=== PATIENT | male | born 1950 | race American Indian/Alaskan Native ===

== ENCOUNTER 2022-06-18 15:52 | Inpatient (IN) | payer MEDICARE, OTHER ==
[2022-06-18] MEDS ORDERED: SODIUM CHLORIDE 0.9% 1000 ML 1,000 ML IV ONE ×2 (16:59→22:35)
--- NOTE | 2022-06-18 17:07 | Emergency Department Report ---
ED Altered Mental Status HPI - General Chief Complaint: Altered Mental Status Stated Complaint: CONFUSION PUI?: No Time Seen by Provider: 06/18/22 16:55 Source: EMS Mode of arrival: Stretcher Limitations: Altered Mental Status - History of Present Illness Initial Comments: Patient is a 71-year-old male that presents emergency room via EMS for altered mental status and confusion. Patient is currently at [facility] for alcohol abuse and alcohol detox. Patient has been there for 5 days. Per EMS and the staff member this with the patient, the patient has been confused the entire time. However the patient is now not eating or drinking. Patient has not had alcohol for 5 days. Patient has had Ativan as needed while in the facility. Patient is also having scrotal swelling. Patient is nonverbal at this time. Patient has been nonverbal the entire time he has been at [facility]. Patient presents from [facility] and presents with a chart. Chart reviewed. Med list reviewed. Patient is currently taking Benadryl, Ativan, Cogentin.. Patient has a history of depression, dementia, alcohol abuse, hallucinations MD Complaint: altered mental status, confusion -: Gradual Severity: severe Consistency of Symptoms: constant Context: alcohol abuse - Related Data Allergies Allergy/AdvReac Type Severity Reaction Status Date / Time No Known Allergies Allergy Unverified 06/18/22 16:46 ED Review of Systems ROS: Stated complaint: CONFUSION Other details as noted in HPI Comment: Unobtainable due to pts medical conditions ED Past Medical Hx - Past Medical History Previous Medical History?: Yes Hx Psychiatric Treatment: Yes Hx Dementia: Yes - Surgical History Past Surgical History?: No - Family History Family history: no significant - Social History Smoking Status: Unknown if ever smoked Substance Use Type: Alcohol ED Physical Exam - General Limitations: Altered Mental Status, Physical Limitation General appearance: alert, in no apparent distress - Head Head exam: Present: atraumatic, normocephalic - Eye Eye exam: Present: normal appearance, PERRL Pupils: Present: normal accommodation - ENT ENT exam: Present: mucous membranes dry - Neck Neck exam: Present: normal inspection - Respiratory Respiratory exam: Present: normal lung sounds bilaterally. Absent: respiratory distress, wheezes, rales, rhonchi, stridor, chest wall tenderness, accessory muscle use, decreased breath sounds - Cardiovascular Cardiovascular Exam: Present: regular rate, normal rhythm. Absent: systolic murmur, diastolic murmur, rubs, gallop - GI/Abdominal GI/Abdominal exam: Present: soft, normal bowel sounds. Absent: distended, tenderness, guarding - Rectal Rectal exam: Present: deferred - exam: Present: circumcision, other (Scrotum is nontender.). Absent: testicular tenderness, urethral discharge, scrotal swelling External exam: Present: erythema, swelling, other (Patient is in an adult briefs that is completely saturated with urine and moist. Patient has generalized irritation to the scrotum and the penis consistent with a fungal infection.) - Extremities Exam Extremities exam: Present: normal inspection - Back Exam Back exam: Present: normal inspection - Neurological Exam Neurological exam: Present: alert, oriented X3 - Psychiatric Psychiatric exam: Present: normal affect, normal mood - Skin Skin exam: Present: warm, dry, intact, normal color. Absent: rash - Assessment Assessment Interval: Baseline - Level of Consciousness 1a. Level of Consciousness: arousable/minor stimuli - LOC Questions 1b. LOC Questions: answers no questions correctly - LOC Command 1c. LOC Commands: performs 1 task correctly - Best Gaze 2. Best Gaze: normal - Visual 3. Visual: no visual loss - Facial Palsy 4. Facial Palsy: normal symmetrical movement - Motor Arm 5a. Motor Arm Left: no drift 5b. Motor Arm Right: no drift - Motor Leg 6a. Motor Leg Left: no drift 6b. Motor Leg Right: no drift - Limb Ataxia 7. Limb Ataxia: absent - Sensory 8. Sensory: normal - Best Language 9. Best Language: mute/global aphasia - Dysarthria 10. Dysarthria: mild/moderate dysarthria - Extinction and Inattention 11. Extinction/Inattention: no abnormality - Scoring Total Score: 8 Stroke Severity: Moderate Stroke ED Course Vital Signs 06/18/22 06/18/22 06/18/22 15:53 16:55 18:53 Temperature 98.0 F 98.2 F Pulse Rate 91 H 88 88 Respiratory 16 18 14 Rate Blood Pressure 158/84 Blood Pressure 138/82 158/84 [Left] O2 Sat by Pulse 98 97 98 Oximetry - Reevaluation(s) Reevaluation #1: Patient is having increased restlessness. Patient will be given 10 mg of Geodon. 06/18/22 20:39 Reevaluation #2: Patient admitted to the hospital service. 06/18/22 22:45 - Consultations Consultation #1: Hospitalist consulted for admission. Hospitalist to admit patient. 06/18/22 22:39 - Lab Data Result diagrams: 06/18/22 17:20 06/18/22 17:20 Lab Results 06/18/22 06/18/22 06/18/22 Range/Units 17:20 17:20 17:20 WBC 5.6 (4.5-11.0) K/mm3 RBC 4.31 (3.65-5.03) M/mm3 Hgb 14.2 (11.8-15.2) gm/dl Hct 41.8 (35.5-45.6) % MCV 97 H (84-94) fl MCH 33 H (28-32) pg MCHC 34 (32-34) % RDW 12.9 L (13.2-15.2) % Plt Count 198 (140-440) K/mm3 Add Manual Diff Complete Total Counted 100 Seg Neutrophils % Par[employer] Sweater Operator Seg Neuts % (Manual) 44.0 (40.0-70.0) % Band Neutrophils % 0 % Lymphocytes % (Manual) 43.0 H (13.4-35.0) % Reactive Lymphs % (Man) 0 % Monocytes % (Manual) 9.0 H (0.0-7.3) % Eosinophils % (Manual) 3.0 (0.0-4.3) % Basophils % (Manual) 1.0 (0.0-1.8) % Metamyelocytes % 0 % Myelocytes % 0 % Promyelocytes % 0 % Blast Cells % 0 % Nucleated RBC % Not Reportable Seg Neutrophils # Man 2.5 (1.8-7.7) K/mm3 Band Neutrophils # 0.0 K/mm3 Lymphocytes # (Manual) 2.4 (1.2-5.4) K/mm3 Abs React Lymphs (Man) 0.0 K/mm3 Monocytes # (Manual) 0.5 (0.0-0.8) K/mm3 Eosinophils # (Manual) 0.2 (0.0-0.4) K/mm3 Basophils # (Manual) 0.1 (0.0-0.1) K/mm3 Metamyelocytes # 0.0 K/mm3 Myelocytes # 0.0 K/mm3 Promyelocytes # 0.0 K/mm3 Blast Cells # 0.0 K/mm3 WBC Morphology Not Reportable Hypersegmented Neuts Not Reportable Hyposegmented Neuts Not Reportable Hypogranular Neuts Not Reportable Smudge Cells Not Reportable Toxic Granulation Not Reportable Toxic Vacuolation Not Reportable Dohle Bodies Not Reportable Pelger-Huet Anomaly Not Reportable Radha Rods Not Reportable Platelet Estimate Consistent w auto Clumped Platelets Not Reportable Plt Clumps, EDTA Not Reportable Large Platelets Not Reportable Giant Platelets Not Reportable Platelet Satelliting Not Reportable Plt Morphology Comment Not Reportable RBC Morphology Not Reportable Dimorphic RBCs Not Reportable Polychromasia Not Reportable Hypochromasia Not Reportable Poikilocytosis Not Reportable Anisocytosis Not Reportable Microcytosis Not Reportable Macrocytosis Not Reportable Spherocytes Not Reportable Pappenheimer Bodies Not Reportable Sickle Cells Not Reportable Target Cells Not Reportable Tear Drop Cells Not Reportable Ovalocytes Not Reportable Helmet Cells Not Reportable [place]faro-Sunflower Bodies Not Reportable [place] Rings Not Reportable Cheryle Cells Not Reportable Bite Cells Not Reportable Crenated Cell Not Reportable Elliptocytes Not Reportable Acanthocytes (Spur) Not Reportable Rouleaux Not Reportable Hemoglobin C Crystals Not Reportable Schistocytes Not Reportable Malaria parasites Not Reportable Roland Bodies Not Reportable Hem Pathologist Commnt No Sodium 143 (137-145) mmol/L Potassium 4.1 (3.6-5.0) mmol/L Chloride 107.1 H (98-107) mmol/L Carbon Dioxide 21 L (22-30) mmol/L Anion Gap 19 mmol/L BUN 30 H (9-20) mg/dL Creatinine 1.0 (0.8-1.3) mg/dL Estimated GFR > 60 ml/min BUN/Creatinine Ratio 30 % Glucose 100 (75-100) mg/dL Lactic Acid 0.80 (0.7-2.0) mmol/L Calcium 9.0 (8.4-10.2) mg/dL Total Bilirubin 0.40 (0.1-1.2) mg/dL AST 32 (5-40) units/L ALT 23 (7-56) units/L Alkaline Phosphatase 77 (35-129) units/L Ammonia (25-60) umol/L Total Creatine Kinase 383 H (55-170) units/L Troponin T < 0.010 (0.00-0.029) ng/mL Total Protein 7.2 (6.3-8.2) g/dL Albumin 4.4 (3.9-5) g/dL Albumin/Globulin Ratio 1.6 % Plasma/Serum Alcohol (0-0.07) % 06/18/22 06/18/22 Range/Units 17:20 17:20 WBC (4.5-11.0) K/mm3 RBC (3.65-5.03) M/mm3 Hgb (11.8-15.2) gm/dl Hct (35.5-45.6) % MCV (84-94) fl MCH (28-32) pg MCHC (32-34) % RDW (13.2-15.2) % Plt Count (140-440) K/mm3 Add Manual Diff Total Counted Seg Neutrophils % Seg Neuts % (Manual) (40.0-70.0) % Band Neutrophils % % Lymphocytes % (Manual) (13.4-35.0) % Reactive Lymphs % (Man) % Monocytes % (Manual) (0.0-7.3) % Eosinophils % (Manual) (0.0-4.3) % Basophils % (Manual) (0.0-1.8) % Metamyelocytes % % Myelocytes % % Promyelocytes % % Blast Cells % % Nucleated RBC % Seg Neutrophils # Man (1.8-7.7) K/mm3 Band Neutrophils # K/mm3 Lymphocytes # (Manual) (1.2-5.4) K/mm3 Abs React Lymphs (Man) K/mm3 Monocytes # (Manual) (0.0-0.8) K/mm3 Eosinophils # (Manual) (0.0-0.4) K/mm3 Basophils # (Manual) (0.0-0.1) K/mm3 Metamyelocytes # K/mm3 Myelocytes # K/mm3 Promyelocytes # K/mm3 Blast Cells # K/mm3 WBC Morphology Hypersegmented Neuts Hyposegmented Neuts Hypogranular Neuts Smudge Cells Toxic Granulation Toxic Vacuolation Dohle Bodies Pelger-Huet Anomaly Radha Rods Platelet Estimate Clumped Platelets Plt Clumps, EDTA Large Platelets Giant Platelets Platelet Satelliting Plt Morphology Comment RBC Morphology Dimorphic RBCs Polychromasia Hypochromasia Poikilocytosis Anisocytosis Microcytosis Macrocytosis Spherocytes Pappenheimer Bodies Sickle Cells Target Cells Tear Drop Cells Ovalocytes Helmet Cells Alfaro-Sunflower Bodies [place] Rings [place] Cells Bite Cells Crenated Cell Elliptocytes Acanthocytes (Spur) Rouleaux Hemoglobin C Crystals Schistocytes Malaria parasites Roland Bodies Hem Pathologist Commnt Sodium (137-145) mmol/L Potassium (3.6-5.0) mmol/L Chloride (98-107) mmol/L Carbon Dioxide (22-30) mmol/L Anion Gap mmol/L BUN (9-20) mg/dL Creatinine (0.8-1.3) mg/dL Estimated GFR ml/min BUN/Creatinine Ratio % Glucose (75-100) mg/dL Lactic Acid (0.7-2.0) mmol/L Calcium (8.4-10.2) mg/dL Total Bilirubin (0.1-1.2) mg/dL AST (5-40) units/L ALT (7-56) units/L Alkaline Phosphatase (35-129) units/L Ammonia 10.0 L (25-60) umol/L Total Creatine Kinase (55-170) units/L Troponin T (0.00-0.029) ng/mL Total Protein (6.3-8.2) g/dL Albumin (3.9-5) g/dL Albumin/Globulin Ratio % Plasma/Serum Alcohol < 0.01 (0-0.07) % - Radiology Data Radiology results: report reviewed, image reviewed CT head/brain wo con INDICATION / CLINICAL INFORMATION: 71 years Male; Altered Mental Status. TECHNIQUE: Routine CT head without contrast. All CT scans at this location are performed using CT dose reduction for ALARA by means of automated exposure control. COMPARISON: None. FINDINGS: BRAIN / INTRACRANIAL CONTENTS: No acute hemorrhage, mass effect, midline shift, hydrocephalus, or acute, large territorial infarct. Cnoh-qe-kvvjpphw, diffuse cerebral and cerebellar atrophy. Moderate to marked degree of hippocampal atrophy suggested bilaterally. There are tsyp-gw-ukyfhilo areas of decreased attenuation in the white matter of the cerebral hemispheres. These are nonspecific findings and may be related to microangiopathy (hypertension, diabetes, atherosclerosis), given the patient's age. It might be difficult to evaluate for small areas of ischemia without diffusion imaging by MRI. Pontine disease noted. CRANIOCERVICAL JUNCTION: No significant abnormality. ORBITS: No significant abnormality of visualized orbits. SINUSES / MASTOIDS: Moderate mucosal thickening in the ethmoids, as well as the sphenoid sinuses. ADDITIONAL FINDINGS: Poor dentition noted. Atherosclerotic disease is seen in the anterior circulation. IMPRESSION: 1. No focal mass, hemorrhage, hydrocephalus, or acute, large territorial infarct. CHEST 1 VIEW INDICATION: Altered Mental Status. COMPARISON: None FINDINGS: SUPPORT DEVICES: None. HEART: Within normal limits. LUNGS/PLEURA: COPD changes in the lungs with no consolidation or effusion. ADDITIONAL FINDINGS: None. IMPRESSION: 1. No acute findings. - Medical Decision Making Patient is a 71-year-old male that presents emergency room from a local alcohol detox facility for altered mental status, confusion, not eating or drinking for 5 days, and scrotal irritation and swelling. Patient was in the local detox facility for 5 days. Patient stopped drinking just prior to going to the facility. Patient scrotal swelling is due to a fungal infection. Patient can be treated as an outpatient for this. Patient had labs done which were essentially unremarkable except for dehydration. Patient has CT scan of the head which was negative for acute findings. Patient had a chest x-ray which was negative for acute findings. Patient clarifies consistent with alcohol w ithdrawal with delirium, altered mental status, encephalopathy, dehydration. Patient admitted to the hospital service for further evaluation treatment. Critical care time documented due to the multiple reassessments, prolonged time at the bedside, interpretation of diagnostics and labs. - Differential Diagnosis Altered mental status, encephalopathy, UTI, alcohol withdrawal Critical Care Time: Yes Critical care time in (mins) excluding proc time.: 35 Critical care attestation.: If time is entered above; I have spent that time in minutes in the direct care of this critically ill patient, excluding procedure time. Critical Care Time: 35 minutes ED Disposition Clinical Impression: Encephalopathy acute, Dehydration, Agitation, Delirium, Tinea cruris Altered mental status Qualifiers: Altered mental status type: unspecified Qualified Code(s): R41.82 - Altered mental status, unspecified Alcohol withdrawal Qualifiers: Complication of substance-induced condition: with delirium Qualified Code(s): F10.931 - Alcohol use, unspecified with withdrawal delirium Disposition: 09 ADMITTED INPATIENT Is pt being admited?: No Does the pt Need Aspirin: No Condition: Critical Time of Disposition: 22:39
--- NOTE | 2022-06-18 17:29 | XRay Report ---
CHEST 1 VIEW INDICATION: Altered Mental Status. COMPARISON: None FINDINGS: SUPPORT DEVICES: None. HEART: Within normal limits. LUNGS/PLEURA: COPD changes in the lungs with no consolidation or effusion. ADDITIONAL FINDINGS: None. IMPRESSION: 1. No acute findings. Signer Name: Raleigh Frye MD Signed: 06/18/2022 5:24 PM Workstation Name: [id number]
[2022-06-18 17:51] LABS: Hematocrit 41.8 % (35.5-45.6); Hemoglobin 14.2 gm/dl (11.8-15.2); Mean Corpuscular HGB Conc 34 % (32-34); Mean Corpuscular Volume 97 fl (84-94); Platelet Count 198 K/mm3 (140-440); Red Blood Count 4.31 M/mm3 (3.65-5.03); Red Cell Distribution Width 12.9 % (13.2-15.2)
[2022-06-18] MEDS ORDERED: LORazepam 2 MG/ML VIAL IV PRN ×3 (18:01)
[2022-06-18 18:09] LABS: Alanine Aminotransferase 23 units/L (7-56); Albumin 4.4 g/dL (3.9-5); BUN/Creatinine Ratio 30; Blood Urea Nitrogen 30 mg/dL (9-20); Hemolysis Index 26
--- NOTE | 2022-06-18 18:15 | Cat Scan Report ---
CT head/brain wo con INDICATION / CLINICAL INFORMATION: 71 years Male; Altered Mental Status. TECHNIQUE: Routine CT head without contrast. All CT scans at this location are performed using CT dos e reduction for ALARA by means of automated exposure control. COMPARISON: None. FINDINGS: BRAIN / INTRACRANIAL CONTENTS: No acute hemorrhage, mass effect, midline shift, hydrocephalus, or acu te, large territorial infarct. Leed-uz-tloestkj, diffuse cerebral and cerebellar atrophy. Moderate to marked degree of hippocampal a trophy suggested bilaterally. There are yjjj-zq-ibjldwui areas of decreased attenuation in the white matter of the cerebral hemisph eres. These are nonspecific findings and may be related to microangiopathy (hypertension, diabetes, a therosclerosis), given the patient's age. It might be difficult to evaluate for small areas of ischem ia without diffusion imaging by MRI. Pontine disease noted. CRANIOCERVICAL JUNCTION: No significant abnormality. ORBITS: No significant abnormality of visualized orbits. SINUSES / MASTOIDS: Moderate mucosal thickening in the ethmoids, as well as the sphenoid sinuses. ADDITIONAL FINDINGS: Poor dentition noted. Atherosclerotic disease is seen in the anterior circulation. IMPRESSION: 1. No focal mass, hemorrhage, hydrocephalus, or acute, large territorial infarct. Signer Name: Jorge Alberto Santoyo MD, III Signed: 06/18/2022 6:11 PM Workstation Name: [id number]
[2022-06-18] MEDS ORDERED: ZIPRASIDONE MESYLATE 20 MG VIAL IM ONE (20:58)
[2022-06-18] MEDS ORDERED: WATER FOR INJ Sterile (PF) 10 ML ONE (21:07)
[2022-06-18 21:23] LABS: Total Cells Counted 100
[2022-06-18 21:24] LABS: Platelet Estimate Consistent w Auto
[2022-06-18 22:08] LABS: Bilirubin,Urine Negative (Negative); Blood,Urine Negative (Negative); Color,Urine Colorless (Yellow); Urobilinogen,Urine 0.2 mg/dL (<2.0)
[2022-06-18 22:09] LABS: Mucus,Urine FEW /HPF; RBC,Urine < 1.0 /HPF (0.0-6.0)
[2022-06-18] MEDS ORDERED: MAGNESIUM HYDROXIDE (MOM) ORAL LIQD UDC PO PRN (23:08)
[2022-06-18] MEDS ORDERED: ONDANSETRON 4 MG/2 ML INJ IV PRN (23:08)
--- NOTE | 2022-06-18 23:23 | History and Physical Report ---
History of Present Illness Date of examination: 06/18/22 Date of admission: 06/18/2022 Chief complaint: Altered mental status History of present illness: 71-year-old male resident of the mental health facility presents to the emergency room via EMS today for evaluation of changes in mental status and confusion. Patient currently a resident of [facility] rehab facility for alcohol abuse and alcohol detoxification. He has been a resident for about 5 days and he has been found to be quite confused. There has been no fever or chills, no chest pain or shortness of breath. Patient has been having poor oral intake. Most of the history was obtained from the ER staff as patient is nonverbal. Work-up in the emergency room today, significant findings were that of elevated BUN of 30. Chest x-ray and CT scan of the head were unremarkable. Past History Past Medical History: other (Mental illness, dementia) Past Surgical History: No surgical history Social history: alcohol abuse Medications and Allergies Allergies Allergy/AdvReac Type Severity Reaction Status Date / Time No Known Allergies Allergy Unverified 06/18/22 16:46 Active Meds: Active Medications Acetaminophen (Acetaminophen 325 Mg Tab) 650 mg PO Q4H PRN PRN Reason: Pain MILD(1-3)/Fever >100.5/MCGEE Heparin Sodium (Porcine) (Heparin 5,000 Unit/1 Ml Vial) 5,000 unit SUB-Q Q8HR DAVID Sodium Chloride (Nacl 0.9% 1000 Ml) 1,000 mls @ 999 mls/hr IV BOLUS ONE Stop: 06/18/22 23:35 Sodium Chloride (Nacl 0.9% 1000 Ml) 1,000 mls @ 125 mls/hr IV DIRECT DAVID Lorazepam (Lorazepam 2 Mg/Ml Vial) 4 mg IV Q15MIN PRN PRN Reason: CIWA-Ar >25 Lorazepam (Lorazepam 2 Mg/Ml Vial) 2 mg IV Q1HR PRN PRN Reason: CIWA-Ar 8-15 Last Admin: 06/18/22 19:05 Dose: 2 mg Lorazepam (Lorazepam 2 Mg/Ml Vial) 4 mg IV Q1HR PRN PRN Reason: CIWA-Ar 16-25 Magnesium Hydroxide (Magnesium Hydroxide (Mom) Oral Liqd Udc) 30 ml PO Q4H PRN PRN Reason: Constipation Morphine Sulfate (Morphine 2 Mg/1 Ml Inj) 2 mg IV Q4H PRN PRN Reason: Pain, Moderate (4-6) Morphine Sulfate (Morphine 4 Mg/1 Ml Inj) 4 mg IV Q4H PRN PRN Reason: Pain , Severe (7-10) Ondansetron HCl (Ondansetron 4 Mg/2 Ml Inj) 4 mg IV Q8H PRN PRN Reason: Nausea And Vomiting Sodium Chloride (Sodium Chloride 0.9% 10 Ml Flush Syringe) 10 ml IV BID DAVID Sodium Chloride (Sodium Chloride 0.9% 10 Ml Flush Syringe) 10 ml IV PRN PRN PRN Reason: LINE FLUSH Review of Systems ROS unobtainable: due to mental status Exam - Constitutional Vitals: Temp Pulse Resp BP Pulse Ox 98.2 F 88 14 158/84 98 06/18/22 16:55 06/18/22 18:53 06/18/22 18:53 06/18/22 18:53 06/18/22 18:53 General appearance: Present: no acute distress, well-nourished, disheveled - EENT Eyes: Present: PERRL, EOM intact. Absent: scleral icterus ENT: hearing intact, clear oral mucosa, dentition normal - Neck Neck: Present: supple, normal ROM - Respiratory Respiratory: bilateral: CTA - Cardiovascular Rhythm: regular Heart Sounds: Present: S1 & S2. Absent: gallop, systolic murmur, diastolic murmur, rub, click - Extremities Extremities: no ischemia, pulses intact, pulses symmetrical, No edema, normal temperature, normal color, Full ROM Peripheral Pulses: within normal limits - Abdominal General gastrointestinal: Present: soft, non-tender, non-distended, normal bowel sounds. Absent: mass - Integumentary Integumentary: Present: warm, decreased turgor. Absent: rash - Musculoskeletal Musculoskeletal: strength equal bilaterally - Psychiatric Psychiatric: cooperative - Neurologic Neurologic: CNII-XII intact, no focal deficits, moves all extremities HEART Score - HEART Score Troponin: Troponin T < 0.010 ng/mL (0.00-0.029) 06/18/22 17:20 Results - Labs CBC & Chem 7: 06/18/22 17:20 06/18/22 17:20 Labs: Abnormal lab results 06/18/22 06/18/22 06/18/22 Range/Units 17:20 17:20 17:20 MCV 97 H (84-94) fl MCH 33 H (28-32) pg RDW 12.9 L (13.2-15.2) % Lymphocytes % (Manual) 43.0 H (13.4-35.0) % Monocytes % (Manual) 9.0 H (0.0-7.3) % Chloride 107.1 H (98-107) mmol/L Carbon Dioxide 21 L (22-30) mmol/L BUN 30 H (9-20) mg/dL Ammonia 10.0 L (25-60) umol/L Total Creatine Kinase 383 H (55-170) units/L Assessment and Plan Assessment: 1. Altered mental status 2. Dehydration 3. Alcohol withdrawal 4. History of dementia. Plan: 1. Patient admitted and placed on IV fluid. 2. Will place on CIWA protocol 3. We will resume routine home medications and monitor of mental status. 4. We will also place on multivitamins. DVT prophylaxis. Subcutaneous heparin CODE STATUS: Full code
[2022-06-19] MEDS ORDERED: THIAMINE 100 MG, FOLIC ACID 1 MG, MULTIPLE VITAMIN INJ, ADULT 10 ML in SODIUM CHLORIDE ... IV ONE (02:43)
[2022-06-19] MEDS: HEPARIN 5,000 UNIT/1 ML VIAL SUB-Q SCH ×3 (05:26→21:00)
[2022-06-19 06:44] LABS: BUN/Creatinine Ratio 25; Blood Urea Nitrogen 20 mg/dL (9-20); Calcium 8.5 mg/dL (8.4-10.2); Hemolysis Index 52
--- NOTE | 2022-06-19 10:39 | Progress Note ---
Assessment and Plan Assessment and plan: #Acute metabolic encephalopathy -Etiology unknown -CT head negative for acute findings, UA negative, UDS ordered -TSH, B12, folate ordered -Psych/mental health eval ordered -will continue to monitor #Volume depletion -Continue IVFs #Alcohol withdrawal #Alcohol dependence -Patient presented from alcohol rehabilitation; per chart review last drink 5 days prior -continue CIWA protocol -Patient unable to provide further information #Discharge planning -Patient to return to rehabilitation center versus home once mental status improves History Interval history: No acute events overnight. Patient alert to person. He has no recollection of the events and is unable to recall where he is, the year and president. He reports pain in his right leg, but does not follow commands fully. Hospitalist Physical - Physical exam Narrative exam: GENERAL: Well-developed well-nourished. In no acute distress. HEENT: Normocephalic. Atraumatic. NECK: Supple. CHEST/LUNGS: CTAB on room air HEART/CARDIOVASCULAR: RRR. No murmur, rubs or gallops appreciated. ABDOMEN: +BS. NT/ND. SKIN: No rashes noted. NEURO: No focal motor deficit. Does not follow commands fully. MUSCULOSKELETAL: No joint effusion EXTREMITIES: No cyanosis, clubbing or edema. PSYCH: Alert to person, not place/time/situation - Constitutional Vitals: Temp Pulse Resp BP Pulse Ox 97.8 F 74 18 127/74 99 06/19/22 07:32 06/19/22 07:32 06/19/22 07:32 06/19/22 07:32 06/19/22 07:32 General appearance: Present: no acute distress, well-nourished, disheveled HEART Score - HEART Score Troponin: Troponin T < 0.010 ng/mL (0.00-0.029) 06/18/22 17:20 Results - Labs CBC & Chem 7: 06/18/22 17:20 06/19/22 05:35 Labs: Laboratory Last Values WBC 5.6 K/mm3 (4.5-11.0) 06/18/22 17:20 RBC 4.31 M/mm3 (3.65-5.03) 06/18/22 17:20 Hgb 14.2 gm/dl (11.8-15.2) 06/18/22 17:20 Hct 41.8 % (35.5-45.6) 06/18/22 17:20 MCV 97 fl (84-94) H 06/18/22 17:20 MCH 33 pg (28-32) H 06/18/22 17:20 MCHC 34 % (32-34) 06/18/22 17:20 RDW 12.9 % (13.2-15.2) L 06/18/22 17:20 Plt Count 198 K/mm3 (140-440) 06/18/22 17:20 Add Manual Diff Complete 06/18/22 17:20 Total Counted 100 06/18/22 17:20 Seg Neutrophils % Color Corrector 06/18/22 17:20 Seg Neuts % (Manual) 44.0 % (40.0-70.0) 06/18/22 17:20 Band Neutrophils % 0 % 06/18/22 17:20 Lymphocytes % (Manual) 43.0 % (13.4-35.0) H 06/18/22 17:20 Reactive Lymphs % (Man) 0 % 06/18/22 17:20 Monocytes % (Manual) 9.0 % (0.0-7.3) H 06/18/22 17:20 Eosinophils % (Manual) 3.0 % (0.0-4.3) 06/18/22 17:20 Basophils % (Manual) 1.0 % (0.0-1.8) 06/18/22 17:20 Metamyelocytes % 0 % 06/18/22 17:20 Myelocytes % 0 % 06/18/22 17:20 Promyelocytes % 0 % 06/18/22 17:20 Blast Cells % 0 % 06/18/22 17:20 Nucleated RBC % Not Reportable 06/18/22 17:20 Seg Neutrophils # Man 2.5 K/mm3 (1.8-7.7) 06/18/22 17:20 Band Neutrophils # 0.0 K/mm3 06/18/22 17:20 Lymphocytes # (Manual) 2.4 K/mm3 (1.2-5.4) 06/18/22 17:20 Abs React Lymphs (Man) 0.0 K/mm3 06/18/22 17:20 Monocytes # (Manual) 0.5 K/mm3 (0.0-0.8) 06/18/22 17:20 Eosinophils # (Manual) 0.2 K/mm3 (0.0-0.4) 06/18/22 17:20 Basophils # (Manual) 0.1 K/mm3 (0.0-0.1) 06/18/22 17:20 Metamyelocytes # 0.0 K/mm3 06/18/22 17:20 Myelocytes # 0.0 K/mm3 06/18/22 17:20 Promyelocytes # 0.0 K/mm3 06/18/22 17:20 Blast Cells # 0.0 K/mm3 06/18/22 17:20 WBC Morphology Not Reportable 06/18/22 17:20 Hypersegmented Neuts Not Reportable 06/18/22 17:20 Hyposegmented Neuts Not Reportable 06/18/22 17:20 Hypogranular Neuts Not Reportable 06/18/22 17:20 Smudge Cells Not Reportable 06/18/22 17:20 Toxic Granulation Not Reportable 06/18/22 17:20 Toxic Vacuolation Not Reportable 06/18/22 17:20 Dohle Bodies Not Reportable 06/18/22 17:20 Pelger-Huet Anomaly Not Reportable 06/18/22 17:20 Radha Rods Not Reportable 06/18/22 17:20 Platelet Estimate Consistent w auto 06/18/22 17:20 Clumped Platelets Not Reportable 06/18/22 17:20 Plt Clumps, EDTA Not Reportable 06/18/22 17:20 Large Platelets Not Reportable 06/18/22 17:20 Giant Platelets Not Reportable 06/18/22 17:20 Platelet Satelliting Not Reportable 06/18/22 17:20 Plt Morphology Comment Not Reportable 06/18/22 17:20 RBC Morphology Not Reportable 06/18/22 17:20 Dimorphic RBCs Not Reportable 06/18/22 17:20 Polychromasia Not Reportable 06/18/22 17:20 Hypochromasia Not Reportable 06/18/22 17:20 Poikilocytosis Not Reportable 06/18/22 17:20 Anisocytosis Not Reportable 06/18/22 17:20 Microcytosis Not Reportable 06/18/22 17:20 Macrocytosis Not Reportable 06/18/22 17:20 Spherocytes Not Reportable 06/18/22 17:20 Pappenheimer Bodies Not Reportable 06/18/22 17:20 Sickle Cells Not Reportable 06/18/22 17:20 Target Cells Not Reportable 06/18/22 17:20 Tear Drop Cells Not Reportable 06/18/22 17:20 Ovalocytes Not Reportable 06/18/22 17:20 Helmet Cells Not Reportable 06/18/22 17:20 Alfaro-[place]arn[place] Bodies Not Reportable 06/18/22 17:20 [place] Rings Not Reportable 06/18/22 17:20 [place] Cells Not Reportable 06/18/22 17:20 Bite Cells Not Reportable 06/18/22 17:20 Crenated Cell Not Reportable 06/18/22 17:20 Elliptocytes Not Reportable 06/18/22 17:20 Acanthocytes (Spur) Not Reportable 06/18/22 17:20 Rouleaux Not Reportable 06/18/22 17:20 Hemoglobin C Crystals Not Reportable 06/18/22 17:20 Schistocytes Not Reportable 06/18/22 17:20 Malaria parasites Not Reportable 06/18/22 17:20 Roland Bodies Not Reportable 06/18/22 17:20 Hem Pathologist Commnt No 06/18/22 17:20 Sodium 141 mmol/L (137-145) 06/19/22 05:35 Potassium 3.8 mmol/L (3.6-5.0) 06/19/22 05:35 Chloride 108.9 mmol/L (98-107) H 06/19/22 05:35 Carbon Dioxide 20 mmol/L (22-30) L 06/19/22 05:35 Anion Gap 16 mmol/L 06/19/22 05:35 BUN 20 mg/dL (9-20) 06/19/22 05:35 Creatinine 0.8 mg/dL (0.8-1.3) 06/19/22 05:35 Estimated GFR > 60 ml/min 06/19/22 05:35 BUN/Creatinine Ratio 25 % 06/19/22 05:35 Glucose 87 mg/dL (75-100) 06/19/22 05:35 Lactic Acid 0.80 mmol/L (0.7-2.0) 06/18/22 17:20 Calcium 8.5 mg/dL (8.4-10.2) 06/19/22 05:35 Total Bilirubin 0.40 mg/dL (0.1-1.2) 06/18/22 17:20 AST 32 units/L (5-40) 06/18/22 17:20 ALT 23 units/L (7-56) 06/18/22 17:20 Alkaline Phosphatase 77 units/L (35-129) 06/18/22 17:20 Ammonia 10.0 umol/L (25-60) L 06/18/22 17:20 Total Creatine Kinase 383 units/L (55-170) H 06/18/22 17:20 Troponin T < 0.010 ng/mL (0.00-0.029) 06/18/22 17:20 Total Protein 7.2 g/dL (6.3-8.2) 06/18/22 17:20 Albumin 4.4 g/dL (3.9-5) 06/18/22 17:20 Albumin/Globulin Ratio 1.6 % 06/18/22 17:20 Urine Color Colorless (Yellow) 06/18/22 Unknown Urine Turbidity Clear (Clear) 06/18/22 Unknown Urine pH 5.0 (5.0-7.0) 06/18/22 Unknown Ur Specific [place] 1.015 (1.003-1.030) 06/18/22 Unknown Urine Protein 30 mg/dl mg/dL (Negative) 06/18/22 Unknown Urine Glucose (UA) Negative mg/dL (Negative) 06/18/22 Unknown Urine Ketones 25 mg/dL (Negative) 06/18/22 Unknown Urine Blood Negative (Negative) 06/18/22 Unknown Urine Nitrite Negative (Negative) 06/18/22 Unknown Urine Bilirubin Negative (Negative) 06/18/22 Unknown Urine Urobilinogen 0.2 mg/dL (<2.0) 06/18/22 Unknown Ur Leukocyte Esterase Negative (Negative) 06/18/22 Unknown Urine WBC (Auto) 1.0 /HPF (0.0-6.0) 06/18/22 Unknown Urine RBC (Auto) < 1.0 /HPF (0.0-6.0) 06/18/22 Unknown Urine Mucus Few /HPF 06/18/22 Unknown Plasma/Serum Alcohol < 0.01 % (0-0.07) 06/18/22 17:20 Quezada/IV: Voiding Method Urinal Active Medications - Current Medications Current Medications: Generic Name Dose Route Start Last Admin Trade Name Freq PRN Reason Stop Dose Admin Acetaminophen 650 mg 06/18/22 23:08 Acetaminophen 325 Mg Tab PO Q4H PRN Pain MILD(1-3)/Fever >100.5/MCGEE Heparin Sodium (Porcine) 5,000 unit 06/19/22 06:00 06/19/22 05:26 Heparin 5,000 Unit/1 Ml Vial SUB-Q 5,000 unit Q8HR DAVID Administration Sodium Chloride 1,000 mls @ 125 mls/hr 06/18/22 23:15 Nacl 0.9% 1000 Ml IV DIRECT DAVID Lorazepam 4 mg 06/18/22 18:01 Lorazepam 2 Mg/Ml Vial IV Q15MIN PRN CIWA-Ar >25 Lorazepam 2 mg 06/18/22 18:01 06/18/22 19:05 Lorazepam 2 Mg/Ml Vial IV 2 mg Q1HR PRN Administration CIWA-Ar 8-15 Lorazepam 4 mg 06/18/22 18:01 Lorazepam 2 Mg/Ml Vial IV Q1HR PRN CIWA-Ar 16-25 Magnesium Hydroxide 30 ml 06/18/22 23:08 Magnesium Hydroxide (Mom) Oral Liqd Udc PO Q4H PRN Constipation Morphine Sulfate 2 mg 06/18/22 23:08 Morphine 2 Mg/1 Ml Inj IV Q4H PRN Pain, Moderate (4-6) Morphine Sulfate 4 mg 06/18/22 23:08 Morphine 4 Mg/1 Ml Inj IV Q4H PRN Pain , Severe (7-10) Ondansetron HCl 4 mg 06/18/22 23:08 Ondansetron 4 Mg/2 Ml Inj IV Q8H PRN Nausea And Vomiting Sodium Chloride 10 ml 06/19/22 10:00 06/19/22 09:29 Sodium Chloride 0.9% 10 Ml Flush Syringe IV Not Given BID DAVID Sodium Chloride 10 ml 06/18/22 23:08 Sodium Chloride 0.9% 10 Ml Flush Syringe IV PRN PRN LINE FLUSH
[2022-06-19] MEDS: SODIUM CHLORIDE 0.9% 1000 ML 1,000 ML IV SCH ×2 (10:57→20:55)
[2022-06-19] MEDS ORDERED: FOLIC ACID 1 MG in SODIUM CHLORIDE 0.9% 50 ML IV SCH (11:00)
[2022-06-19] MEDS ORDERED: LORazepam 2 MG TAB PO PRN (11:11)
[2022-06-19] MEDS: LORazepam 2 MG TAB PO PRN (11:56)
[2022-06-19] MEDS: chlordiazePOXIDE 25 MG CAP PO SCH ×2 (16:58→20:56)
[2022-06-19 18:41] LABS: Amphetamine Screen,Urine Negative; Benzodiazepines Screen,Urine Negative; Cannabinoid Screen,Urine Negative; Cocaine Screen,Urine Negative; Methadone Screen,Urine Negative; Opiate Screen,Urine Negative
[2022-06-20] MEDS: HEPARIN 5,000 UNIT/1 ML VIAL SUB-Q SCH ×3 (05:42→21:46)
[2022-06-20 06:45] LABS: BUN/Creatinine Ratio 13; Blood Urea Nitrogen 12 mg/dL (9-20); Calcium 8.2 mg/dL (8.4-10.2); Hemolysis Index 8
--- NOTE | 2022-06-20 08:34 | Progress Note ---
Assessment and Plan Assessment and plan: #Acute metabolic encephalopathy -Etiology unknown -CT head negative for acute findings, UA negative, UDS ordered -TSH, B12, folate WNL -Psych/mental health eval ordered -will continue to monitor #Volume depletion-resolved -patient tolerating PO, will stop IVFs #Alcohol withdrawal #Alcohol dependence -Patient presented from alcohol rehabilitation; per chart review last drink 5 days prior to admission -continue CIWA protocol -librium taper #Discharge planning -Patient discharged from [facility] and was initially transferred from a hospital in [facility] -Currently unable to locate family for safe disposition, patient continues to be confused History Interval history: No acute events overnight. Patient alert to person. He is unable to provide details about his current residence and where he can find. He has no complaints at this time. Hospitalist Physical - Physical exam Narrative exam: GENERAL: Well-developed well-nourished. In no acute distress. HEENT: Normocephalic. Atraumatic. NECK: Supple. CHEST/LUNGS: CTAB on room air HEART/CARDIOVASCULAR: RRR. No murmur, rubs or gallops appreciated. ABDOMEN: +BS. NT/ND. SKIN: No rashes noted. NEURO: No focal motor deficit. Does not follow commands fully. MUSCULOSKELETAL: No joint effusion EXTREMITIES: No cyanosis, clubbing or edema. PSYCH: Alert to person, not place/time/situation - Constitutional Vitals: Temp Pulse Resp BP Pulse Ox 97.7 F 66 18 107/69 97 06/20/22 07:54 06/20/22 07:54 06/20/22 07:54 06/20/22 07:54 06/20/22 07:54 General appearance: Present: no acute distress, well-nourished, disheveled HEART Score - HEART Score Troponin: Troponin T < 0.010 ng/mL (0.00-0.029) 06/18/22 17:20 Results - Labs CBC & Chem 7: 06/18/22 17:20 06/20/22 04:25 Labs: Laboratory Last Values WBC 5.6 K/mm3 (4.5-11.0) 06/18/22 17:20 RBC 4.31 M/mm3 (3.65-5.03) 06/18/22 17:20 Hgb 14.2 gm/dl (11.8-15.2) 06/18/22 17:20 Hct 41.8 % (35.5-45.6) 06/18/22 17:20 MCV 97 fl (84-94) H 06/18/22 17:20 MCH 33 pg (28-32) H 06/18/22 17:20 MCHC 34 % (32-34) 06/18/22 17:20 RDW 12.9 % (13.2-15.2) L 06/18/22 17:20 Plt Count 198 K/mm3 (140-440) 06/18/22 17:20 Add Manual Diff Complete 06/18/22 17:20 Total Counted 100 06/18/22 17:20 Seg Neutrophils % Glass Curvature Gauger 06/18/22 17:20 Seg Neuts % (Manual) 44.0 % (40.0-70.0) 06/18/22 17:20 Band Neutrophils % 0 % 06/18/22 17:20 Lymphocytes % (Manual) 43.0 % (13.4-35.0) H 06/18/22 17:20 Reactive Lymphs % (Man) 0 % 06/18/22 17:20 Monocytes % (Manual) 9.0 % (0.0-7.3) H 06/18/22 17:20 Eosinophils % (Manual) 3.0 % (0.0-4.3) 06/18/22 17:20 Basophils % (Manual) 1.0 % (0.0-1.8) 06/18/22 17:20 Metamyelocytes % 0 % 06/18/22 17:20 Myelocytes % 0 % 06/18/22 17:20 Promyelocytes % 0 % 06/18/22 17:20 Blast Cells % 0 % 06/18/22 17:20 Nucleated RBC % Not Reportable 06/18/22 17:20 Seg Neutrophils # Man 2.5 K/mm3 (1.8-7.7) 06/18/22 17:20 Band Neutrophils # 0.0 K/mm3 06/18/22 17:20 Lymphocytes # (Manual) 2.4 K/mm3 (1.2-5.4) 06/18/22 17:20 Abs React Lymphs (Man) 0.0 K/mm3 06/18/22 17:20 Monocytes # (Manual) 0.5 K/mm3 (0.0-0.8) 06/18/22 17:20 Eosinophils # (Manual) 0.2 K/mm3 (0.0-0.4) 06/18/22 17:20 Basophils # (Manual) 0.1 K/mm3 (0.0-0.1) 06/18/22 17:20 Metamyelocytes # 0.0 K/mm3 06/18/22 17:20 Myelocytes # 0.0 K/mm3 06/18/22 17:20 Promyelocytes # 0.0 K/mm3 06/18/22 17:20 Blast Cells # 0.0 K/mm3 06/18/22 17:20 WBC Morphology Not Reportable 06/18/22 17:20 Hypersegmented Neuts Not Reportable 06/18/22 17:20 Hyposegmented Neuts Not Reportable 06/18/22 17:20 Hypogranular Neuts Not Reportable 06/18/22 17:20 Smudge Cells Not Reportable 06/18/22 17:20 Toxic Granulation Not Reportable 06/18/22 17:20 Toxic Vacuolation Not Reportable 06/18/22 17:20 Dohle Bodies Not Reportable 06/18/22 17:20 Pelger-Huet Anomaly Not Reportable 06/18/22 17:20 Radha Rods Not Reportable 06/18/22 17:20 Platelet Estimate Consistent w auto 06/18/22 17:20 Clumped Platelets Not Reportable 06/18/22 17:20 Plt Clumps, EDTA Not Reportable 06/18/22 17:20 Large Platelets Not Reportable 06/18/22 17:20 Giant Platelets Not Reportable 06/18/22 17:20 Platelet Satelliting Not Reportable 06/18/22 17:20 Plt Morphology Comment Not Reportable 06/18/22 17:20 RBC Morphology Not Reportable 06/18/22 17:20 Dimorphic RBCs Not Reportable 06/18/22 17:20 Polychromasia Not Reportable 06/18/22 17:20 Hypochromasia Not Reportable 06/18/22 17:20 Poikilocytosis Not Reportable 06/18/22 17:20 Anisocytosis Not Reportable 06/18/22 17:20 Microcytosis Not Reportable 06/18/22 17:20 Macrocytosis Not Reportable 06/18/22 17:20 Spherocytes Not Reportable 06/18/22 17:20 Pappenheimer Bodies Not Reportable 06/18/22 17:20 Sickle Cells Not Reportable 06/18/22 17:20 Target Cells Not Reportable 06/18/22 17:20 Tear Drop Cells Not Reportable 06/18/22 17:20 Ovalocytes Not Reportable 06/18/22 17:20 Helmet Cells Not Reportable 06/18/22 17:20 Alfaro-[place] Bodies Not Reportable 06/18/22 17:20 [place] Rings Not Reportable 06/18/22 17:20 [place] Cells Not Reportable 06/18/22 17:20 Bite Cells Not Reportable 06/18/22 17:20 Crenated Cell Not Reportable 06/18/22 17:20 Elliptocytes Not Reportable 06/18/22 17:20 Acanthocytes (Spur) Not Reportable 06/18/22 17:20 Rouleaux Not Reportable 06/18/22 17:20 Hemoglobin C Crystals Not Reportable 06/18/22 17:20 Schistocytes Not Reportable 06/18/22 17:20 Malaria parasites Not Reportable 06/18/22 17:20 Roland Bodies Not Reportable 06/18/22 17:20 Hem Pathologist Commnt No 06/18/22 17:20 Sodium 139 mmol/L (137-145) 06/20/22 04:25 Potassium 3.6 mmol/L (3.6-5.0) 06/20/22 04:25 Chloride 106.3 mmol/L (98-107) 06/20/22 04:25 Carbon Dioxide 22 mmol/L (22-30) 06/20/22 04:25 Anion Gap 14 mmol/L 06/20/22 04:25 BUN 12 mg/dL (9-20) 06/20/22 04:25 Creatinine 0.9 mg/dL (0.8-1.3) 06/20/22 04:25 Estimated GFR > 60 ml/min 06/20/22 04:25 BUN/Creatinine Ratio 13 % 06/20/22 04:25 Glucose 81 mg/dL (75-100) 06/20/22 04:25 Lactic Acid 0.80 mmol/L (0.7-2.0) 06/18/22 17:20 Calcium 8.2 mg/dL (8.4-10.2) L 06/20/22 04:25 Total Bilirubin 0.40 mg/dL (0.1-1.2) 06/18/22 17:20 AST 32 units/L (5-40) 06/18/22 17:20 ALT 23 units/L (7-56) 06/18/22 17:20 Alkaline Phosphatase 77 units/L (35-129) 06/18/22 17:20 Ammonia 10.0 umol/L (25-60) L 06/18/22 17:20 Total Creatine Kinase 383 units/L (55-170) H 06/18/22 17:20 Troponin T < 0.010 ng/mL (0.00-0.029) 06/18/22 17:20 Total Protein 7.2 g/dL (6.3-8.2) 06/18/22 17:20 Albumin 4.4 g/dL (3.9-5) 06/18/22 17:20 Albumin/Globulin Ratio 1.6 % 06/18/22 17:20 Vitamin B12 2000 pg/mL (211-911) H 06/19/22 20:22 Folate 20.00 ng/mL (7.3-26.0) 06/19/22 20:22 TSH 1.320 mlU/mL (0.270-4.200) 06/19/22 20:22 Urine Color Colorless (Yellow) 06/18/22 Unknown Urine Turbidity Clear (Clear) 06/18/22 Unknown Urine pH 5.0 (5.0-7.0) 06/18/22 Unknown Ur Specific [place] 1.015 (1.003-1.030) 06/18/22 Unknown Urine Protein 30 mg/dl mg/dL (Negative) 06/18/22 Unknown Urine Glucose (UA) Negative mg/dL (Negative) 06/18/22 Unknown Urine Ketones 25 mg/dL (Negative) 06/18/22 Unknown Urine Blood Negative (Negative) 06/18/22 Unknown Urine Nitrite Negative (Negative) 06/18/22 Unknown Urine Bilirubin Negative (Negative) 06/18/22 Unknown Urine Urobilinogen 0.2 mg/dL (<2.0) 06/18/22 Unknown Ur Leukocyte Esterase Negative (Negative) 06/18/22 Unknown Urine WBC (Auto) 1.0 /HPF (0.0-6.0) 06/18/22 Unknown Urine RBC (Auto) < 1.0 /HPF (0.0-6.0) 06/18/22 Unknown Urine Mucus Few /HPF 06/18/22 Unknown Urine Opiates Screen Negative 06/19/22 10:49 Urine Methadone Screen Negative 06/19/22 10:49 Ur Barbiturates Screen Negative 06/19/22 10:49 Ur Phencyclidine Scrn Negative 06/19/22 10:49 Ur Amphetamines Screen Negative 06/19/22 10:49 U Benzodiazepines Scrn Negative 06/19/22 10:49 Urine Cocaine Screen Negative 06/19/22 10:49 U Marijuana (THC) Screen Negative 06/19/22 10:49 Drugs of Abuse Note Disclamer 06/19/22 10:49 Plasma/Serum Alcohol < 0.01 % (0-0.07) 06/18/22 17:20 Quezada/IV: Voiding Method Condom Catheter Active Medications - Current Medications Current Medications: Generic Name Dose Route Start Last Admin Trade Name Freq PRN Reason Stop Dose Admin Acetaminophen 650 mg 06/18/22 23:08 Acetaminophen 325 Mg Tab PO Q4H PRN Pain MILD(1-3)/Fever >100.5/MCGEE Chlordiazepoxide HCl 25 mg 06/20/22 10:00 Chlordiazepoxide 25 Mg Cap PO BID DAVID Heparin Sodium (Porcine) 5,000 unit 06/19/22 06:00 06/20/22 05:42 Heparin 5,000 Unit/1 Ml Vial SUB-Q 5,000 unit Q8HR DAVID Administration Sodium Chloride 1,000 mls @ 125 mls/hr 06/18/22 23:15 06/19/22 20:55 Nacl 0.9% 1000 Ml IV 125 mls/hr DIRECT DAVID Administration Thiamine HCl 100 mg/ Sodium 51 mls @ 100 mls/hr 06/20/22 10:00 Chloride IV QDAY DAVID Folic Acid 1 mg/ Sodium 50.2 mls @ 200.8 mls/hr 06/20/22 10:00 Chloride IV QDAY DAVID Lorazepam 2 mg 06/19/22 11:11 06/19/22 11:56 Lorazepam 2 Mg Tab PO 2 mg Q1H PRN Administration CIOR-Ar 8-15 Lorazepam 4 mg 06/19/22 11:11 Lorazepam 2 Mg Tab PO Q1H PRN CIWA-Ar 16-25 Magnesium Hydroxide 30 ml 06/18/22 23:08 Magnesium Hydroxide (Mom) Oral Liqd Udc PO Q4H PRN Constipation Morphine Sulfate 2 mg 06/18/22 23:08 Morphine 2 Mg/1 Ml Inj IV Q4H PRN Pain, Moderate (4-6) Morphine Sulfate 4 mg 06/18/22 23:08 Morphine 4 Mg/1 Ml Inj IV Q4H PRN Pain , Severe (7-10) Ondansetron HCl 4 mg 06/18/22 23:08 Ondansetron 4 Mg/2 Ml Inj IV Q8H PRN Nausea And Vomiting Sodium Chloride 10 ml 06/19/22 10:00 06/19/22 21:00 Sodium Chloride 0.9% 10 Ml Flush Syringe IV 10 ml BID DAVID Administration Sodium Chloride 10 ml 06/18/22 23:08 Sodium Chloride 0.9% 10 Ml Flush Syringe IV PRN PRN LINE FLUSH
[2022-06-20] MEDS: FOLIC ACID 1 MG in SODIUM CHLORIDE 0.9% 50 ML IV SCH (09:23)
[2022-06-20] MEDS: chlordiazePOXIDE 25 MG CAP PO SCH ×2 (09:23→21:46)
[2022-06-20] MEDS: THIAMINE 100 MG in SODIUM CHLORIDE 0.9% 50 ML IV SCH (09:23)
--- NOTE | 2022-06-20 11:21 | Consultation ---
History of Present Illness - Reason for Consult Consult date: 06/20/22 Reason for consult: AMS - Chief Complaint Chief complaint: Altered mental status - History of Present Psychiatric Illness HPI: 71-year-old male resident of the [facility] facility presents to the emergency room via EMS today for evaluation of changes in mental status and confusion. Patient currently a resident of alcohol rehab facility for alcohol abuse and alcohol detoxification. He has been a resident for about 5 days and he has been found to be quite confused. There has been no fever or chills, no chest pain or shortness of breath. Patient has been having poor oral intake. Most of the history was obtained from the ER staff as patient is nonverbal. The patient is a 71 year old male with history of alcohol use disorder who was consulted for altered mental status. The patient was seen today. He is in bilateral soft wrist restraints. The patient is confused, verbal but unable to engage in assessment at this time. PAST PSYCHIATRIC HISTORY: PAST MEDICAL HISTORY: None reported Family Psychiatric History: unknown SOCIAL HISTORY REVIEW OF SYSTEMS MENTAL STATUS Assessment Delirium Treatment Plan I agree with the current treatment plan. continue CIWA protocol Continue home meds Medical: Per primary SItter: Defer to primary Deposition: Do not recommend acute psychiatric inpatient. Will follow for medication management. Thanks Case staffed with Dr. Alvarado Medications and Allergies Medications and Allergies Allergies Allergy/AdvReac Type Severity Reaction Status Date / Time No Known Allergies Allergy Unverified 06/18/22 16:46 Active Meds: Active Medications Acetaminophen (Acetaminophen 325 Mg Tab) 650 mg PO Q4H PRN PRN Reason: Pain MILD(1-3)/Fever >100.5/MCGEE Chlordiazepoxide HCl (Chlordiazepoxide 25 Mg Cap) 25 mg PO BID [facility] Last Admin: 06/20/22 09:23 Dose: 25 mg Heparin Sodium (Porcine) (Heparin 5,000 Unit/1 Ml Vial) 5,000 unit SUB-Q Q8HR DAVID Last Admin: 06/20/22 05:42 Dose: 5,000 unit Thiamine HCl 100 mg/ Sodium (Chloride) 51 mls @ 100 mls/hr IV QDAY DAVID Last Admin: 06/20/22 09:23 Dose: 100 mls/hr Folic Acid 1 mg/ Sodium (Chloride) 50.2 mls @ 200.8 mls/hr IV QDAY [facility] Last Admin: 06/20/22 09:23 Dose: 200.8 mls/hr Lorazepam (Lorazepam 2 Mg Tab) 2 mg PO Q1H PRN PRN Reason: CIWA-Ar 8-15 Last Admin: 06/19/22 11:56 Dose: 2 mg Lorazepam (Lorazepam 2 Mg Tab) 4 mg PO Q1H PRN PRN Reason: CIWA-Ar 16-25 Magnesium Hydroxide (Magnesium Hydroxide (Mom) Oral Liqd Udc) 30 ml PO Q4H PRN PRN Reason: Constipation Morphine Sulfate (Morphine 2 Mg/1 Ml Inj) 2 mg IV Q4H PRN PRN Reason: Pain, Moderate (4-6) Morphine Sulfate (Morphine 4 Mg/1 Ml Inj) 4 mg IV Q4H PRN PRN Reason: Pain , Severe (7-10) Ondansetron HCl (Ondansetron 4 Mg/2 Ml Inj) 4 mg IV Q8H PRN PRN Reason: Nausea And Vomiting Sodium Chloride (Sodium Chloride 0.9% 10 Ml Flush Syringe) 10 ml IV BID DAVID Last Admin: 06/20/22 09:23 Dose: 10 ml Sodium Chloride (Sodium Chloride 0.9% 10 Ml Flush Syringe) 10 ml IV PRN PRN PRN Reason: LINE FLUSH Mental Status Exam - Vital signs Last Vital Signs Temp 97.7 F 06/20/22 07:54 Pulse 66 06/20/22 07:54 Resp 18 06/20/22 07:54 BP 107/69 06/20/22 07:54 Pulse Ox 97 06/20/22 07:54 Results Result Diagrams: 06/18/22 17:20 06/20/22 04:25 Abnormal lab results 06/19/22 06/20/22 Range/Units 20:22 04:25 Calcium 8.2 L (8.4-10.2) mg/dL Vitamin B12 2000 H (211-911) pg/mL All other labs normal.
[2022-06-20] MEDS: LORazepam 2 MG TAB PO PRN (16:59)
[2022-06-21] MEDS: HEPARIN 5,000 UNIT/1 ML VIAL SUB-Q SCH ×3 (05:51→21:57)
--- NOTE | 2022-06-21 10:12 | Electrocardiograph Report ---
[facility] Test Date: 2022-06-19 Test Time: 01:22:52 Pat Name: YESSI MARIN Department: Room: A456 1 Gender: M Technical Staff Engineer: DUANE : 1950 Requested By: OLIVIA CORBETT III Order Number: [id number] Reading MD: Toshia Gaston Measurements Intervals [place] Rate: 87 P: 62 CO: 160 QRS: 74 QRSD: 94 T: 58 QT: 389 QTc: 468 Interpretive Statements Sinus rhythm Consider old anteroseptal infarct No previous ECG available for comparison Electronically Signed On 06-21-2022 10:11:56 EDT by Toshia Gaston
[2022-06-21] MEDS: FOLIC ACID 1 MG in SODIUM CHLORIDE 0.9% 50 ML IV SCH (11:06)
[2022-06-21] MEDS: THIAMINE 100 MG in SODIUM CHLORIDE 0.9% 50 ML IV SCH (11:06)
[2022-06-21] MEDS: ACETAMINOPHEN 325 MG TAB PO PRN (11:07)
[2022-06-21] MEDS: chlordiazePOXIDE 25 MG CAP PO SCH ×2 (11:08→21:57)
--- NOTE | 2022-06-21 12:59 | Progress Note ---
Assessment and Plan Assessment and plan: #Acute metabolic encephalopathy-improving -Etiology unknown, likely secondary to chronic alcohol abuse -CT head negative for acute findings, UA negative, UDS ordered -TSH, B12, folate WNL -Psych/mental health eval ordered -will continue to monitor #Alcohol withdrawal-resolved #Alcohol dependence -Patient presented from alcohol rehabilitation; per chart review last drink 5 days prior to admission -will discontinue CIWA protocol, patient out of window for alcohol withdrawal -librium taper #Volume depletion-resolved #Discharge planning -Patient discharged from [facility] and was initially transferred from a hospital in [facility] -Currently unable to locate family for safe disposition, patient continues to be confused History Interval history: No acute events overnight. Patient used to be confused and unable to provide any information as far as where he lives. He has no complaints at this time. Hospitalist Physical - Physical exam Narrative exam: GENERAL: Well-developed well-nourished. In no acute distress. HEENT: Normocephalic. Atraumatic. NECK: Supple. CHEST/LUNGS: CTAB on room air HEART/CARDIOVASCULAR: RRR. No murmur, rubs or gallops appreciated. ABDOMEN: +BS. NT/ND. SKIN: No rashes noted. NEURO: No focal motor deficit. Does not follow commands fully. MUSCULOSKELETAL: No joint effusion EXTREMITIES: No cyanosis, clubbing or edema. PSYCH: Alert to person, not place/time/situation - Constitutional Vitals: Temp Pulse Resp BP Pulse Ox 97.1 F L 73 17 144/86 100 06/21/22 11:14 06/21/22 11:14 06/21/22 11:14 06/21/22 11:14 06/21/22 11:14 General appearance: Present: no acute distress, well-nourished, disheveled HEART Score - HEART Score Troponin: Troponin T < 0.010 ng/mL (0.00-0.029) 06/18/22 17:20 Results - Labs CBC & Chem 7: 06/18/22 17:20 06/20/22 04:25 Labs: Laboratory Last Values WBC 5.6 K/mm3 (4.5-11.0) 06/18/22 17:20 RBC 4.31 M/mm3 (3.65-5.03) 06/18/22 17:20 Hgb 14.2 gm/dl (11.8-15.2) 06/18/22 17:20 Hct 41.8 % (35.5-45.6) 06/18/22 17:20 MCV 97 fl (84-94) H 06/18/22 17:20 MCH 33 pg (28-32) H 06/18/22 17:20 MCHC 34 % (32-34) 06/18/22 17:20 RDW 12.9 % (13.2-15.2) L 06/18/22 17:20 Plt Count 198 K/mm3 (140-440) 06/18/22 17:20 Add Manual Diff Complete 06/18/22 17:20 Total Counted 100 06/18/22 17:20 Seg Neutrophils % Prison Officer 06/18/22 17:20 Seg Neuts % (Manual) 44.0 % (40.0-70.0) 06/18/22 17:20 Band Neutrophils % 0 % 06/18/22 17:20 Lymphocytes % (Manual) 43.0 % (13.4-35.0) H 06/18/22 17:20 Reactive Lymphs % (Man) 0 % 06/18/22 17:20 Monocytes % (Manual) 9.0 % (0.0-7.3) H 06/18/22 17:20 Eosinophils % (Manual) 3.0 % (0.0-4.3) 06/18/22 17:20 Basophils % (Manual) 1.0 % (0.0-1.8) 06/18/22 17:20 Metamyelocytes % 0 % 06/18/22 17:20 Myelocytes % 0 % 06/18/22 17:20 Promyelocytes % 0 % 06/18/22 17:20 Blast Cells % 0 % 06/18/22 17:20 Nucleated RBC % Not Reportable 06/18/22 17:20 Seg Neutrophils # Man 2.5 K/mm3 (1.8-7.7) 06/18/22 17:20 Band Neutrophils # 0.0 K/mm3 06/18/22 17:20 Lymphocytes # (Manual) 2.4 K/mm3 (1.2-5.4) 06/18/22 17:20 Abs React Lymphs (Man) 0.0 K/mm3 06/18/22 17:20 Monocytes # (Manual) 0.5 K/mm3 (0.0-0.8) 06/18/22 17:20 Eosinophils # (Manual) 0.2 K/mm3 (0.0-0.4) 06/18/22 17:20 Basophils # (Manual) 0.1 K/mm3 (0.0-0.1) 06/18/22 17:20 Metamyelocytes # 0.0 K/mm3 06/18/22 17:20 Myelocytes # 0.0 K/mm3 06/18/22 17:20 Promyelocytes # 0.0 K/mm3 06/18/22 17:20 Blast Cells # 0.0 K/mm3 06/18/22 17:20 WBC Morphology Not Reportable 06/18/22 17:20 Hypersegmented Neuts Not Reportable 06/18/22 17:20 Hyposegmented Neuts Not Reportable 06/18/22 17:20 Hypogranular Neuts Not Reportable 06/18/22 17:20 Smudge Cells Not Reportable 06/18/22 17:20 Toxic Granulation Not Reportable 06/18/22 17:20 Toxic Vacuolation Not Reportable 06/18/22 17:20 Dohle Bodies Not Reportable 06/18/22 17:20 Pelger-Huet Anomaly Not Reportable 06/18/22 17:20 Radha Rods Not Reportable 06/18/22 17:20 Platelet Estimate Consistent w auto 06/18/22 17:20 Clumped Platelets Not Reportable 06/18/22 17:20 Plt Clumps, EDTA Not Reportable 06/18/22 17:20 Large Platelets Not Reportable 06/18/22 17:20 Giant Platelets Not Reportable 06/18/22 17:20 Platelet Satelliting Not Reportable 06/18/22 17:20 Plt Morphology Comment Not Reportable 06/18/22 17:20 RBC Morphology Not Reportable 06/18/22 17:20 Dimorphic RBCs Not Reportable 06/18/22 17:20 Polychromasia Not Reportable 06/18/22 17:20 Hypochromasia Not Reportable 06/18/22 17:20 Poikilocytosis Not Reportable 06/18/22 17:20 Anisocytosis Not Reportable 06/18/22 17:20 Microcytosis Not Reportable 06/18/22 17:20 Macrocytosis Not Reportable 06/18/22 17:20 Spherocytes Not Reportable 06/18/22 17:20 Pappenheimer Bodies Not Reportable 06/18/22 17:20 Sickle Cells Not Reportable 06/18/22 17:20 Target Cells Not Reportable 06/18/22 17:20 Tear Drop Cells Not Reportable 06/18/22 17:20 Ovalocytes Not Reportable 06/18/22 17:20 Helmet Cells Not Reportable 06/18/22 17:20 [place] Bodies Not Reportable 06/18/22 17:20 [place] Rings Not Reportable 06/18/22 17:20 [place] Cells Not Reportable 06/18/22 17:20 Bite Cells Not Reportable 06/18/22 17:20 Crenated Cell Not Reportable 06/18/22 17:20 Elliptocytes Not Reportable 06/18/22 17:20 Acanthocytes (Spur) Not Reportable 06/18/22 17:20 Rouleaux Not Reportable 06/18/22 17:20 Hemoglobin C Crystals Not Reportable 06/18/22 17:20 Schistocytes Not Reportable 06/18/22 17:20 Malaria parasites Not Reportable 06/18/22 17:20 Roland Bodies Not Reportable 06/18/22 17:20 Hem Pathologist Commnt No 06/18/22 17:20 Sodium 139 mmol/L (137-145) 06/20/22 04:25 Potassium 3.6 mmol/L (3.6-5.0) 06/20/22 04:25 Chloride 106.3 mmol/L (98-107) 06/20/22 04:25 Carbon Dioxide 22 mmol/L (22-30) 06/20/22 04:25 Anion Gap 14 mmol/L 06/20/22 04:25 BUN 12 mg/dL (9-20) 06/20/22 04:25 Creatinine 0.9 mg/dL (0.8-1.3) 06/20/22 04:25 Estimated GFR > 60 ml/min 06/20/22 04:25 BUN/Creatinine Ratio 13 % 06/20/22 04:25 Glucose 81 mg/dL (75-100) 06/20/22 04:25 Lactic Acid 0.80 mmol/L (0.7-2.0) 06/18/22 17:20 Calcium 8.2 mg/dL (8.4-10.2) L 06/20/22 04:25 Total Bilirubin 0.40 mg/dL (0.1-1.2) 06/18/22 17:20 AST 32 units/L (5-40) 06/18/22 17:20 ALT 23 units/L (7-56) 06/18/22 17:20 Alkaline Phosphatase 77 units/L (35-129) 06/18/22 17:20 Ammonia 10.0 umol/L (25-60) L 06/18/22 17:20 Total Creatine Kinase 383 units/L (55-170) H 06/18/22 17:20 Troponin T < 0.010 ng/mL (0.00-0.029) 06/18/22 17:20 Total Protein 7.2 g/dL (6.3-8.2) 06/18/22 17:20 Albumin 4.4 g/dL (3.9-5) 06/18/22 17:20 Albumin/Globulin Ratio 1.6 % 06/18/22 17:20 Vitamin B12 2000 pg/mL (211-911) H 06/19/22 20:22 Folate 20.00 ng/mL (7.3-26.0) 06/19/22 20:22 TSH 1.320 mlU/mL (0.270-4.200) 06/19/22 20:22 Urine Color Colorless (Yellow) 06/18/22 Unknown Urine Turbidity Clear (Clear) 06/18/22 Unknown Urine pH 5.0 (5.0-7.0) 06/18/22 Unknown Ur Specific [place] 1.015 (1.003-1.030) 06/18/22 Unknown Urine Protein 30 mg/dl mg/dL (Negative) 06/18/22 Unknown Urine Glucose (UA) Negative mg/dL (Negative) 06/18/22 Unknown Urine Ketones 25 mg/dL (Negative) 06/18/22 Unknown Urine Blood Negative (Negative) 06/18/22 Unknown Urine Nitrite Negative (Negative) 06/18/22 Unknown Urine Bilirubin Negative (Negative) 06/18/22 Unknown Urine Urobilinogen 0.2 mg/dL (<2.0) 06/18/22 Unknown Ur Leukocyte Esterase Negative (Negative) 06/18/22 Unknown Urine WBC (Auto) 1.0 /HPF (0.0-6.0) 06/18/22 Unknown Urine RBC (Auto) < 1.0 /HPF (0.0-6.0) 06/18/22 Unknown Urine Mucus Few /HPF 06/18/22 Unknown Urine Opiates Screen Negative 06/19/22 10:49 Urine Methadone Screen Negative 06/19/22 10:49 Ur Barbiturates Screen Negative 06/19/22 10:49 Ur Phencyclidine Scrn Negative 06/19/22 10:49 Ur Amphetamines Screen Negative 06/19/22 10:49 U Benzodiazepines Scrn Negative 06/19/22 10:49 Urine Cocaine Screen Negative 06/19/22 10:49 U Marijuana (THC) Screen Negative 06/19/22 10:49 Drugs of Abuse Note Disclamer 06/19/22 10:49 Plasma/Serum Alcohol < 0.01 % (0-0.07) 06/18/22 17:20 Quezada/IV: Voiding Method Condom Catheter Active Medications - Current Medications Current Medications: Generic Name Dose Route Start Last Admin Trade Name Freq PRN Reason Stop Dose Admin Acetaminophen 650 mg 06/18/22 23:08 06/21/22 11:07 Acetaminophen 325 Mg Tab PO 650 mg Q4H PRN Administration Pain MILD(1-3)/Fever >100.5/MCGEE Chlordiazepoxide HCl 25 mg 06/20/22 10:00 06/21/22 11:08 Chlordiazepoxide 25 Mg Cap PO 25 mg BID DAVID Administration Heparin Sodium (Porcine) 5,000 unit 06/19/22 06:00 06/21/22 05:51 Heparin 5,000 Unit/1 Ml Vial SUB-Q 5,000 unit Q8HR DAVID Administration Thiamine HCl 100 mg/ Sodium 51 mls @ 100 mls/hr 06/20/22 10:00 06/21/22 11:06 Chloride IV 100 mls/hr QDAY DAVID Administration Folic Acid 1 mg/ Sodium 50.2 mls @ 200.8 mls/hr 06/20/22 10:00 06/21/22 11:06 Chloride IV 200.8 mls/hr QDAY DAVID Administration Lorazepam 2 mg 06/19/22 11:11 06/20/22 16:59 Lorazepam 2 Mg Tab PO 2 mg Q1H PRN Administration CIWA-Ar 8-15 Lorazepam 4 mg 06/19/22 11:11 Lorazepam 2 Mg Tab PO Q1H PRN CIWA-Ar 16-25 Magnesium Hydroxide 30 ml 06/18/22 23:08 Magnesium Hydroxide (Mom) Oral Liqd Udc PO Q4H PRN Constipation Morphine Sulfate 2 mg 06/18/22 23:08 Morphine 2 Mg/1 Ml Inj IV Q4H PRN Pain, Moderate (4-6) Morphine Sulfate 4 mg 06/18/22 23:08 Morphine 4 Mg/1 Ml Inj IV Q4H PRN Pain , Severe (7-10) Olanzapine 5 mg 06/20/22 12:30 06/21/22 11:07 Olanzapine 5 Mg Tab PO 5 mg DAILY DAVID Administration Ondansetron HCl 4 mg 06/18/22 23:08 Ondansetron 4 Mg/2 Ml Inj IV Q8H PRN Nausea And Vomiting Sodium Chloride 10 ml 06/19/22 10:00 06/21/22 11:06 Sodium Chloride 0.9% 10 Ml Flush Syringe IV 10 ml BID DAVID Administration Sodium Chloride 10 ml 06/18/22 23:08 Sodium Chloride 0.9% 10 Ml Flush Syringe IV PRN PRN LINE FLUSH
[2022-06-21] MEDS ORDERED: SODIUM CHLORIDE 0.9% 1000 ML 1,000 ML IV SCH (14:30)
--- NOTE | 2022-06-21 14:51 | Progress Note ---
Subjective - Reason for Consult Consult date: 06/21/22 Reason for consult: mental health evaluation - Chief Complaint Chief complaint: The patient was seen today. He is in bilateral soft wrist constraints; patient is resting quietly and easily aroused.He continues to be confused,unable to engage. REVIEW OF SYSTEMS MENTAL STATUS Assessment Delirium Treatment Plan I agree with the current treatment plan. continue CIWA protocol Continue home meds Medical: Per primary SItter: Defer to primary Deposition: Do not recommend acute psychiatric inpatient. Will follow for medication management. Thanks Case staffed with Dr. Alvarado Mental Status Exam - Vital signs Last Vital Signs Temp 97.1 F L 06/21/22 11:14 Pulse 73 06/21/22 11:14 Resp 17 06/21/22 11:14 BP 144/86 06/21/22 11:14 Pulse Ox 100 06/21/22 11:14
[2022-06-22] MEDS: HEPARIN 5,000 UNIT/1 ML VIAL SUB-Q SCH ×3 (05:42→22:29)
[2022-06-22] MEDS: chlordiazePOXIDE 25 MG CAP PO SCH ×2 (09:11→22:29)
[2022-06-22] MEDS ORDERED: LACTATED RINGERS 1,000 ML IV ONE (10:00)
--- NOTE | 2022-06-22 10:52 | Progress Note ---
Assessment and Plan Assessment and plan: #Acute metabolic encephalopathy-improving -Etiology unknown, likely secondary to chronic alcohol abuse -CT head negative for acute findings, UA negative, UDS unremarkable -TSH, B12, folate WNL -Psych/mental health eval consulted; appreciate recs -will continue to monitor #Alcohol withdrawal-resolved #Tachycardia #Alcohol dependence -Patient presented from alcohol rehabilitation; per chart review last drink 5 days prior to admission -will discontinue CIWA protocol, patient out of window for alcohol withdrawal -Continue librium taper. Ordering lactated ringer bolus to assist with tachycardia. Consider initiation of beta-asael if tachycardia continues. #Volume depletion-resolved #Advanced care planning -Disease education conducted, care plan discussed, diagnoses discussed, prognosis discussed, and patient acknowledges understanding with care plan -Time: +30 min #Discharge planning -Patient discharged from [facility] and was initially transferred from a hospital in [facility] -Currently unable to locate family for safe disposition, patient continues to be confused Disposition Plan: Continue medical management Total Time Spent with Patient (Minutes): 45 minutes History Interval history: No acute events overnight. Hospitalist Physical - Constitutional Vitals: Temp Pulse Resp BP Pulse Ox 98.7 F 107 H 22 143/78 99 06/22/22 07:50 06/22/22 07:51 06/22/22 07:50 06/22/22 07:50 06/22/22 03:48 General appearance: Present: no acute distress, well-nourished, disheveled - EENT Eyes: Present: PERRL, EOM intact ENT: hearing intact, poor dentition, edentulous - Neck Neck: Present: supple, normal ROM - Respiratory Respiratory effort: normal HEART Score - HEART Score Troponin: Troponin T < 0.010 ng/mL (0.00-0.029) 06/18/22 17:20 Results - Labs CBC & Chem 7: 06/18/22 17:20 06/20/22 04:25 Labs: Laboratory Last Values WBC 5.6 K/mm3 (4.5-11.0) 06/18/22 17:20 RBC 4.31 M/mm3 (3.65-5.03) 06/18/22 17:20 Hgb 14.2 gm/dl (11.8-15.2) 06/18/22 17:20 Hct 41.8 % (35.5-45.6) 06/18/22 17:20 MCV 97 fl (84-94) H 06/18/22 17:20 MCH 33 pg (28-32) H 06/18/22 17:20 MCHC 34 % (32-34) 06/18/22 17:20 RDW 12.9 % (13.2-15.2) L 06/18/22 17:20 Plt Count 198 K/mm3 (140-440) 06/18/22 17:20 Add Manual Diff Complete 06/18/22 17:20 Total Counted 100 06/18/22 17:20 Seg Neutrophils % Lighter 06/18/22 17:20 Seg Neuts % (Manual) 44.0 % (40.0-70.0) 06/18/22 17:20 Band Neutrophils % 0 % 06/18/22 17:20 Lymphocytes % (Manual) 43.0 % (13.4-35.0) H 06/18/22 17:20 Reactive Lymphs % (Man) 0 % 06/18/22 17:20 Monocytes % (Manual) 9.0 % (0.0-7.3) H 06/18/22 17:20 Eosinophils % (Manual) 3.0 % (0.0-4.3) 06/18/22 17:20 Basophils % (Manual) 1.0 % (0.0-1.8) 06/18/22 17:20 Metamyelocytes % 0 % 06/18/22 17:20 Myelocytes % 0 % 06/18/22 17:20 Promyelocytes % 0 % 06/18/22 17:20 Blast Cells % 0 % 06/18/22 17:20 Nucleated RBC % Not Reportable 06/18/22 17:20 Seg Neutrophils # Man 2.5 K/mm3 (1.8-7.7) 06/18/22 17:20 Band Neutrophils # 0.0 K/mm3 06/18/22 17:20 Lymphocytes # (Manual) 2.4 K/mm3 (1.2-5.4) 06/18/22 17:20 Abs React Lymphs (Man) 0.0 K/mm3 06/18/22 17:20 Monocytes # (Manual) 0.5 K/mm3 (0.0-0.8) 06/18/22 17:20 Eosinophils # (Manual) 0.2 K/mm3 (0.0-0.4) 06/18/22 17:20 Basophils # (Manual) 0.1 K/mm3 (0.0-0.1) 06/18/22 17:20 Metamyelocytes # 0.0 K/mm3 06/18/22 17:20 Myelocytes # 0.0 K/mm3 06/18/22 17:20 Promyelocytes # 0.0 K/mm3 06/18/22 17:20 Blast Cells # 0.0 K/mm3 06/18/22 17:20 WBC Morphology Not Reportable 06/18/22 17:20 Hypersegmented Neuts Not Reportable 06/18/22 17:20 Hyposegmented Neuts Not Reportable 06/18/22 17:20 Hypogranular Neuts Not Reportable 06/18/22 17:20 Smudge Cells Not Reportable 06/18/22 17:20 Toxic Granulation Not Reportable 06/18/22 17:20 Toxic Vacuolation Not Reportable 06/18/22 17:20 Dohle Bodies Not Reportable 06/18/22 17:20 Pelger-Huet Anomaly Not Reportable 06/18/22 17:20 Radha Rods Not Reportable 06/18/22 17:20 Platelet Estimate Consistent w auto 06/18/22 17:20 Clumped Platelets Not Reportable 06/18/22 17:20 Plt Clumps, EDTA Not Reportable 06/18/22 17:20 Large Platelets Not Reportable 06/18/22 17:20 Giant Platelets Not Reportable 06/18/22 17:20 Platelet Satelliting Not Reportable 06/18/22 17:20 Plt Morphology Comment Not Reportable 06/18/22 17:20 RBC Morphology Not Reportable 06/18/22 17:20 Dimorphic RBCs Not Reportable 06/18/22 17:20 Polychromasia Not Reportable 06/18/22 17:20 Hypochromasia Not Reportable 06/18/22 17:20 Poikilocytosis Not Reportable 06/18/22 17:20 Anisocytosis Not Reportable 06/18/22 17:20 Microcytosis Not Reportable 06/18/22 17:20 Macrocytosis Not Reportable 06/18/22 17:20 Spherocytes Not Reportable 06/18/22 17:20 Pappenheimer Bodies Not Reportable 06/18/22 17:20 Sickle Cells Not Reportable 06/18/22 17:20 Target Cells Not Reportable 06/18/22 17:20 Tear Drop Cells Not Reportable 06/18/22 17:20 Ovalocytes Not Reportable 06/18/22 17:20 Helmet Cells Not Reportable 06/18/22 17:20 [place]far[place] Bodies Not Reportable 06/18/22 17:20 [place] Rings Not Reportable 06/18/22 17:20 [place] Cells Not Reportable 06/18/22 17:20 Bite Cells Not Reportable 06/18/22 17:20 Crenated Cell Not Reportable 06/18/22 17:20 Elliptocytes Not Reportable 06/18/22 17:20 Acanthocytes (Spur) Not Reportable 06/18/22 17:20 Rouleaux Not Reportable 06/18/22 17:20 Hemoglobin C Crystals Not Reportable 06/18/22 17:20 Schistocytes Not Reportable 06/18/22 17:20 Malaria parasites Not Reportable 06/18/22 17:20 Roland Bodies Not Reportable 06/18/22 17:20 Hem Pathologist Commnt No 06/18/22 17:20 Sodium 139 mmol/L (137-145) 06/20/22 04:25 Potassium 3.6 mmol/L (3.6-5.0) 06/20/22 04:25 Chloride 106.3 mmol/L (98-107) 06/20/22 04:25 Carbon Dioxide 22 mmol/L (22-30) 06/20/22 04:25 Anion Gap 14 mmol/L 06/20/22 04:25 BUN 12 mg/dL (9-20) 06/20/22 04:25 Creatinine 0.9 mg/dL (0.8-1.3) 06/20/22 04:25 Estimated GFR > 60 ml/min 06/20/22 04:25 BUN/Creatinine Ratio 13 % 06/20/22 04:25 Glucose 81 mg/dL (75-100) 06/20/22 04:25 POC Glucose 81 mg/dL (70-105) 06/21/22 16:12 Lactic Acid 0.80 mmol/L (0.7-2.0) 06/18/22 17:20 Calcium 8.2 mg/dL (8.4-10.2) L 06/20/22 04:25 Total Bilirubin 0.40 mg/dL (0.1-1.2) 06/18/22 17:20 AST 32 units/L (5-40) 06/18/22 17:20 ALT 23 units/L (7-56) 06/18/22 17:20 Alkaline Phosphatase 77 units/L (35-129) 06/18/22 17:20 Ammonia 10.0 umol/L (25-60) L 06/18/22 17:20 Total Creatine Kinase 383 units/L (55-170) H 06/18/22 17:20 Troponin T < 0.010 ng/mL (0.00-0.029) 06/18/22 17:20 Total Protein 7.2 g/dL (6.3-8.2) 06/18/22 17:20 Albumin 4.4 g/dL (3.9-5) 06/18/22 17:20 Albumin/Globulin Ratio 1.6 % 06/18/22 17:20 Vitamin B12 2000 pg/mL (211-911) H 06/19/22 20:22 Folate 20.00 ng/mL (7.3-26.0) 06/19/22 20:22 TSH 1.320 mlU/mL (0.270-4.200) 06/19/22 20:22 Urine Color Colorless (Yellow) 06/18/22 Unknown Urine Turbidity Clear (Clear) 06/18/22 Unknown Urine pH 5.0 (5.0-7.0) 06/18/22 Unknown Ur Specific [place] 1.015 (1.003-1.030) 06/18/22 Unknown Urine Protein 30 mg/dl mg/dL (Negative) 06/18/22 Unknown Urine Glucose (UA) Negative mg/dL (Negative) 06/18/22 Unknown Urine Ketones 25 mg/dL (Negative) 06/18/22 Unknown Urine Blood Negative (Negative) 06/18/22 Unknown Urine Nitrite Negative (Negative) 06/18/22 Unknown Urine Bilirubin Negative (Negative) 06/18/22 Unknown Urine Urobilinogen 0.2 mg/dL (<2.0) 06/18/22 Unknown Ur Leukocyte Esterase Negative (Negative) 06/18/22 Unknown Urine WBC (Auto) 1.0 /HPF (0.0-6.0) 06/18/22 Unknown Urine RBC (Auto) < 1.0 /HPF (0.0-6.0) 06/18/22 Unknown Urine Mucus Few /HPF 06/18/22 Unknown Nasal Screen MRSA (PCR) Negative (Negative) 06/21/22 08:50 Urine Opiates Screen Negative 06/19/22 10:49 Urine Methadone Screen Negative 06/19/22 10:49 Ur Barbiturates Screen Negative 06/19/22 10:49 Ur Phencyclidine Scrn Negative 06/19/22 10:49 Ur Amphetamines Screen Negative 06/19/22 10:49 U Benzodiazepines Scrn Negative 06/19/22 10:49 Urine Cocaine Screen Negative 06/19/22 10:49 U Marijuana (THC) Screen Negative 06/19/22 10:49 Drugs of Abuse Note Disclamer 06/19/22 10:49 Plasma/Serum Alcohol < 0.01 % (0-0.07) 06/18/22 17:20 Quezada/IV: Voiding Method Condom Catheter Active Medications - Current Medications Current Medications: Generic Name Dose Route Start Last Admin Trade Name Freq PRN Reason Stop Dose Admin Acetaminophen 650 mg 06/18/22 23:08 06/21/22 11:07 Acetaminophen 325 Mg Tab PO 650 mg Q4H PRN Administration Pain MILD(1-3)/Fever >100.5/MCGEE Chlordiazepoxide HCl 25 mg 06/20/22 10:00 06/22/22 09:11 Chlordiazepoxide 25 Mg Cap PO 25 mg BID DAVID Administration Heparin Sodium (Porcine) 5,000 unit 06/19/22 06:00 06/22/22 05:42 Heparin 5,000 Unit/1 Ml Vial SUB-Q 5,000 unit Q8HR DAVID Administration Lactated Ringer's 1,000 mls @ 500 mls/hr 06/22/22 10:00 Lactated Ringers IV 06/22/22 11:59 BOLUS ONE Magnesium Hydroxide 30 ml 06/18/22 23:08 Magnesium Hydroxide (Mom) Oral Liqd Udc PO Q4H PRN Constipation Morphine Sulfate 2 mg 06/18/22 23:08 Morphine 2 Mg/1 Ml Inj IV Q4H PRN Pain, Moderate (4-6) Morphine Sulfate 4 mg 06/18/22 23:08 Morphine 4 Mg/1 Ml Inj IV Q4H PRN Pain , Severe (7-10) Olanzapine 5 mg 06/20/22 12:30 06/22/22 09:11 Olanzapine 5 Mg Tab PO 5 mg DAILY DAVID Administration Ondansetron HCl 4 mg 06/18/22 23:08 Ondansetron 4 Mg/2 Ml Inj IV Q8H PRN Nausea And Vomiting Sodium Chloride 10 ml 06/19/22 10:00 06/22/22 09:11 Sodium Chloride 0.9% 10 Ml Flush Syringe IV 10 ml BID DAVID Administration Sodium Chloride 10 ml 06/18/22 23:08 Sodium Chloride 0.9% 10 Ml Flush Syringe IV PRN PRN LINE FLUSH
[2022-06-22] MEDS: DEXTROSE 5% IN WATER 1,000 ML IV SCH (18:19)
[2022-06-23] MEDS: DEXTROSE 5% IN WATER 1,000 ML IV SCH ×2 (06:47→17:12)
[2022-06-23] MEDS: HEPARIN 5,000 UNIT/1 ML VIAL SUB-Q SCH ×3 (06:47→21:43)
[2022-06-23] MEDS: chlordiazePOXIDE 25 MG CAP PO SCH ×2 (10:00→21:44)
--- NOTE | 2022-06-23 12:41 | Progress Note ---
Assessment and Plan Assessment and plan: #Acute metabolic encephalopathy-improving Refractory despite patient being out of the window for alcohol withdrawal symptoms. Repeating CMP, CBC, and ammonia level. Original CT head noncontrast unremarkable for acute findings. Low clinical suspicion for acute ischemic CVA given patient does not have any focal deficits. Unremarkable urinalysis and UDS. -TSH, B12, folate WNL. -Psych/mental health eval consulted; appreciate recs. Decreasing Zyprexa from 5 mg to 2.5 mg daily. -will continue to monitor #Alcohol withdrawal-resolved #Tachycardia #Alcohol dependence -Patient presented from alcohol rehabilitation; per chart review last drink 5 days prior to admission -Discontinued CIWA protocol, patient out of window for alcohol withdrawal. -Continue librium taper. Ordering lactated ringer bolus to assist with tachycardia. Ordering EKG to assess tachycardia. If sinus tachycardia, beta- blockade can be initiated. #Volume depletion-resolved #Advanced care planning -Disease education conducted, care plan discussed, diagnoses discussed, prognosis discussed, and patient acknowledges understanding with care plan -Time: +30 min #Discharge planning -Patient discharged [facility] and was initially transferred from a hospital in [facility] -Currently unable to locate family for safe disposition, patient continues to be confused Disposition Plan: Continue medical management Total Time Spent with Patient (Minutes): 45 minutes History Interval history: No acute events overnight. Hospitalist Physical - Constitutional Vitals: Temp Pulse Resp BP Pulse Ox 98.4 F 85 18 117/75 100 06/23/22 11:27 06/23/22 11:27 06/23/22 11:27 06/23/22 11:27 06/23/22 11:27 General appearance: Present: no acute distress, cachectic, disheveled - EENT Eyes: Present: PERRL, EOM intact ENT: hearing intact, clear oral mucosa, dentition normal - Neck Neck: Present: supple, normal ROM - Respiratory Respiratory effort: normal Respiratory: bilateral: CTA - Cardiovascular Heart rate: 108 Rhythm: regular Heart Sounds: Present: S1 & S2 - Extremities Extremities: no ischemia, pulses intact, pulses symmetrical, No edema, normal temperature, normal color Peripheral Pulses: within normal limits - Abdominal General gastrointestinal: soft, non-tender, non-distended, normal bowel sounds - Integumentary Integumentary: Present: clear, warm, erythema (Erythema of bilateral feet consi stent with phonic venous changes with subsequent skin changes) - Psychiatric Psychiatric: other (Lethargic and hard to arouse) - Neurologic Neurologic: moves all extremities - Allied Health Allied health notes reviewed: nursing HEART Score - HEART Score Troponin: Troponin T < 0.010 ng/mL (0.00-0.029) 06/18/22 17:20 Results - Labs CBC & Chem 7: 06/18/22 17:20 06/20/22 04:25 Labs: Laboratory Last Values WBC 5.6 K/mm3 (4.5-11.0) 06/18/22 17:20 RBC 4.31 M/mm3 (3.65-5.03) 06/18/22 17:20 Hgb 14.2 gm/dl (11.8-15.2) 06/18/22 17:20 Hct 41.8 % (35.5-45.6) 06/18/22 17:20 MCV 97 fl (84-94) H 06/18/22 17:20 MCH 33 pg (28-32) H 06/18/22 17:20 MCHC 34 % (32-34) 06/18/22 17:20 RDW 12.9 % (13.2-15.2) L 06/18/22 17:20 Plt Count 198 K/mm3 (140-440) 06/18/22 17:20 Add Manual Diff Complete 06/18/22 17:20 Total Counted 100 06/18/22 17:20 Seg Neutrophils % [employer] Administrator 06/18/22 17:20 Seg Neuts % (Manual) 44.0 % (40.0-70.0) 06/18/22 17:20 Band Neutrophils % 0 % 06/18/22 17:20 Lymphocytes % (Manual) 43.0 % (13.4-35.0) H 06/18/22 17:20 Reactive Lymphs % (Man) 0 % 06/18/22 17:20 Monocytes % (Manual) 9.0 % (0.0-7.3) H 06/18/22 17:20 Eosinophils % (Manual) 3.0 % (0.0-4.3) 06/18/22 17:20 Basophils % (Manual) 1.0 % (0.0-1.8) 06/18/22 17:20 Metamyelocytes % 0 % 06/18/22 17:20 Myelocytes % 0 % 06/18/22 17:20 Promyelocytes % 0 % 06/18/22 17:20 Blast Cells % 0 % 06/18/22 17:20 Nucleated RBC % Not Reportable 06/18/22 17:20 Seg Neutrophils # Man 2.5 K/mm3 (1.8-7.7) 06/18/22 17:20 Band Neutrophils # 0.0 K/mm3 06/18/22 17:20 Lymphocytes # (Manual) 2.4 K/mm3 (1.2-5.4) 06/18/22 17:20 Abs React Lymphs (Man) 0.0 K/mm3 06/18/22 17:20 Monocytes # (Manual) 0.5 K/mm3 (0.0-0.8) 06/18/22 17:20 Eosinophils # (Manual) 0.2 K/mm3 (0.0-0.4) 06/18/22 17:20 Basophils # (Manual) 0.1 K/mm3 (0.0-0.1) 06/18/22 17:20 Metamyelocytes # 0.0 K/mm3 06/18/22 17:20 Myelocytes # 0.0 K/mm3 06/18/22 17:20 Promyelocytes # 0.0 K/mm3 06/18/22 17:20 Blast Cells # 0.0 K/mm3 06/18/22 17:20 WBC Morphology Not Reportable 06/18/22 17:20 Hypersegmented Neuts Not Reportable 06/18/22 17:20 Hyposegmented Neuts Not Reportable 06/18/22 17:20 Hypogranular Neuts Not Reportable 06/18/22 17:20 Smudge Cells Not Reportable 06/18/22 17:20 Toxic Granulation Not Reportable 06/18/22 17:20 Toxic Vacuolation Not Reportable 06/18/22 17:20 Dohle Bodies Not Reportable 06/18/22 17:20 Pelger-Huet Anomaly Not Reportable 06/18/22 17:20 Radha Rods Not Reportable 06/18/22 17:20 Platelet Estimate Consistent w auto 06/18/22 17:20 Clumped Platelets Not Reportable 06/18/22 17:20 Plt Clumps, EDTA Not Reportable 06/18/22 17:20 Large Platelets Not Reportable 06/18/22 17:20 Giant Platelets Not Reportable 06/18/22 17:20 Platelet Satelliting Not Reportable 06/18/22 17:20 Plt Morphology Comment Not Reportable 06/18/22 17:20 RBC Morphology Not Reportable 06/18/22 17:20 Dimorphic RBCs Not Reportable 06/18/22 17:20 Polychromasia Not Reportable 06/18/22 17:20 Hypochromasia Not Reportable 06/18/22 17:20 Poikilocytosis Not Reportable 06/18/22 17:20 Anisocytosis Not Reportable 06/18/22 17:20 Microcytosis Not Reportable 06/18/22 17:20 Macrocytosis Not Reportable 06/18/22 17:20 Spherocytes Not Reportable 06/18/22 17:20 Pappenheimer Bodies Not Reportable 06/18/22 17:20 Sickle Cells Not Reportable 06/18/22 17:20 Target Cells Not Reportable 06/18/22 17:20 Tear Drop Cells Not Reportable 06/18/22 17:20 Ovalocytes Not Reportable 06/18/22 17:20 Helmet Cells Not Reportable 06/18/22 17:20 [place] Bodies Not Reportable 06/18/22 17:20 [place] Rings Not Reportable 06/18/22 17:20 [place] Cells Not Reportable 06/18/22 17:20 Bite Cells Not Reportable 06/18/22 17:20 Crenated Cell Not Reportable 06/18/22 17:20 Elliptocytes Not Reportable 06/18/22 17:20 Acanthocytes (Spur) Not Reportable 06/18/22 17:20 Rouleaux Not Reportable 06/18/22 17:20 Hemoglobin C Crystals Not Reportable 06/18/22 17:20 Schistocytes Not Reportable 06/18/22 17:20 Malaria parasites Not Reportable 06/18/22 17:20 Roland Bodies Not Reportable 06/18/22 17:20 Hem Pathologist Commnt No 06/18/22 17:20 Sodium 139 mmol/L (137-145) 06/20/22 04:25 Potassium 3.6 mmol/L (3.6-5.0) 06/20/22 04:25 Chloride 106.3 mmol/L (98-107) 06/20/22 04:25 Carbon Dioxide 22 mmol/L (22-30) 06/20/22 04:25 Anion Gap 14 mmol/L 06/20/22 04:25 BUN 12 mg/dL (9-20) 06/20/22 04:25 Creatinine 0.9 mg/dL (0.8-1.3) 06/20/22 04:25 Estimated GFR > 60 ml/min 06/20/22 04:25 BUN/Creatinine Ratio 13 % 06/20/22 04:25 Glucose 81 mg/dL (75-100) 06/20/22 04:25 POC Glucose 86 mg/dL (70-105) 06/22/22 16:19 Lactic Acid 0.80 mmol/L (0.7-2.0) 06/18/22 17:20 Calcium 8.2 mg/dL (8.4-10.2) L 06/20/22 04:25 Total Bilirubin 0.40 mg/dL (0.1-1.2) 06/18/22 17:20 AST 32 units/L (5-40) 06/18/22 17:20 ALT 23 units/L (7-56) 06/18/22 17:20 Alkaline Phosphatase 77 units/L (35-129) 06/18/22 17:20 Ammonia 10.0 umol/L (25-60) L 06/18/22 17:20 Total Creatine Kinase 383 units/L (55-170) H 06/18/22 17:20 Troponin T < 0.010 ng/mL (0.00-0.029) 06/18/22 17:20 Total Protein 7.2 g/dL (6.3-8.2) 06/18/22 17:20 Albumin 4.4 g/dL (3.9-5) 06/18/22 17:20 Albumin/Globulin Ratio 1.6 % 06/18/22 17:20 Vitamin B12 2000 pg/mL (211-911) H 06/19/22 20:22 Folate 20.00 ng/mL (7.3-26.0) 06/19/22 20:22 TSH 1.320 mlU/mL (0.270-4.200) 06/19/22 20:22 Urine Color Colorless (Yellow) 06/18/22 Unknown Urine Turbidity Clear (Clear) 06/18/22 Unknown Urine pH 5.0 (5.0-7.0) 06/18/22 Unknown Ur Specific [place] 1.015 (1.003-1.030) 06/18/22 Unknown Urine Protein 30 mg/dl mg/dL (Negative) 06/18/22 Unknown Urine Glucose (UA) Negative mg/dL (Negative) 06/18/22 Unknown Urine Ketones 25 mg/dL (Negative) 06/18/22 Unknown Urine Blood Negative (Negative) 06/18/22 Unknown Urine Nitrite Negative (Negative) 06/18/22 Unknown Urine Bilirubin Negative (Negative) 06/18/22 Unknown Urine Urobilinogen 0.2 mg/dL (<2.0) 06/18/22 Unknown Ur Leukocyte Esterase Negative (Negative) 06/18/22 Unknown Urine WBC (Auto) 1.0 /HPF (0.0-6.0) 06/18/22 Unknown Urine RBC (Auto) < 1.0 /HPF (0.0-6.0) 06/18/22 Unknown Urine Mucus Few /HPF 06/18/22 Unknown Nasal Screen MRSA (PCR) Negative (Negative) 06/21/22 08:50 Urine Opiates Screen Negative 06/19/22 10:49 Urine Methadone Screen Negative 06/19/22 10:49 Ur Barbiturates Screen Negative 06/19/22 10:49 Ur Phencyclidine Scrn Negative 06/19/22 10:49 Ur Amphetamines Screen Negative 06/19/22 10:49 U Benzodiazepines Scrn Negative 06/19/22 10:49 Urine Cocaine Screen Negative 06/19/22 10:49 U Marijuana (THC) Screen Negative 06/19/22 10:49 Drugs of Abuse Note Disclamer 06/19/22 10:49 Plasma/Serum Alcohol < 0.01 % (0-0.07) 06/18/22 17:20 Quezada/IV: Voiding Method Condom Catheter Active Medications - Current Medications Current Medications: Generic Name Dose Route Start Last Admin Trade Name Freq PRN Reason Stop Dose Admin Acetaminophen 650 mg 06/18/22 23:08 06/21/22 11:07 Acetaminophen 325 Mg Tab PO 650 mg Q4H PRN Administration Pain MILD(1-3)/Fever >100.5/MCGEE Chlordiazepoxide HCl 25 mg 06/20/22 10:00 06/23/22 10:00 Chlordiazepoxide 25 Mg Cap PO Not Given BID DAVID Heparin Sodium (Porcine) 5,000 unit 06/19/22 06:00 06/23/22 06:47 Heparin 5,000 Unit/1 Ml Vial SUB-Q 5,000 unit Q8HR DAVID Administration Dextrose 1,000 mls @ 75 mls/hr 06/22/22 18:00 06/23/22 06:47 D5w IV 75 mls/hr DIRECT DAVID Administration Magnesium Hydroxide 30 ml 06/18/22 23:08 Magnesium Hydroxide (Mom) Oral Liqd Udc PO Q4H PRN Constipation Morphine Sulfate 2 mg 06/18/22 23:08 Morphine 2 Mg/1 Ml Inj IV Q4H PRN Pain, Moderate (4-6) Morphine Sulfate 4 mg 06/18/22 23:08 Morphine 4 Mg/1 Ml Inj IV Q4H PRN Pain , Severe (7-10) Olanzapine 2.5 mg 06/24/22 10:00 Olanzapine 2.5 Mg Tab PO QDAY DAVID Ondansetron HCl 4 mg 06/18/22 23:08 Ondansetron 4 Mg/2 Ml Inj IV Q8H PRN Nausea And Vomiting Sodium Chloride 10 ml 06/19/22 10:00 06/23/22 09:21 Sodium Chloride 0.9% 10 Ml Flush Syringe IV 10 ml BID DAVID Administration Sodium Chloride 10 ml 06/18/22 23:08 Sodium Chloride 0.9% 10 Ml Flush Syringe IV PRN PRN LINE FLUSH
[2022-06-23 13:43] LABS: Alanine Aminotransferase 21 units/L (7-56); Albumin 3.6 g/dL (3.9-5); Blood Urea Nitrogen 6 mg/dL (9-20); Calcium 8.8 mg/dL (8.4-10.2); Hemolysis Index 2
[2022-06-23 14:24] LABS: BUN/Creatinine Ratio 9
--- NOTE | 2022-06-23 14:41 | Progress Note ---
Subjective - Reason for Consult Consult date: 06/23/22 Reason for consult: mental health evaluation - Chief Complaint Chief complaint: The patient was seen today. patient is resting quietly and easily aroused. He continues to be confused. REVIEW OF SYSTEMS MENTAL STATUS Assessment Delirium Treatment Plan I agree with the current treatment plan. continue CIWA protocol Continue home meds Medical: Per primary SItter: Defer to primary Deposition: Do not recommend acute psychiatric inpatient. Will follow for medication management. Thanks Case staffed with Dr. Alvarado Mental Status Exam - Vital signs Last Vital Signs Temp 98.4 F 06/23/22 11:27 Pulse 85 06/23/22 11:27 Resp 18 06/23/22 11:27 BP 117/75 06/23/22 11:27 Pulse Ox 100 06/23/22 11:27
[2022-06-23] MEDS: METOPROLOL TARTRATE 25 MG TAB PO SCH ×2 (15:42→21:44)
[2022-06-23 16:16] LABS: Hematocrit 44.2 % (35.5-45.6); Hemoglobin 15.4 gm/dl (11.8-15.2); Mean Corpuscular HGB Conc 35 % (32-34); Mean Corpuscular Volume 95 fl (84-94); Red Blood Count 4.64 M/mm3 (3.65-5.03); Red Cell Distribution Width 12.9 % (13.2-15.2)
[2022-06-23 16:17] LABS: Platelet Count 312 K/mm3 (140-440)
[2022-06-23] MEDS: POTASSIUM CHLORIDE 10 MEQ 10 MEQ/100 ML BAG IV SCH ×2 (21:42→22:57)
[2022-06-24] MEDS: POTASSIUM CHLORIDE 10 MEQ 10 MEQ/100 ML BAG IV SCH ×2 (00:20→01:24)
[2022-06-24] MEDS: HEPARIN 5,000 UNIT/1 ML VIAL SUB-Q SCH ×3 (05:35→21:32)
[2022-06-24] MEDS: chlordiazePOXIDE 25 MG CAP PO SCH ×2 (12:10→21:32)
[2022-06-24] MEDS: METOPROLOL TARTRATE 25 MG TAB PO SCH ×2 (12:11→21:33)
--- NOTE | 2022-06-24 12:32 | Progress Note ---
Assessment and Plan Assessment and plan: #Acute metabolic encephalopathy-improving Refractory despite patient being out of the window for alcohol withdrawal symptoms. Repeating CMP, CBC, and ammonia level. Original CT head noncontrast unremarkable for acute findings. Low clinical suspicion for acute ischemic CVA given patient does not have any focal deficits. Unremarkable urinalysis and UDS. -TSH, B12, folate WNL. -Psych/mental health eval consulted; appreciate recs. Continue Zyprexa 2.5 mg daily. -Neurology consulted; pending recs. -will continue to monitor #Alcohol withdrawal-resolved #Tachycardia #Alcohol dependence -Patient presented from alcohol rehabilitation; per chart review last drink 5 days prior to admission -Discontinued CIWA protocol, patient out of window for alcohol withdrawal. -Discontinue librium taper. If sinus tachycardia, beta-blockade can be initiated. #Volume depletion-resolved #Advanced care planning -Disease education conducted, care plan discussed, diagnoses discussed, prognosis discussed, and patient acknowledges understanding with care plan -Time: +30 min #Discharge planning -Patient discharged from [facility] and was initially transferred from a hospital in [facility] -Currently unable to locate family for safe disposition, patient continues to be confused Disposition Plan: Continue medical management Total Time Spent with Patient (Minutes): 45 minutes History Interval history: No acute events overnight. Hospitalist Physical - Constitutional Vitals: Temp Pulse Resp BP Pulse Ox 97.3 F L 64 18 109/54 94 06/24/22 07:20 06/24/22 12:01 06/24/22 12:01 06/24/22 12:01 06/24/22 12:01 General appearance: Present: no acute distress, cachectic, disheveled - EENT Eyes: Present: PERRL, EOM intact ENT: hearing intact, clear oral mucosa, dentition normal - Neck Neck: Present: supple, normal ROM - Respiratory Respiratory effort: normal Respiratory: bilateral: CTA - Cardiovascular Rhythm: regular Heart Sounds: Present: S1 & S2 - Extremities Extremities: no ischemia, pulses intact, pulses symmetrical, No edema, normal temperature, normal color Peripheral Pulses: within normal limits - Abdominal General gastrointestinal: soft, non-tender, non-distended, normal bowel sounds - Integumentary Integumentary: Present: clear, warm, dry - Neurologic Neurologic: other (drowsy and confused) - Allied Health Allied health notes reviewed: nursing HEART Score - HEART Score Troponin: Troponin T < 0.010 ng/mL (0.00-0.029) 06/18/22 17:20 Results - Labs CBC & Chem 7: 06/23/22 13:00 06/23/22 13:00 Labs: Laboratory Last Values WBC 8.6 K/mm3 (4.5-11.0) 06/23/22 13:00 RBC 4.64 M/mm3 (3.65-5.03) 06/23/22 13:00 Hgb 15.4 gm/dl (11.8-15.2) H 06/23/22 13:00 Hct 44.2 % (35.5-45.6) 06/23/22 13:00 MCV 95 fl (84-94) H 06/23/22 13:00 MCH 33 pg (28-32) H 06/23/22 13:00 MCHC 35 % (32-34) H 06/23/22 13:00 RDW 12.9 % (13.2-15.2) L 06/23/22 13:00 Plt Count 312 K/mm3 (140-440) 06/23/22 13:00 Add Manual Diff Complete 06/18/22 17:20 Total Counted 100 06/18/22 17:20 Seg Neutrophils % Director Supply Chain 06/18/22 17:20 Seg Neuts % (Manual) 44.0 % (40.0-70.0) 06/18/22 17:20 Band Neutrophils % 0 % 06/18/22 17:20 Lymphocytes % (Manual) 43.0 % (13.4-35.0) H 06/18/22 17:20 Reactive Lymphs % (Man) 0 % 06/18/22 17:20 Monocytes % (Manual) 9.0 % (0.0-7.3) H 06/18/22 17:20 Eosinophils % (Manual) 3.0 % (0.0-4.3) 06/18/22 17:20 Basophils % (Manual) 1.0 % (0.0-1.8) 06/18/22 17:20 Metamyelocytes % 0 % 06/18/22 17:20 Myelocytes % 0 % 06/18/22 17:20 Promyelocytes % 0 % 06/18/22 17:20 Blast Cells % 0 % 06/18/22 17:20 Nucleated RBC % Not Reportable 06/18/22 17:20 Seg Neutrophils # Man 2.5 K/mm3 (1.8-7.7) 06/18/22 17:20 Band Neutrophils # 0.0 K/mm3 06/18/22 17:20 Lymphocytes # (Manual) 2.4 K/mm3 (1.2-5.4) 06/18/22 17:20 Abs React Lymphs (Man) 0.0 K/mm3 06/18/22 17:20 Monocytes # (Manual) 0.5 K/mm3 (0.0-0.8) 06/18/22 17:20 Eosinophils # (Manual) 0.2 K/mm3 (0.0-0.4) 06/18/22 17:20 Basophils # (Manual) 0.1 K/mm3 (0.0-0.1) 06/18/22 17:20 Metamyelocytes # 0.0 K/mm3 06/18/22 17:20 Myelocytes # 0.0 K/mm3 06/18/22 17:20 Promyelocytes # 0.0 K/mm3 06/18/22 17:20 Blast Cells # 0.0 K/mm3 06/18/22 17:20 WBC Morphology Not Reportable 06/18/22 17:20 Hypersegmented Neuts Not Reportable 06/18/22 17:20 Hyposegmented Neuts Not Reportable 06/18/22 17:20 Hypogranular Neuts Not Reportable 06/18/22 17:20 Smudge Cells Not Reportable 06/18/22 17:20 Toxic Granulation Not Reportable 06/18/22 17:20 Toxic Vacuolation Not Reportable 06/18/22 17:20 Dohle Bodies Not Reportable 06/18/22 17:20 Pelger-Huet Anomaly Not Reportable 06/18/22 17:20 Radha Rods Not Reportable 06/18/22 17:20 Platelet Estimate Consistent w auto 06/18/22 17:20 Clumped Platelets Not Reportable 06/18/22 17:20 Plt Clumps, EDTA Not Reportable 06/18/22 17:20 Large Platelets Not Reportable 06/18/22 17:20 Giant Platelets Not Reportable 06/18/22 17:20 Platelet Satelliting Not Reportable 06/18/22 17:20 Plt Morphology Comment Not Reportable 06/18/22 17:20 RBC Morphology Not Reportable 06/18/22 17:20 Dimorphic RBCs Not Reportable 06/18/22 17:20 Polychromasia Not Reportable 06/18/22 17:20 Hypochromasia Not Reportable 06/18/22 17:20 Poikilocytosis Not Reportable 06/18/22 17:20 Anisocytosis Not Reportable 06/18/22 17:20 Microcytosis Not Reportable 06/18/22 17:20 Macrocytosis Not Reportable 06/18/22 17:20 Spherocytes Not Reportable 06/18/22 17:20 Pappenheimer Bodies Not Reportable 06/18/22 17:20 Sickle Cells Not Reportable 06/18/22 17:20 Target Cells Not Reportable 06/18/22 17:20 Tear Drop Cells Not Reportable 06/18/22 17:20 Ovalocytes Not Reportable 06/18/22 17:20 Helmet Cells Not Reportable 06/18/22 17:20 [place] Bodies Not Reportable 06/18/22 17:20 [place] Rings Not Reportable 06/18/22 17:20 [place] Cells Not Reportable 06/18/22 17:20 Bite Cells Not Reportable 06/18/22 17:20 Crenated Cell Not Reportable 06/18/22 17:20 Elliptocytes Not Reportable 06/18/22 17:20 Acanthocytes (Spur) Not Reportable 06/18/22 17:20 Rouleaux Not Reportable 06/18/22 17:20 Hemoglobin C Crystals Not Reportable 06/18/22 17:20 Schistocytes Not Reportable 06/18/22 17:20 Malaria parasites Not Reportable 06/18/22 17:20 Roland Bodies Not Reportable 06/18/22 17:20 Hem Pathologist Commnt No 06/18/22 17:20 Sodium 137 mmol/L (137-145) 06/23/22 13:00 Potassium 3.4 mmol/L (3.6-5.0) L 06/23/22 13:00 Chloride 101.4 mmol/L (98-107) 06/23/22 13:00 Carbon Dioxide 25 mmol/L (22-30) 06/23/22 13:00 Anion Gap 14 mmol/L 06/23/22 13:00 BUN 6 mg/dL (9-20) L 06/23/22 13:00 Creatinine 0.7 mg/dL (0.8-1.3) L 06/23/22 13:00 Estimated GFR > 60 ml/min 06/23/22 13:00 BUN/Creatinine Ratio 9 % 06/23/22 13:00 Glucose 123 mg/dL (75-100) H 06/23/22 13:00 POC Glucose 129 mg/dL (70-105) H 06/24/22 06:14 Lactic Acid 0.80 mmol/L (0.7-2.0) 06/18/22 17:20 Calcium 8.8 mg/dL (8.4-10.2) 06/23/22 13:00 Total Bilirubin 0.80 mg/dL (0.1-1.2) 06/23/22 13:00 AST 19 units/L (5-40) 06/23/22 13:00 ALT 21 units/L (7-56) 06/23/22 13:00 Alkaline Phosphatase 66 units/L (35-129) 06/23/22 13:00 Ammonia 16.0 umol/L (25-60) L 06/23/22 13:00 Total Creatine Kinase 383 units/L (55-170) H 06/18/22 17:20 Troponin T < 0.010 ng/mL (0.00-0.029) 06/18/22 17:20 Total Protein 6.9 g/dL (6.3-8.2) 06/23/22 13:00 Albumin 3.6 g/dL (3.9-5) L 06/23/22 13:00 Albumin/Globulin Ratio 1.1 % 06/23/22 13:00 Vitamin B12 2000 pg/mL (211-911) H 06/19/22 20:22 Folate 20.00 ng/mL (7.3-26.0) 06/19/22 20:22 TSH 1.320 mlU/mL (0.270-4.200) 06/19/22 20:22 Urine Color Colorless (Yellow) 06/18/22 Unknown Urine Turbidity Clear (Clear) 06/18/22 Unknown Urine pH 5.0 (5.0-7.0) 06/18/22 Unknown Ur Specific [place] 1.015 (1.003-1.030) 06/18/22 Unknown Urine Protein 30 mg/dl mg/dL (Negative) 06/18/22 Unknown Urine Glucose (UA) Negative mg/dL (Negative) 06/18/22 Unknown Urine Ketones 25 mg/dL (Negative) 06/18/22 Unknown Urine Blood Negative (Negative) 06/18/22 Unknown Urine Nitrite Negative (Negative) 06/18/22 Unknown Urine Bilirubin Negative (Negative) 06/18/22 Unknown Urine Urobilinogen 0.2 mg/dL (<2.0) 06/18/22 Unknown Ur Leukocyte Esterase Negative (Negative) 06/18/22 Unknown Urine WBC (Auto) 1.0 /HPF (0.0-6.0) 06/18/22 Unknown Urine RBC (Auto) < 1.0 /HPF (0.0-6.0) 06/18/22 Unknown Urine Mucus Few /HPF 06/18/22 Unknown Nasal Screen MRSA (PCR) Negative (Negative) 06/21/22 08:50 Urine Opiates Screen Negative 06/19/22 10:49 Urine Methadone Screen Negative 06/19/22 10:49 Ur Barbiturates Screen Negative 06/19/22 10:49 Ur Phencyclidine Scrn Negative 06/19/22 10:49 Ur Amphetamines Screen Negative 06/19/22 10:49 U Benzodiazepines Scrn Negative 06/19/22 10:49 Urine Cocaine Screen Negative 06/19/22 10:49 U Marijuana (THC) Screen Negative 06/19/22 10:49 Drugs of Abuse Note Disclamer 06/19/22 10:49 Plasma/Serum Alcohol < 0.01 % (0-0.07) 06/18/22 17:20 Quezada/IV: Voiding Method Condom Catheter Active Medications - Current Medications Current Medications: Generic Name Dose Route Start Last Admin Trade Name Freq PRN Reason Stop Dose Admin Acetaminophen 650 mg 06/18/22 23:08 06/21/22 11:07 Acetaminophen 325 Mg Tab PO 650 mg Q4H PRN Administration Pain MILD(1-3)/Fever >100.5/MCGEE Chlordiazepoxide HCl 25 mg 06/20/22 10:00 06/24/22 12:10 Chlordiazepoxide 25 Mg Cap PO Not Given BID DAVID Heparin Sodium (Porcine) 5,000 unit 06/19/22 06:00 06/24/22 05:35 Heparin 5,000 Unit/1 Ml Vial SUB-Q 5,000 unit Q8HR DAVID Administration Dextrose 1,000 mls @ 75 mls/hr 06/22/22 18:00 06/23/22 17:12 D5w IV 75 mls/hr DIRECT DAVID Administration Magnesium Hydroxide 30 ml 06/18/22 23:08 Magnesium Hydroxide (Mom) Oral Liqd Udc PO Q4H PRN Constipation Metoprolol Tartrate 25 mg 06/23/22 13:00 06/24/22 12:11 Metoprolol Tartrate 25 Mg Tab PO Not Given BID DAVID Morphine Sulfate 2 mg 06/18/22 23:08 Morphine 2 Mg/1 Ml Inj IV Q4H PRN Pain, Moderate (4-6) Morphine Sulfate 4 mg 06/18/22 23:08 Morphine 4 Mg/1 Ml Inj IV Q4H PRN Pain , Severe (7-10) Olanzapine 2.5 mg 06/24/22 10:00 06/24/22 12:11 Olanzapine 2.5 Mg Tab PO Not Given QDAY DAVID Ondansetron HCl 4 mg 06/18/22 23:08 Ondansetron 4 Mg/2 Ml Inj IV Q8H PRN Nausea And Vomiting Sodium Chloride 10 ml 06/19/22 10:00 06/23/22 21:54 Sodium Chloride 0.9% 10 Ml Flush Syringe IV 10 ml BID DAVID Administration Sodium Chloride 10 ml 06/18/22 23:08 Sodium Chloride 0.9% 10 Ml Flush Syringe IV PRN PRN LINE FLUSH
--- NOTE | 2022-06-24 16:38 | XRay Report ---
ABDOMEN 1 VIEW(S) INDICATION / CLINICAL INFORMATION: for doubhoff placement. COMPARISON: None available. FINDINGS: TUBES / LINES: The tip of the weighted enteric feeding tube projects within the distal stomach. BOWEL GAS PATTERN: No significant abnormality. FREE AIR / EXTRALUMINAL GAS: None seen. ADDITIONAL FINDINGS: No significant additional findings. IMPRESSION: 1. Feeding tube as above. Signer Name: David Ferreira MD Signed: 06/24/2022 4:33 PM Workstation Name: [employer]
[2022-06-24 16:58] LABS: Blood Urea Nitrogen 6 mg/dL (9-20); Calcium 8.9 mg/dL (8.4-10.2); Hemolysis Index 97
[2022-06-24 17:06] LABS: BUN/Creatinine Ratio 9
[2022-06-25 06:04] LABS: BUN/Creatinine Ratio 11; Blood Urea Nitrogen 9 mg/dL (9-20); Calcium 9.2 mg/dL (8.4-10.2); Hemolysis Index 58
[2022-06-25] MEDS: HEPARIN 5,000 UNIT/1 ML VIAL SUB-Q SCH ×3 (08:27→21:41)
[2022-06-25] MEDS: METOPROLOL TARTRATE 25 MG TAB PO SCH ×2 (09:23→21:40)
[2022-06-25] MEDS: chlordiazePOXIDE 25 MG CAP PO SCH ×2 (09:23→21:40)
--- NOTE | 2022-06-25 09:40 | Progress Note ---
Assessment and Plan Assessment and plan: #Acute metabolic encephalopathy-improving Refractory despite patient being out of the window for alcohol withdrawal symptoms. Repeating CMP, CBC, and ammonia level. Original CT head noncontrast unremarkable for acute findings. Low clinical suspicion for acute ischemic CVA given patient does not have any focal deficits. Unremarkable urinalysis and UDS. -TSH, B12, folate WNL. -Psych/mental health eval consulted; appreciate recs. Continue Zyprexa 2.5 mg daily. -Neurology consulted; pending recs. -will continue to monitor #Alcohol withdrawal-resolved #Tachycardiaresolved #Alcohol dependence -Patient presented from alcohol rehabilitation; per chart review last drink 5 days prior to admission -Discontinued CIWA protocol, patient out of window for alcohol withdrawal. -Discontinue librium taper. If sinus tachycardia, beta-blockade can be initiated. #Volume depletion-resolved #Advanced care planning -Disease education conducted, care plan discussed, diagnoses discussed, prognosis discussed, and patient acknowledges understanding with care plan -Time: +30 min #Social: Extreme difficulty with finding patient's next of kin or friends. Patient was able to provide names of family members: FatherMichael Yates Sr.; motherElvira Mcfarland; sisterCucahaydenyesika Radha Mcfarland; sisterPadminivera Mcfarland. Updating new familial information with case management. Continue to search for next of kin. #Discharge planning -Patient discharged from [facility] and was initially transferred from a hospital in [facility] -Currently unable to locate family for safe disposition, patient continues to be confused Disposition Plan: Continue medical management Total Time Spent with Patient (Minutes): 45 minutes History Interval history: No acute events overnight. Hospitalist Physical - Constitutional Vitals: Temp Pulse Resp BP Pulse Ox 98.2 F 76 20 114/68 98 06/25/22 04:45 06/25/22 04:45 06/25/22 04:45 06/25/22 04:45 06/25/22 04:45 General appearance: Present: no acute distress, cachectic, disheveled - EENT Eyes: Present: PERRL, EOM intact ENT: hearing intact, clear oral mucosa, poor dentition - Neck Neck: Present: supple, normal ROM - Respiratory Respiratory effort: normal Respiratory: bilateral: CTA - Cardiovascular Rhythm: regular Heart Sounds: Present: S1 & S2 - Extremities Extremities: no ischemia, pulses intact, pulses symmetrical, No edema, normal temperature, normal color Peripheral Pulses: within normal limits - Abdominal General gastrointestinal: soft, non-tender, non-distended, normal bowel sounds - Integumentary Integumentary: Present: clear, warm, dry - Psychiatric Psychiatric: other (Lethargic yet arousable) - Neurologic Neurologic: moves all extremities, other (Alert and oriented x1) - Allied Health Allied health notes reviewed: nursing HEART Score - HEART Score Troponin: Troponin T < 0.010 ng/mL (0.00-0.029) 06/18/22 17:20 Results - Labs CBC & Chem 7: 06/23/22 13:00 06/25/22 04:59 Labs: Laboratory Last Values WBC 8.6 K/mm3 (4.5-11.0) 06/23/22 13:00 RBC 4.64 M/mm3 (3.65-5.03) 06/23/22 13:00 Hgb 15.4 gm/dl (11.8-15.2) H 06/23/22 13:00 Hct 44.2 % (35.5-45.6) 06/23/22 13:00 MCV 95 fl (84-94) H 06/23/22 13:00 MCH 33 pg (28-32) H 06/23/22 13:00 MCHC 35 % (32-34) H 06/23/22 13:00 RDW 12.9 % (13.2-15.2) L 06/23/22 13:00 Plt Count 312 K/mm3 (140-440) 06/23/22 13:00 Add Manual Diff Complete 06/18/22 17:20 Total Counted 100 06/18/22 17:20 Seg Neutrophils % Apartment Property Manager 06/18/22 17:20 Seg Neuts % (Manual) 44.0 % (40.0-70.0) 06/18/22 17:20 Band Neutrophils % 0 % 06/18/22 17:20 Lymphocytes % (Manual) 43.0 % (13.4-35.0) H 06/18/22 17:20 Reactive Lymphs % (Man) 0 % 06/18/22 17:20 Monocytes % (Manual) 9.0 % (0.0-7.3) H 06/18/22 17:20 Eosinophils % (Manual) 3.0 % (0.0-4.3) 06/18/22 17:20 Basophils % (Manual) 1.0 % (0.0-1.8) 06/18/22 17:20 Metamyelocytes % 0 % 06/18/22 17:20 Myelocytes % 0 % 06/18/22 17:20 Promyelocytes % 0 % 06/18/22 17:20 Blast Cells % 0 % 06/18/22 17:20 Nucleated RBC % Not Reportable 06/18/22 17:20 Seg Neutrophils # Man 2.5 K/mm3 (1.8-7.7) 06/18/22 17:20 Band Neutrophils # 0.0 K/mm3 06/18/22 17:20 Lymphocytes # (Manual) 2.4 K/mm3 (1.2-5.4) 06/18/22 17:20 Abs React Lymphs (Man) 0.0 K/mm3 06/18/22 17:20 Monocytes # (Manual) 0.5 K/mm3 (0.0-0.8) 06/18/22 17:20 Eosinophils # (Manual) 0.2 K/mm3 (0.0-0.4) 06/18/22 17:20 Basophils # (Manual) 0.1 K/mm3 (0.0-0.1) 06/18/22 17:20 Metamyelocytes # 0.0 K/mm3 06/18/22 17:20 Myelocytes # 0.0 K/mm3 06/18/22 17:20 Promyelocytes # 0.0 K/mm3 06/18/22 17:20 Blast Cells # 0.0 K/mm3 06/18/22 17:20 WBC Morphology Not Reportable 06/18/22 17:20 Hypersegmented Neuts Not Reportable 06/18/22 17:20 Hyposegmented Neuts Not Reportable 06/18/22 17:20 Hypogranular Neuts Not Reportable 06/18/22 17:20 Smudge Cells Not Reportable 06/18/22 17:20 Toxic Granulation Not Reportable 06/18/22 17:20 Toxic Vacuolation Not Reportable 06/18/22 17:20 Dohle Bodies Not Reportable 06/18/22 17:20 Pelger-Huet Anomaly Not Reportable 06/18/22 17:20 Radha Rods Not Reportable 06/18/22 17:20 Platelet Estimate Consistent w auto 06/18/22 17:20 Clumped Platelets Not Reportable 06/18/22 17:20 Plt Clumps, EDTA Not Reportable 06/18/22 17:20 Large Platelets Not Reportable 06/18/22 17:20 Giant Platelets Not Reportable 06/18/22 17:20 Platelet Satelliting Not Reportable 06/18/22 17:20 Plt Morphology Comment Not Reportable 06/18/22 17:20 RBC Morphology Not Reportable 06/18/22 17:20 Dimorphic RBCs Not Reportable 06/18/22 17:20 Polychromasia Not Reportable 06/18/22 17:20 Hypochromasia Not Reportable 06/18/22 17:20 Poikilocytosis Not Reportable 06/18/22 17:20 Anisocytosis Not Reportable 06/18/22 17:20 Microcytosis Not Reportable 06/18/22 17:20 Macrocytosis Not Reportable 06/18/22 17:20 Spherocytes Not Reportable 06/18/22 17:20 Pappenheimer Bodies Not Reportable 06/18/22 17:20 Sickle Cells Not Reportable 06/18/22 17:20 Target Cells Not Reportable 06/18/22 17:20 Tear Drop Cells Not Reportable 06/18/22 17:20 Ovalocytes Not Reportable 06/18/22 17:20 Helmet Cells Not Reportable 06/18/22 17:20 [place] Bodies Not Reportable 06/18/22 17:20 [place] Rings Not Reportable 06/18/22 17:20 Cheryle Cells Not Reportable 06/18/22 17:20 Bite Cells Not Reportable 06/18/22 17:20 Crenated Cell Not Reportable 06/18/22 17:20 Elliptocytes Not Reportable 06/18/22 17:20 Acanthocytes (Spur) Not Reportable 06/18/22 17:20 Rouleaux Not Reportable 06/18/22 17:20 Hemoglobin C Crystals Not Reportable 06/18/22 17:20 Schistocytes Not Reportable 06/18/22 17:20 Malaria parasites Not Reportable 06/18/22 17:20 Roland Bodies Not Reportable 06/18/22 17:20 Hem Pathologist Commnt No 06/18/22 17:20 Sodium 139 mmol/L (137-145) 06/25/22 04:59 Potassium 3.8 mmol/L (3.6-5.0) 06/25/22 04:59 Chloride 104.3 mmol/L (98-107) 06/25/22 04:59 Carbon Dioxide 24 mmol/L (22-30) 06/25/22 04:59 Anion Gap 15 mmol/L 06/25/22 04:59 BUN 9 mg/dL (9-20) 06/25/22 04:59 Creatinine 0.8 mg/dL (0.8-1.3) 06/25/22 04:59 Estimated GFR > 60 ml/min 06/25/22 04:59 BUN/Creatinine Ratio 11 % 06/25/22 04:59 Glucose 124 mg/dL (75-100) H 06/25/22 04:59 POC Glucose 104 mg/dL (70-105) 06/25/22 05:46 Lactic Acid 0.80 mmol/L (0.7-2.0) 06/18/22 17:20 Calcium 9.2 mg/dL (8.4-10.2) 06/25/22 04:59 Total Bilirubin 0.80 mg/dL (0.1-1.2) 06/23/22 13:00 AST 19 units/L (5-40) 06/23/22 13:00 ALT 21 units/L (7-56) 06/23/22 13:00 Alkaline Phosphatase 66 units/L (35-129) 06/23/22 13:00 Ammonia 16.0 umol/L (25-60) L 06/23/22 13:00 Total Creatine Kinase 383 units/L (55-170) H 06/18/22 17:20 Troponin T < 0.010 ng/mL (0.00-0.029) 06/18/22 17:20 Total Protein 6.9 g/dL (6.3-8.2) 06/23/22 13:00 Albumin 3.6 g/dL (3.9-5) L 06/23/22 13:00 Albumin/Globulin Ratio 1.1 % 06/23/22 13:00 Vitamin B1 110 nmol/L (8-30) H 06/19/22 20:22 Vitamin B12 2000 pg/mL (211-911) H 06/19/22 20:22 Folate 20.00 ng/mL (7.3-26.0) 06/19/22 20:22 TSH 1.320 mlU/mL (0.270-4.200) 06/19/22 20:22 Urine Color Colorless (Yellow) 06/18/22 Unknown Urine Turbidity Clear (Clear) 06/18/22 Unknown Urine pH 5.0 (5.0-7.0) 06/18/22 Unknown Ur Specific [place] 1.015 (1.003-1.030) 06/18/22 Unknown Urine Protein 30 mg/dl mg/dL (Negative) 06/18/22 Unknown Urine Glucose (UA) Negative mg/dL (Negative) 06/18/22 Unknown Urine Ketones 25 mg/dL (Negative) 06/18/22 Unknown Urine Blood Negative (Negative) 06/18/22 Unknown Urine Nitrite Negative (Negative) 06/18/22 Unknown Urine Bilirubin Negative (Negative) 06/18/22 Unknown Urine Urobilinogen 0.2 mg/dL (<2.0) 06/18/22 Unknown Ur Leukocyte Esterase Negative (Negative) 06/18/22 Unknown Urine WBC (Auto) 1.0 /HPF (0.0-6.0) 06/18/22 Unknown Urine RBC (Auto) < 1.0 /HPF (0.0-6.0) 06/18/22 Unknown Urine Mucus Few /HPF 06/18/22 Unknown Nasal Screen MRSA (PCR) Negative (Negative) 06/21/22 08:50 Urine Opiates Screen Negative 06/19/22 10:49 Urine Methadone Screen Negative 06/19/22 10:49 Ur Barbiturates Screen Negative 06/19/22 10:49 Ur Phencyclidine Scrn Negative 06/19/22 10:49 Ur Amphetamines Screen Negative 06/19/22 10:49 U Benzodiazepines Scrn Negative 06/19/22 10:49 Urine Cocaine Screen Negative 06/19/22 10:49 U Marijuana (THC) Screen Negative 06/19/22 10:49 Drugs of Abuse Note Disclamer 06/19/22 10:49 Plasma/Serum Alcohol < 0.01 % (0-0.07) 06/18/22 17:20 [place]/IV: Voiding Method Condom Catheter Active Medications - Current Medications Current Medications: Generic Name Dose Route Start Last Admin Trade Name Freq PRN Reason Stop Dose Admin Acetaminophen 650 mg 08/05/22 23:08 06/21/22 11:07 Acetaminophen 325 Mg Tab PO 650 mg Q4H PRN Administration Pain MILD(1-3)/Fever >100.5/MCGEE Chlordiazepoxide HCl 25 mg 06/20/22 10:00 06/25/22 09:23 Chlordiazepoxide 25 Mg Cap PO 25 mg BID DAVID Administration Heparin Sodium (Porcine) 5,000 unit 06/19/22 06:00 06/25/22 08:27 Heparin 5,000 Unit/1 Ml Vial SUB-Q 5,000 unit Q8HR DAVID Administration Magnesium Hydroxide 30 ml 06/18/22 23:08 Magnesium Hydroxide (Mom) Oral Liqd Udc PO Q4H PRN Constipation Metoprolol Tartrate 25 mg 06/23/22 13:00 06/25/22 09:23 Metoprolol Tartrate 25 Mg Tab PO 25 mg BID DAVID Administration Morphine Sulfate 2 mg 06/18/22 23:08 Morphine 2 Mg/1 Ml Inj IV Q4H PRN Pain, Moderate (4-6) Morphine Sulfate 4 mg 06/18/22 23:08 Morphine 4 Mg/1 Ml Inj IV Q4H PRN Pain , Severe (7-10) Olanzapine 2.5 mg 06/24/22 10:00 06/25/22 09:23 Olanzapine 2.5 Mg Tab PO 2.5 mg QDAY DAVID Administration Ondansetron HCl 4 mg 06/18/22 23:08 Ondansetron 4 Mg/2 Ml Inj IV Q8H PRN Nausea And Vomiting Sodium Chloride 10 ml 06/19/22 10:00 06/25/22 09:23 Sodium Chloride 0.9% 10 Ml Flush Syringe IV 10 ml BID DAVID Administration Sodium Chloride 10 ml 06/18/22 23:08 Sodium Chloride 0.9% 10 Ml Flush Syringe IV PRN PRN LINE FLUSH Nutrition/Malnutrition Assess - Dietary Evaluation Nutrition/Malnutrition Findings: Nutrition Notes Start: 06/24/22 14:15 Freq: Status: Active Protocol: Document 06/24/22 14:15 CUATE (Rec: 06/24/22 15:18 CUATE [id number]) Nutrition Notes Need for Assessment generated from: MD Order Initial or Follow up Assessment Other Pertinent Diagnosis AMS, Metabolic Encephalopathy, Dementia, EtOH Dependence. Current Diet TF-Jevity 1.2 Truong @ 70 ml/hr ( from D 06/24). Labs/Tests 06/24: K 3.4, BUN 6, Crea 0.7, Glu 123. Pertinent Medications 06/24: D5w @ 75 ml/hr, others nutritionally unremarkable. 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 Weight Status Appropriate Subjective/Other Information RD consult for write/manage TF . Pt's PO has been Good (100%) and well tolerated, according to ADL notes, however, for the last 3 days, Pt stop accepting food and refused to eat, according to RN over the phone. I will prescribe TF to provide Pt with energy/protein needs during LOS. Pt is on Room Air, O2 saturation @ 97%, according to Physical Assessment History notes. Pt has missing teeth, according to Physical Assessment History notes. Pt presents an unspecified area of concern for skin risk at the time, according to Physical Assessment History notes. Pt has been a resident fo an EtOH detox/rehab facility for a week before was brought to this facility, according to History & Physical notes. Percent of energy/protein needs met: Prescribed TF-Jevity 1.2 Truong @ 70 ml/hr provides for energy/ protein needs (2,030 Kcal/94 g ) during LOS, 100% Kcal; 100% AA. Burn Absent Trauma Absent GI Symptoms None Food Allergy No Skin Integrity/Comment Unspecified area of concern. Current % PO Other Minimum of two criteria No Fluid Accumulation N/A Reduced Route Salesman And Driver Strength N/A (non-severe) Protein-Calorie Malnutrition N\A #1 Nutrition Diagnosis Predicted suboptimal energy intake Etiology Possibly AMS, Metabolic Encephalopathy. As Evidenced by Signs and Symptoms Pt's PO has been Good (100%) and well tolerated, according to ADL notes, however, for the last 3 days, Pt stop accepting food and refused to eat, according to RN over the phone. Is patient on ventilator? No Is Patient Ambulatory and/or Out of Bed No REE-([facility]-confined to bed) 1671.780 Kcal/Kg value to use for calculation 33 Approximate Energy Requirements Using 2036 kcal/Kg Calculation Used for Recommendations Kcal/kg Additional Notes Protein: 1.2-2 g/Kg ABW; 74- 124 g/day. Fluids: 1 ml/Kcal, or as per MD. Nutrition Intervention Nutrition Support: Start TF-Jevity 1.2 Truong @ 70 ml/hr. Flush: 110 ml water Q 4 hr, or as per MD. Kcal 2,030 Protein (gm) 94 Carbohydrates (gm) 287 Fat (gm) 66 Fluid (mL) 1,365 Fiber (gm) 30 % RDI: 100% Kcal; 100% AA. Goal #1 Provide at least 75% of energy /protein needs through Enteral Feeding during LOS. Goal #2 Adjust the dietary intervention to better serve Pt's needs and clinical conditions during LOS. Follow-Up By: 06/25/22 Additional Comments Start monitoring TF tolerance and BM.
--- NOTE | 2022-06-25 13:17 | Consultation ---
History of Present Illness Consult date: 06/25/22 Chief complaint: The consult was initiated for evaluation of confusion and encephalopathy . Past History Past Medical History: other (Mental illness, dementia) Past Surgical History: No surgical history Social history: alcohol abuse Medications and Allergies Allergies Allergy/AdvReac Type Severity Reaction Status Date / Time No Known Allergies Allergy Unverified 06/18/22 16:46 Home Medications Medication Instructions Recorded Confirmed Last Taken Type Unobtainable 06/22/22 06/22/22 Unknown History Active Meds: Active Medications Acetaminophen (Acetaminophen 325 Mg Tab) 650 mg PO Q4H PRN PRN Reason: Pain MILD(1-3)/Fever >100.5/MCGEE Last Admin: 06/21/22 11:07 Dose: 650 mg Chlordiazepoxide HCl (Chlordiazepoxide 25 Mg Cap) 25 mg PO BID [facility] Last Admin: 06/25/22 09:23 Dose: 25 mg Heparin Sodium (Porcine) (Heparin 5,000 Unit/1 Ml Vial) 5,000 unit SUB-Q Q8HR [facility] Last Admin: 06/25/22 08:27 Dose: 5,000 unit Magnesium Hydroxide (Magnesium Hydroxide (Mom) Oral Liqd Udc) 30 ml PO Q4H PRN PRN Reason: Constipation Metoprolol Tartrate (Metoprolol Tartrate 25 Mg Tab) 25 mg PO BID [facility] Last Admin: 06/25/22 09:23 Dose: 25 mg Morphine Sulfate (Morphine 2 Mg/1 Ml Inj) 2 mg IV Q4H PRN PRN Reason: Pain, Moderate (4-6) Morphine Sulfate (Morphine 4 Mg/1 Ml Inj) 4 mg IV Q4H PRN PRN Reason: Pain , Severe (7-10) Olanzapine (Olanzapine 2.5 Mg Tab) 2.5 mg PO QDAY [facility] Last Admin: 06/25/22 09:23 Dose: 2.5 mg Ondansetron HCl (Ondansetron 4 Mg/2 Ml Inj) 4 mg IV Q8H PRN PRN Reason: Nausea And Vomiting Sodium Chloride (Sodium Chloride 0.9% 10 Ml Flush Syringe) 10 ml IV BID [facility] Last Admin: 06/25/22 09:23 Dose: 10 ml Sodium Chloride (Sodium Chloride 0.9% 10 Ml Flush Syringe) 10 ml IV PRN PRN PRN Reason: LINE FLUSH Physical Examination - Vital Signs Vital Signs: Vital Signs Temp Pulse Resp BP Pulse Ox 98.0 F 91 H 16 138/82 98 06/18/22 15:53 06/18/22 15:53 06/18/22 15:53 06/18/22 15:53 06/18/22 15:53 - Physical Exam Narrative exam: The patient is in sleep awakes on stimulation movement in the lower extremity is limited the patient does not follow mid line command. Results - Laboratory Findings CBC and BMP: 06/23/22 13:00 06/25/22 04:59 Abnormal Lab Findings: Abnormal Labs 06/18/22 06/18/22 06/18/22 17:20 17:20 17:20 Hgb MCV 97 H MCH 33 H MCHC RDW 12.9 L Lymphocytes % (Manual) 43.0 H Monocytes % (Manual) 9.0 H Potassium Chloride 107.1 H Carbon Dioxide 21 L BUN 30 H Creatinine Glucose POC Glucose Calcium Ammonia 10.0 L Total Creatine Kinase 383 H Albumin Vitamin B1 Vitamin B12 06/19/22 06/19/22 06/19/22 05:35 20:22 20:22 Hgb MCV MCH MCHC RDW Lymphocytes % (Manual) Monocytes % (Manual) Potassium Chloride 108.9 H Carbon Dioxide 20 L BUN Creatinine Glucose POC Glucose Calcium Ammonia Total Creatine Kinase Albumin Vitamin B1 110 H Vitamin B12 2000 H 06/20/22 06/22/22 06/23/22 04:25 12:49 13:00 Hgb 15.4 H MCV 95 H MCH 33 H MCHC 35 H RDW 12.9 L Lymphocytes % (Manual) Monocytes % (Manual) Potassium Chloride Carbon Dioxide BUN Creatinine Glucose POC Glucose 106 H Calcium 8.2 L Ammonia Total Creatine Kinase Albumin Vitamin B1 Vitamin B12 06/23/22 06/23/22 06/23/22 13:00 13:00 13:17 Hgb MCV MCH MCHC RDW Lymphocytes % (Manual) Monocytes % (Manual) Potassium 3.4 L Chloride Carbon Dioxide BUN 6 L Creatinine 0.7 L Glucose 123 H POC Glucose 107 H Calcium Ammonia 16.0 L Total Creatine Kinase Albumin 3.6 L Vitamin B1 Vitamin B12 06/23/22 06/24/22 06/24/22 16:13 00:07 06:14 Hgb MCV MCH MCHC RDW Lymphocytes % (Manual) Monocytes % (Manual) Potassium Chloride Carbon Dioxide BUN Creatinine Glucose POC Glucose 118 H 114 H 129 H Calcium Ammonia Total Creatine Kinase Albumin Vitamin B1 Vitamin B12 06/24/22 06/24/22 06/25/22 12:44 14:52 00:23 Hgb MCV MCH MCHC RDW Lymphocytes % (Manual) Monocytes % (Manual) Potassium Chloride Carbon Dioxide BUN 6 L Creatinine 0.7 L Glucose 104 H POC Glucose 113 H 113 H Calcium Ammonia Total Creatine Kinase Albumin Vitamin B1 Vitamin B12 06/25/22 06/25/22 04:59 11:34 Hgb MCV MCH MCHC RDW Lymphocytes % (Manual) Monocytes % (Manual) Potassium Chloride Carbon Dioxide BUN Creatinine Glucose 124 H POC Glucose 108 H Calcium Ammonia Total Creatine Kinase Albumin Vitamin B1 Vitamin B12 Assessment and Plan 1. Encephalopathy - improving ( needs more observation ) . 2. Minimize Sedation . 3. If no clinical improvement in next 24 hours consider MRI Brain and EEG . 4. Reviewed Head CT - no evidence of mass . 5. Neurological Prognosis is guarded . Dr. Villalba
--- NOTE | 2022-06-25 14:15 | Progress Note ---
Subjective - Reason for Consult Consult date: 06/25/22 Reason for consult: AMS, ETOH - Chief Complaint Chief complaint: The patient was seen today. He is lying in bed asleep. He doesn't easily arouse and is unable to engage in the evaluation. He is in restraints and has TF going. Documentation states the patient has been very lethargic with inability to arouse. Will change Olanzapine to qhs, as this can cause extreme drowsiness. REVIEW OF SYSTEMS: Unable to assess MENTAL STATUS: Unable to assess Assessment Delirium Treatment Plan Change Olanzapine 2.5mg to qhs Medical: Per primary SItter: Defer to primary Deposition: Do not recommend acute psychiatric inpatient. Will follow for medication management. Thanks Case staffed with Dr. Alvarado Mental Status Exam - Vital signs Last Vital Signs Temp 98.1 F 06/25/22 12:39 Pulse 73 06/25/22 12:39 Resp 18 06/25/22 12:39 BP 116/71 06/25/22 12:39 Pulse Ox 96 06/25/22 12:39
[2022-06-26] MEDS: HEPARIN 5,000 UNIT/1 ML VIAL SUB-Q SCH ×3 (05:42→21:20)
--- NOTE | 2022-06-26 08:46 | XRay Report ---
ABDOMEN, SINGLE VIEW 06/26/2022 AT 0824 HOURS INDICATION / CLINICAL INFORMATION: dobhoff placement. COMPARISON: 06/24/2022 FINDINGS: Tip of the feeding tube is in the very proximal portion of the stomach. Normal bowel gas pattern. Gas is present within the rectum. IMPRESSION: Tip of the feeding tube is just within the proximal stomach and should be advanced. Signer Name: Cady Alvarez MD Signed: 06/26/2022 8:41 AM Workstation Name: [id number]
[2022-06-26] MEDS ORDERED: VANCOMYCIN 1,000 MG in SODIUM CHLORIDE 0.9% 500 ML 500 ML IV ONE (09:03)
[2022-06-26] MEDS ORDERED: LACTATED RINGERS 1,000 ML IV ONE (09:04)
--- NOTE | 2022-06-26 09:26 | XRay Report ---
CHEST 1 VIEW INDICATION / CLINICAL INFORMATION: Assess for possible PNA. COMPARISON: 06/18/2022 FINDINGS: SUPPORT DEVICES: Feeding tube is present with tip in the proximal stomach. HEART / MEDIASTINUM: No significant abnormality. LUNGS / PLEURA: Prominent interstitial markings are present in both lung bases. Whether this represen ts early interstitial pulmonary edema or developing bibasilar pneumonia is unclear. I would favor terra ma. No pleural effusion. Upper lung jordan are clear. No pneumothorax. ADDITIONAL FINDINGS: No significant additional findings. IMPRESSION: 1. Mild bibasilar interstitial prominence, nonspecific. Differential diagnosis includes pulmonary terra ma versus developing bibasilar pneumonia. I would favor pulmonary edema, but clinical correlation is recommended. Signer Name: Cady Alvarez MD Signed: 06/26/2022 9:21 AM Workstation Name: [id number]
[2022-06-26] MEDS ORDERED: VANCOMYCIN 1,250 MG in SODIUM CHLORIDE 0.9% 250ML 250 ML IV ONE (09:30)
[2022-06-26] MEDS ORDERED: VANCOMYCIN PHARMACY TO DOSE IV SCH (10:00)
[2022-06-26] MEDS: CEFEPIME/NS 1 GM/100 ML 1 GM/100 ML BAG IV SCH ×2 (10:14→18:05)
[2022-06-26 10:15] LABS: Hemoglobin 15.6 gm/dl (11.8-15.2); Red Blood Count 4.86 M/mm3 (3.65-5.03)
[2022-06-26 10:16] LABS: Hematocrit 46.1 % (35.5-45.6); Mean Corpuscular HGB Conc 34 % (32-34); Mean Corpuscular Volume 95 fl (84-94); Platelet Count 399 K/mm3 (140-440); Red Cell Distribution Width 12.4 % (13.2-15.2)
[2022-06-26] MEDS: chlordiazePOXIDE 25 MG CAP PO SCH ×2 (10:34→21:21)
[2022-06-26] MEDS: METOPROLOL TARTRATE 25 MG TAB PO SCH ×2 (10:34→21:21)
[2022-06-26 11:27] LABS: BUN/Creatinine Ratio 18; Blood Urea Nitrogen 14 mg/dL (9-20); Calcium 9.5 mg/dL (8.4-10.2); Hemolysis Index 10
[2022-06-26 11:48] LABS: Eosinophils % (Manual) 0 % (0.0-4.3); RBC Morphology Normal; Total Cells Counted 100
[2022-06-26 11:49] LABS: Platelet Estimate Consistent w Auto
--- NOTE | 2022-06-26 11:56 | Progress Note ---
Subjective - Reason for Consult Consult date: 06/26/22 Reason for consult: AMS - Chief Complaint Chief complaint: The patient was seen today. He is lying in bed resting, but he easily arouses. He drifts back to sleep when I'm calling his name. He doesn't speak. The patient is in restraints. He also has a dobhoff going. REVIEW OF SYSTEMS: Unable to assess MENTAL STATUS: Unable to assess Assessment Delirium Treatment Plan Change Olanzapine 2.5mg to qhs Medical: Per primary SItter: Defer to primary Deposition: Do not recommend acute psychiatric inpatient. Will follow for medication management. Thanks Case staffed with Dr. Alvarado Mental Status Exam - Vital signs Last Vital Signs Temp 102.8 F H 06/26/22 08:00 Pulse 120 H 06/26/22 07:47 Resp 18 06/26/22 11:00 BP 123/76 06/26/22 07:47 Pulse Ox 96 06/26/22 11:00
--- NOTE | 2022-06-26 15:18 | XRay Report ---
ABDOMEN 1 VIEW INDICATION / CLINICAL INFORMATION: dobb flako placement. COMPARISON: 06/26/2022 FINDINGS: TUBES / LINES: Weighted enteric tube terminates at the proximal stomach. Advancement should be consid ered. BOWEL GAS PATTERN: No significant abnormality. FREE AIR / EXTRALUMINAL GAS: None seen. ADDITIONAL FINDINGS: No significant additional findings. IMPRESSION: 1. Weighted enteric tube terminates at the proximal stomach. Advancement should be considered. Signer Name: Kapil Aviles DO Signed: 06/26/2022 3:13 PM Workstation Name: [id number]
[2022-06-26] MEDS: ACETAMINOPHEN 325 MG TAB PO PRN (16:39)
[2022-06-26] MEDS ORDERED: AZITHROMYCIN/NS 500 MG/250 ML 500 MG/250 ML BAG IV SCH (17:00)
[2022-06-26] MEDS: VANCOMYCIN/NS 1 GM/250 ML 1 GM/250 ML BAG IV SCH (22:23)
[2022-06-27] MEDS: CEFEPIME/NS 1 GM/100 ML 1 GM/100 ML BAG IV SCH ×3 (02:00→17:30)
[2022-06-27] MEDS: HEPARIN 5,000 UNIT/1 ML VIAL SUB-Q SCH ×3 (05:09→22:11)
--- NOTE | 2022-06-27 08:24 | Progress Note ---
Assessment and Plan Assessment and plan: #Acute metabolic encephalopathy-improving Refractory despite patient being out of the window for alcohol withdrawal symptoms. Repeating CMP, CBC, and ammonia level. Original CT head noncontrast unremarkable for acute findings. Low clinical suspicion for acute ischemic CVA given patient does not have any focal deficits. Unremarkable urinalysis and UDS. -TSH, B12, folate WNL. -Psych/mental health eval consulted; appreciate recs. Continue Zyprexa 2.5 mg daily. -Neurology consulted; pending recs. -will continue to monitor #Acute hypoxic respiratory failure - etiology: possible infection (COVID or HAP), volume overload - baseline oxygen requirements: room air - supplemental oxygen: 3L nasal cannula - Continue protocol: continue pulse oximetry, wean oxygen as tolerated, ordered incentive spirometry and educated patient on how to use it and its importance. Pending coronavirus PCR. - continue to monitor #Alcohol withdrawal-resolved #Tachycardiaresolved #Alcohol dependence -Patient presented from alcohol rehabilitation; per chart review last drink 5 days prior to admission -Discontinued CIWA protocol, patient out of window for alcohol withdrawal. -Discontinue librium taper. If sinus tachycardia, beta-blockade can be initiated. #Volume depletion-resolved #Advanced care planning -Disease education conducted, care plan discussed, diagnoses discussed, prognosis discussed, and patient acknowledges understanding with care plan -Time: +30 min #Social: Extreme difficulty with finding patient's next of kin or friends. Patient was able to provide names of family members: FatherWilfredokishore Sr. [place]; motherElvira Radha Mcfarland; sisterBeth Radha Mcfarland; sisterNorma Bartolo. Updating new familial information with case management. Continue to search f or next of kin. #Discharge planning -Patient discharged from [facility] and was initially transferred from a hospital in [facility] -Currently unable to locate family for safe disposition, patient continues to be confused Disposition Plan: Continue medical management Total Time Spent with Patient (Minutes): 45 minutes History Interval history: No acute events overnight. Hospitalist Physical - Constitutional Vitals: Temp Pulse Resp BP Pulse Ox 97.4 F L 69 22 108/60 97 06/27/22 03:56 06/26/22 23:26 06/27/22 03:56 06/27/22 03:56 06/26/22 23:26 General appearance: Present: no acute distress, cachectic, disheveled - EENT Eyes: Present: PERRL, EOM intact ENT: hearing intact, clear oral mucosa, poor dentition, edentulous, other (NG tube in place) - Neck Neck: Present: supple, normal ROM - Respiratory Respiratory effort: normal Respiratory: bilateral: diminished (3 L nasal cannula) - Cardiovascular Heart rate: 130 Rhythm: regular Heart Sounds: Present: S1 & S2 - Extremities Extremities: no ischemia, pulses intact, pulses symmetrical, No edema, normal temperature, normal color Peripheral Pulses: within normal limits - Abdominal General gastrointestinal: soft, non-tender, non-distended, normal bowel sounds - Integumentary Integumentary: Present: clear, warm, dry, erythema (Chronic venous changes of bilateral feet) - Psychiatric Psychiatric: other (Lethargic but easily arousable) - Neurologic Neurologic: moves all extremities - Allied Health Allied health notes reviewed: nursing, case management HEART Score - HEART Score Troponin: Troponin T < 0.010 ng/mL (0.00-0.029) 06/18/22 17:20 Results - Labs CBC & Chem 7: 06/26/22 09:13 06/26/22 09:01 Labs: Laboratory Last Values WBC 17.3 K/mm3 (4.5-11.0) H 06/26/22 09:13 RBC 4.86 M/mm3 (3.65-5.03) 06/26/22 09:13 Hgb 15.6 gm/dl (11.8-15.2) H 06/26/22 09:13 Hct 46.1 % (35.5-45.6) H 06/26/22 09:13 MCV 95 fl (84-94) H 06/26/22 09:13 MCH 32 pg (28-32) 06/26/22 09:13 MCHC 34 % (32-34) 06/26/22 09:13 RDW 12.4 % (13.2-15.2) L 06/26/22 09:13 Plt Count 399 K/mm3 (140-440) 06/26/22 09:13 Add Manual Diff Complete 06/26/22 09:13 Total Counted 100 06/26/22 09:13 Seg Neutrophils % Automatic Glove Turner And Former 06/18/22 17:20 Seg Neuts % (Manual) 85.0 % (40.0-70.0) H 06/26/22 09:13 Band Neutrophils % 0 % 06/26/22 09:13 Lymphocytes % (Manual) 6.0 % (13.4-35.0) L 06/26/22 09:13 Reactive Lymphs % (Man) 0 % 06/26/22 09:13 Monocytes % (Manual) 8.0 % (0.0-7.3) H 06/26/22 09:13 Eosinophils % (Manual) 0 % (0.0-4.3) 06/26/22 09:13 Basophils % (Manual) 1.0 % (0.0-1.8) 06/26/22 09:13 Metamyelocytes % 0 % 06/26/22 09:13 Myelocytes % 0 % 06/26/22 09:13 Promyelocytes % 0 % 06/26/22 09:13 Blast Cells % 0 % 06/26/22 09:13 Nucleated RBC % Not Reportable 06/26/22 09:13 Seg Neutrophils # Man 14.7 K/mm3 (1.8-7.7) H 06/26/22 09:13 Band Neutrophils # 0.0 K/mm3 06/26/22 09:13 Lymphocytes # (Manual) 1.0 K/mm3 (1.2-5.4) L 06/26/22 09:13 Abs React Lymphs (Man) 0.0 K/mm3 06/26/22 09:13 Monocytes # (Manual) 1.4 K/mm3 (0.0-0.8) H 06/26/22 09:13 Eosinophils # (Manual) 0.0 K/mm3 (0.0-0.4) 06/26/22 09:13 Basophils # (Manual) 0.2 K/mm3 (0.0-0.1) H 06/26/22 09:13 Metamyelocytes # 0.0 K/mm3 06/26/22 09:13 Myelocytes # 0.0 K/mm3 06/26/22 09:13 Promyelocytes # 0.0 K/mm3 06/26/22 09:13 Blast Cells # 0.0 K/mm3 06/26/22 09:13 WBC Morphology Not Reportable 06/26/22 09:13 Hypersegmented Neuts Not Reportable 06/26/22 09:13 Hyposegmented Neuts Not Reportable 06/26/22 09:13 Hypogranular Neuts Not Reportable 06/26/22 09:13 Smudge Cells Not Reportable 06/26/22 09:13 Toxic Granulation Not Reportable 06/26/22 09:13 Toxic Vacuolation Not Reportable 06/26/22 09:13 Dohle Bodies Not Reportable 06/26/22 09:13 Pelger-Huet Anomaly Not Reportable 06/26/22 09:13 Radha Rods Not Reportable 06/26/22 09:13 Platelet Estimate Consistent w auto 06/26/22 09:13 Clumped Platelets Not Reportable 06/26/22 09:13 Plt Clumps, EDTA Not Reportable 06/26/22 09:13 Large Platelets Not Reportable 06/26/22 09:13 Giant Platelets Not Reportable 06/26/22 09:13 Platelet Satelliting Not Reportable 06/26/22 09:13 Plt Morphology Comment Not Reportable 06/26/22 09:13 RBC Morphology Normal 06/26/22 09:13 Dimorphic RBCs Not Reportable 06/26/22 09:13 Polychromasia Not Reportable 06/26/22 09:13 Hypochromasia Not Reportable 06/26/22 09:13 Poikilocytosis Not Reportable 06/26/22 09:13 Anisocytosis Not Reportable 06/26/22 09:13 Microcytosis Not Reportable 06/26/22 09:13 Macrocytosis Not Reportable 06/26/22 09:13 Spherocytes Not Reportable 06/26/22 09:13 Pappenheimer Bodies Not Reportable 06/26/22 09:13 Sickle Cells Not Reportable 06/26/22 09:13 Target Cells Not Reportable 06/26/22 09:13 Tear Drop Cells Not Reportable 06/26/22 09:13 Ovalocytes Not Reportable 06/26/22 09:13 Helmet Cells Not Reportable 06/26/22 09:13 Alfaro-Buxton Bodies Not Reportable 06/26/22 09:13 [place] Rings Not Reportable 06/26/22 09:13 Cheryle Cells Not Reportable 06/26/22 09:13 Bite Cells Not Reportable 06/26/22 09:13 Crenated Cell Not Reportable 06/26/22 09:13 Elliptocytes Not Reportable 06/26/22 09:13 Acanthocytes (Spur) Not Reportable 06/26/22 09:13 Rouleaux Not Reportable 06/26/22 09:13 Hemoglobin C Crystals Not Reportable 06/26/22 09:13 Schistocytes Not Reportable 06/26/22 09:13 Malaria parasites Not Reportable 06/26/22 09:13 Roland Bodies Not Reportable 06/26/22 09:13 Hem Pathologist Commnt No 06/26/22 09:13 Sodium 137 mmol/L (137-145) 06/26/22 09:01 Potassium 4.6 mmol/L (3.6-5.0) D 06/26/22 09:01 Chloride 97.1 mmol/L (98-107) L 06/26/22 09:01 Carbon Dioxide 24 mmol/L (22-30) 06/26/22 09:01 Anion Gap 21 mmol/L 06/26/22 09:01 BUN 14 mg/dL (9-20) 06/26/22 09:01 Creatinine 0.8 mg/dL (0.8-1.3) 06/26/22 09:01 Estimated GFR > 60 ml/min 06/26/22 09:01 BUN/Creatinine Ratio 18 % 06/26/22 09:01 Glucose 127 mg/dL (75-100) H 06/26/22 09:01 POC Glucose 129 mg/dL (70-105) H 06/27/22 05:23 Lactic Acid 0.80 mmol/L (0.7-2.0) 06/18/22 17:20 Calcium 9.5 mg/dL (8.4-10.2) 06/26/22 09:01 Total Bilirubin 0.80 mg/dL (0.1-1.2) 06/23/22 13:00 AST 19 units/L (5-40) 06/23/22 13:00 ALT 21 units/L (7-56) 06/23/22 13:00 Alkaline Phosphatase 66 units/L (35-129) 06/23/22 13:00 Ammonia 16.0 umol/L (25-60) L 06/23/22 13:00 Total Creatine Kinase 383 units/L (55-170) H 06/18/22 17:20 Troponin T < 0.010 ng/mL (0.00-0.029) 06/18/22 17:20 Total Protein 6.9 g/dL (6.3-8.2) 06/23/22 13:00 Albumin 3.6 g/dL (3.9-5) L 06/23/22 13:00 Albumin/Globulin Ratio 1.1 % 06/23/22 13:00 Vitamin B1 110 nmol/L (8-30) H 06/19/22 20:22 Vitamin B12 2000 pg/mL (211-911) H 06/19/22 20:22 Folate 20.00 ng/mL (7.3-26.0) 06/19/22 20:22 TSH 1.320 mlU/mL (0.270-4.200) 06/19/22 20:22 Urine Color Colorless (Yellow) 06/18/22 Unknown Urine Turbidity Clear (Clear) 06/18/22 Unknown Urine pH 5.0 (5.0-7.0) 06/18/22 Unknown Ur Specific [place] 1.015 (1.003-1.030) 06/18/22 Unknown Urine Protein 30 mg/dl mg/dL (Negative) 06/18/22 Unknown Urine Glucose (UA) Negative mg/dL (Negative) 06/18/22 Unknown Urine Ketones 25 mg/dL (Negative) 06/18/22 Unknown Urine Blood Negative (Negative) 06/18/22 Unknown Urine Nitrite Negative (Negative) 06/18/22 Unknown Urine Bilirubin Negative (Negative) 06/18/22 Unknown Urine Urobilinogen 0.2 mg/dL (<2.0) 06/18/22 Unknown Ur Leukocyte Esterase Negative (Negative) 06/18/22 Unknown Urine WBC (Auto) 1.0 /HPF (0.0-6.0) 06/18/22 Unknown Urine RBC (Auto) < 1.0 /HPF (0.0-6.0) 06/18/22 Unknown Urine Mucus Few /HPF 06/18/22 Unknown Nasal Screen MRSA (PCR) Negative (Negative) 06/21/22 08:50 Urine Opiates Screen Negative 06/19/22 10:49 Urine Methadone Screen Negative 06/19/22 10:49 Ur Barbiturates Screen Negative 06/19/22 10:49 Ur Phencyclidine Scrn Negative 06/19/22 10:49 Ur Amphetamines Screen Negative 06/19/22 10:49 U Benzodiazepines Scrn Negative 06/19/22 10:49 Urine Cocaine Screen Negative 06/19/22 10:49 U Marijuana (THC) Screen Negative 06/19/22 10:49 Drugs of Abuse Note Disclamer 06/19/22 10:49 Plasma/Serum Alcohol < 0.01 % (0-0.07) 06/18/22 17:20 Microbiology: Microbiology 06/26/22 11:27 Peripheral/Venous Blood Culture - Preliminary Culture in Progress 06/26/22 09:13 Peripheral/Venous Blood Culture - Preliminary Culture in Progress Quezada/IV: Voiding Method Condom Catheter Active Medications - Current Medications Current Medications: Generic Name Dose Route Start Last Admin Trade Name Freq PRN Reason Stop Dose Admin Acetaminophen 650 mg 06/18/22 23:08 06/26/22 16:39 Acetaminophen 325 Mg Tab PO 650 mg Q4H PRN Administration Pain MILD(1-3)/Fever >100.5/MCGEE Chlordiazepoxide HCl 25 mg 06/20/22 10:00 06/26/22 21:21 Chlordiazepoxide 25 Mg Cap PO 25 mg BID DAVID Administration Heparin Sodium (Porcine) 5,000 unit 06/19/22 06:00 06/27/22 05:09 Heparin 5,000 Unit/1 Ml Vial SUB-Q 5,000 unit Q8HR DAVID Administration Cefepime HCl 1 gm in 100 mls @ 200 mls/hr 06/26/22 10:00 06/27/22 02:00 Cefepime/Ns 1 Gm/100 Ml IV 200 mls/hr Q8H DAVID Administration Protocol Vancomycin HCl 1 gm in 250 mls @ 166.667 mls/hr 06/26/22 23:00 06/26/22 22:23 Vancomycin/Ns 1 Gm/250 Ml IV 166.667 mls/hr Q12H DAVID Administration Magnesium Hydroxide 30 ml 06/18/22 23:08 Magnesium Hydroxide (Mom) Oral Liqd Udc PO Q4H PRN Constipation Metoprolol Tartrate 25 mg 06/23/22 13:00 06/26/22 21:21 Metoprolol Tartrate 25 Mg Tab PO 25 mg BID DAVID Administration Morphine Sulfate 2 mg 06/18/22 23:08 Morphine 2 Mg/1 Ml Inj IV Q4H PRN Pain, Moderate (4-6) Morphine Sulfate 4 mg 06/18/22 23:08 Morphine 4 Mg/1 Ml Inj IV Q4H PRN Pain , Severe (7-10) Olanzapine 2.5 mg 06/25/22 22:00 06/26/22 21:20 Olanzapine 2.5 Mg Tab PO 2.5 mg QHS DAVID Administration Ondansetron HCl 4 mg 06/18/22 23:08 Ondansetron 4 Mg/2 Ml Inj IV Q8H PRN Nausea And Vomiting Sodium Chloride 10 ml 06/19/22 10:00 06/26/22 21:20 Sodium Chloride 0.9% 10 Ml Flush Syringe IV 10 ml BID DAVID Administration Sodium Chloride 10 ml 06/18/22 23:08 Sodium Chloride 0.9% 10 Ml Flush Syringe IV PRN PRN LINE FLUSH Nutrition/Malnutrition Assess - Dietary Evaluation Nutrition/Malnutrition Findings: Nutrition Notes Start: 06/24/22 14:15 Freq: Status: Active Protocol: Document 06/25/22 15:47 CUATE (Rec: 06/25/22 15:59 CUATE [id number]) Nutrition Notes Initial or Follow up Brief Note Other Pertinent Diagnosis AMS, Metabolic Encephalopathy, Dementia, EtOH Dependence. Current Diet TF-Jevity 1.2 Truong @ 70 ml/hr ( from D 06/24). Height 5 ft 10 in Weight 61.4 kg [place] Body Weight (kg) 75.45 BMI 19.4 Weight change and time frame 0.3 Kg body weight loss in 1 day reported. Weight Status Appropriate Subjective/Other Information RD consult for TF tolerance/ continuation. TF continues as prescribed, and well tolerated, according to RN notes. [employer] note on 06/25/22 11:46: [employer] has attempted to evaluate the patient on several occasions. Either he has been too lethargic or resisting. Therefore, this [employer] has not been able to assess and determine the appropriate diet . Will discharge. - END OF NOTE. Pt is on Room Air, O2 saturation @ 97%, according to Physical Assessment History notes. Percent of energy/protein needs met: Prescribed TF-Jevity 1.2 Truong @ 70 ml/hr provides for energy/ protein needs (2,030 Kcal/94 g ) during LOS, 100% Kcal; 100% AA. #1 Nutrition Diagnosis Predicted suboptimal energy intake Comments: TF continues as prescribed, and well tolerated, according to RN notes. [employer] note on 06/25/22 11:46: [employer] has attempted to evaluate the patient on several occasions. Either he has been too lethargic or resisting. Therefore, this [employer] has not been able to assess and determine the appropriate diet . Will discharge. - END OF NOTE. Diagnosis Progress(for reassessment Improved documentation) Is patient on ventilator? No Is Patient Ambulatory and/or Out of Bed No REE-([facility]-confined to bed) 1668.192 Kcal/Kg value to use for calculation 33 Approximate Energy Requirements Using 2025 kcal/Kg Calculation Used for Recommendations Kcal/kg Additional Notes Protein: 1.2-2 g/Kg ABW; 74- 124 g/day. Fluids: 1 ml/Kcal, or as per MD. Nutrition Intervention Nutrition Support: Continue TF-Jevity 1.2 Truong @ 70 ml/hr. Flush: 110 ml water Q 4 hr, or as per MD. Kcal 2,030 Protein (gm) 94 Carbohydrates (gm) 287 Fat (gm) 66 Fluid (mL) 1,365 Fiber (gm) 30 % RDI: 100% Kcal; 100% AA. Goal #1 Provide at least 75% of energy /protein needs through Enteral Feeding during LOS. Goal #2 Adjust the dietary intervention to better serve Pt's needs and clinical conditions during LOS. Follow-Up By: 07/02/22 Additional Comments Continue monitoring TF tolerance and BM.
--- NOTE | 2022-06-27 08:27 | Progress Note ---
Assessment and Plan Assessment and plan: #Acute metabolic encephalopathy-improving Refractory despite patient being out of the window for alcohol withdrawal symptoms. Repeating CMP, CBC, and ammonia level. Original CT head noncontrast unremarkable for acute findings. Low clinical suspicion for acute ischemic CVA given patient does not have any focal deficits. Unremarkable urinalysis and UDS. -TSH, B12, folate WNL. -Psych/mental health eval consulted; appreciate recs. Continue Zyprexa 2.5 mg daily. -Neurology consulted; appreciate recs. -will continue to monitor #Acute hypoxic respiratory failure-resolved - etiology: possible infection (COVID or HAP), volume overload - baseline oxygen requirements: room air - supplemental oxygen: 3L nasal cannula - Continue protocol: continue pulse oximetry, wean oxygen as tolerated, ordered incentive spirometry and educated patient on how to use it and its importance. Pending coronavirus PCR. Started vancomycin and cefepime yesterday due to concern for infection. - continue to monitor #Alcohol withdrawal-resolved #Tachycardiaresolved #Alcohol dependence -Patient presented from alcohol rehabilitation; per chart review last drink 5 days prior to admission -Discontinued CIWA protocol, patient out of window for alcohol withdrawal. -Discontinued librium taper. If sinus tachycardia, beta-blockade can be ini tiated. #Volume depletion-resolved #Advanced care planning -Disease education conducted, care plan discussed, diagnoses discussed, prognosis discussed, and patient acknowledges understanding with care plan -Time: +30 min #Social: Extreme difficulty with finding patient's next of kin or friends. Patient was able to provide names of family members: FatherMichael Yates Sr.; motherMaradarsh Mcfarland; sisterMartha Radha Mcfarland; sisterNorma Bartolo. Updating new familial information with case management. Continue to search for next of kin. #Discharge planning -Patient discharged from [facility] and was initially transferred from a hospital in [facility] -Currently unable to locate family for safe disposition, patient continues to be confused Disposition Plan: Continue medical management Total Time Spent with Patient (Minutes): 45 min History Interval history: No acute events overnight. Hospitalist Physical - Constitutional Vitals: Temp Pulse Resp BP Pulse Ox 97.4 F L 69 22 108/60 97 06/27/22 03:56 06/26/22 23:26 06/27/22 03:56 06/27/22 03:56 06/26/22 23:26 General appearance: Present: no acute distress, cachectic, disheveled - EENT Eyes: Present: PERRL, EOM intact ENT: hearing intact, clear oral mucosa, poor dentition, edentulous, other (NG tube in place) - Neck Neck: Present: supple, normal ROM - Respiratory Respiratory effort: normal Respiratory: bilateral: diminished - Cardiovascular Rhythm: regular Heart Sounds: Present: S1 & S2 - Extremities Extremities: no ischemia, pulses intact, pulses symmetrical, No edema, normal temperature, normal color, Full ROM Peripheral Pulses: within normal limits - Abdominal General gastrointestinal: soft, non-tender, non-distended, normal bowel sounds - Integumentary Integumentary: Present: clear, warm, dry, erythema (chronic venous changes of bi lateral feet) - Psychiatric Psychiatric: other (lethargic but easily arousable) - Neurologic Neurologic: moves all extremities - Allied Health Allied health notes reviewed: nursing, case management HEART Score - HEART Score Troponin: Troponin T < 0.010 ng/mL (0.00-0.029) 06/18/22 17:20 Results - Labs CBC & Chem 7: 06/26/22 09:13 06/26/22 09:01 Labs: Laboratory Last Values WBC 17.3 K/mm3 (4.5-11.0) H 06/26/22 09:13 RBC 4.86 M/mm3 (3.65-5.03) 06/26/22 09:13 Hgb 15.6 gm/dl (11.8-15.2) H 06/26/22 09:13 Hct 46.1 % (35.5-45.6) H 06/26/22 09:13 MCV 95 fl (84-94) H 06/26/22 09:13 MCH 32 pg (28-32) 06/26/22 09:13 MCHC 34 % (32-34) 06/26/22 09:13 RDW 12.4 % (13.2-15.2) L 06/26/22 09:13 Plt Count 399 K/mm3 (140-440) 06/26/22 09:13 Add Manual Diff Complete 06/26/22 09:13 Total Counted 100 06/26/22 09:13 Seg Neutrophils % Grant Specialist 06/18/22 17:20 Seg Neuts % (Manual) 85.0 % (40.0-70.0) H 06/26/22 09:13 Band Neutrophils % 0 % 06/26/22 09:13 Lymphocytes % (Manual) 6.0 % (13.4-35.0) L 06/26/22 09:13 Reactive Lymphs % (Man) 0 % 06/26/22 09:13 Monocytes % (Manual) 8.0 % (0.0-7.3) H 06/26/22 09:13 Eosinophils % (Manual) 0 % (0.0-4.3) 06/26/22 09:13 Basophils % (Manual) 1.0 % (0.0-1.8) 06/26/22 09:13 Metamyelocytes % 0 % 06/26/22 09:13 Myelocytes % 0 % 06/26/22 09:13 Promyelocytes % 0 % 06/26/22 09:13 Blast Cells % 0 % 06/26/22 09:13 Nucleated RBC % Not Reportable 06/26/22 09:13 Seg Neutrophils # Man 14.7 K/mm3 (1.8-7.7) H 06/26/22 09:13 Band Neutrophils # 0.0 K/mm3 06/26/22 09:13 Lymphocytes # (Manual) 1.0 K/mm3 (1.2-5.4) L 06/26/22 09:13 Abs React Lymphs (Man) 0.0 K/mm3 06/26/22 09:13 Monocytes # (Manual) 1.4 K/mm3 (0.0-0.8) H 06/26/22 09:13 Eosinophils # (Manual) 0.0 K/mm3 (0.0-0.4) 06/26/22 09:13 Basophils # (Manual) 0.2 K/mm3 (0.0-0.1) H 06/26/22 09:13 Metamyelocytes # 0.0 K/mm3 06/26/22 09:13 Myelocytes # 0.0 K/mm3 06/26/22 09:13 Promyelocytes # 0.0 K/mm3 06/26/22 09:13 Blast Cells # 0.0 K/mm3 06/26/22 09:13 WBC Morphology Not Reportable 06/26/22 09:13 Hypersegmented Neuts Not Reportable 06/26/22 09:13 Hyposegmented Neuts Not Reportable 06/26/22 09:13 Hypogranular Neuts Not Reportable 06/26/22 09:13 Smudge Cells Not Reportable 06/26/22 09:13 Toxic Granulation Not Reportable 06/26/22 09:13 Toxic Vacuolation Not Reportable 06/26/22 09:13 Dohle Bodies Not Reportable 06/26/22 09:13 Pelger-Huet Anomaly Not Reportable 06/26/22 09:13 Radha Rods Not Reportable 06/26/22 09:13 Platelet Estimate Consistent w auto 06/26/22 09:13 Clumped Platelets Not Reportable 06/26/22 09:13 Plt Clumps, EDTA Not Reportable 06/26/22 09:13 Large Platelets Not Reportable 06/26/22 09:13 Giant Platelets Not Reportable 06/26/22 09:13 Platelet Satelliting Not Reportable 06/26/22 09:13 Plt Morphology Comment Not Reportable 06/26/22 09:13 RBC Morphology Normal 06/26/22 09:13 Dimorphic RBCs Not Reportable 06/26/22 09:13 Polychromasia Not Reportable 06/26/22 09:13 Hypochromasia Not Reportable 06/26/22 09:13 Poikilocytosis Not Reportable 06/26/22 09:13 Anisocytosis Not Reportable 06/26/22 09:13 Microcytosis Not Reportable 06/26/22 09:13 Macrocytosis Not Reportable 06/26/22 09:13 Spherocytes Not Reportable 06/26/22 09:13 Pappenheimer Bodies Not Reportable 06/26/22 09:13 Sickle Cells Not Reportable 06/26/22 09:13 Target Cells Not Reportable 06/26/22 09:13 Tear Drop Cells Not Reportable 06/26/22 09:13 Ovalocytes Not Reportable 06/26/22 09:13 Helmet Cells Not Reportable 06/26/22 09:13 [place] Bodies Not Reportable 06/26/22 09:13 Encinal Rings Not Reportable 06/26/22 09:13 [place] Cells Not Reportable 06/26/22 09:13 Bite Cells Not Reportable 06/26/22 09:13 Crenated Cell Not Reportable 06/26/22 09:13 Elliptocytes Not Reportable 06/26/22 09:13 Acanthocytes (Spur) Not Reportable 06/26/22 09:13 Rouleaux Not Reportable 06/26/22 09:13 Hemoglobin C Crystals Not Reportable 06/26/22 09:13 Schistocytes Not Reportable 06/26/22 09:13 Malaria parasites Not Reportable 06/26/22 09:13 Roland Bodies Not Reportable 06/26/22 09:13 Hem Pathologist Commnt No 06/26/22 09:13 Sodium 137 mmol/L (137-145) 06/26/22 09:01 Potassium 4.6 mmol/L (3.6-5.0) D 06/26/22 09:01 Chloride 97.1 mmol/L (98-107) L 06/26/22 09:01 Carbon Dioxide 24 mmol/L (22-30) 06/26/22 09:01 Anion Gap 21 mmol/L 06/26/22 09:01 BUN 14 mg/dL (9-20) 06/26/22 09:01 Creatinine 0.8 mg/dL (0.8-1.3) 06/26/22 09:01 Estimated GFR > 60 ml/min 06/26/22 09:01 BUN/Creatinine Ratio 18 % 06/26/22 09:01 Glucose 127 mg/dL (75-100) H 06/26/22 09:01 POC Glucose 129 mg/dL (70-105) H 06/27/22 05:23 Lactic Acid 0.80 mmol/L (0.7-2.0) 06/18/22 17:20 Calcium 9.5 mg/dL (8.4-10.2) 06/26/22 09:01 Total Bilirubin 0.80 mg/dL (0.1-1.2) 06/23/22 13:00 AST 19 units/L (5-40) 06/23/22 13:00 ALT 21 units/L (7-56) 06/23/22 13:00 Alkaline Phosphatase 66 units/L (35-129) 06/23/22 13:00 Ammonia 16.0 umol/L (25-60) L 06/23/22 13:00 Total Creatine Kinase 383 units/L (55-170) H 06/18/22 17:20 Troponin T < 0.010 ng/mL (0.00-0.029) 06/18/22 17:20 Total Protein 6.9 g/dL (6.3-8.2) 06/23/22 13:00 Albumin 3.6 g/dL (3.9-5) L 06/23/22 13:00 Albumin/Globulin Ratio 1.1 % 06/23/22 13:00 Vitamin B1 110 nmol/L (8-30) H 06/19/22 20:22 Vitamin B12 2000 pg/mL (211-911) H 06/19/22 20:22 Folate 20.00 ng/mL (7.3-26.0) 06/19/22 20:22 TSH 1.320 mlU/mL (0.270-4.200) 06/19/22 20:22 Urine Color Colorless (Yellow) 06/18/22 Unknown Urine Turbidity Clear (Clear) 06/18/22 Unknown Urine pH 5.0 (5.0-7.0) 06/18/22 Unknown Ur Specific [place] 1.015 (1.003-1.030) 06/18/22 Unknown Urine Protein 30 mg/dl mg/dL (Negative) 06/18/22 Unknown Urine Glucose (UA) Negative mg/dL (Negative) 06/18/22 Unknown Urine Ketones 25 mg/dL (Negative) 06/18/22 Unknown Urine Blood Negative (Negative) 06/18/22 Unknown Urine Nitrite Negative (Negative) 06/18/22 Unknown Urine Bilirubin Negative (Negative) 06/18/22 Unknown Urine Urobilinogen 0.2 mg/dL (<2.0) 06/18/22 Unknown Ur Leukocyte Esterase Negative (Negative) 06/18/22 Unknown Urine WBC (Auto) 1.0 /HPF (0.0-6.0) 06/18/22 Unknown Urine RBC (Auto) < 1.0 /HPF (0.0-6.0) 06/18/22 Unknown Urine Mucus Few /HPF 06/18/22 Unknown Nasal Screen MRSA (PCR) Negative (Negative) 06/21/22 08:50 Urine Opiates Screen Negative 06/19/22 10:49 Urine Methadone Screen Negative 06/19/22 10:49 Ur Barbiturates Screen Negative 06/19/22 10:49 Ur Phencyclidine Scrn Negative 06/19/22 10:49 Ur Amphetamines Screen Negative 06/19/22 10:49 U Benzodiazepines Scrn Negative 06/19/22 10:49 Urine Cocaine Screen Negative 06/19/22 10:49 U Marijuana (THC) Screen Negative 06/19/22 10:49 Drugs of Abuse Note Disclamer 06/19/22 10:49 Plasma/Serum Alcohol < 0.01 % (0-0.07) 06/18/22 17:20 Microbiology: Microbiology 06/26/22 11:27 Peripheral/Venous Blood Culture - Preliminary Culture in Progress 06/26/22 09:13 Peripheral/Venous Blood Culture - Preliminary Culture in Progress Quezada/IV: Voiding Method Condom Catheter Active Medications - Current Medications Current Medications: Generic Name Dose Route Start Last Admin Trade Name Freq PRN Reason Stop Dose Admin Acetaminophen 650 mg 06/18/22 23:08 06/26/22 16:39 Acetaminophen 325 Mg Tab PO 650 mg Q4H PRN Administration Pain MILD(1-3)/Fever >100.5/MCGEE Chlordiazepoxide HCl 25 mg 06/20/22 10:00 06/26/22 21:21 Chlordiazepoxide 25 Mg Cap PO 25 mg BID DAVID Administration Heparin Sodium (Porcine) 5,000 unit 06/19/22 06:00 06/27/22 05:09 Heparin 5,000 Unit/1 Ml Vial SUB-Q 5,000 unit Q8HR DAVID Administration Cefepime HCl 1 gm in 100 mls @ 200 mls/hr 06/26/22 10:00 06/27/22 02:00 Cefepime/Ns 1 Gm/100 Ml IV 200 mls/hr Q8H DAVID Administration Protocol Vancomycin HCl 1 gm in 250 mls @ 166.667 mls/hr 06/26/22 23:00 06/26/22 22:23 Vancomycin/Ns 1 Gm/250 Ml IV 166.667 mls/hr Q12H DAVID Administration Magnesium Hydroxide 30 ml 06/18/22 23:08 Magnesium Hydroxide (Mom) Oral Liqd Udc PO Q4H PRN Constipation Metoprolol Tartrate 25 mg 06/23/22 13:00 06/26/22 21:21 Metoprolol Tartrate 25 Mg Tab PO 25 mg BID DAVID Administration Morphine Sulfate 2 mg 06/18/22 23:08 Morphine 2 Mg/1 Ml Inj IV Q4H PRN Pain, Moderate (4-6) Morphine Sulfate 4 mg 06/18/22 23:08 Morphine 4 Mg/1 Ml Inj IV Q4H PRN Pain , Severe (7-10) Olanzapine 2.5 mg 06/25/22 22:00 06/26/22 21:20 Olanzapine 2.5 Mg Tab PO 2.5 mg QHS DAVID Administration Ondansetron HCl 4 mg 06/18/22 23:08 Ondansetron 4 Mg/2 Ml Inj IV Q8H PRN Nausea And Vomiting Sodium Chloride 10 ml 06/19/22 10:00 06/26/22 21:20 Sodium Chloride 0.9% 10 Ml Flush Syringe IV 10 ml BID DAVID Administration Sodium Chloride 10 ml 06/18/22 23:08 Sodium Chloride 0.9% 10 Ml Flush Syringe IV PRN PRN LINE FLUSH Nutrition/Malnutrition Assess - Dietary Evaluation Nutrition/Malnutrition Findings: Nutrition Notes Start: 06/24/22 14:15 Freq: Status: Active Protocol: Document 06/25/22 15:47 CUATE (Rec: 06/25/22 15:59 CUATE [id number]) Nutrition Notes Initial or Follow up Brief Note Other Pertinent Diagnosis AMS, Metabolic Encephalopathy, Dementia, EtOH Dependence. Current Diet TF-Jevity 1.2 Truong @ 70 ml/hr ( from D 06/24). Height 5 ft 10 in Weight 61.4 kg [place] Body Weight (kg) 75.45 BMI 19.4 Weight change and time frame 0.3 Kg body weight loss in 1 day reported. Weight Status Appropriate Subjective/Other Information RD consult for TF tolerance/ continuation. TF continues as prescribed, and well tolerated, according to RN notes. ENFORCEMENT OFFICER note on 06/25/22 11:46: ENFORCEMENT OFFICER has attempted to evaluate the patient on several occasions. Either he has been too lethargic or resisting. Therefore, this ENFORCEMENT OFFICER has not been able to assess and determine the appropriate diet . Will discharge. - END OF NOTE. Pt is on Room Air, O2 saturation @ 97%, according to Physical Assessment History notes. Percent of energy/protein needs met: Prescribed TF-Jevity 1.2 Truong @ 70 ml/hr provides for energy/ protein needs (2,030 Kcal/94 g ) during LOS, 100% Kcal; 100% AA. #1 Nutrition Diagnosis Predicted suboptimal energy intake Comments: TF continues as prescribed, and well tolerated, according to RN notes. ENFORCEMENT OFFICER note on 06/25/22 11:46: ENFORCEMENT OFFICER has attempted to evaluate the patient on several occasions. Either he has been too lethargic or resisting. Therefore, this ENFORCEMENT OFFICER has not been able to assess and determine the appropriate diet . Will discharge. - END OF NOTE. Diagnosis Progress(for reassessment Improved documentation) Is patient on ventilator? No Is Patient Ambulatory and/or Out of Bed No REE-([place]-confined to bed) 1668.192 Kcal/Kg value to use for calculation 33 Approximate Energy Requirements Using 2025 kcal/Kg Calculation Used for Recommendations Kcal/kg Additional Notes Protein: 1.2-2 g/Kg ABW; 74- 124 g/day. Fluids: 1 ml/Kcal, or as per MD. Nutrition Intervention Nutrition Support: Continue TF-Jevity 1.2 Truong @ 70 ml/hr. Flush: 110 ml water Q 4 hr, or as per MD. Kcal 2,030 Protein (gm) 94 Carbohydrates (gm) 287 Fat (gm) 66 Fluid (mL) 1,365 Fiber (gm) 30 % RDI: 100% Kcal; 100% AA. Goal #1 Provide at least 75% of energy /protein needs through Enteral Feeding during LOS. Goal #2 Adjust the dietary intervention to better serve Pt's needs and clinical conditions during LOS. Follow-Up By: 07/02/22 Additional Comments Continue monitoring TF tolerance and BM.
[2022-06-27] MEDS: METOPROLOL TARTRATE 25 MG TAB PO SCH ×2 (09:36→22:10)
[2022-06-27] MEDS: chlordiazePOXIDE 25 MG CAP PO SCH ×2 (09:37→22:10)
[2022-06-27] MEDS: VANCOMYCIN/NS 1 GM/250 ML 1 GM/250 ML BAG IV SCH ×2 (11:15→23:36)
[2022-06-27 11:55] LABS: Basophils # (Auto) 0.1 K/mm3 (0.0-0.1); Basophils % (Auto) 0.7 % (0.0-1.8); Eosinophils # (Auto) 0.2 K/mm3 (0.0-0.4); Eosinophils % (Auto) 1.3 % (0.0-4.3); Hematocrit 42.6 % (35.5-45.6); Hemoglobin 13.9 gm/dl (11.8-15.2); Lymphocytes # (Auto) 1.7 K/mm3 (1.2-5.4); Lymphocytes % (Auto) 10.5 % (13.4-35.0); Mean Corpuscular HGB Conc 33 % (32-34); Mean Corpuscular Volume 97 fl (84-94); Monocytes # (Auto) 0.7 K/mm3 (0.0-0.8); Monocytes % (Auto) 4.4 % (0.0-7.3); Platelet Count 309 K/mm3 (140-440); Red Blood Count 4.41 M/mm3 (3.65-5.03); Red Cell Distribution Width 12.7 % (13.2-15.2)
[2022-06-27 11:58] LABS: BUN/Creatinine Ratio 22; Blood Urea Nitrogen 20 mg/dL (9-20); Calcium 9.1 mg/dL (8.4-10.2); Hemolysis Index 3
[2022-06-28] MEDS: CEFEPIME/NS 1 GM/100 ML 1 GM/100 ML BAG IV SCH ×2 (01:10→09:24)
[2022-06-28 05:29] LABS: Basophils # (Auto) 0.1 K/mm3 (0.0-0.1); Basophils % (Auto) 0.8 % (0.0-1.8); Eosinophils # (Auto) 0.3 K/mm3 (0.0-0.4); Hematocrit 39.3 % (35.5-45.6); Hemoglobin 13.1 gm/dl (11.8-15.2); Lymphocytes # (Auto) 1.9 K/mm3 (1.2-5.4); Lymphocytes % (Auto) 15.1 % (13.4-35.0); Mean Corpuscular HGB Conc 33 % (32-34); Mean Corpuscular Volume 97 fl (84-94); Monocytes # (Auto) 1.2 K/mm3 (0.0-0.8); Monocytes % (Auto) 9.5 % (0.0-7.3); Platelet Count 294 K/mm3 (140-440); Red Blood Count 4.07 M/mm3 (3.65-5.03); Red Cell Distribution Width 12.6 % (13.2-15.2)
[2022-06-28] MEDS: HEPARIN 5,000 UNIT/1 ML VIAL SUB-Q SCH ×3 (05:38→21:47)
[2022-06-28 05:40] LABS: BUN/Creatinine Ratio 21; Blood Urea Nitrogen 17 mg/dL (9-20); Calcium 8.9 mg/dL (8.4-10.2); Hemolysis Index 6
[2022-06-28] MEDS: METOPROLOL TARTRATE 25 MG TAB PO SCH ×2 (09:24→21:48)
[2022-06-28] MEDS: VANCOMYCIN/NS 1 GM/250 ML 1 GM/250 ML BAG IV SCH (10:00)
--- NOTE | 2022-06-28 13:37 | Progress Note ---
Assessment and Plan Assessment and plan: #Refractory metabolic encephalopathy Refractory despite patient being out of the window for alcohol withdrawal symptoms. Repeating CMP, CBC, and ammonia level. Original CT head noncontrast unremarkable for acute findings. Low clinical suspicion for acute ischemic CVA given patient does not have any focal deficits. Unremarkable urinalysis and UDS. -TSH, B12, folate WNL. -Psych/mental health eval consulted; appreciate recs. Continue Zyprexa 2.5 mg daily. -Neurology consulted; appreciate recs. -will continue to monitor #Acute hypoxic respiratory failure - etiology: possible infection (COVID or HAP), volume overload - baseline oxygen requirements: room air - supplemental oxygen: 3L nasal cannula - Continue protocol: continue pulse oximetry, wean oxygen as tolerated, ordered incentive spirometry and educated patient on how to use it and its importance. Unremarkable coronavirus PCR. Discontinued antibiotics as low suspicion for infection. - continue to monitor #Alcohol withdrawal-resolved #Tachycardiaresolved #Alcohol dependence -Patient presented from alcohol rehabilitation; per chart review last drink 5 days prior to admission -Discontinued CIWA protocol, patient out of window for alcohol withdrawal. -Discontinued librium taper. If sinus tachycardia, beta-blockade can be initiated. #Volume depletion-resolved #Advanced care planning -Disease education conducted, care plan discussed, diagnoses discussed, prognosis discussed, and patient acknowledges understanding with care plan -Time: +30 min #Social: Extreme difficulty with finding patient's next of kin or friends. Patient was able to provide names of family members: FatherWilfredokishore Sr. [place]; motherElvira Radha Mcfarland; sisterMarhi Radha Mcfarland; sisterNorma Bartolo. Updating new familial information with case management. Continue to search for next of kin. #Discharge planning -Pending resolution of acute metabolic encephalopathy and acute hypoxic re spiratory failure -Patient discharged from [facility] and was initially transferred from a hospital in [facility] -Currently unable to locate family for safe disposition, patient continues to be confused Disposition Plan: Continue medical management Total Time Spent with Patient (Minutes): 45 minutes History Interval history: No acute events overnight. Hospitalist Physical - Constitutional Vitals: Temp Pulse Resp BP Pulse Ox 98.1 F 77 17 137/57 98 06/28/22 07:40 06/28/22 07:40 06/28/22 07:40 06/28/22 07:40 06/28/22 09:54 General appearance: Present: no acute distress, cachectic, disheveled HEART Score - HEART Score Troponin: Troponin T < 0.010 ng/mL (0.00-0.029) 06/18/22 17:20 Results - Labs CBC & Chem 7: 06/28/22 05:05 06/28/22 05:05 Labs: Laboratory Last Values WBC 12.5 K/mm3 (4.5-11.0) H 06/28/22 05:05 RBC 4.07 M/mm3 (3.65-5.03) 06/28/22 05:05 Hgb 13.1 gm/dl (11.8-15.2) 06/28/22 05:05 Hct 39.3 % (35.5-45.6) 06/28/22 05:05 MCV 97 fl (84-94) H 06/28/22 05:05 MCH 32 pg (28-32) 06/28/22 05:05 MCHC 33 % (32-34) 06/28/22 05:05 RDW 12.6 % (13.2-15.2) L 06/28/22 05:05 Plt Count 294 K/mm3 (140-440) 06/28/22 05:05 Lymph % (Auto) 15.1 % (13.4-35.0) 06/28/22 05:05 [place] % (Auto) 9.5 % (0.0-7.3) H 06/28/22 05:05 Eos % (Auto) 2.0 % (0.0-4.3) 06/28/22 05:05 Baso % (Auto) 0.8 % (0.0-1.8) 06/28/22 05:05 Lymph # (Auto) 1.9 K/mm3 (1.2-5.4) 06/28/22 05:05 [place] # (Auto) 1.2 K/mm3 (0.0-0.8) H 06/28/22 05:05 Eos # (Auto) 0.3 K/mm3 (0.0-0.4) 06/28/22 05:05 Baso # (Auto) 0.1 K/mm3 (0.0-0.1) 06/28/22 05:05 Add Manual Diff Complete 06/26/22 09:13 Total Counted 100 06/26/22 09:13 Seg Neutrophils % 72.6 % (40.0-70.0) H 06/28/22 05:05 Seg Neuts % (Manual) 85.0 % (40.0-70.0) H 06/26/22 09:13 Band Neutrophils % 0 % 06/26/22 09:13 Lymphocytes % (Manual) 6.0 % (13.4-35.0) L 06/26/22 09:13 Reactive Lymphs % (Man) 0 % 06/26/22 09:13 Monocytes % (Manual) 8.0 % (0.0-7.3) H 06/26/22 09:13 Eosinophils % (Manual) 0 % (0.0-4.3) 06/26/22 09:13 Basophils % (Manual) 1.0 % (0.0-1.8) 06/26/22 09:13 Metamyelocytes % 0 % 06/26/22 09:13 Myelocytes % 0 % 06/26/22 09:13 Promyelocytes % 0 % 06/26/22 09:13 Blast Cells % 0 % 06/26/22 09:13 Nucleated RBC % Not Reportable 06/26/22 09:13 Seg Neutrophils # 9.1 K/mm3 (1.8-7.7) H 06/28/22 05:05 Seg Neutrophils # Man 14.7 K/mm3 (1.8-7.7) H 06/26/22 09:13 Band Neutrophils # 0.0 K/mm3 06/26/22 09:13 Lymphocytes # (Manual) 1.0 K/mm3 (1.2-5.4) L 06/26/22 09:13 Abs React Lymphs (Man) 0.0 K/mm3 06/26/22 09:13 Monocytes # (Manual) 1.4 K/mm3 (0.0-0.8) H 06/26/22 09:13 Eosinophils # (Manual) 0.0 K/mm3 (0.0-0.4) 06/26/22 09:13 Basophils # (Manual) 0.2 K/mm3 (0.0-0.1) H 06/26/22 09:13 Metamyelocytes # 0.0 K/mm3 06/26/22 09:13 Myelocytes # 0.0 K/mm3 06/26/22 09:13 Promyelocytes # 0.0 K/mm3 06/26/22 09:13 Blast Cells # 0.0 K/mm3 06/26/22 09:13 WBC Morphology Not Reportable 06/26/22 09:13 Hypersegmented Neuts Not Reportable 06/26/22 09:13 Hyposegmented Neuts Not Reportable 06/26/22 09:13 Hypogranular Neuts Not Reportable 06/26/22 09:13 Smudge Cells Not Reportable 06/26/22 09:13 Toxic Granulation Not Reportable 06/26/22 09:13 Toxic Vacuolation Not Reportable 06/26/22 09:13 Dohle Bodies Not Reportable 06/26/22 09:13 Pelger-Huet Anomaly Not Reportable 06/26/22 09:13 Radha Rods Not Reportable 06/26/22 09:13 Platelet Estimate Consistent w auto 06/26/22 09:13 Clumped Platelets Not Reportable 06/26/22 09:13 Plt Clumps, EDTA Not Reportable 06/26/22 09:13 Large Platelets Not Reportable 06/26/22 09:13 Giant Platelets Not Reportable 06/26/22 09:13 Platelet Satelliting Not Reportable 06/26/22 09:13 Plt Morphology Comment Not Reportable 06/26/22 09:13 RBC Morphology Normal 06/26/22 09:13 Dimorphic RBCs Not Reportable 06/26/22 09:13 Polychromasia Not Reportable 06/26/22 09:13 Hypochromasia Not Reportable 06/26/22 09:13 Poikilocytosis Not Reportable 06/26/22 09:13 Anisocytosis Not Reportable 06/26/22 09:13 Microcytosis Not Reportable 06/26/22 09:13 Macrocytosis Not Reportable 06/26/22 09:13 Spherocytes Not Reportable 06/26/22 09:13 Pappenheimer Bodies Not Reportable 06/26/22 09:13 Sickle Cells Not Reportable 06/26/22 09:13 Target Cells Not Reportable 06/26/22 09:13 Tear Drop Cells Not Reportable 06/26/22 09:13 Ovalocytes Not Reportable 06/26/22 09:13 Helmet Cells Not Reportable 06/26/22 09:13 Alfaro-Loiza Bodies Not Reportable 06/26/22 09:13 [place] Rings Not Reportable 06/26/22 09:13 [place] Cells Not Reportable 06/26/22 09:13 Bite Cells Not Reportable 06/26/22 09:13 Crenated Cell Not Reportable 06/26/22 09:13 Elliptocytes Not Reportable 06/26/22 09:13 Acanthocytes (Spur) Not Reportable 06/26/22 09:13 Rouleaux Not Reportable 06/26/22 09:13 Hemoglobin C Crystals Not Reportable 06/26/22 09:13 Schistocytes Not Reportable 06/26/22 09:13 Malaria parasites Not Reportable 06/26/22 09:13 Roland Bodies Not Reportable 06/26/22 09:13 Hem Pathologist Commnt No 06/26/22 09:13 Sodium 135 mmol/L (137-145) L 06/28/22 05:05 Potassium 3.9 mmol/L (3.6-5.0) 06/28/22 05:05 Chloride 95.9 mmol/L (98-107) L 06/28/22 05:05 Carbon Dioxide 27 mmol/L (22-30) 06/28/22 05:05 Anion Gap 16 mmol/L 06/28/22 05:05 BUN 17 mg/dL (9-20) 06/28/22 05:05 Creatinine 0.8 mg/dL (0.8-1.3) 06/28/22 05:05 Estimated GFR > 60 ml/min 06/28/22 05:05 BUN/Creatinine Ratio 21 % 06/28/22 05:05 Glucose 127 mg/dL (75-100) H 06/28/22 05:05 POC Glucose 141 mg/dL (70-105) H 06/28/22 11:59 Lactic Acid 0.80 mmol/L (0.7-2.0) 06/18/22 17:20 Calcium 8.9 mg/dL (8.4-10.2) 06/28/22 05:05 Total Bilirubin 0.80 mg/dL (0.1-1.2) 06/23/22 13:00 AST 19 units/L (5-40) 06/23/22 13:00 ALT 21 units/L (7-56) 06/23/22 13:00 Alkaline Phosphatase 66 units/L (35-129) 06/23/22 13:00 Ammonia 16.0 umol/L (25-60) L 06/23/22 13:00 Total Creatine Kinase 383 units/L (55-170) H 06/18/22 17:20 Troponin T < 0.010 ng/mL (0.00-0.029) 06/18/22 17:20 Total Protein 6.9 g/dL (6.3-8.2) 06/23/22 13:00 Albumin 3.6 g/dL (3.9-5) L 06/23/22 13:00 Albumin/Globulin Ratio 1.1 % 06/23/22 13:00 Vitamin B1 110 nmol/L (8-30) H 06/19/22 20:22 Vitamin B12 2000 pg/mL (211-911) H 06/19/22 20:22 Folate 20.00 ng/mL (7.3-26.0) 06/19/22 20:22 TSH 1.320 mlU/mL (0.270-4.200) 06/19/22 20:22 Urine Color Colorless (Yellow) 06/18/22 Unknown Urine Turbidity Clear (Clear) 06/18/22 Unknown Urine pH 5.0 (5.0-7.0) 06/18/22 Unknown Ur Specific [place] 1.015 (1.003-1.030) 06/18/22 Unknown Urine Protein 30 mg/dl mg/dL (Negative) 06/18/22 Unknown Urine Glucose (UA) Negative mg/dL (Negative) 06/18/22 Unknown Urine Ketones 25 mg/dL (Negative) 06/18/22 Unknown Urine Blood Negative (Negative) 06/18/22 Unknown Urine Nitrite Negative (Negative) 06/18/22 Unknown Urine Bilirubin Negative (Negative) 06/18/22 Unknown Urine Urobilinogen 0.2 mg/dL (<2.0) 06/18/22 Unknown Ur Leukocyte Esterase Negative (Negative) 06/18/22 Unknown Urine WBC (Auto) 1.0 /HPF (0.0-6.0) 06/18/22 Unknown Urine RBC (Auto) < 1.0 /HPF (0.0-6.0) 06/18/22 Unknown Urine Mucus Few /HPF 06/18/22 Unknown Nasal Screen MRSA (PCR) Negative (Negative) 06/21/22 08:50 Urine Opiates Screen Negative 06/19/22 10:49 Urine Methadone Screen Negative 06/19/22 10:49 Ur Barbiturates Screen Negative 06/19/22 10:49 Ur Phencyclidine Scrn Negative 06/19/22 10:49 Ur Amphetamines Screen Negative 06/19/22 10:49 U Benzodiazepines Scrn Negative 06/19/22 10:49 Urine Cocaine Screen Negative 06/19/22 10:49 U Marijuana (THC) Screen Negative 06/19/22 10:49 Drugs of Abuse Note Disclamer 06/19/22 10:49 Plasma/Serum Alcohol < 0.01 % (0-0.07) 06/18/22 17:20 SARS-CoV-2 (PCR) Negative (Negative) 06/27/22 04:00 Microbiology: Microbiology 06/26/22 09:13 Peripheral/Venous Blood Culture - Preliminary NO GROWTH AFTER 48 HOURS 06/26/22 11:27 Peripheral/Venous Blood Culture - Preliminary NO GROWTH AFTER 24 HOURS Quez[place]/IV: Voiding Method Condom Catheter Active Medications - Current Medications Current Medications: Generic Name Dose Route Start Last Admin Trade Name Freq PRN Reason Stop Dose Admin Acetaminophen 650 mg 06/18/22 23:08 06/26/22 16:39 Acetaminophen 325 Mg Tab PO 650 mg Q4H PRN Administration Pain MILD(1-3)/Fever >100.5/MCGEE Heparin Sodium (Porcine) 5,000 unit 06/19/22 06:00 06/28/22 05:38 Heparin 5,000 Unit/1 Ml Vial SUB-Q 5,000 unit Q8HR DAVID Administration Magnesium Hydroxide 30 ml 06/18/22 23:08 Magnesium Hydroxide (Mom) Oral Liqd Udc PO Q4H PRN Constipation Metoprolol Tartrate 25 mg 06/23/22 13:00 06/28/22 09:24 Metoprolol Tartrate 25 Mg Tab PO 25 mg BID DAVID Administration Morphine Sulfate 2 mg 06/18/22 23:08 Morphine 2 Mg/1 Ml Inj IV Q4H PRN Pain, Moderate (4-6) Morphine Sulfate 4 mg 06/18/22 23:08 Morphine 4 Mg/1 Ml Inj IV Q4H PRN Pain , Severe (7-10) Olanzapine 2.5 mg 06/25/22 22:00 06/27/22 22:10 Olanzapine 2.5 Mg Tab PO 2.5 mg QHS DAVID Administration Ondansetron HCl 4 mg 06/18/22 23:08 Ondansetron 4 Mg/2 Ml Inj IV Q8H PRN Nausea And Vomiting Sodium Chloride 10 ml 06/19/22 10:00 06/28/22 09:24 Sodium Chloride 0.9% 10 Ml Flush Syringe IV 10 ml BID DAVID Administration Sodium Chloride 10 ml 06/18/22 23:08 Sodium Chloride 0.9% 10 Ml Flush Syringe IV PRN PRN LINE FLUSH Nutrition/Malnutrition Assess - Dietary Evaluation Nutrition/Malnutrition Findings: Nutrition Notes Start: 06/24/22 14:15 Freq: Status: Active Protocol: Document 06/25/22 15:47 CUATE (Rec: 06/25/22 15:59 CUATE [id number]) Nutrition Notes Initial or Follow up Brief Note Other Pertinent Diagnosis AMS, Metabolic Encephalopathy, Dementia, EtOH Dependence. Current Diet TF-Jevity 1.2 Truong @ 70 ml/hr ( from D 06/24). Height 5 ft 10 in Weight 61.4 kg [place] Body Weight (kg) 75.45 BMI 19.4 Weight change and time frame 0.3 Kg body weight loss in 1 day reported. Weight Status Appropriate Subjective/Other Information RD consult for TF tolerance/ continuation. TF continues as prescribed, and well tolerated, according to RN notes. ORTHODONTIST ASSISTANT note on 06/25/22 11:46: ORTHODONTIST ASSISTANT has attempted to evaluate the patient on several occasions. Either he has been too lethargic or resisting. Therefore, this ORTHODONTIST ASSISTANT has not been able to assess and determine the appropriate diet . Will discharge. - END OF NOTE. Pt is on Room Air, O2 saturation @ 97%, according to Physical Assessment History notes. Percent of energy/protein needs met: Prescribed TF-Jevity 1.2 Truong @ 70 ml/hr provides for energy/ protein needs (2,030 Kcal/94 g ) during LOS, 100% Kcal; 100% AA. #1 Nutrition Diagnosis Predicted suboptimal energy intake Comments: TF continues as prescribed, and well tolerated, according to RN notes. ORTHODONTIST ASSISTANT note on 06/25/22 11:46: ORTHODONTIST ASSISTANT has attempted to evaluate the patient on several occasions. Either he has been too lethargic or resisting. Therefore, this ORTHODONTIST ASSISTANT has not been able to assess and determine the appropriate diet . Will discharge. - END OF NOTE. Diagnosis Progress(for reassessment Improved documentation) Is patient on ventilator? No Is Patient Ambulatory and/or Out of Bed No REE-([facility]-confined to bed) 1668.192 Kcal/Kg value to use for calculation 33 Approximate Energy Requirements Using 2025 kcal/Kg Calculation Used for Recommendations Kcal/kg Additional Notes Protein: 1.2-2 g/Kg ABW; 74- 124 g/day. Fluids: 1 ml/Kcal, or as per MD. Nutrition Intervention Nutrition Support: Continue TF-Jevity 1.2 Truong @ 70 ml/hr. Flush: 110 ml water Q 4 hr, or as per MD. Kcal 2,030 Protein (gm) 94 Carbohydrates (gm) 287 Fat (gm) 66 Fluid (mL) 1,365 Fiber (gm) 30 % RDI: 100% Kcal; 100% AA. Goal #1 Provide at least 75% of energy /protein needs through Enteral Feeding during LOS. Goal #2 Adjust the dietary intervention to better serve Pt's needs and clinical conditions during LOS. Follow-Up By: 07/02/22 Additional Comments Continue monitoring TF tolerance and BM.
--- NOTE | 2022-06-28 14:12 | Progress Note ---
Subjective - Reason for Consult Consult date: 06/28/22 Reason for consult: delirium - Chief Complaint Chief complaint: The patient was seen today. He is lying in bed asleep. The patient has consistently been somnolent each time I've evaluated him. He does not arouse slightly when his name is called. He is wearing soft mits. The patient has TF going. REVIEW OF SYSTEMS: Unable to assess MENTAL STATUS: Unable to assess Assessment Delirium Treatment Plan Olanzapine 2.5mg to qhs Medical: Per primary SItter: Defer to primary Deposition: Do not recommend acute psychiatric inpatient. Will sign off. Thanks Case staffed with Dr. Alvarado Mental Status Exam - Vital signs Last Vital Signs Temp 98.1 F 06/28/22 07:40 Pulse 77 06/28/22 07:40 Resp 17 06/28/22 07:40 BP 137/57 06/28/22 07:40 Pulse Ox 98 06/28/22 09:54
[2022-06-29] MEDS: HEPARIN 5,000 UNIT/1 ML VIAL SUB-Q SCH ×3 (05:21→21:41)
--- NOTE | 2022-06-29 09:15 | Progress Note ---
Assessment and Plan Assessment and plan: #Refractory metabolic encephalopathy Refractory despite patient being out of the window for alcohol withdrawal symptoms. Repeating CMP, CBC, and ammonia level. Original CT head noncontrast unremarkable for acute findings. Low clinical suspicion for acute ischemic CVA given patient does not have any focal deficits. Unremarkable urinalysis and UDS. -TSH, B12, folate WNL. -Psych/mental health eval consulted; appreciate recs. Continue Zyprexa 2.5 mg daily. -Neurology evaluated patient- MRI brain w/o contrast ordered given continued altered mental status -will continue to monitor #Acute hypoxic respiratory failure - etiology: possible infection (COVID or HAP) vs volume overload; COVID negative - baseline oxygen requirements: room air - supplemental oxygen: 3L nasal cannula, will wean as tolerated - Continue protocol: continue pulse oximetry, wean oxygen as tolerated, ordered incentive spirometry and educated patient on how to use it and its importance. Unremarkable coronavirus PCR. Discontinued antibiotics as low suspicion for infection. - continue to monitor #Alcohol withdrawal-resolved #Tachycardiaresolved #Alcohol dependence -Patient presented from alcohol rehabilitation; per chart review last drink 5 days prior to admission -s/p CIWA protocol and librium taper, patient out of window for alcohol withdrawal. #Volume depletion-resolved #Social: Extreme difficulty with finding patient's next of kin or friends. Patient was able to provide names of family members: FatherMichael Yates Sr.; motherMaradarsh Mcfarland; sisterMarhi Radha Mcfarland; sisterNorma Bartolo. Updating new familial information with case management. Continue to search for next of kin - halfway contacted, possible bed available pending improvement in patient status History Interval history: No acute events overnight per nursing. Patient sleeping and opens eyes to stimulation. Still altered. Will continue current care. Hospitalist Physical - Physical exam Narrative exam: GENERAL: Thin elderly male. In no acute distress. HEENT: NC in place @3lpm; NGT @ 70cc/hr CHEST/LUNGS: Coarse breath sounds bilaterally. HEART/CARDIOVASCULAR: Mild tachycardia. No murmur, rubs or gallops appreciated. ABDOMEN: +BS. NT/ND. NEURO: Unable to assess. MUSCULOSKELETAL: No joint effusion EXTREMITIES: No cyanosis, clubbing or edema. PSYCH: Unable to assess. - Constitutional Vitals: Temp Pulse Resp BP Pulse Ox 97.4 F L 71 20 104/69 97 06/29/22 08:02 06/29/22 08:02 06/29/22 08:02 06/29/22 08:02 06/29/22 08:02 General appearance: Present: no acute distress, cachectic, disheveled HEART Score - HEART Score Troponin: Troponin T < 0.010 ng/mL (0.00-0.029) 06/18/22 17:20 Results - Labs CBC & Chem 7: 06/28/22 05:05 06/28/22 05:05 Labs: Laboratory Last Values WBC 12.5 K/mm3 (4.5-11.0) H 06/28/22 05:05 RBC 4.07 M/mm3 (3.65-5.03) 06/28/22 05:05 Hgb 13.1 gm/dl (11.8-15.2) 06/28/22 05:05 Hct 39.3 % (35.5-45.6) 06/28/22 05:05 MCV 97 fl (84-94) H 06/28/22 05:05 MCH 32 pg (28-32) 06/28/22 05:05 MCHC 33 % (32-34) 06/28/22 05:05 RDW 12.6 % (13.2-15.2) L 06/28/22 05:05 Plt Count 294 K/mm3 (140-440) 06/28/22 05:05 Lymph % (Auto) 15.1 % (13.4-35.0) 06/28/22 05:05 [place] % (Auto) 9.5 % (0.0-7.3) H 06/28/22 05:05 Eos % (Auto) 2.0 % (0.0-4.3) 06/28/22 05:05 Baso % (Auto) 0.8 % (0.0-1.8) 06/28/22 05:05 Lymph # (Auto) 1.9 K/mm3 (1.2-5.4) 06/28/22 05:05 [place] # (Auto) 1.2 K/mm3 (0.0-0.8) H 06/28/22 05:05 Eos # (Auto) 0.3 K/mm3 (0.0-0.4) 06/28/22 05:05 Baso # (Auto) 0.1 K/mm3 (0.0-0.1) 06/28/22 05:05 Add Manual Diff Complete 06/26/22 09:13 Total Counted 100 06/26/22 09:13 Seg Neutrophils % 72.6 % (40.0-70.0) H 06/28/22 05:05 Seg Neuts % (Manual) 85.0 % (40.0-70.0) H 06/26/22 09:13 Band Neutrophils % 0 % 06/26/22 09:13 Lymphocytes % (Manual) 6.0 % (13.4-35.0) L 06/26/22 09:13 Reactive Lymphs % (Man) 0 % 06/26/22 09:13 Monocytes % (Manual) 8.0 % (0.0-7.3) H 06/26/22 09:13 Eosinophils % (Manual) 0 % (0.0-4.3) 06/26/22 09:13 Basophils % (Manual) 1.0 % (0.0-1.8) 06/26/22 09:13 Metamyelocytes % 0 % 06/26/22 09:13 Myelocytes % 0 % 06/26/22 09:13 Promyelocytes % 0 % 06/26/22 09:13 Blast Cells % 0 % 06/26/22 09:13 Nucleated RBC % Not Reportable 06/26/22 09:13 Seg Neutrophils # 9.1 K/mm3 (1.8-7.7) H 06/28/22 05:05 Seg Neutrophils # Man 14.7 K/mm3 (1.8-7.7) H 06/26/22 09:13 Band Neutrophils # 0.0 K/mm3 06/26/22 09:13 Lymphocytes # (Manual) 1.0 K/mm3 (1.2-5.4) L 06/26/22 09:13 Abs React Lymphs (Man) 0.0 K/mm3 06/26/22 09:13 Monocytes # (Manual) 1.4 K/mm3 (0.0-0.8) H 06/26/22 09:13 Eosinophils # (Manual) 0.0 K/mm3 (0.0-0.4) 06/26/22 09:13 Basophils # (Manual) 0.2 K/mm3 (0.0-0.1) H 06/26/22 09:13 Metamyelocytes # 0.0 K/mm3 06/26/22 09:13 Myelocytes # 0.0 K/mm3 06/26/22 09:13 Promyelocytes # 0.0 K/mm3 06/26/22 09:13 Blast Cells # 0.0 K/mm3 06/26/22 09:13 WBC Morphology Not Reportable 06/26/22 09:13 Hypersegmented Neuts Not Reportable 06/26/22 09:13 Hyposegmented Neuts Not Reportable 06/26/22 09:13 Hypogranular Neuts Not Reportable 06/26/22 09:13 Smudge Cells Not Reportable 06/26/22 09:13 Toxic Granulation Not Reportable 06/26/22 09:13 Toxic Vacuolation Not Reportable 06/26/22 09:13 Dohle Bodies Not Reportable 06/26/22 09:13 Pelger-Huet Anomaly Not Reportable 06/26/22 09:13 Radha Rods Not Reportable 06/26/22 09:13 Platelet Estimate Consistent w auto 06/26/22 09:13 Clumped Platelets Not Reportable 06/26/22 09:13 Plt Clumps, EDTA Not Reportable 06/26/22 09:13 Large Platelets Not Reportable 06/26/22 09:13 Giant Platelets Not Reportable 06/26/22 09:13 Platelet Satelliting Not Reportable 06/26/22 09:13 Plt Morphology Comment Not Reportable 06/26/22 09:13 RBC Morphology Normal 06/26/22 09:13 Dimorphic RBCs Not Reportable 06/26/22 09:13 Polychromasia Not Reportable 06/26/22 09:13 Hypochromasia Not Reportable 06/26/22 09:13 Poikilocytosis Not Reportable 06/26/22 09:13 Anisocytosis Not Reportable 06/26/22 09:13 Microcytosis Not Reportable 06/26/22 09:13 Macrocytosis Not Reportable 06/26/22 09:13 Spherocytes Not Reportable 06/26/22 09:13 Pappenheimer Bodies Not Reportable 06/26/22 09:13 Sickle Cells Not Reportable 06/26/22 09:13 Target Cells Not Reportable 06/26/22 09:13 Tear Drop Cells Not Reportable 06/26/22 09:13 Ovalocytes Not Reportable 06/26/22 09:13 Helmet Cells Not Reportable 06/26/22 09:13 [place] Bodies Not Reportable 06/26/22 09:13 Wh[place] Rings Not Reportable 06/26/22 09:13 Cheryle Cells Not Reportable 06/26/22 09:13 Bite Cells Not Reportable 06/26/22 09:13 Crenated Cell Not Reportable 06/26/22 09:13 Elliptocytes Not Reportable 06/26/22 09:13 Acanthocytes (Spur) Not Reportable 06/26/22 09:13 Rouleaux Not Reportable 06/26/22 09:13 Hemoglobin C Crystals Not Reportable 06/26/22 09:13 Schistocytes Not Reportable 06/26/22 09:13 Malaria parasites Not Reportable 06/26/22 09:13 Roland Bodies Not Reportable 06/26/22 09:13 Hem Pathologist Commnt No 06/26/22 09:13 Sodium 135 mmol/L (137-145) L 06/28/22 05:05 Potassium 3.9 mmol/L (3.6-5.0) 06/28/22 05:05 Chloride 95.9 mmol/L (98-107) L 06/28/22 05:05 Carbon Dioxide 27 mmol/L (22-30) 06/28/22 05:05 Anion Gap 16 mmol/L 06/28/22 05:05 BUN 17 mg/dL (9-20) 06/28/22 05:05 Creatinine 0.8 mg/dL (0.8-1.3) 06/28/22 05:05 Estimated GFR > 60 ml/min 06/28/22 05:05 BUN/Creatinine Ratio 21 % 06/28/22 05:05 Glucose 127 mg/dL (75-100) H 06/28/22 05:05 POC Glucose 111 mg/dL (70-105) H 06/29/22 06:35 Lactic Acid 0.80 mmol/L (0.7-2.0) 06/18/22 17:20 Calcium 8.9 mg/dL (8.4-10.2) 06/28/22 05:05 Total Bilirubin 0.80 mg/dL (0.1-1.2) 06/23/22 13:00 AST 19 units/L (5-40) 06/23/22 13:00 ALT 21 units/L (7-56) 06/23/22 13:00 Alkaline Phosphatase 66 units/L (35-129) 06/23/22 13:00 Ammonia 16.0 umol/L (25-60) L 06/23/22 13:00 Total Creatine Kinase 383 units/L (55-170) H 06/18/22 17:20 Troponin T < 0.010 ng/mL (0.00-0.029) 06/18/22 17:20 Total Protein 6.9 g/dL (6.3-8.2) 06/23/22 13:00 Albumin 3.6 g/dL (3.9-5) L 06/23/22 13:00 Albumin/Globulin Ratio 1.1 % 06/23/22 13:00 Vitamin B1 110 nmol/L (8-30) H 06/19/22 20:22 Vitamin B12 2000 pg/mL (211-911) H 06/19/22 20:22 Folate 20.00 ng/mL (7.3-26.0) 06/19/22 20:22 TSH 1.320 mlU/mL (0.270-4.200) 06/19/22 20:22 Urine Color Colorless (Yellow) 06/18/22 Unknown Urine Turbidity Clear (Clear) 06/18/22 Unknown Urine pH 5.0 (5.0-7.0) 06/18/22 Unknown Ur Specific Virgie 1.015 (1.003-1.030) 06/18/22 Unknown Urine Protein 30 mg/dl mg/dL (Negative) 06/18/22 Unknown Urine Glucose (UA) Negative mg/dL (Negative) 06/18/22 Unknown Urine Ketones 25 mg/dL (Negative) 06/18/22 Unknown Urine Blood Negative (Negative) 06/18/22 Unknown Urine Nitrite Negative (Negative) 06/18/22 Unknown Urine Bilirubin Negative (Negative) 06/18/22 Unknown Urine Urobilinogen 0.2 mg/dL (<2.0) 06/18/22 Unknown Ur Leukocyte Esterase Negative (Negative) 06/18/22 Unknown Urine WBC (Auto) 1.0 /HPF (0.0-6.0) 06/18/22 Unknown Urine RBC (Auto) < 1.0 /HPF (0.0-6.0) 06/18/22 Unknown Urine Mucus Few /HPF 06/18/22 Unknown Nasal Screen MRSA (PCR) Negative (Negative) 06/21/22 08:50 Urine Opiates Screen Negative 06/19/22 10:49 Urine Methadone Screen Negative 06/19/22 10:49 Ur Barbiturates Screen Negative 06/19/22 10:49 Ur Phencyclidine Scrn Negative 06/19/22 10:49 Ur Amphetamines Screen Negative 06/19/22 10:49 U Benzodiazepines Scrn Negative 06/19/22 10:49 Urine Cocaine Screen Negative 06/19/22 10:49 U Marijuana (THC) Screen Negative 06/19/22 10:49 Drugs of Abuse Note Disclamer 06/19/22 10:49 Plasma/Serum Alcohol < 0.01 % (0-0.07) 06/18/22 17:20 SARS-CoV-2 (PCR) Negative (Negative) 06/27/22 04:00 Microbiology: Microbiology 06/26/22 11:27 Peripheral/Venous Blood Culture - Preliminary NO GROWTH AFTER 48 HOURS 06/26/22 09:13 Peripheral/Venous Blood Culture - Preliminary NO GROWTH AFTER 48 HOURS Quezada/IV: Voiding Method Incontinent Active Medications - Current Medications Current Medications: Generic Name Dose Route Start Last Admin Trade Name Freq PRN Reason Stop Dose Admin Acetaminophen 650 mg 06/18/22 23:08 06/26/22 16:39 Acetaminophen 325 Mg Tab PO 650 mg Q4H PRN Administration Pain MILD(1-3)/Fever >100.5/MCGEE Heparin Sodium (Porcine) 5,000 unit 06/19/22 06:00 06/29/22 05:21 Heparin 5,000 Unit/1 Ml Vial SUB-Q 5,000 unit Q8HR DAVID Administration Magnesium Hydroxide 30 ml 06/18/22 23:08 Magnesium Hydroxide (Mom) Oral Liqd Udc PO Q4H PRN Constipation Metoprolol Tartrate 25 mg 06/23/22 13:00 06/28/22 21:48 Metoprolol Tartrate 25 Mg Tab PO 25 mg BID DAVID Administration Morphine Sulfate 2 mg 06/18/22 23:08 Morphine 2 Mg/1 Ml Inj IV Q4H PRN Pain, Moderate (4-6) Morphine Sulfate 4 mg 06/18/22 23:08 Morphine 4 Mg/1 Ml Inj IV Q4H PRN Pain , Severe (7-10) Olanzapine 2.5 mg 06/25/22 22:00 06/28/22 21:48 Olanzapine 2.5 Mg Tab PO 2.5 mg QHS DAVID Administration Ondansetron HCl 4 mg 06/18/22 23:08 Ondansetron 4 Mg/2 Ml Inj IV Q8H PRN Nausea And Vomiting Sodium Chloride 10 ml 06/19/22 10:00 06/28/22 21:48 Sodium Chloride 0.9% 10 Ml Flush Syringe IV 10 ml BID DAVID Administration Sodium Chloride 10 ml 06/18/22 23:08 Sodium Chloride 0.9% 10 Ml Flush Syringe IV PRN PRN LINE FLUSH Nutrition/Malnutrition Assess - Dietary Evaluation Nutrition/Malnutrition Findings: Nutrition Notes Start: 06/24/22 14:15 Freq: Status: Active Protocol: Document 06/25/22 15:47 CUATE (Rec: 06/25/22 15:59 CUATE [id number]) Nutrition Notes Initial or Follow up Brief Note Other Pertinent Diagnosis AMS, Metabolic Encephalopathy, Dementia, EtOH Dependence. Current Diet TF-Jevity 1.2 Truong @ 70 ml/hr ( from D 06/24). Height 5 ft 10 in Weight 61.4 kg [place] Body Weight (kg) 75.45 BMI 19.4 Weight change and time frame 0.3 Kg body weight loss in 1 day reported. Weight Status Appropriate Subjective/Other Information RD consult for TF tolerance/ continuation. TF continues as prescribed, and well tolerated, according to RN notes. O AND M SUPERVISOR note on 06/25/22 11:46: O AND M SUPERVISOR has attempted to evaluate the patient on several occasions. Either he has been too lethargic or resisting. Therefore, this O AND M SUPERVISOR has not been able to assess and determine the appropriate diet . Will discharge. - END OF NOTE. Pt is on Room Air, O2 saturation @ 97%, according to Physical Assessment History notes. Percent of energy/protein needs met: Prescribed TF-Jevity 1.2 Truong @ 70 ml/hr provides for energy/ protein needs (2,030 Kcal/94 g ) during LOS, 100% Kcal; 100% AA. #1 Nutrition Diagnosis Predicted suboptimal energy intake Comments: TF continues as prescribed, and well tolerated, according to RN notes. O AND M SUPERVISOR note on 06/25/22 11:46: O AND M SUPERVISOR has attempted to evaluate the patient on several occasions. Either he has been too lethargic or resisting. Therefore, this O AND M SUPERVISOR has not been able to assess and determine the appropriate diet . Will discharge. - END OF NOTE. Diagnosis Progress(for reassessment Improved documentation) Is patient on ventilator? No Is Patient Ambulatory and/or Out of Bed No REE-(Mcnairy-St. Jeor-confined to bed) 1668.192 Kcal/Kg value to use for calculation 33 Approximate Energy Requirements Using 2025 kcal/Kg Calculation Used for Recommendations Kcal/kg Additional Notes Protein: 1.2-2 g/Kg ABW; 74- 124 g/day. Fluids: 1 ml/Kcal, or as per MD. Nutrition Intervention Nutrition Support: Continue TF-Jevity 1.2 Truong @ 70 ml/hr. Flush: 110 ml water Q 4 hr, or as per MD. Kcal 2,030 Protein (gm) 94 Carbohydrates (gm) 287 Fat (gm) 66 Fluid (mL) 1,365 Fiber (gm) 30 % RDI: 100% Kcal; 100% AA. Goal #1 Provide at least 75% of energy /protein needs through Enteral Feeding during LOS. Goal #2 Adjust the dietary intervention to better serve Pt's needs and clinical conditions during LOS. Follow-Up By: 07/02/22 Additional Comments Continue monitoring TF tolerance and BM.
[2022-06-29] MEDS: METOPROLOL TARTRATE 25 MG TAB PO SCH ×2 (09:54→21:41)
[2022-06-30] MEDS: HEPARIN 5,000 UNIT/1 ML VIAL SUB-Q SCH ×3 (05:56→22:26)
--- NOTE | 2022-06-30 09:34 | Progress Note ---
Assessment and Plan Assessment and plan: #Refractory metabolic encephalopathy-improving Refractory despite patient being out of the window for alcohol withdrawal symptoms. Repeating CMP, CBC, and ammonia level. Original CT head noncontrast unremarkable for acute findings. Low clinical suspicion for acute ischemic CVA given patient does not have any focal deficits. Unremarkable urinalysis and UDS. -TSH, B12, folate WNL. -Psych/mental health eval consulted; appreciate recs. Continue Zyprexa 2.5 mg daily. -Neurology evaluated patient- MRI brain w/o contrast ordered -will continue to monitor #Acute hypoxic respiratory failure - etiology: possible infection (COVID or HAP) vs volume overload; COVID negative - baseline oxygen requirements: room air - supplemental oxygen: 3L nasal cannula, will wean as tolerated - Continue protocol: continue pulse oximetry, wean oxygen as tolerated, ordered incentive spirometry and educated patient on how to use it and its importance. Unremarkable coronavirus PCR. Discontinued antibiotics as low suspicion for infection. - continue to monitor #Alcohol withdrawal-resolved #Tachycardiaresolved #Alcohol dependence -Patient presented from alcohol rehabilitation; per chart review last drink 5 days prior to admission -s/p CIWA protocol and librium taper, patient out of window for alcohol wi thdrawal. #Volume depletion-resolved #Social: Extreme difficulty with finding patient's next of kin or friends. Patient was able to provide names of family members: FatherMichael Yates Sr.; motherMaradarsh Mcfarland; sisterMarhi Radha Mcfarland; sisterNorma Bartolo. Updating new familial information with case management. Continue to search for next of kin - snf contacted, possible bed available pending improvement in patient status History Interval history: No acute events overnight per nursing. Patient alert today and speaking. He has no complaints at this time. Hospitalist Physical - Physical exam Narrative exam: GENERAL: Thin elderly male. In no acute distress. HEENT: NC in place @3lpm; NGT @ 70cc/hr CHEST/LUNGS: Coarse breath sounds bilaterally. HEART/CARDIOVASCULAR: Mild tachycardia. No murmur, rubs or gallops appreciated. ABDOMEN: +BS. NT/ND. NEURO: No noted focal deficits. Able to follow commands. MUSCULOSKELETAL: No joint effusion EXTREMITIES: No cyanosis, clubbing or edema. PSYCH: Cooperative - Constitutional Vitals: Temp Pulse Resp BP Pulse Ox 97.3 F L 92 H 17 91/42 95 08/17/22 07:45 06/30/22 07:45 06/30/22 07:45 06/30/22 07:45 06/30/22 07:45 General appearance: Present: no acute distress, cachectic, disheveled HEART Score - HEART Score Troponin: Troponin T < 0.010 ng/mL (0.00-0.029) 06/18/22 17:20 Results - Labs CBC & Chem 7: 06/28/22 05:05 06/28/22 05:05 Labs: Laboratory Last Values WBC 12.5 K/mm3 (4.5-11.0) H 06/28/22 05:05 RBC 4.07 M/mm3 (3.65-5.03) 06/28/22 05:05 Hgb 13.1 gm/dl (11.8-15.2) 06/28/22 05:05 Hct 39.3 % (35.5-45.6) 06/28/22 05:05 MCV 97 fl (84-94) H 06/28/22 05:05 MCH 32 pg (28-32) 06/28/22 05:05 MCHC 33 % (32-34) 06/28/22 05:05 RDW 12.6 % (13.2-15.2) L 06/28/22 05:05 Plt Count 294 K/mm3 (140-440) 06/28/22 05:05 Lymph % (Auto) 15.1 % (13.4-35.0) 06/28/22 05:05 [place] % (Auto) 9.5 % (0.0-7.3) H 06/28/22 05:05 Eos % (Auto) 2.0 % (0.0-4.3) 06/28/22 05:05 Baso % (Auto) 0.8 % (0.0-1.8) 06/28/22 05:05 Lymph # (Auto) 1.9 K/mm3 (1.2-5.4) 06/28/22 05:05 [place] # (Auto) 1.2 K/mm3 (0.0-0.8) H 06/28/22 05:05 Eos # (Auto) 0.3 K/mm3 (0.0-0.4) 06/28/22 05:05 Baso # (Auto) 0.1 K/mm3 (0.0-0.1) 06/28/22 05:05 Add Manual Diff Complete 06/26/22 09:13 Total Counted 100 06/26/22 09:13 Seg Neutrophils % 72.6 % (40.0-70.0) H 06/28/22 05:05 Seg Neuts % (Manual) 85.0 % (40.0-70.0) H 06/26/22 09:13 Band Neutrophils % 0 % 06/26/22 09:13 Lymphocytes % (Manual) 6.0 % (13.4-35.0) L 06/26/22 09:13 Reactive Lymphs % (Man) 0 % 06/26/22 09:13 Monocytes % (Manual) 8.0 % (0.0-7.3) H 06/26/22 09:13 Eosinophils % (Manual) 0 % (0.0-4.3) 06/26/22 09:13 Basophils % (Manual) 1.0 % (0.0-1.8) 06/26/22 09:13 Metamyelocytes % 0 % 06/26/22 09:13 Myelocytes % 0 % 06/26/22 09:13 Promyelocytes % 0 % 06/26/22 09:13 Blast Cells % 0 % 06/26/22 09:13 Nucleated RBC % Not Reportable 06/26/22 09:13 Seg Neutrophils # 9.1 K/mm3 (1.8-7.7) H 06/28/22 05:05 Seg Neutrophils # Man 14.7 K/mm3 (1.8-7.7) H 06/26/22 09:13 Band Neutrophils # 0.0 K/mm3 06/26/22 09:13 Lymphocytes # (Manual) 1.0 K/mm3 (1.2-5.4) L 06/26/22 09:13 Abs React Lymphs (Man) 0.0 K/mm3 06/26/22 09:13 Monocytes # (Manual) 1.4 K/mm3 (0.0-0.8) H 06/26/22 09:13 Eosinophils # (Manual) 0.0 K/mm3 (0.0-0.4) 06/26/22 09:13 Basophils # (Manual) 0.2 K/mm3 (0.0-0.1) H 06/26/22 09:13 Metamyelocytes # 0.0 K/mm3 06/26/22 09:13 Myelocytes # 0.0 K/mm3 06/26/22 09:13 Promyelocytes # 0.0 K/mm3 06/26/22 09:13 Blast Cells # 0.0 K/mm3 06/26/22 09:13 WBC Morphology Not Reportable 06/26/22 09:13 Hypersegmented Neuts Not Reportable 06/26/22 09:13 Hyposegmented Neuts Not Reportable 06/26/22 09:13 Hypogranular Neuts Not Reportable 06/26/22 09:13 Smudge Cells Not Reportable 06/26/22 09:13 Toxic Granulation Not Reportable 06/26/22 09:13 Toxic Vacuolation Not Reportable 06/26/22 09:13 Dohle Bodies Not Reportable 06/26/22 09:13 Pelger-Huet Anomaly Not Reportable 06/26/22 09:13 Radha Rods Not Reportable 06/26/22 09:13 Platelet Estimate Consistent w auto 06/26/22 09:13 Clumped Platelets Not Reportable 06/26/22 09:13 Plt Clumps, EDTA Not Reportable 06/26/22 09:13 Large Platelets Not Reportable 06/26/22 09:13 Giant Platelets Not Reportable 06/26/22 09:13 Platelet Satelliting Not Reportable 06/26/22 09:13 Plt Morphology Comment Not Reportable 06/26/22 09:13 RBC Morphology Normal 06/26/22 09:13 Dimorphic RBCs Not Reportable 06/26/22 09:13 Polychromasia Not Reportable 06/26/22 09:13 Hypochromasia Not Reportable 06/26/22 09:13 Poikilocytosis Not Reportable 06/26/22 09:13 Anisocytosis Not Reportable 06/26/22 09:13 Microcytosis Not Reportable 06/26/22 09:13 Macrocytosis Not Reportable 06/26/22 09:13 Spherocytes Not Reportable 06/26/22 09:13 Pappenheimer Bodies Not Reportable 06/26/22 09:13 Sickle Cells Not Reportable 06/26/22 09:13 Target Cells Not Reportable 06/26/22 09:13 Tear Drop Cells Not Reportable 06/26/22 09:13 Ovalocytes Not Reportable 06/26/22 09:13 Helmet Cells Not Reportable 06/26/22 09:13 [place] Bodies Not Reportable 06/26/22 09:13 Pelsor Rings Not Reportable 06/26/22 09:13 Brainerd Cells Not Reportable 06/26/22 09:13 Bite Cells Not Reportable 06/26/22 09:13 Crenated Cell Not Reportable 06/26/22 09:13 Elliptocytes Not Reportable 06/26/22 09:13 Acanthocytes (Spur) Not Reportable 06/26/22 09:13 Rouleaux Not Reportable 06/26/22 09:13 Hemoglobin C Crystals Not Reportable 06/26/22 09:13 Schistocytes Not Reportable 06/26/22 09:13 Malaria parasites Not Reportable 06/26/22 09:13 Roland Bodies Not Reportable 06/26/22 09:13 Hem Pathologist Commnt No 06/26/22 09:13 Sodium 135 mmol/L (137-145) L 06/28/22 05:05 Potassium 3.9 mmol/L (3.6-5.0) 06/28/22 05:05 Chloride 95.9 mmol/L (98-107) L 06/28/22 05:05 Carbon Dioxide 27 mmol/L (22-30) 06/28/22 05:05 Anion Gap 16 mmol/L 06/28/22 05:05 BUN 17 mg/dL (9-20) 06/28/22 05:05 Creatinine 0.8 mg/dL (0.8-1.3) 06/28/22 05:05 Estimated GFR > 60 ml/min 06/28/22 05:05 BUN/Creatinine Ratio 21 % 06/28/22 05:05 Glucose 127 mg/dL (75-100) H 06/28/22 05:05 POC Glucose 115 mg/dL (70-105) H 06/30/22 04:54 Lactic Acid 0.80 mmol/L (0.7-2.0) 06/18/22 17:20 Calcium 8.9 mg/dL (8.4-10.2) 06/28/22 05:05 Total Bilirubin 0.80 mg/dL (0.1-1.2) 06/23/22 13:00 AST 19 units/L (5-40) 06/23/22 13:00 ALT 21 units/L (7-56) 06/23/22 13:00 Alkaline Phosphatase 66 units/L (35-129) 06/23/22 13:00 Ammonia 16.0 umol/L (25-60) L 06/23/22 13:00 Total Creatine Kinase 383 units/L (55-170) H 06/18/22 17:20 Troponin T < 0.010 ng/mL (0.00-0.029) 06/18/22 17:20 Total Protein 6.9 g/dL (6.3-8.2) 06/23/22 13:00 Albumin 3.6 g/dL (3.9-5) L 06/23/22 13:00 Albumin/Globulin Ratio 1.1 % 06/23/22 13:00 Vitamin B1 110 nmol/L (8-30) H 06/19/22 20:22 Vitamin B12 2000 pg/mL (211-911) H 06/19/22 20:22 Folate 20.00 ng/mL (7.3-26.0) 06/19/22 20:22 TSH 1.320 mlU/mL (0.270-4.200) 06/19/22 20:22 Urine Color Colorless (Yellow) 06/18/22 Unknown Urine Turbidity Clear (Clear) 06/18/22 Unknown Urine pH 5.0 (5.0-7.0) 06/18/22 Unknown Ur Specific [place] 1.015 (1.003-1.030) 06/18/22 Unknown Urine Protein 30 mg/dl mg/dL (Negative) 06/18/22 Unknown Urine Glucose (UA) Negative mg/dL (Negative) 06/18/22 Unknown Urine Ketones 25 mg/dL (Negative) 06/18/22 Unknown Urine Blood Negative (Negative) 06/18/22 Unknown Urine Nitrite Negative (Negative) 06/18/22 Unknown Urine Bilirubin Negative (Negative) 06/18/22 Unknown Urine Urobilinogen 0.2 mg/dL (<2.0) 06/18/22 Unknown Ur Leukocyte Esterase Negative (Negative) 06/18/22 Unknown Urine WBC (Auto) 1.0 /HPF (0.0-6.0) 06/18/22 Unknown Urine RBC (Auto) < 1.0 /HPF (0.0-6.0) 06/18/22 Unknown Urine Mucus Few /HPF 06/18/22 Unknown Nasal Screen MRSA (PCR) Negative (Negative) 06/21/22 08:50 Urine Opiates Screen Negative 06/19/22 10:49 Urine Methadone Screen Negative 06/19/22 10:49 Ur Barbiturates Screen Negative 06/19/22 10:49 Ur Phencyclidine Scrn Negative 06/19/22 10:49 Ur Amphetamines Screen Negative 06/19/22 10:49 U Benzodiazepines Scrn Negative 06/19/22 10:49 Urine Cocaine Screen Negative 06/19/22 10:49 U Marijuana (THC) Screen Negative 06/19/22 10:49 Drugs of Abuse Note Disclamer 06/19/22 10:49 Plasma/Serum Alcohol < 0.01 % (0-0.07) 06/18/22 17:20 SARS-CoV-2 (PCR) Negative (Negative) 06/27/22 04:00 Microbiology: Microbiology 06/26/22 11:27 Peripheral/Venous Blood Culture - Preliminary NO GROWTH AFTER 72 HOURS 06/26/22 09:13 Peripheral/Venous Blood Culture - Preliminary NO GROWTH AFTER 72 HOURS [place]/IV: Voiding Method Condom Catheter Active Medications - Current Medications Current Medications: Generic Name Dose Route Start Last Admin Trade Name Freq PRN Reason Stop Dose Admin Acetaminophen 650 mg 06/18/22 23:08 06/26/22 16:39 Acetaminophen 325 Mg Tab PO 650 mg Q4H PRN Administration Pain MILD(1-3)/Fever >100.5/MCGEE Heparin Sodium (Porcine) 5,000 unit 06/19/22 06:00 06/30/22 05:56 Heparin 5,000 Unit/1 Ml Vial SUB-Q 5,000 unit Q8HR DAVID Administration Magnesium Hydroxide 30 ml 06/18/22 23:08 Magnesium Hydroxide (Mom) Oral Liqd Udc PO Q4H PRN Constipation Metoprolol Tartrate 25 mg 06/23/22 13:00 06/29/22 21:41 Metoprolol Tartrate 25 Mg Tab PO 25 mg BID DAVID Administration Morphine Sulfate 2 mg 06/18/22 23:08 Morphine 2 Mg/1 Ml Inj IV Q4H PRN Pain, Moderate (4-6) Morphine Sulfate 4 mg 06/18/22 23:08 Morphine 4 Mg/1 Ml Inj IV Q4H PRN Pain , Severe (7-10) Olanzapine 2.5 mg 06/25/22 22:00 06/29/22 21:41 Olanzapine 2.5 Mg Tab PO 2.5 mg QHS DAVID Administration Ondansetron HCl 4 mg 06/18/22 23:08 Ondansetron 4 Mg/2 Ml Inj IV Q8H PRN Nausea And Vomiting Sodium Chloride 10 ml 06/19/22 10:00 06/29/22 21:42 Sodium Chloride 0.9% 10 Ml Flush Syringe IV 10 ml BID DAVID Administration Sodium Chloride 10 ml 06/18/22 23:08 Sodium Chloride 0.9% 10 Ml Flush Syringe IV PRN PRN LINE FLUSH Nutrition/Malnutrition Assess - Dietary Evaluation Nutrition/Malnutrition Findings: Nutrition Notes Start: 06/24/22 14:15 Freq: Status: Active Protocol: Document 06/25/22 15:47 CUATE (Rec: 06/25/22 15:59 CUATE [id number]) Nutrition Notes Initial or Follow up Brief Note Other Pertinent Diagnosis AMS, Metabolic Encephalopathy, Dementia, EtOH Dependence. Current Diet TF-Jevity 1.2 [place] @ 70 ml/hr ( from D 06/24). Height 5 ft 10 in Weight 61.4 kg [place] Body Weight (kg) 75.45 BMI 19.4 Weight change and time frame 0.3 Kg body weight loss in 1 day reported. Weight Status Appropriate Subjective/Other Information RD consult for TF tolerance/ continuation. TF continues as prescribed, and well tolerated, according to RN notes. HAT SPRAYER note on 06/25/22 11:46: HAT SPRAYER has attempted to evaluate the patient on several occasions. Either he has been too lethargic or resisting. Therefore, this HAT SPRAYER has not been able to assess and determine the appropriate diet . Will discharge. - END OF NOTE. Pt is on Room Air, O2 saturation @ 97%, according to Physical Assessment History notes. Percent of energy/protein needs met: Prescribed TF-Jevity 1.2 [place] @ 70 ml/hr provides for energy/ protein needs (2,030 Kcal/94 g ) during LOS, 100% Kcal; 100% AA. #1 Nutrition Diagnosis Predicted suboptimal energy intake Comments: TF continues as prescribed, and well tolerated, according to RN notes. HAT SPRAYER note on 06/25/22 11:46: HAT SPRAYER has attempted to evaluate the patient on several occasions. Either he has been too lethargic or resisting. Therefore, this HAT SPRAYER has not been able to assess and determine the appropriate diet . Will discharge. - END OF NOTE. Diagnosis Progress(for reassessment Improved documentation) Is patient on ventilator? No Is Patient Ambulatory and/or Out of Bed No REE-([place] Jeor-confined to bed) 1668.192 Kcal/Kg value to use for calculation 33 Approximate Energy Requirements Using 2025 kcal/Kg Calculation Used for Recommendations Kcal/kg Additional Notes Protein: 1.2-2 g/Kg ABW; 74- 124 g/day. Fluids: 1 ml/Kcal, or as per MD. Nutrition Intervention Nutrition Support: Continue TF-Jevity 1.2 [place] @ 70 ml/hr. Flush: 110 ml water Q 4 hr, or as per MD. Kcal 2,030 Protein (gm) 94 Carbohydrates (gm) 287 Fat (gm) 66 Fluid (mL) 1,365 Fiber (gm) 30 % RDI: 100% Kcal; 100% AA. Goal #1 Provide at least 75% of energy /protein needs through Enteral Feeding during LOS. Goal #2 Adjust the dietary intervention to better serve Pt's needs and clinical conditions during LOS. Follow-Up By: 07/02/22 Additional Comments Continue monitoring TF tolerance and BM.
[2022-06-30] MEDS: METOPROLOL TARTRATE 25 MG TAB PO SCH ×2 (09:53→22:26)
[2022-07-01 06:12] LABS: Hematocrit 45.7 % (35.5-45.6); Hemoglobin 15.2 gm/dl (11.8-15.2); Mean Corpuscular HGB Conc 33 % (32-34); Mean Corpuscular Volume 95 fl (84-94); Platelet Count 384 K/mm3 (140-440); Red Blood Count 4.78 M/mm3 (3.65-5.03); Red Cell Distribution Width 12.3 % (13.2-15.2)
[2022-07-01] MEDS: HEPARIN 5,000 UNIT/1 ML VIAL SUB-Q SCH ×3 (06:17→21:43)
[2022-07-01 06:21] LABS: Blood Urea Nitrogen 23 mg/dL (9-20); Calcium 10.1 mg/dL (8.4-10.2); Hemolysis Index 63
[2022-07-01 06:33] LABS: BUN/Creatinine Ratio 33
--- NOTE | 2022-07-01 08:06 | Progress Note ---
Assessment and Plan Assessment and plan: #Refractory metabolic encephalopathy-improving Refractory despite patient being out of the window for alcohol withdrawal symptoms. Repeating CMP, CBC, and ammonia level. Original CT head noncontrast unremarkable for acute findings. Low clinical suspicion for acute ischemic CVA given patient does not have any focal deficits. Unremarkable urinalysis and UDS. -TSH, B12, folate WNL. -Psych/mental health eval consulted; appreciate recs. Continue Zyprexa 2.5 mg daily. -MRI held due to improvement in mental status -will continue to monitor -ST evaluation for swallowing assessment #Acute hypoxic respiratory failure - etiology: possible infection (COVID or HAP) vs volume overload; COVID negative - baseline oxygen requirements: room air - supplemental oxygen: 3L nasal cannula, will wean as tolerated - Continue protocol: continue pulse oximetry, wean oxygen as tolerated, ordered incentive spirometry and educated patient on how to use it and its importance. Unremarkable coronavirus PCR. Discontinued antibiotics as low suspicion for infection. - continue to monitor #Alcohol withdrawal-resolved #Tachycardiaresolved #Alcohol dependence -Patient presented from alcohol rehabilitation; per chart review last drink 5 days prior to admission -s/p CIWA protocol and librium taper, patient out of window for alcohol wi thdrawal. #Volume depletion-resolved #Social: Extreme difficulty with finding patient's next of kin or friends. Patient was able to provide names of family members: FatherMichael Yates Sr.; motherMaradarsh Mcfarland; sisterMarhi Radha Mcfarland; sisterNorma Bartolo. Updating new familial information with case management. Continue to search for next of kin - alf contacted, possible bed available pending improvement in patient status History Interval history: No acute events overnight per nursing. Patient alert today. He is agreeable to attempt oral nutrition. He denies any pain or discomfort at this time. Hospitalist Physical - Physical exam Narrative exam: GENERAL: Thin elderly male. In no acute distress. HEENT: NC in place @3lpm; NGT @ 70cc/hr CHEST/LUNGS: Coarse breath sounds bilaterally. HEART/CARDIOVASCULAR: Mild tachycardia. No murmur, rubs or gallops appreciated. ABDOMEN: +BS. NT/ND. NEURO: No noted focal deficits. Able to follow commands. MUSCULOSKELETAL: No joint effusion EXTREMITIES: No cyanosis, clubbing or edema. PSYCH: Cooperative - Constitutional Vitals: Temp Pulse Resp BP Pulse Ox 98.0 F 76 18 122/81 98 07/01/22 04:58 07/01/22 04:00 07/01/22 04:58 07/01/22 04:58 07/01/22 04:00 General appearance: Present: no acute distress, cachectic, disheveled HEART Score - HEART Score Troponin: Troponin T < 0.010 ng/mL (0.00-0.029) 06/18/22 17:20 Results - Labs CBC & Chem 7: 07/01/22 05:39 07/01/22 05:39 Labs: Laboratory Last Values WBC 10.2 K/mm3 (4.5-11.0) 07/01/22 05:39 RBC 4.78 M/mm3 (3.65-5.03) 07/01/22 05:39 Hgb 15.2 gm/dl (11.8-15.2) 07/01/22 05:39 Hct 45.7 % (35.5-45.6) H 07/01/22 05:39 MCV 95 fl (84-94) H 07/01/22 05:39 MCH 32 pg (28-32) 07/01/22 05:39 MCHC 33 % (32-34) 07/01/22 05:39 RDW 12.3 % (13.2-15.2) L 07/01/22 05:39 Plt Count 384 K/mm3 (140-440) 07/01/22 05:39 Lymph % (Auto) 15.1 % (13.4-35.0) 06/28/22 05:05 [place] % (Auto) 9.5 % (0.0-7.3) H 06/28/22 05:05 Eos % (Auto) 2.0 % (0.0-4.3) 06/28/22 05:05 Baso % (Auto) 0.8 % (0.0-1.8) 06/28/22 05:05 Lymph # (Auto) 1.9 K/mm3 (1.2-5.4) 06/28/22 05:05 [place] # (Auto) 1.2 K/mm3 (0.0-0.8) H 06/28/22 05:05 Eos # (Auto) 0.3 K/mm3 (0.0-0.4) 06/28/22 05:05 Baso # (Auto) 0.1 K/mm3 (0.0-0.1) 06/28/22 05:05 Add Manual Diff Complete 06/26/22 09:13 Total Counted 100 06/26/22 09:13 Seg Neutrophils % 72.6 % (40.0-70.0) H 06/28/22 05:05 Seg Neuts % (Manual) 85.0 % (40.0-70.0) H 06/26/22 09:13 Band Neutrophils % 0 % 06/26/22 09:13 Lymphocytes % (Manual) 6.0 % (13.4-35.0) L 06/26/22 09:13 Reactive Lymphs % (Man) 0 % 06/26/22 09:13 Monocytes % (Manual) 8.0 % (0.0-7.3) H 06/26/22 09:13 Eosinophils % (Manual) 0 % (0.0-4.3) 06/26/22 09:13 Basophils % (Manual) 1.0 % (0.0-1.8) 06/26/22 09:13 Metamyelocytes % 0 % 06/26/22 09:13 Myelocytes % 0 % 06/26/22 09:13 Promyelocytes % 0 % 06/26/22 09:13 Blast Cells % 0 % 06/26/22 09:13 Nucleated RBC % Not Reportable 06/26/22 09:13 Seg Neutrophils # 9.1 K/mm3 (1.8-7.7) H 06/28/22 05:05 Seg Neutrophils # Man 14.7 K/mm3 (1.8-7.7) H 06/26/22 09:13 Band Neutrophils # 0.0 K/mm3 06/26/22 09:13 Lymphocytes # (Manual) 1.0 K/mm3 (1.2-5.4) L 06/26/22 09:13 Abs React Lymphs (Man) 0.0 K/mm3 06/26/22 09:13 Monocytes # (Manual) 1.4 K/mm3 (0.0-0.8) H 06/26/22 09:13 Eosinophils # (Manual) 0.0 K/mm3 (0.0-0.4) 06/26/22 09:13 Basophils # (Manual) 0.2 K/mm3 (0.0-0.1) H 06/26/22 09:13 Metamyelocytes # 0.0 K/mm3 06/26/22 09:13 Myelocytes # 0.0 K/mm3 06/26/22 09:13 Promyelocytes # 0.0 K/mm3 06/26/22 09:13 Blast Cells # 0.0 K/mm3 06/26/22 09:13 WBC Morphology Not Reportable 06/26/22 09:13 Hypersegmented Neuts Not Reportable 06/26/22 09:13 Hyposegmented Neuts Not Reportable 06/26/22 09:13 Hypogranular Neuts Not Reportable 06/26/22 09:13 Smudge Cells Not Reportable 06/26/22 09:13 Toxic Granulation Not Reportable 06/26/22 09:13 Toxic Vacuolation Not Reportable 06/26/22 09:13 Dohle Bodies Not Reportable 06/26/22 09:13 Pelger-Huet Anomaly Not Reportable 06/26/22 09:13 Radha Rods Not Reportable 06/26/22 09:13 Platelet Estimate Consistent w auto 06/26/22 09:13 Clumped Platelets Not Reportable 06/26/22 09:13 Plt Clumps, EDTA Not Reportable 06/26/22 09:13 Large Platelets Not Reportable 06/26/22 09:13 Giant Platelets Not Reportable 06/26/22 09:13 Platelet Satelliting Not Reportable 06/26/22 09:13 Plt Morphology Comment Not Reportable 06/26/22 09:13 RBC Morphology Normal 06/26/22 09:13 Dimorphic RBCs Not Reportable 06/26/22 09:13 Polychromasia Not Reportable 06/26/22 09:13 Hypochromasia Not Reportable 06/26/22 09:13 Poikilocytosis Not Reportable 06/26/22 09:13 Anisocytosis Not Reportable 06/26/22 09:13 Microcytosis Not Reportable 06/26/22 09:13 Macrocytosis Not Reportable 06/26/22 09:13 Spherocytes Not Reportable 06/26/22 09:13 Pappenheimer Bodies Not Reportable 06/26/22 09:13 Sickle Cells Not Reportable 06/26/22 09:13 Target Cells Not Reportable 06/26/22 09:13 Tear Drop Cells Not Reportable 06/26/22 09:13 Ovalocytes Not Reportable 06/26/22 09:13 Helmet Cells Not Reportable 06/26/22 09:13 [place] Bodies Not Reportable 06/26/22 09:13 [place] Rings Not Reportable 06/26/22 09:13 Cheryle Cells Not Reportable 06/26/22 09:13 Bite Cells Not Reportable 06/26/22 09:13 Crenated Cell Not Reportable 06/26/22 09:13 Elliptocytes Not Reportable 06/26/22 09:13 Acanthocytes (Spur) Not Reportable 06/26/22 09:13 Rouleaux Not Reportable 06/26/22 09:13 Hemoglobin C Crystals Not Reportable 06/26/22 09:13 Schistocytes Not Reportable 06/26/22 09:13 Malaria parasites Not Reportable 06/26/22 09:13 Roland Bodies Not Reportable 06/26/22 09:13 Hem Pathologist Commnt No 06/26/22 09:13 Sodium 134 mmol/L (137-145) L 07/01/22 05:39 Potassium 5.1 mmol/L (3.6-5.0) H D 07/01/22 05:39 Chloride 95.3 mmol/L (98-107) L 07/01/22 05:39 Carbon Dioxide 28 mmol/L (22-30) 07/01/22 05:39 Anion Gap 16 mmol/L 07/01/22 05:39 BUN 23 mg/dL (9-20) H 07/01/22 05:39 Creatinine 0.7 mg/dL (0.8-1.3) L 07/01/22 05:39 Estimated GFR > 60 ml/min 07/01/22 05:39 BUN/Creatinine Ratio 33 % 07/01/22 05:39 Glucose 112 mg/dL (75-100) H 07/01/22 05:39 POC Glucose 101 mg/dL (70-105) 07/01/22 06:55 Lactic Acid 0.80 mmol/L (0.7-2.0) 06/18/22 17:20 Calcium 10.1 mg/dL (8.4-10.2) 07/01/22 05:39 Total Bilirubin 0.80 mg/dL (0.1-1.2) 06/23/22 13:00 AST 19 units/L (5-40) 06/23/22 13:00 ALT 21 units/L (7-56) 06/23/22 13:00 Alkaline Phosphatase 66 units/L (35-129) 06/23/22 13:00 Ammonia 16.0 umol/L (25-60) L 06/23/22 13:00 Total Creatine Kinase 383 units/L (55-170) H 06/18/22 17:20 Troponin T < 0.010 ng/mL (0.00-0.029) 06/18/22 17:20 Total Protein 6.9 g/dL (6.3-8.2) 06/23/22 13:00 Albumin 3.6 g/dL (3.9-5) L 06/23/22 13:00 Albumin/Globulin Ratio 1.1 % 06/23/22 13:00 Vitamin B1 110 nmol/L (8-30) H 06/19/22 20:22 Vitamin B12 2000 pg/mL (211-911) H 06/19/22 20:22 Folate 20.00 ng/mL (7.3-26.0) 06/19/22 20:22 TSH 1.320 mlU/mL (0.270-4.200) 06/19/22 20:22 Urine Color Colorless (Yellow) 06/18/22 Unknown Urine Turbidity Clear (Clear) 06/18/22 Unknown Urine pH 5.0 (5.0-7.0) 06/18/22 Unknown Ur Specific [place] 1.015 (1.003-1.030) 06/18/22 Unknown Urine Protein 30 mg/dl mg/dL (Negative) 06/18/22 Unknown Urine Glucose (UA) Negative mg/dL (Negative) 06/18/22 Unknown Urine Ketones 25 mg/dL (Negative) 06/18/22 Unknown Urine Blood Negative (Negative) 06/18/22 Unknown Urine Nitrite Negative (Negative) 06/18/22 Unknown Urine Bilirubin Negative (Negative) 06/18/22 Unknown Urine Urobilinogen 0.2 mg/dL (<2.0) 06/18/22 Unknown Ur Leukocyte Esterase Negative (Negative) 06/18/22 Unknown Urine WBC (Auto) 1.0 /HPF (0.0-6.0) 06/18/22 Unknown Urine RBC (Auto) < 1.0 /HPF (0.0-6.0) 06/18/22 Unknown Urine Mucus Few /HPF 06/18/22 Unknown Nasal Screen MRSA (PCR) Negative (Negative) 06/21/22 08:50 Urine Opiates Screen Negative 06/19/22 10:49 Urine Methadone Screen Negative 06/19/22 10:49 Ur Barbiturates Screen Negative 06/19/22 10:49 Ur Phencyclidine Scrn Negative 06/19/22 10:49 Ur Amphetamines Screen Negative 06/19/22 10:49 U Benzodiazepines Scrn Negative 06/19/22 10:49 Urine Cocaine Screen Negative 06/19/22 10:49 U Marijuana (THC) Screen Negative 06/19/22 10:49 Drugs of Abuse Note Disclamer 06/19/22 10:49 Plasma/Serum Alcohol < 0.01 % (0-0.07) 06/18/22 17:20 SARS-CoV-2 (PCR) Negative (Negative) 06/27/22 04:00 Microbiology: Microbiology 06/26/22 11:27 Peripheral/Venous Blood Culture - Preliminary NO GROWTH AFTER 4 DAYS 06/26/22 09:13 Peripheral/Venous Blood Culture - Preliminary NO GROWTH AFTER 4 DAYS [place]/IV: Voiding Method Condom Catheter Active Medications - Current Medications Current Medications: Generic Name Dose Route Start Last Admin Trade Name Freq PRN Reason Stop Dose Admin Acetaminophen 650 mg 06/18/22 23:08 06/26/22 16:39 Acetaminophen 325 Mg Tab PO 650 mg Q4H PRN Administration Pain MILD(1-3)/Fever >100.5/MCGEE Heparin Sodium (Porcine) 5,000 unit 06/19/22 06:00 07/01/22 06:17 Heparin 5,000 Unit/1 Ml Vial SUB-Q 5,000 unit Q8HR DAVID Administration Magnesium Hydroxide 30 ml 06/18/22 23:08 Magnesium Hydroxide (Mom) Oral Liqd Udc PO Q4H PRN Constipation Metoprolol Tartrate 25 mg 06/23/22 13:00 06/30/22 22:26 Metoprolol Tartrate 25 Mg Tab PO Not Given BID DAVID Morphine Sulfate 2 mg 06/18/22 23:08 Morphine 2 Mg/1 Ml Inj IV Q4H PRN Pain, Moderate (4-6) Morphine Sulfate 4 mg 06/18/22 23:08 Morphine 4 Mg/1 Ml Inj IV Q4H PRN Pain , Severe (7-10) Olanzapine 2.5 mg 06/25/22 22:00 06/30/22 22:24 Olanzapine 2.5 Mg Tab PO 2.5 mg QHS DAVID Administration Ondansetron HCl 4 mg 06/18/22 23:08 Ondansetron 4 Mg/2 Ml Inj IV Q8H PRN Nausea And Vomiting Sodium Chloride 10 ml 06/19/22 10:00 06/30/22 22:26 Sodium Chloride 0.9% 10 Ml Flush Syringe IV 10 ml BID DAVID Administration Sodium Chloride 10 ml 06/18/22 23:08 Sodium Chloride 0.9% 10 Ml Flush Syringe IV PRN PRN LINE FLUSH Nutrition/Malnutrition Assess - Dietary Evaluation Nutrition/Malnutrition Findings: Nutrition Notes Start: 06/24/22 14:15 Freq: Status: Active Protocol: Document 06/25/22 15:47 CUATE (Rec: 06/25/22 15:59 CUATE [id number]) Nutrition Notes Initial or Follow up Brief Note Other Pertinent Diagnosis AMS, Metabolic Encephalopathy, Dementia, EtOH Dependence. Current Diet TF-Jevity 1.2 Truong @ 70 ml/hr ( from D 06/24). Height 5 ft 10 in Weight 61.4 kg [place] Body Weight (kg) 75.45 BMI 19.4 Weight change and time frame 0.3 Kg body weight loss in 1 day reported. Weight Status Appropriate Subjective/Other Information RD consult for TF tolerance/ continuation. TF continues as prescribed, and well tolerated, according to RN notes. TRAINING PERSONNEL SUPERVISOR note on 06/25/22 11:46: TRAINING PERSONNEL SUPERVISOR has attempted to evaluate the patient on several occasions. Either he has been too lethargic or resisting. Therefore, this TRAINING PERSONNEL SUPERVISOR has not been able to assess and determine the appropriate diet . Will discharge. - END OF NOTE. Pt is on Room Air, O2 saturation @ 97%, according to Physical Assessment History notes. Percent of energy/protein needs met: Prescribed TF-Jevity 1.2 Truong @ 70 ml/hr provides for energy/ protein needs (2,030 Kcal/94 g ) during LOS, 100% Kcal; 100% AA. #1 Nutrition Diagnosis Predicted suboptimal energy intake Comments: TF continues as prescribed, and well tolerated, according to RN notes. TRAINING PERSONNEL SUPERVISOR note on 06/25/22 11:46: TRAINING PERSONNEL SUPERVISOR has attempted to evaluate the patient on several occasions. Either he has been too lethargic or resisting. Therefore, this TRAINING PERSONNEL SUPERVISOR has not been able to assess and determine the appropriate diet . Will discharge. - END OF NOTE. Diagnosis Progress(for reassessment Improved documentation) Is patient on ventilator? No Is Patient Ambulatory and/or Out of Bed No REE-([facility]-confined to bed) 1668.192 Kcal/Kg value to use for calculation 33 Approximate Energy Requirements Using 2025 kcal/Kg Calculation Used for Recommendations Kcal/kg Additional Notes Protein: 1.2-2 g/Kg ABW; 74- 124 g/day. Fluids: 1 ml/Kcal, or as per MD. Nutrition Intervention Nutrition Support: Continue TF-Jevity 1.2 Truong @ 70 ml/hr. Flush: 110 ml water Q 4 hr, or as per MD. Kcal 2,030 Protein (gm) 94 Carbohydrates (gm) 287 Fat (gm) 66 Fluid (mL) 1,365 Fiber (gm) 30 % RDI: 100% Kcal; 100% AA. Goal #1 Provide at least 75% of energy /protein needs through Enteral Feeding during LOS. Goal #2 Adjust the dietary intervention to better serve Pt's needs and clinical conditions during LOS. Follow-Up By: 07/02/22 Additional Comments Continue monitoring TF tolerance and BM.
[2022-07-01] MEDS: ACETAMINOPHEN 325 MG TAB PO PRN (11:53)
[2022-07-01] MEDS: METOPROLOL TARTRATE 25 MG TAB PO SCH ×2 (11:53→21:42)
[2022-07-01] MEDS: MORPHINE 2 MG/1 ML INJ IV PRN (21:40)
[2022-07-02] MEDS: HEPARIN 5,000 UNIT/1 ML VIAL SUB-Q SCH ×3 (05:30→21:51)
[2022-07-02] MEDS: ACETAMINOPHEN 325 MG TAB PO PRN (11:16)
[2022-07-02] MEDS: METOPROLOL TARTRATE 25 MG TAB PO SCH ×2 (11:16→22:00)
--- NOTE | 2022-07-02 11:56 | Progress Note ---
Assessment and Plan Assessment and plan: #Refractory metabolic encephalopathy-improving Refractory despite patient being out of the window for alcohol withdrawal symptoms. Repeating CMP, CBC, and ammonia level. Original CT head noncontrast unremarkable for acute findings. Low clinical suspicion for acute ischemic CVA given patient does not have any focal deficits. Unremarkable urinalysis and UDS. -TSH, B12, folate WNL. -Psych/mental health eval consulted; appreciate recs. Continue Zyprexa 2.5 mg daily. -MRI held due to improvement in mental status -will continue to monitor -ST evaluation: OK for pureed diet -PT evaluation ordered #Acute hypoxic respiratory failure - etiology: possible infection (COVID or HAP) vs volume overload; COVID negative - baseline oxygen requirements: room air - supplemental oxygen: 3L nasal cannula, will wean as tolerated - Continue protocol: continue pulse oximetry, wean oxygen as tolerated, ordered incentive spirometry and educated patient on how to use it and its importance. Unremarkable coronavirus PCR. Discontinued antibiotics as low suspicion for infection. - continue to monitor #Alcohol withdrawal-resolved #Tachycardiaresolved #Alcohol dependence -Patient presented from alcohol rehabilitation; per chart review last drink 5 days prior to admission -s/p CIWA protocol and librium taper, patient out of window for alcohol withdrawal. #Volume depletion-resolved #Social: Extreme difficulty with finding patient's next of kin or friends. Patient was able to provide names of family members: FatherWilfredokishore Sr. [place]; motherMaradarsh Radha Mcfarland; sisterMarhi Radha Mcfarland; sisterNorma Bartolo. Updating new familial information with case management. Continue to search for next of kin - prison contacted, possible bed available pending improvement in patient status History Interval history: No acute events overnight per nursing. Patient alert today when aroused. He has eaten about 50% of meals since PO was re-instated. He denies any pain or discomfort at this time. Hospitalist Physical - Physical exam Narrative exam: GENERAL: Thin elderly male. In no acute distress. HEENT: NC in place @3lpm CHEST/LUNGS: Coarse breath sounds bilaterally. HEART/CARDIOVASCULAR: RRR. No murmur, rubs or gallops appreciated. ABDOMEN: +BS. NT/ND. NEURO: No noted focal deficits. Able to follow commands. MUSCULOSKELETAL: No joint effusion EXTREMITIES: No cyanosis, clubbing or edema. PSYCH: Cooperative - Constitutional Vitals: Temp Pulse Resp BP Pulse Ox 98.9 F 82 18 133/84 97 07/02/22 07:49 07/02/22 07:49 07/02/22 07:49 07/02/22 07:49 07/02/22 07:49 General appearance: Present: no acute distress, cachectic, disheveled HEART Score - HEART Score Troponin: Troponin T < 0.010 ng/mL (0.00-0.029) 06/18/22 17:20 Results - Labs CBC & Chem 7: 07/01/22 05:39 07/01/22 05:39 Labs: Laboratory Last Values WBC 10.2 K/mm3 (4.5-11.0) 07/01/22 05:39 RBC 4.78 M/mm3 (3.65-5.03) 07/01/22 05:39 Hgb 15.2 gm/dl (11.8-15.2) 07/01/22 05:39 Hct 45.7 % (35.5-45.6) H 07/01/22 05:39 MCV 95 fl (84-94) H 07/01/22 05:39 MCH 32 pg (28-32) 07/01/22 05:39 MCHC 33 % (32-34) 07/01/22 05:39 RDW 12.3 % (13.2-15.2) L 07/01/22 05:39 Plt Count 384 K/mm3 (140-440) 07/01/22 05:39 Lymph % (Auto) 15.1 % (13.4-35.0) 06/28/22 05:05 Tucker % (Auto) 9.5 % (0.0-7.3) H 06/28/22 05:05 Eos % (Auto) 2.0 % (0.0-4.3) 06/28/22 05:05 Baso % (Auto) 0.8 % (0.0-1.8) 06/28/22 05:05 Lymph # (Auto) 1.9 K/mm3 (1.2-5.4) 06/28/22 05:05 Tucker # (Auto) 1.2 K/mm3 (0.0-0.8) H 06/28/22 05:05 Eos # (Auto) 0.3 K/mm3 (0.0-0.4) 06/28/22 05:05 Baso # (Auto) 0.1 K/mm3 (0.0-0.1) 06/28/22 05:05 Add Manual Diff Complete 06/26/22 09:13 Total Counted 100 06/26/22 09:13 Seg Neutrophils % 72.6 % (40.0-70.0) H 06/28/22 05:05 Seg Neuts % (Manual) 85.0 % (40.0-70.0) H 06/26/22 09:13 Band Neutrophils % 0 % 06/26/22 09:13 Lymphocytes % (Manual) 6.0 % (13.4-35.0) L 06/26/22 09:13 Reactive Lymphs % (Man) 0 % 06/26/22 09:13 Monocytes % (Manual) 8.0 % (0.0-7.3) H 06/26/22 09:13 Eosinophils % (Manual) 0 % (0.0-4.3) 06/26/22 09:13 Basophils % (Manual) 1.0 % (0.0-1.8) 06/26/22 09:13 Metamyelocytes % 0 % 06/26/22 09:13 Myelocytes % 0 % 06/26/22 09:13 Promyelocytes % 0 % 06/26/22 09:13 Blast Cells % 0 % 06/26/22 09:13 Nucleated RBC % Not Reportable 06/26/22 09:13 Seg Neutrophils # 9.1 K/mm3 (1.8-7.7) H 06/28/22 05:05 Seg Neutrophils # Man 14.7 K/mm3 (1.8-7.7) H 06/26/22 09:13 Band Neutrophils # 0.0 K/mm3 06/26/22 09:13 Lymphocytes # (Manual) 1.0 K/mm3 (1.2-5.4) L 06/26/22 09:13 Abs React Lymphs (Man) 0.0 K/mm3 06/26/22 09:13 Monocytes # (Manual) 1.4 K/mm3 (0.0-0.8) H 06/26/22 09:13 Eosinophils # (Manual) 0.0 K/mm3 (0.0-0.4) 06/26/22 09:13 Basophils # (Manual) 0.2 K/mm3 (0.0-0.1) H 06/26/22 09:13 Metamyelocytes # 0.0 K/mm3 06/26/22 09:13 Myelocytes # 0.0 K/mm3 06/26/22 09:13 Promyelocytes # 0.0 K/mm3 06/26/22 09:13 Blast Cells # 0.0 K/mm3 06/26/22 09:13 WBC Morphology Not Reportable 06/26/22 09:13 Hypersegmented Neuts Not Reportable 06/26/22 09:13 Hyposegmented Neuts Not Reportable 06/26/22 09:13 Hypogranular Neuts Not Reportable 06/26/22 09:13 Smudge Cells Not Reportable 06/26/22 09:13 Toxic Granulation Not Reportable 06/26/22 09:13 Toxic Vacuolation Not Reportable 06/26/22 09:13 Dohle Bodies Not Reportable 06/26/22 09:13 Pelger-Huet Anomaly Not Reportable 06/26/22 09:13 Radha Rods Not Reportable 06/26/22 09:13 Platelet Estimate Consistent w auto 06/26/22 09:13 Clumped Platelets Not Reportable 06/26/22 09:13 Plt Clumps, EDTA Not Reportable 06/26/22 09:13 Large Platelets Not Reportable 06/26/22 09:13 Giant Platelets Not Reportable 06/26/22 09:13 Platelet Satelliting Not Reportable 06/26/22 09:13 Plt Morphology Comment Not Reportable 06/26/22 09:13 RBC Morphology Normal 06/26/22 09:13 Dimorphic RBCs Not Reportable 06/26/22 09:13 Polychromasia Not Reportable 06/26/22 09:13 Hypochromasia Not Reportable 06/26/22 09:13 Poikilocytosis Not Reportable 06/26/22 09:13 Anisocytosis Not Reportable 06/26/22 09:13 Microcytosis Not Reportable 06/26/22 09:13 Macrocytosis Not Reportable 06/26/22 09:13 Spherocytes Not Reportable 06/26/22 09:13 Pappenheimer Bodies Not Reportable 06/26/22 09:13 Sickle Cells Not Reportable 06/26/22 09:13 Target Cells Not Reportable 06/26/22 09:13 Tear Drop Cells Not Reportable 06/26/22 09:13 Ovalocytes Not Reportable 06/26/22 09:13 Helmet Cells Not Reportable 06/26/22 09:13 Alfaro-Galion Bodies Not Reportable 06/26/22 09:13 [place] Rings Not Reportable 06/26/22 09:13 Cheryle Cells Not Reportable 06/26/22 09:13 Bite Cells Not Reportable 06/26/22 09:13 Crenated Cell Not Reportable 06/26/22 09:13 Elliptocytes Not Reportable 06/26/22 09:13 Acanthocytes (Spur) Not Reportable 06/26/22 09:13 Rouleaux Not Reportable 06/26/22 09:13 Hemoglobin C Crystals Not Reportable 06/26/22 09:13 Schistocytes Not Reportable 06/26/22 09:13 Malaria parasites Not Reportable 06/26/22 09:13 Roland Bodies Not Reportable 06/26/22 09:13 Hem Pathologist Commnt No 06/26/22 09:13 Sodium 134 mmol/L (137-145) L 07/01/22 05:39 Potassium 5.1 mmol/L (3.6-5.0) H D 07/01/22 05:39 Chloride 95.3 mmol/L (98-107) L 07/01/22 05:39 Carbon Dioxide 28 mmol/L (22-30) 07/01/22 05:39 Anion Gap 16 mmol/L 07/01/22 05:39 BUN 23 mg/dL (9-20) H 07/01/22 05:39 Creatinine 0.7 mg/dL (0.8-1.3) L 07/01/22 05:39 Estimated GFR > 60 ml/min 07/01/22 05:39 BUN/Creatinine Ratio 33 % 07/01/22 05:39 Glucose 112 mg/dL (75-100) H 07/01/22 05:39 POC Glucose 135 mg/dL (70-105) H 07/02/22 00:09 Lactic Acid 0.80 mmol/L (0.7-2.0) 06/18/22 17:20 Calcium 10.1 mg/dL (8.4-10.2) 07/01/22 05:39 Total Bilirubin 0.80 mg/dL (0.1-1.2) 06/23/22 13:00 AST 19 units/L (5-40) 06/23/22 13:00 ALT 21 units/L (7-56) 06/23/22 13:00 Alkaline Phosphatase 66 units/L (35-129) 06/23/22 13:00 Ammonia 16.0 umol/L (25-60) L 06/23/22 13:00 Total Creatine Kinase 383 units/L (55-170) H 06/18/22 17:20 Troponin T < 0.010 ng/mL (0.00-0.029) 06/18/22 17:20 Total Protein 6.9 g/dL (6.3-8.2) 06/23/22 13:00 Albumin 3.6 g/dL (3.9-5) L 06/23/22 13:00 Albumin/Globulin Ratio 1.1 % 06/23/22 13:00 Vitamin B1 110 nmol/L (8-30) H 06/19/22 20:22 Vitamin B12 2000 pg/mL (211-911) H 06/19/22 20:22 Folate 20.00 ng/mL (7.3-26.0) 06/19/22 20:22 TSH 1.320 mlU/mL (0.270-4.200) 06/19/22 20:22 Urine Color Colorless (Yellow) 06/18/22 Unknown Urine Turbidity Clear (Clear) 06/18/22 Unknown Urine pH 5.0 (5.0-7.0) 06/18/22 Unknown Ur Specific [place] 1.015 (1.003-1.030) 06/18/22 Unknown Urine Protein 30 mg/dl mg/dL (Negative) 06/18/22 Unknown Urine Glucose (UA) Negative mg/dL (Negative) 06/18/22 Unknown Urine Ketones 25 mg/dL (Negative) 06/18/22 Unknown Urine Blood Negative (Negative) 06/18/22 Unknown Urine Nitrite Negative (Negative) 06/18/22 Unknown Urine Bilirubin Negative (Negative) 06/18/22 Unknown Urine Urobilinogen 0.2 mg/dL (<2.0) 06/18/22 Unknown Ur Leukocyte Esterase Negative (Negative) 06/18/22 Unknown Urine WBC (Auto) 1.0 /HPF (0.0-6.0) 06/18/22 Unknown Urine RBC (Auto) < 1.0 /HPF (0.0-6.0) 06/18/22 Unknown Urine Mucus Few /HPF 06/18/22 Unknown Nasal Screen MRSA (PCR) Negative (Negative) 06/21/22 08:50 Urine Opiates Screen Negative 06/19/22 10:49 Urine Methadone Screen Negative 06/19/22 10:49 Ur Barbiturates Screen Negative 06/19/22 10:49 Ur Phencyclidine Scrn Negative 06/19/22 10:49 Ur Amphetamines Screen Negative 06/19/22 10:49 U Benzodiazepines Scrn Negative 06/19/22 10:49 Urine Cocaine Screen Negative 06/19/22 10:49 U Marijuana (THC) Screen Negative 06/19/22 10:49 Drugs of Abuse Note Disclamer 06/19/22 10:49 Plasma/Serum Alcohol < 0.01 % (0-0.07) 06/18/22 17:20 SARS-CoV-2 (PCR) Negative (Negative) 06/27/22 04:00 Microbiology: Microbiology 06/26/22 11:27 Peripheral/Venous Blood Culture - Final NO GROWTH AFTER 5 DAYS 06/26/22 09:13 Peripheral/Venous Blood Culture - Final NO GROWTH AFTER 5 DAYS Quezada/IV: Voiding Method Condom Catheter Active Medications - Current Medications Current Medications: Generic Name Dose Route Start Last Admin Trade Name Freq PRN Reason Stop Dose Admin Acetaminophen 650 mg 06/18/22 23:08 07/02/22 11:16 Acetaminophen 325 Mg Tab PO 650 mg Q4H PRN Administration Pain MILD(1-3)/Fever >100.5/MCGEE Heparin Sodium (Porcine) 5,000 unit 06/19/22 06:00 07/02/22 05:30 Heparin 5,000 Unit/1 Ml Vial SUB-Q 5,000 unit Q8HR DAVID Administration Magnesium Hydroxide 30 ml 06/18/22 23:08 Magnesium Hydroxide (Mom) Oral Liqd Udc PO Q4H PRN Constipation Metoprolol Tartrate 25 mg 06/23/22 13:00 07/02/22 11:16 Metoprolol Tartrate 25 Mg Tab PO 25 mg BID DAVID Administration Morphine Sulfate 2 mg 06/18/22 23:08 08/18/22 21:40 Morphine 2 Mg/1 Ml Inj IV 2 mg Q4H PRN Administration Pain, Moderate (4-6) Morphine Sulfate 4 mg 06/18/22 23:08 Morphine 4 Mg/1 Ml Inj IV Q4H PRN Pain , Severe (7-10) Olanzapine 2.5 mg 06/25/22 22:00 07/01/22 21:44 Olanzapine 2.5 Mg Tab PO 2.5 mg QHS DAVID Administration Ondansetron HCl 4 mg 06/18/22 23:08 Ondansetron 4 Mg/2 Ml Inj IV Q8H PRN Nausea And Vomiting Sodium Chloride 10 ml 06/19/22 10:00 07/02/22 11:17 Sodium Chloride 0.9% 10 Ml Flush Syringe IV 10 ml BID DAVID Administration Sodium Chloride 10 ml 06/18/22 23:08 Sodium Chloride 0.9% 10 Ml Flush Syringe IV PRN PRN LINE FLUSH Nutrition/Malnutrition Assess - Dietary Evaluation Nutrition/Malnutrition Findings: Nutrition Notes Start: 06/24/22 14:15 Freq: Status: Active Protocol: Document 06/25/22 15:47 CUATE (Rec: 06/25/22 15:59 CUATE [id number]) Nutrition Notes Initial or Follow up Brief Note Other Pertinent Diagnosis AMS, Metabolic Encephalopathy, Dementia, EtOH Dependence. Current Diet TF-Jevity 1.2 Truong @ 70 ml/hr ( from D 06/24). Height 5 ft 10 in Weight 61.4 kg [place] Body Weight (kg) 75.45 BMI 19.4 Weight change and time frame 0.3 Kg body weight loss in 1 day reported. Weight Status Appropriate Subjective/Other Information RD consult for TF tolerance/ continuation. TF continues as prescribed, and well tolerated, according to RN notes. WILDLIFE CONTROL AGENT note on 06/25/22 11:46: WILDLIFE CONTROL AGENT has attempted to evaluate the patient on several occasions. Either he has been too lethargic or resisting. Therefore, this WILDLIFE CONTROL AGENT has not been able to assess and determine the appropriate diet . Will discharge. - END OF NOTE. Pt is on Room Air, O2 saturation @ 97%, according to Physical Assessment History notes. Percent of energy/protein needs met: Prescribed TF-Jevity 1.2 Truong @ 70 ml/hr provides for energy/ protein needs (2,030 Kcal/94 g ) during LOS, 100% Kcal; 100% AA. #1 Nutrition Diagnosis Predicted suboptimal energy intake Comments: TF continues as prescribed, and well tolerated, according to RN notes. WILDLIFE CONTROL AGENT note on 06/25/22 11:46: WILDLIFE CONTROL AGENT has attempted to evaluate the patient on several occasions. Either he has been too lethargic or resisting. Therefore, this WILDLIFE CONTROL AGENT has not been able to assess and determine the appropriate diet . Will discharge. - END OF NOTE. Diagnosis Progress(for reassessment Improved documentation) Is patient on ventilator? No Is Patient Ambulatory and/or Out of Bed No REE-([facility]-confined to bed) [phone] Kcal/Kg value to use for calculation 33 Approximate Energy Requirements Using 2025 kcal/Kg Calculation Used for Recommendations Kcal/kg Additional Notes Protein: 1.2-2 g/Kg ABW; 74- 124 g/day. Fluids: 1 ml/Kcal, or as per MD. Nutrition Intervention Nutrition Support: Continue TF-Jevity 1.2 Truong @ 70 ml/hr. Flush: 110 ml water Q 4 hr, or as per MD. Kcal 2,030 Protein (gm) 94 Carbohydrates (gm) 287 Fat (gm) 66 Fluid (mL) 1,365 Fiber (gm) 30 % RDI: 100% Kcal; 100% AA. Goal #1 Provide at least 75% of energy /protein needs through Enteral Feeding during LOS. Goal #2 Adjust the dietary intervention to better serve Pt's needs and clinical conditions during LOS. Follow-Up By: 07/02/22 Additional Comments Continue monitoring TF tolerance and BM.
[2022-07-03] MEDS: HEPARIN 5,000 UNIT/1 ML VIAL SUB-Q SCH ×3 (05:20→21:13)
[2022-07-03] MEDS: METOPROLOL TARTRATE 25 MG TAB PO SCH ×2 (10:49→21:13)
--- NOTE | 2022-07-03 12:00 | Progress Note ---
Assessment and Plan Assessment and plan: #Refractory metabolic encephalopathy-stable Refractory despite patient being out of the window for alcohol withdrawal symptoms. Repeating CMP, CBC, and ammonia level. Original CT head noncontrast unremarkable for acute findings. Low clinical suspicion for acute ischemic CVA given patient does not have any focal deficits. Unremarkable urinalysis and UDS. -TSH, B12, folate WNL. -Psych/mental health eval consulted; appreciate recs. Continue Zyprexa 2.5 mg daily. -MRI held due to improvement in mental status -will continue to monitor -ST evaluation: OK for pureed diet -PT evaluation ordered: subacute rehab recommendation #Acute hypoxic respiratory failure - etiology: possible infection (COVID or HAP) vs volume overload; COVID negative - baseline oxygen requirements: room air - supplemental oxygen: 3L nasal cannula, will wean as tolerated - Continue protocol: continue pulse oximetry, wean oxygen as tolerated, ordered incentive spirometry and educated patient on how to use it and its importance. Unremarkable coronavirus PCR. Discontinued antibiotics as low suspicion for infection. - continue to monitor #Alcohol withdrawal-resolved #Tachycardiaresolved #Alcohol dependence -Patient presented from alcohol rehabilitation; per chart review last drink 5 days prior to admission -s/p CIWA protocol and librium taper, patient out of window for alcohol withdrawal. #Volume depletion-resolved #Social: Extreme difficulty with finding patient's next of kin or friends. Patient was able to provide names of family members: FatherWilfredokishore Sr Milan.; motherMaradarsh Radha Mcfarland; sisterBeth Radha Mcfarland; sisterNorma Bartolo. CM/SW aware History Interval history: No acute events overnight per nursing. Patient sleeping and did not awake to tactile and verbal stimuli. Hospitalist Physical - Physical exam Narrative exam: GENERAL: Thin elderly male. In no acute distress. HEENT: NC in place @3lpm CHEST/LUNGS: Coarse breath sounds bilaterally. HEART/CARDIOVASCULAR: RRR. No murmur, rubs or gallops appreciated. ABDOMEN: +BS. NT/ND. NEURO: No noted focal deficits. MUSCULOSKELETAL: No joint effusion EXTREMITIES: No cyanosis, clubbing or edema. PSYCH: Unable to assess - Constitutional Vitals: Temp Pulse Resp BP Pulse Ox 97.9 F 80 18 107/69 97 07/03/22 03:23 07/03/22 10:00 07/03/22 03:23 07/03/22 08:11 07/03/22 10:00 General appearance: Present: no acute distress, cachectic, disheveled HEART Score - HEART Score Troponin: Troponin T < 0.010 ng/mL (0.00-0.029) 06/18/22 17:20 Results - Labs CBC & Chem 7: 07/01/22 05:39 07/01/22 05:39 Labs: Laboratory Last Values WBC 10.2 K/mm3 (4.5-11.0) 07/01/22 05:39 RBC 4.78 M/mm3 (3.65-5.03) 07/01/22 05:39 Hgb 15.2 gm/dl (11.8-15.2) 07/01/22 05:39 Hct 45.7 % (35.5-45.6) H 07/01/22 05:39 MCV 95 fl (84-94) H 07/01/22 05:39 MCH 32 pg (28-32) 07/01/22 05:39 MCHC 33 % (32-34) 07/01/22 05:39 RDW 12.3 % (13.2-15.2) L 07/01/22 05:39 Plt Count 384 K/mm3 (140-440) 07/01/22 05:39 Lymph % (Auto) 15.1 % (13.4-35.0) 06/28/22 05:05 [place] % (Auto) 9.5 % (0.0-7.3) H 06/28/22 05:05 Eos % (Auto) 2.0 % (0.0-4.3) 06/28/22 05:05 Baso % (Auto) 0.8 % (0.0-1.8) 06/28/22 05:05 Lymph # (Auto) 1.9 K/mm3 (1.2-5.4) 06/28/22 05:05 [place] # (Auto) 1.2 K/mm3 (0.0-0.8) H 06/28/22 05:05 Eos # (Auto) 0.3 K/mm3 (0.0-0.4) 06/28/22 05:05 Baso # (Auto) 0.1 K/mm3 (0.0-0.1) 06/28/22 05:05 Add Manual Diff Complete 06/26/22 09:13 Total Counted 100 06/26/22 09:13 Seg Neutrophils % 72.6 % (40.0-70.0) H 06/28/22 05:05 Seg Neuts % (Manual) 85.0 % (40.0-70.0) H 06/26/22 09:13 Band Neutrophils % 0 % 06/26/22 09:13 Lymphocytes % (Manual) 6.0 % (13.4-35.0) L 06/26/22 09:13 Reactive Lymphs % (Man) 0 % 06/26/22 09:13 Monocytes % (Manual) 8.0 % (0.0-7.3) H 06/26/22 09:13 Eosinophils % (Manual) 0 % (0.0-4.3) 06/26/22 09:13 Basophils % (Manual) 1.0 % (0.0-1.8) 06/26/22 09:13 Metamyelocytes % 0 % 06/26/22 09:13 Myelocytes % 0 % 06/26/22 09:13 Promyelocytes % 0 % 06/26/22 09:13 Blast Cells % 0 % 06/26/22 09:13 Nucleated RBC % Not Reportable 06/26/22 09:13 Seg Neutrophils # 9.1 K/mm3 (1.8-7.7) H 06/28/22 05:05 Seg Neutrophils # Man 14.7 K/mm3 (1.8-7.7) H 06/26/22 09:13 Band Neutrophils # 0.0 K/mm3 06/26/22 09:13 Lymphocytes # (Manual) 1.0 K/mm3 (1.2-5.4) L 06/26/22 09:13 Abs React Lymphs (Man) 0.0 K/mm3 06/26/22 09:13 Monocytes # (Manual) 1.4 K/mm3 (0.0-0.8) H 06/26/22 09:13 Eosinophils # (Manual) 0.0 K/mm3 (0.0-0.4) 06/26/22 09:13 Basophils # (Manual) 0.2 K/mm3 (0.0-0.1) H 06/26/22 09:13 Metamyelocytes # 0.0 K/mm3 06/26/22 09:13 Myelocytes # 0.0 K/mm3 06/26/22 09:13 Promyelocytes # 0.0 K/mm3 06/26/22 09:13 Blast Cells # 0.0 K/mm3 06/26/22 09:13 WBC Morphology Not Reportable 06/26/22 09:13 Hypersegmented Neuts Not Reportable 06/26/22 09:13 Hyposegmented Neuts Not Reportable 06/26/22 09:13 Hypogranular Neuts Not Reportable 06/26/22 09:13 Smudge Cells Not Reportable 06/26/22 09:13 Toxic Granulation Not Reportable 06/26/22 09:13 Toxic Vacuolation Not Reportable 06/26/22 09:13 Dohle Bodies Not Reportable 06/26/22 09:13 Pelger-Huet Anomaly Not Reportable 06/26/22 09:13 Radha Rods Not Reportable 06/26/22 09:13 Platelet Estimate Consistent w auto 06/26/22 09:13 Clumped Platelets Not Reportable 06/26/22 09:13 Plt Clumps, EDTA Not Reportable 06/26/22 09:13 Large Platelets Not Reportable 06/26/22 09:13 Giant Platelets Not Reportable 06/26/22 09:13 Platelet Satelliting Not Reportable 06/26/22 09:13 Plt Morphology Comment Not Reportable 06/26/22 09:13 RBC Morphology Normal 06/26/22 09:13 Dimorphic RBCs Not Reportable 06/26/22 09:13 Polychromasia Not Reportable 06/26/22 09:13 Hypochromasia Not Reportable 06/26/22 09:13 Poikilocytosis Not Reportable 06/26/22 09:13 Anisocytosis Not Reportable 06/26/22 09:13 Microcytosis Not Reportable 06/26/22 09:13 Macrocytosis Not Reportable 06/26/22 09:13 Spherocytes Not Reportable 06/26/22 09:13 Pappenheimer Bodies Not Reportable 06/26/22 09:13 Sickle Cells Not Reportable 06/26/22 09:13 Target Cells Not Reportable 06/26/22 09:13 Tear Drop Cells Not Reportable 06/26/22 09:13 Ovalocytes Not Reportable 06/26/22 09:13 Helmet Cells Not Reportable 06/26/22 09:13 [place] Bodies Not Reportable 06/26/22 09:13 [place] Rings Not Reportable 06/26/22 09:13 [place] Cells Not Reportable 06/26/22 09:13 Bite Cells Not Reportable 06/26/22 09:13 Crenated Cell Not Reportable 06/26/22 09:13 Elliptocytes Not Reportable 06/26/22 09:13 Acanthocytes (Spur) Not Reportable 06/26/22 09:13 Rouleaux Not Reportable 06/26/22 09:13 Hemoglobin C Crystals Not Reportable 06/26/22 09:13 Schistocytes Not Reportable 06/26/22 09:13 Malaria parasites Not Reportable 06/26/22 09:13 [place] Bodies Not Reportable 06/26/22 09:13 Hem Pathologist Commnt No 06/26/22 09:13 Sodium 134 mmol/L (137-145) L 07/01/22 05:39 Potassium 5.1 mmol/L (3.6-5.0) H D 07/01/22 05:39 Chloride 95.3 mmol/L (98-107) L 07/01/22 05:39 Carbon Dioxide 28 mmol/L (22-30) 07/01/22 05:39 Anion Gap 16 mmol/L 07/01/22 05:39 BUN 23 mg/dL (9-20) H 07/01/22 05:39 Creatinine 0.7 mg/dL (0.8-1.3) L 07/01/22 05:39 Estimated GFR > 60 ml/min 07/01/22 05:39 BUN/Creatinine Ratio 33 % 07/01/22 05:39 Glucose 112 mg/dL (75-100) H 07/01/22 05:39 POC Glucose 133 mg/dL (70-105) H 07/03/22 05:20 Lactic Acid 0.80 mmol/L (0.7-2.0) 06/18/22 17:20 Calcium 10.1 mg/dL (8.4-10.2) 07/01/22 05:39 Total Bilirubin 0.80 mg/dL (0.1-1.2) 06/23/22 13:00 AST 19 units/L (5-40) 06/23/22 13:00 ALT 21 units/L (7-56) 06/23/22 13:00 Alkaline Phosphatase 66 units/L (35-129) 06/23/22 13:00 Ammonia 16.0 umol/L (25-60) L 06/23/22 13:00 Total Creatine Kinase 383 units/L (55-170) H 06/18/22 17:20 Troponin T < 0.010 ng/mL (0.00-0.029) 06/18/22 17:20 Total Protein 6.9 g/dL (6.3-8.2) 06/23/22 13:00 Albumin 3.6 g/dL (3.9-5) L 06/23/22 13:00 Albumin/Globulin Ratio 1.1 % 06/23/22 13:00 Vitamin B1 110 nmol/L (8-30) H 06/19/22 20:22 Vitamin B12 2000 pg/mL (211-911) H 06/19/22 20:22 Folate 20.00 ng/mL (7.3-26.0) 06/19/22 20:22 TSH 1.320 mlU/mL (0.270-4.200) 06/19/22 20:22 Urine Color Colorless (Yellow) 06/18/22 Unknown Urine Turbidity Clear (Clear) 06/18/22 Unknown Urine pH 5.0 (5.0-7.0) 06/18/22 Unknown Ur Specific [place] 1.015 (1.003-1.030) 06/18/22 Unknown Urine Protein 30 mg/dl mg/dL (Negative) 06/18/22 Unknown Urine Glucose (UA) Negative mg/dL (Negative) 06/18/22 Unknown Urine Ketones 25 mg/dL (Negative) 06/18/22 Unknown Urine Blood Negative (Negative) 06/18/22 Unknown Urine Nitrite Negative (Negative) 06/18/22 Unknown Urine Bilirubin Negative (Negative) 06/18/22 Unknown Urine Urobilinogen 0.2 mg/dL (<2.0) 06/18/22 Unknown Ur Leukocyte Esterase Negative (Negative) 06/18/22 Unknown Urine WBC (Auto) 1.0 /HPF (0.0-6.0) 06/18/22 Unknown Urine RBC (Auto) < 1.0 /HPF (0.0-6.0) 06/18/22 Unknown Urine Mucus Few /HPF 06/18/22 Unknown Nasal Screen MRSA (PCR) Negative (Negative) 06/21/22 08:50 Urine Opiates Screen Negative 06/19/22 10:49 Urine Methadone Screen Negative 06/19/22 10:49 Ur Barbiturates Screen Negative 06/19/22 10:49 Ur Phencyclidine Scrn Negative 06/19/22 10:49 Ur Amphetamines Screen Negative 06/19/22 10:49 U Benzodiazepines Scrn Negative 06/19/22 10:49 Urine Cocaine Screen Negative 06/19/22 10:49 U Marijuana (THC) Screen Negative 06/19/22 10:49 Drugs of Abuse Note Disclamer 06/19/22 10:49 Plasma/Serum Alcohol < 0.01 % (0-0.07) 06/18/22 17:20 SARS-CoV-2 (PCR) Negative (Negative) 06/27/22 04:00 [place]/IV: Voiding Method Incontinent Active Medications - Current Medications Current Medications: Generic Name Dose Route Start Last Admin Trade Name Freq PRN Reason Stop Dose Admin Acetaminophen 650 mg 06/18/22 23:08 07/02/22 11:16 Acetaminophen 325 Mg Tab PO 650 mg Q4H PRN Administration Pain MILD(1-3)/Fever >100.5/MCGEE Heparin Sodium (Porcine) 5,000 unit 06/19/22 06:00 07/03/22 05:20 Heparin 5,000 Unit/1 Ml Vial SUB-Q 5,000 unit Q8HR DAVID Administration Magnesium Hydroxide 30 ml 06/18/22 23:08 Magnesium Hydroxide (Mom) Oral Liqd Udc PO Q4H PRN Constipation Metoprolol Tartrate 25 mg 06/23/22 13:00 07/03/22 10:49 Metoprolol Tartrate 25 Mg Tab PO 25 mg BID DAVID Administration Morphine Sulfate 2 mg 06/18/22 23:08 07/01/22 21:40 Morphine 2 Mg/1 Ml Inj IV 2 mg Q4H PRN Administration Pain, Moderate (4-6) Morphine Sulfate 4 mg 06/18/22 23:08 Morphine 4 Mg/1 Ml Inj IV Q4H PRN Pain , Severe (7-10) Olanzapine 2.5 mg 06/25/22 22:00 07/02/22 21:51 Olanzapine 2.5 Mg Tab PO 2.5 mg QHS DAVID Administration Ondansetron HCl 4 mg 06/18/22 23:08 Ondansetron 4 Mg/2 Ml Inj IV Q8H PRN Nausea And Vomiting Sodium Chloride 10 ml 06/19/22 10:00 07/03/22 10:50 Sodium Chloride 0.9% 10 Ml Flush Syringe IV 10 ml BID DAVID Administration Sodium Chloride 10 ml 06/18/22 23:08 Sodium Chloride 0.9% 10 Ml Flush Syringe IV PRN PRN LINE FLUSH Nutrition/Malnutrition Assess - Dietary Evaluation Nutrition/Malnutrition Findings: Nutrition Notes Start: 06/24/22 14: 15 Freq: Status: Active Protocol: Document 07/02/22 13:38 TOMASA (Rec: 07/02/22 13:47 [email or web address] [id number]) Nutrition Notes Initial or Follow up Reassessment Other Pertinent Diagnosis Metabolic encephalopathy, EtOH dependence Current Diet Pureed Labs/Tests Reviewed Pertinent Medications Reviewed Height 5 ft 10 in Weight 63.3 kg [place] Body Weight (kg) 75.45 BMI 20.0 Weight Status Underweight Subjective/Other Information Diet advanced yesterday. Pt alert and oriented x 2 and needs to be fed during meal times. Spoke with pt's RN via phone; she reports that pt consumed 50% of dinner meal last pm, 50% of breakfast this am and 75% of lunch today. She requests an ONS for pt as he may not consume enough to meet nutrient needs, Percent of energy/protein needs met: 62% energy 71% pro Burn Absent Trauma Absent Current % PO Fair (50-74%) #1 Nutrition Diagnosis Predicted suboptimal energy intake,Inadequate protein- energy intake Comments: CHANGED Etiology metabolic encephalopathy As Evidenced by Signs and Symptoms po intake meeting <75% energy and pro needs Is patient on ventilator? No Is Patient Ambulatory and/or Out of Bed No REE-([place]-confined to bed) 1690.968 Kcal/Kg value to use for calculation 30 Approximate Energy Requirements Using 1899 kcal/Kg Calculation Used for Recommendations Kcal/kg Additional Notes Pro needs 1-1.2g/k-76g/ day Fluid needs 1ml/kcal Nutrition Intervention Change Diet Order: Continue current diet order Add Supplement/Snack (indicate name/kcal Ensure High Protein BID /protein ) Provides kCal: 320 Provides Protein (gm) 32 Goal #1 PO intake of meals plus ONS to meet at least 75% energy and pro needs Goal #2 Wt maintenance and/or gain Follow-Up By: 07/07/22 Additional Comments F/U: diet advancement, intakes (meals/ONS), wt
[2022-07-04] MEDS: HEPARIN 5,000 UNIT/1 ML VIAL SUB-Q SCH ×3 (06:16→21:21)
--- NOTE | 2022-07-04 07:47 | Progress Note ---
Assessment and Plan Assessment and plan: #Refractory metabolic encephalopathy-stable Refractory despite patient being out of the window for alcohol withdrawal symptoms. Repeating CMP, CBC, and ammonia level. Original CT head noncontrast unremarkable for acute findings. Low clinical suspicion for acute ischemic CVA given patient does not have any focal deficits. Unremarkable urinalysis and UDS. -TSH, B12, folate WNL. -Psych/mental health eval consulted; appreciate recs. Continue Zyprexa 2.5 mg daily. -MRI held due to improvement in mental status -will continue to monitor -ST evaluation: OK for pureed diet -PT evaluation ordered: subacute rehab recommendation #Acute hypoxic respiratory failure - etiology: possible infection (COVID or HAP) vs volume overload; COVID negative - baseline oxygen requirements: room air - supplemental oxygen: patient currently on RA - Continue protocol: continue pulse oximetry, wean oxygen as tolerated, ordered incentive spirometry and educated patient on how to use it and its importance. Unremarkable coronavirus PCR. Discontinued antibiotics as low suspicion for infection. - continue to monitor #Alcohol withdrawal-resolved #Tachycardiaresolved #Alcohol dependence -Patient presented from alcohol rehabilitation; per chart review last drink 5 days prior to admission -s/p CIWA protocol and librium taper, patient out of window for alcohol withdrawal. #Volume depletion-resolved #Social: Extreme difficulty with finding patient's next of kin or friends. Patient was able to provide names of family members: FatherWilfredokishore Sr Milan.; motherMaradarsh Radha Mcfarland; sisterMarhi Radha Mcfarland; sisterNorma Bartolo. CM/SW aware History Interval history: No acute events overnight per nursing. Patient sleeping but awakes to stimulation. He denies any pain or discomfort at this time. Hospitalist Physical - Physical exam Narrative exam: GENERAL: Thin elderly male. In no acute distress. HEENT: Normocephalic, atraumatic CHEST/LUNGS: Coarse breath sounds bilaterally. HEART/CARDIOVASCULAR: RRR. No murmur, rubs or gallops appreciated. ABDOMEN: +BS. NT/ND. NEURO: No noted focal deficits. MUSCULOSKELETAL: No joint effusion EXTREMITIES: No cyanosis, clubbing or edema. PSYCH: Unable to assess - Constitutional Vitals: Temp Pulse Resp BP Pulse Ox 97.5 F L 79 16 99/55 95 07/04/22 03:32 07/04/22 03:32 07/04/22 03:32 07/04/22 03:32 07/04/22 03:32 General appearance: Present: no acute distress, cachectic, disheveled HEART Score - HEART Score Troponin: Troponin T < 0.010 ng/mL (0.00-0.029) 06/18/22 17:20 Results - Labs CBC & Chem 7: 07/01/22 05:39 07/01/22 05:39 Labs: Laboratory Last Values WBC 10.2 K/mm3 (4.5-11.0) 07/01/22 05:39 RBC 4.78 M/mm3 (3.65-5.03) 07/01/22 05:39 Hgb 15.2 gm/dl (11.8-15.2) 07/01/22 05:39 Hct 45.7 % (35.5-45.6) H 07/01/22 05:39 MCV 95 fl (84-94) H 07/01/22 05:39 MCH 32 pg (28-32) 07/01/22 05:39 MCHC 33 % (32-34) 07/01/22 05:39 RDW 12.3 % (13.2-15.2) L 07/01/22 05:39 Plt Count 384 K/mm3 (140-440) 07/01/22 05:39 Lymph % (Auto) 15.1 % (13.4-35.0) 06/28/22 05:05 [place] % (Auto) 9.5 % (0.0-7.3) H 06/28/22 05:05 Eos % (Auto) 2.0 % (0.0-4.3) 06/28/22 05:05 Baso % (Auto) 0.8 % (0.0-1.8) 06/28/22 05:05 Lymph # (Auto) 1.9 K/mm3 (1.2-5.4) 06/28/22 05:05 [place] # (Auto) 1.2 K/mm3 (0.0-0.8) H 06/28/22 05:05 Eos # (Auto) 0.3 K/mm3 (0.0-0.4) 06/28/22 05:05 Baso # (Auto) 0.1 K/mm3 (0.0-0.1) 06/28/22 05:05 Add Manual Diff Complete 06/26/22 09:13 Total Counted 100 06/26/22 09:13 Seg Neutrophils % 72.6 % (40.0-70.0) H 06/28/22 05:05 Seg Neuts % (Manual) 85.0 % (40.0-70.0) H 06/26/22 09:13 Band Neutrophils % 0 % 06/26/22 09:13 Lymphocytes % (Manual) 6.0 % (13.4-35.0) L 06/26/22 09:13 Reactive Lymphs % (Man) 0 % 06/26/22 09:13 Monocytes % (Manual) 8.0 % (0.0-7.3) H 06/26/22 09:13 Eosinophils % (Manual) 0 % (0.0-4.3) 06/26/22 09:13 Basophils % (Manual) 1.0 % (0.0-1.8) 06/26/22 09:13 Metamyelocytes % 0 % 06/26/22 09:13 Myelocytes % 0 % 06/26/22 09:13 Promyelocytes % 0 % 06/26/22 09:13 Blast Cells % 0 % 06/26/22 09:13 Nucleated RBC % Not Reportable 06/26/22 09:13 Seg Neutrophils # 9.1 K/mm3 (1.8-7.7) H 06/28/22 05:05 Seg Neutrophils # Man 14.7 K/mm3 (1.8-7.7) H 06/26/22 09:13 Band Neutrophils # 0.0 K/mm3 06/26/22 09:13 Lymphocytes # (Manual) 1.0 K/mm3 (1.2-5.4) L 06/26/22 09:13 Abs React Lymphs (Man) 0.0 K/mm3 06/26/22 09:13 Monocytes # (Manual) 1.4 K/mm3 (0.0-0.8) H 06/26/22 09:13 Eosinophils # (Manual) 0.0 K/mm3 (0.0-0.4) 06/26/22 09:13 Basophils # (Manual) 0.2 K/mm3 (0.0-0.1) H 06/26/22 09:13 Metamyelocytes # 0.0 K/mm3 06/26/22 09:13 Myelocytes # 0.0 K/mm3 06/26/22 09:13 Promyelocytes # 0.0 K/mm3 06/26/22 09:13 Blast Cells # 0.0 K/mm3 06/26/22 09:13 WBC Morphology Not Reportable 06/26/22 09:13 Hypersegmented Neuts Not Reportable 06/26/22 09:13 Hyposegmented Neuts Not Reportable 06/26/22 09:13 Hypogranular Neuts Not Reportable 06/26/22 09:13 Smudge Cells Not Reportable 06/26/22 09:13 Toxic Granulation Not Reportable 06/26/22 09:13 Toxic Vacuolation Not Reportable 06/26/22 09:13 Dohle Bodies Not Reportable 06/26/22 09:13 [place]-Huet Anomaly Not Reportable 06/26/22 09:13 Radha Rods Not Reportable 06/26/22 09:13 Platelet Estimate Consistent w auto 06/26/22 09:13 Clumped Platelets Not Reportable 06/26/22 09:13 Plt Clumps, EDTA Not Reportable 06/26/22 09:13 Large Platelets Not Reportable 06/26/22 09:13 Giant Platelets Not Reportable 06/26/22 09:13 Platelet Satelliting Not Reportable 06/26/22 09:13 Plt Morphology Comment Not Reportable 06/26/22 09:13 RBC Morphology Normal 06/26/22 09:13 Dimorphic RBCs Not Reportable 06/26/22 09:13 Polychromasia Not Reportable 06/26/22 09:13 Hypochromasia Not Reportable 06/26/22 09:13 Poikilocytosis Not Reportable 06/26/22 09:13 Anisocytosis Not Reportable 06/26/22 09:13 Microcytosis Not Reportable 06/26/22 09:13 Macrocytosis Not Reportable 06/26/22 09:13 Spherocytes Not Reportable 06/26/22 09:13 Pappenheimer Bodies Not Reportable 06/26/22 09:13 Sickle Cells Not Reportable 06/26/22 09:13 Target Cells Not Reportable 06/26/22 09:13 Tear Drop Cells Not Reportable 06/26/22 09:13 Ovalocytes Not Reportable 06/26/22 09:13 Helmet Cells Not Reportable 06/26/22 09:13 [place] Bodies Not Reportable 06/26/22 09:13 [place] Rings Not Reportable 06/26/22 09:13 [place] Cells Not Reportable 06/26/22 09:13 Bite Cells Not Reportable 06/26/22 09:13 Crenated Cell Not Reportable 06/26/22 09:13 Elliptocytes Not Reportable 06/26/22 09:13 Acanthocytes (Spur) Not Reportable 06/26/22 09:13 Rouleaux Not Reportable 06/26/22 09:13 Hemoglobin C Crystals Not Reportable 06/26/22 09:13 Schistocytes Not Reportable 06/26/22 09:13 Malaria parasites Not Reportable 06/26/22 09:13 [place] Bodies Not Reportable 06/26/22 09:13 Hem Pathologist Commnt No 06/26/22 09:13 Sodium 134 mmol/L (137-145) L 07/01/22 05:39 Potassium 5.1 mmol/L (3.6-5.0) H D 07/01/22 05:39 Chloride 95.3 mmol/L (98-107) L 07/01/22 05:39 Carbon Dioxide 28 mmol/L (22-30) 07/01/22 05:39 Anion Gap 16 mmol/L 07/01/22 05:39 BUN 23 mg/dL (9-20) H 07/01/22 05:39 Creatinine 0.7 mg/dL (0.8-1.3) L 07/01/22 05:39 Estimated GFR > 60 ml/min 07/01/22 05:39 BUN/Creatinine Ratio 33 % 07/01/22 05:39 Glucose 112 mg/dL (75-100) H 07/01/22 05:39 POC Glucose 95 mg/dL (70-105) 07/04/22 05:14 Lactic Acid 0.80 mmol/L (0.7-2.0) 06/18/22 17:20 Calcium 10.1 mg/dL (8.4-10.2) 07/01/22 05:39 Total Bilirubin 0.80 mg/dL (0.1-1.2) 06/23/22 13:00 AST 19 units/L (5-40) 06/23/22 13:00 ALT 21 units/L (7-56) 06/23/22 13:00 Alkaline Phosphatase 66 units/L (35-129) 06/23/22 13:00 Ammonia 16.0 umol/L (25-60) L 06/23/22 13:00 Total Creatine Kinase 383 units/L (55-170) H 06/18/22 17:20 Troponin T < 0.010 ng/mL (0.00-0.029) 06/18/22 17:20 Total Protein 6.9 g/dL (6.3-8.2) 06/23/22 13:00 Albumin 3.6 g/dL (3.9-5) L 06/23/22 13:00 Albumin/Globulin Ratio 1.1 % 06/23/22 13:00 Vitamin B1 110 nmol/L (8-30) H 06/19/22 20:22 Vitamin B12 2000 pg/mL (211-911) H 06/19/22 20:22 Folate 20.00 ng/mL (7.3-26.0) 06/19/22 20:22 TSH 1.320 mlU/mL (0.270-4.200) 06/19/22 20:22 Urine Color Colorless (Yellow) 06/18/22 Unknown Urine Turbidity Clear (Clear) 06/18/22 Unknown Urine pH 5.0 (5.0-7.0) 06/18/22 Unknown Ur Specific [place] 1.015 (1.003-1.030) 06/18/22 Unknown Urine Protein 30 mg/dl mg/dL (Negative) 06/18/22 Unknown Urine Glucose (UA) Negative mg/dL (Negative) 06/18/22 Unknown Urine Ketones 25 mg/dL (Negative) 06/18/22 Unknown Urine Blood Negative (Negative) 06/18/22 Unknown Urine Nitrite Negative (Negative) 06/18/22 Unknown Urine Bilirubin Negative (Negative) 06/18/22 Unknown Urine Urobilinogen 0.2 mg/dL (<2.0) 06/18/22 Unknown Ur Leukocyte Esterase Negative (Negative) 06/18/22 Unknown Urine WBC (Auto) 1.0 /HPF (0.0-6.0) 06/18/22 Unknown Urine RBC (Auto) < 1.0 /HPF (0.0-6.0) 06/18/22 Unknown Urine Mucus Few /HPF 06/18/22 Unknown Nasal Screen MRSA (PCR) Negative (Negative) 06/21/22 08:50 Urine Opiates Screen Negative 06/19/22 10:49 Urine Methadone Screen Negative 06/19/22 10:49 Ur Barbiturates Screen Negative 06/19/22 10:49 Ur Phencyclidine Scrn Negative 06/19/22 10:49 Ur Amphetamines Screen Negative 06/19/22 10:49 U Benzodiazepines Scrn Negative 06/19/22 10:49 Urine Cocaine Screen Negative 06/19/22 10:49 U Marijuana (THC) Screen Negative 06/19/22 10:49 Drugs of Abuse Note Disclamer 06/19/22 10:49 Plasma/Serum Alcohol < 0.01 % (0-0.07) 06/18/22 17:20 SARS-CoV-2 (PCR) Negative (Negative) 06/27/22 04:00 [place]/IV: Voiding Method Incontinent Active Medications - Current Medications Current Medications: Generic Name Dose Route Start Last Admin Trade Name Freq PRN Reason Stop Dose Admin Acetaminophen 650 mg 06/18/22 23:08 07/02/22 11:16 Acetaminophen 325 Mg Tab PO 650 mg Q4H PRN Administration Pain MILD(1-3)/Fever >100.5/MCGEE Heparin Sodium (Porcine) 5,000 unit 06/19/22 06:00 07/04/22 06:16 Heparin 5,000 Unit/1 Ml Vial SUB-Q 5,000 unit Q8HR DAVID Administration Magnesium Hydroxide 30 ml 06/18/22 23:08 Magnesium Hydroxide (Mom) Oral Liqd Udc PO Q4H PRN Constipation Metoprolol Tartrate 25 mg 06/23/22 13:00 07/03/22 21:13 Metoprolol Tartrate 25 Mg Tab PO 25 mg BID DAVID Administration Morphine Sulfate 2 mg 06/18/22 23:08 07/01/22 21:40 Morphine 2 Mg/1 Ml Inj IV 2 mg Q4H PRN Administration Pain, Moderate (4-6) Morphine Sulfate 4 mg 06/18/22 23:08 Morphine 4 Mg/1 Ml Inj IV Q4H PRN Pain , Severe (7-10) Olanzapine 2.5 mg 06/25/22 22:00 07/03/22 21:13 Olanzapine 2.5 Mg Tab PO 2.5 mg QHS DAVID Administration Ondansetron HCl 4 mg 06/18/22 23:08 Ondansetron 4 Mg/2 Ml Inj IV Q8H PRN Nausea And Vomiting Sodium Chloride 10 ml 06/19/22 10:00 07/04/22 06:15 Sodium Chloride 0.9% 10 Ml Flush Syringe IV 10 ml BID DAVID Administration Sodium Chloride 10 ml 06/18/22 23:08 Sodium Chloride 0.9% 10 Ml Flush Syringe IV PRN PRN LINE FLUSH Nutrition/Malnutrition Assess - Dietary Evaluation Nutrition/Malnutrition Findings: Nutrition Notes Start: 06/24/22 14:15 Freq: Status: Active Protocol: Document 07/02/22 13:38 TOMASA (Rec: 07/02/22 13:47 [email or web address] [email or web address]) Nutrition Notes Initial or Follow up Reassessment Other Pertinent Diagnosis Metabolic encephalopathy, EtOH dependence Current Diet Pureed Labs/Tests Reviewed Pertinent Medications Reviewed Height 5 ft 10 in Weight 63.3 kg [place] Body Weight (kg) 75.45 BMI 20.0 Weight Status Underweight Subjective/Other Information Diet advanced yesterday. Pt alert and oriented x 2 and needs to be fed during meal times. Spoke with pt's RN via phone; she reports that pt consumed 50% of dinner meal last pm, 50% of breakfast this am and 75% of lunch today. She requests an ONS for pt as he may not consume enough to meet nutrient needs, Percent of energy/protein needs met: 62% energy 71% pro Burn Absent Trauma Absent Current % PO Fair (50-74%) #1 Nutrition Diagnosis Predicted suboptimal energy intake,Inadequate protein- energy intake Comments: CHANGED Etiology metabolic encephalopathy As Evidenced by Signs and Symptoms po intake meeting <75% energy and pro needs Is patient on ventilator? No Is Patient Ambulatory and/or Out of Bed No REE-([employer]-confined to bed) 1690.968 Kcal/Kg value to use for calculation 30 Approximate Energy Requirements Using 1899 kcal/Kg Calculation Used for Recommendations Kcal/kg Additional Notes Pro needs 1-1.2g/k-76g/ day Fluid needs 1ml/kcal Nutrition Intervention Change Diet Order: Continue current diet order Add Supplement/Snack (indicate name/kcal Ensure High Protein BID /protein ) Provides kCal: 320 Provides Protein (gm) 32 Goal #1 PO intake of meals plus ONS to meet at least 75% energy and pro needs Goal #2 Wt maintenance and/or gain Follow-Up By: 07/07/22 Additional Comments F/U: diet advancement, intakes (meals/ONS), wt
[2022-07-04] MEDS: METOPROLOL TARTRATE 25 MG TAB PO SCH ×2 (10:14→21:21)
[2022-07-04] MEDS: MORPHINE 4 MG/1 ML INJ IV PRN (20:21)
[2022-07-05] MEDS: HEPARIN 5,000 UNIT/1 ML VIAL SUB-Q SCH ×3 (05:37→22:18)
--- NOTE | 2022-07-05 07:29 | Progress Note ---
Assessment and Plan Assessment and plan: #Refractory metabolic encephalopathy-resolved Refractory despite patient being out of the window for alcohol withdrawal symptoms. Repeating CMP, CBC, and ammonia level. Original CT head noncontrast unremarkable for acute findings. Low clinical suspicion for acute ischemic CVA given patient does not have any focal deficits. Unremarkable urinalysis and UDS. -TSH, B12, folate WNL. -Psych/mental health eval consulted; appreciate recs. Continue Zyprexa 2.5 mg daily. -MRI held due to improvement in mental status -ST evaluation: OK for pureed diet -PT evaluation ordered: subacute rehab recommendation #Acute hypoxic respiratory failure-resolved - etiology: possible infection (COVID or HAP) vs volume overload; COVID negative - baseline oxygen requirements: room air - supplemental oxygen: patient currently on RA - Continue protocol: continue pulse oximetry, wean oxygen as tolerated, ordered incentive spirometry and educated patient on how to use it and its importance. Unremarkable coronavirus PCR. Discontinued antibiotics as low suspicion for infection. - continue to monitor #Alcohol withdrawal-resolved #Tachycardiaresolved #Alcohol dependence -Patient presented from alcohol rehabilitation; per chart review last drink 5 days prior to admission -s/p CIWA protocol and librium taper, patient out of window for alcohol withdrawal. #Volume depletion-resolved #Social: Extreme difficulty with finding patient's next of kin or friends. Patient was able to provide names of family members: FatherWilfredokishore Sr. [place]; motherMary Radha Mcfarland; sisterMarhi Radha Mcfarland; sisterNorma Bartolo. CM/SW aware - Patient now AAOx3. Will likely be able to obtain information to help with discharge. History Interval history: No acute events overnight per nursing. Patient is oriented x3 today. He endorses living in a camper but is unable to recall when. He denies any pain or discomfort at this time. He is eager to have the symptoms male and prefers to not be assisted at this time. Hospitalist Physical - Physical exam Narrative exam: GENERAL: Thin elderly male. In no acute distress. HEENT: Normocephalic, atraumatic CHEST/LUNGS: Coarse breath sounds bilaterally. HEART/CARDIOVASCULAR: RRR. No murmur, rubs or gallops appreciated. ABDOMEN: +BS. NT/ND. NEURO: No noted focal deficits. MUSCULOSKELETAL: No joint effusion EXTREMITIES: No cyanosis, clubbing or edema. PSYCH: Cooperative. Appropriate. - Constitutional Vitals: Temp Pulse Resp BP Pulse Ox 98.1 F 112 H 18 138/88 97 07/04/22 16:18 07/04/22 19:31 07/04/22 16:18 07/04/22 19:31 07/04/22 22:00 General appearance: Present: no acute distress, cachectic, disheveled HEART Score - HEART Score Troponin: Troponin T < 0.010 ng/mL (0.00-0.029) 06/18/22 17:20 Results - Labs CBC & Chem 7: 07/01/22 05:39 07/01/22 05:39 Labs: Laboratory Last Values WBC 10.2 K/mm3 (4.5-11.0) 07/01/22 05:39 RBC 4.78 M/mm3 (3.65-5.03) 07/01/22 05:39 Hgb 15.2 gm/dl (11.8-15.2) 07/01/22 05:39 Hct 45.7 % (35.5-45.6) H 07/01/22 05:39 MCV 95 fl (84-94) H 07/01/22 05:39 MCH 32 pg (28-32) 07/01/22 05:39 MCHC 33 % (32-34) 07/01/22 05:39 RDW 12.3 % (13.2-15.2) L 07/01/22 05:39 Plt Count 384 K/mm3 (140-440) 07/01/22 05:39 Lymph % (Auto) 15.1 % (13.4-35.0) 06/28/22 05:05 [place] % (Auto) 9.5 % (0.0-7.3) H 06/28/22 05:05 Eos % (Auto) 2.0 % (0.0-4.3) 06/28/22 05:05 Baso % (Auto) 0.8 % (0.0-1.8) 06/28/22 05:05 Lymph # (Auto) 1.9 K/mm3 (1.2-5.4) 06/28/22 05:05 [place] # (Auto) 1.2 K/mm3 (0.0-0.8) H 06/28/22 05:05 Eos # (Auto) 0.3 K/mm3 (0.0-0.4) 06/28/22 05:05 Baso # (Auto) 0.1 K/mm3 (0.0-0.1) 06/28/22 05:05 Add Manual Diff Complete 06/26/22 09:13 Total Counted 100 06/26/22 09:13 Seg Neutrophils % 72.6 % (40.0-70.0) H 06/28/22 05:05 Seg Neuts % (Manual) 85.0 % (40.0-70.0) H 06/26/22 09:13 Band Neutrophils % 0 % 06/26/22 09:13 Lymphocytes % (Manual) 6.0 % (13.4-35.0) L 06/26/22 09:13 Reactive Lymphs % (Man) 0 % 06/26/22 09:13 Monocytes % (Manual) 8.0 % (0.0-7.3) H 06/26/22 09:13 Eosinophils % (Manual) 0 % (0.0-4.3) 06/26/22 09:13 Basophils % (Manual) 1.0 % (0.0-1.8) 06/26/22 09:13 Metamyelocytes % 0 % 06/26/22 09:13 Myelocytes % 0 % 06/26/22 09:13 Promyelocytes % 0 % 06/26/22 09:13 Blast Cells % 0 % 06/26/22 09:13 Nucleated RBC % Not Reportable 06/26/22 09:13 Seg Neutrophils # 9.1 K/mm3 (1.8-7.7) H 06/28/22 05:05 Seg Neutrophils # Man 14.7 K/mm3 (1.8-7.7) H 06/26/22 09:13 Band Neutrophils # 0.0 K/mm3 06/26/22 09:13 Lymphocytes # (Manual) 1.0 K/mm3 (1.2-5.4) L 06/26/22 09:13 Abs React Lymphs (Man) 0.0 K/mm3 06/26/22 09:13 Monocytes # (Manual) 1.4 K/mm3 (0.0-0.8) H 06/26/22 09:13 Eosinophils # (Manual) 0.0 K/mm3 (0.0-0.4) 06/26/22 09:13 Basophils # (Manual) 0.2 K/mm3 (0.0-0.1) H 06/26/22 09:13 Metamyelocytes # 0.0 K/mm3 06/26/22 09:13 Myelocytes # 0.0 K/mm3 06/26/22 09:13 Promyelocytes # 0.0 K/mm3 06/26/22 09:13 Blast Cells # 0.0 K/mm3 06/26/22 09:13 WBC Morphology Not Reportable 06/26/22 09:13 Hypersegmented Neuts Not Reportable 06/26/22 09:13 Hyposegmented Neuts Not Reportable 06/26/22 09:13 Hypogranular Neuts Not Reportable 06/26/22 09:13 Smudge Cells Not Reportable 06/26/22 09:13 Toxic Granulation Not Reportable 06/26/22 09:13 Toxic Vacuolation Not Reportable 06/26/22 09:13 Dohle Bodies Not Reportable 06/26/22 09:13 Pelger-Huet Anomaly Not Reportable 06/26/22 09:13 Radha Rods Not Reportable 06/26/22 09:13 Platelet Estimate Consistent w auto 06/26/22 09:13 Clumped Platelets Not Reportable 06/26/22 09:13 Plt Clumps, EDTA Not Reportable 06/26/22 09:13 Large Platelets Not Reportable 06/26/22 09:13 Giant Platelets Not Reportable 06/26/22 09:13 Platelet Satelliting Not Reportable 06/26/22 09:13 Plt Morphology Comment Not Reportable 06/26/22 09:13 RBC Morphology Normal 06/26/22 09:13 Dimorphic RBCs Not Reportable 06/26/22 09:13 Polychromasia Not Reportable 06/26/22 09:13 Hypochromasia Not Reportable 06/26/22 09:13 Poikilocytosis Not Reportable 06/26/22 09:13 Anisocytosis Not Reportable 06/26/22 09:13 Microcytosis Not Reportable 06/26/22 09:13 Macrocytosis Not Reportable 06/26/22 09:13 Spherocytes Not Reportable 06/26/22 09:13 Pappenheimer Bodies Not Reportable 06/26/22 09:13 Sickle Cells Not Reportable 06/26/22 09:13 Target Cells Not Reportable 06/26/22 09:13 Tear Drop Cells Not Reportable 06/26/22 09:13 Ovalocytes Not Reportable 06/26/22 09:13 Helmet Cells Not Reportable 06/26/22 09:13 [place] Bodies Not Reportable 06/26/22 09:13 Mazon Rings Not Reportable 06/26/22 09:13 Cheryle Cells Not Reportable 06/26/22 09:13 Bite Cells Not Reportable 06/26/22 09:13 Crenated Cell Not Reportable 06/26/22 09:13 Elliptocytes Not Reportable 06/26/22 09:13 Acanthocytes (Spur) Not Reportable 06/26/22 09:13 Rouleaux Not Reportable 06/26/22 09:13 Hemoglobin C Crystals Not Reportable 06/26/22 09:13 Schistocytes Not Reportable 06/26/22 09:13 Malaria parasites Not Reportable 06/26/22 09:13 Roland Bodies Not Reportable 06/26/22 09:13 Hem Pathologist Commnt No 06/26/22 09:13 Sodium 134 mmol/L (137-145) L 07/01/22 05:39 Potassium 5.1 mmol/L (3.6-5.0) H D 07/01/22 05:39 Chloride 95.3 mmol/L (98-107) L 07/01/22 05:39 Carbon Dioxide 28 mmol/L (22-30) 07/01/22 05:39 Anion Gap 16 mmol/L 07/01/22 05:39 BUN 23 mg/dL (9-20) H 07/01/22 05:39 Creatinine 0.7 mg/dL (0.8-1.3) L 07/01/22 05:39 Estimated GFR > 60 ml/min 07/01/22 05:39 BUN/Creatinine Ratio 33 % 07/01/22 05:39 Glucose 112 mg/dL (75-100) H 07/01/22 05:39 POC Glucose 81 mg/dL (70-105) 07/04/22 16:16 Lactic Acid 0.80 mmol/L (0.7-2.0) 06/18/22 17:20 Calcium 10.1 mg/dL (8.4-10.2) 07/01/22 05:39 Total Bilirubin 0.80 mg/dL (0.1-1.2) 06/23/22 13:00 AST 19 units/L (5-40) 06/23/22 13:00 ALT 21 units/L (7-56) 06/23/22 13:00 Alkaline Phosphatase 66 units/L (35-129) 06/23/22 13:00 Ammonia 16.0 umol/L (25-60) L 06/23/22 13:00 Total Creatine Kinase 383 units/L (55-170) H 06/18/22 17:20 Troponin T < 0.010 ng/mL (0.00-0.029) 06/18/22 17:20 Total Protein 6.9 g/dL (6.3-8.2) 06/23/22 13:00 Albumin 3.6 g/dL (3.9-5) L 06/23/22 13:00 Albumin/Globulin Ratio 1.1 % 06/23/22 13:00 Vitamin B1 110 nmol/L (8-30) H 06/19/22 20:22 Vitamin B12 2000 pg/mL (211-911) H 06/19/22 20:22 Folate 20.00 ng/mL (7.3-26.0) 06/19/22 20:22 TSH 1.320 mlU/mL (0.270-4.200) 06/19/22 20:22 Urine Color Colorless (Yellow) 06/18/22 Unknown Urine Turbidity Clear (Clear) 06/18/22 Unknown Urine pH 5.0 (5.0-7.0) 06/18/22 Unknown Ur Specific [place] 1.015 (1.003-1.030) 06/18/22 Unknown Urine Protein 30 mg/dl mg/dL (Negative) 06/18/22 Unknown Urine Glucose (UA) Negative mg/dL (Negative) 06/18/22 Unknown Urine Ketones 25 mg/dL (Negative) 06/18/22 Unknown Urine Blood Negative (Negative) 06/18/22 Unknown Urine Nitrite Negative (Negative) 06/18/22 Unknown Urine Bilirubin Negative (Negative) 06/18/22 Unknown Urine Urobilinogen 0.2 mg/dL (<2.0) 06/18/22 Unknown Ur Leukocyte Esterase Negative (Negative) 06/18/22 Unknown Urine WBC (Auto) 1.0 /HPF (0.0-6.0) 06/18/22 Unknown Urine RBC (Auto) < 1.0 /HPF (0.0-6.0) 06/18/22 Unknown Urine Mucus Few /HPF 06/18/22 Unknown Nasal Screen MRSA (PCR) Negative (Negative) 06/21/22 08:50 Urine Opiates Screen Negative 06/19/22 10:49 Urine Methadone Screen Negative 06/19/22 10:49 Ur Barbiturates Screen Negative 06/19/22 10:49 Ur Phencyclidine Scrn Negative 06/19/22 10:49 Ur Amphetamines Screen Negative 06/19/22 10:49 U Benzodiazepines Scrn Negative 06/19/22 10:49 Urine Cocaine Screen Negative 06/19/22 10:49 U Marijuana (THC) Screen Negative 06/19/22 10:49 Drugs of Abuse Note Disclamer 06/19/22 10:49 Plasma/Serum Alcohol < 0.01 % (0-0.07) 06/18/22 17:20 SARS-CoV-2 (PCR) Negative (Negative) 06/27/22 04:00 [place]/IV: Voiding Method Incontinent Active Medications - Current Medications Current Medications: Generic Name Dose Route Start Last Admin Trade Name Freq PRN Reason Stop Dose Admin Acetaminophen 650 mg 06/18/22 23:08 07/02/22 11:16 Acetaminophen 325 Mg Tab PO 650 mg Q4H PRN Administration Pain MILD(1-3)/Fever >100.5/MCGEE Heparin Sodium (Porcine) 5,000 unit 06/19/22 06:00 07/05/22 05:37 Heparin 5,000 Unit/1 Ml Vial SUB-Q 5,000 unit Q8HR DAVID Administration Magnesium Hydroxide 30 ml 06/18/22 23:08 Magnesium Hydroxide (Mom) Oral Liqd Udc PO Q4H PRN Constipation Metoprolol Tartrate 25 mg 06/23/22 13:00 07/04/22 21:21 Metoprolol Tartrate 25 Mg Tab PO 25 mg BID DAVID Administration Morphine Sulfate 2 mg 06/18/22 23:08 07/01/22 21:40 Morphine 2 Mg/1 Ml Inj IV 2 mg Q4H PRN Administration Pain, Moderate (4-6) Morphine Sulfate 4 mg 06/18/22 23:08 07/04/22 20:21 Morphine 4 Mg/1 Ml Inj IV 4 mg Q4H PRN Administration Pain , Severe (7-10) Olanzapine 2.5 mg 06/25/22 22:00 07/04/22 21:24 Olanzapine 2.5 Mg Tab PO 2.5 mg QHS DAVID Administration Ondansetron HCl 4 mg 06/18/22 23:08 Ondansetron 4 Mg/2 Ml Inj IV Q8H PRN Nausea And Vomiting Sodium Chloride 10 ml 06/19/22 10:00 07/04/22 21:23 Sodium Chloride 0.9% 10 Ml Flush Syringe IV 10 ml BID DAVID Administration Sodium Chloride 10 ml 06/18/22 23:08 Sodium Chloride 0.9% 10 Ml Flush Syringe IV PRN PRN LINE FLUSH Nutrition/Malnutrition Assess - Dietary Evaluation Nutrition/Malnutrition Findings: Nutrition Notes Start: 06/24/22 14:15 Freq: Status: Active Protocol: Document 07/02/22 13:38 TOMASA (Rec: 07/02/22 13:47 [email or web address] [id number]) Nutrition Notes Initial or Follow up Reassessment Other Pertinent Diagnosis Metabolic encephalopathy, EtOH dependence Current Diet Pureed Labs/Tests Reviewed Pertinent Medications Reviewed Height 5 ft 10 in Weight 63.3 kg [place] Body Weight (kg) 75.45 BMI 20.0 Weight Status Underweight Subjective/Other Information Diet advanced yesterday. Pt alert and oriented x 2 and needs to be fed during meal times. Spoke with pt's RN via phone; she reports that pt consumed 50% of dinner meal last pm, 50% of breakfast this am and 75% of lunch today. She requests an ONS for pt as he may not consume enough to meet nutrient needs, Percent of energy/protein needs met: 62% energy 71% pro Burn Absent Trauma Absent Current % PO Fair (50-74%) #1 Nutrition Diagnosis Predicted suboptimal energy intake,Inadequate protein- energy intake Comments: CHANGED Etiology metabolic encephalopathy As Evidenced by Signs and Symptoms po intake meeting <75% energy and pro needs Is patient on ventilator? No Is Patient Ambulatory and/or Out of Bed No REE-([place]-confined to bed) 1690.968 Kcal/Kg value to use for calculation 30 Approximate Energy Requirements Using 1899 kcal/Kg Calculation Used for Recommendations Kcal/kg Additional Notes Pro needs 1-1.2g/k-76g/ day Fluid needs 1ml/kcal Nutrition Intervention Change Diet Order: Continue current diet order Add Supplement/Snack (indicate name/kcal Ensure High Protein BID /protein ) Provides kCal: 320 Provides Protein (gm) 32 Goal #1 PO intake of meals plus ONS to meet at least 75% energy and pro needs Goal #2 Wt maintenance and/or gain Follow-Up By: 07/07/22 Additional Comments F/U: diet advancement, intakes (meals/ONS), wt
[2022-07-05] MEDS: METOPROLOL TARTRATE 25 MG TAB PO SCH ×2 (10:16→22:18)
[2022-07-06] MEDS: HEPARIN 5,000 UNIT/1 ML VIAL SUB-Q SCH ×3 (06:31→21:27)
[2022-07-06 06:43] LABS: BUN/Creatinine Ratio 51; Blood Urea Nitrogen 51 mg/dL (9-20); Calcium 9.6 mg/dL (8.4-10.2); Hemolysis Index 5
[2022-07-06] MEDS: METOPROLOL TARTRATE 25 MG TAB PO SCH ×2 (10:09→21:26)
--- NOTE | 2022-07-06 12:30 | Progress Note ---
Assessment and Plan Assessment and plan: #Refractory metabolic encephalopathyimproved Refractory despite patient being out of the window for alcohol withdrawal symptoms. Repeating CMP, CBC, and ammonia level. Original CT head noncontrast unremarkable for acute findings. Low clinical suspicion for acute ischemic CVA given patient does not have any focal deficits. Unremarkable urinalysis and UDS. -TSH, B12, folate WNL. -Psych/mental health eval consulted; appreciate recs. Continue Zyprexa 2.5 mg daily. -Neurology consulted; appreciate recs. -will continue to monitor #Acute hypoxic respiratory failureresolved - etiology: possible infection (COVID or HAP), volume overload - baseline oxygen requirements: room air - supplemental oxygen: 3L nasal cannula - Continue protocol: continue pulse oximetry, wean oxygen as tolerated, ordered incentive spirometry and educated patient on how to use it and its importance. Unremarkable coronavirus PCR. Discontinued antibiotics as low suspicion for infection. - continue to monitor #Alcohol withdrawal-resolved #Tachycardiaresolved #Alcohol dependence -Patient presented from alcohol rehabilitation; per chart review last drink 5 days prior to admission -Discontinued CIWA protocol, patient out of window for alcohol withdrawal. -Discontinued librium taper. If sinus tachycardia, beta-blockade can be initiat ed. #Volume depletion-resolved #Advanced care planning -Disease education conducted, care plan discussed, diagnoses discussed, prognosis discussed, and patient acknowledges understanding with care plan -Time: +30 min #Social: Extreme difficulty with finding patient's next of kin or friends. Patient was able to provide names of family members: FatherMichael Yates Sr.; motherElvira Radha Mcfarland; sisterMarhi Radha Mcfarland; sisterNorma Bartolo. Updating new familial information with case management. Continue to search for next of kin. #Discharge planning -Pending resolution of acute metabolic encephalopathy and acute hypoxic respiratory failure -[facility] transferred from a hospital in [facility] -Pending SNF placement given patient's improvement and clinical status. Disposition Plan: Pending SNF placement Total Time Spent with Patient (Minutes): 45 minutes History Interval history: No acute events overnight. Hospitalist Physical - Constitutional Vitals: Temp Pulse Resp BP Pulse Ox 97.5 F L 77 18 122/82 98 07/06/22 03:35 07/06/22 10:09 07/06/22 03:35 07/06/22 03:35 07/06/22 03:35 General appearance: Present: no acute distress, cachectic, disheveled - EENT Eyes: Present: PERRL, EOM intact ENT: hearing intact, clear oral mucosa, poor dentition - Neck Neck: Present: supple, normal ROM - Respiratory Respiratory effort: normal Respiratory: bilateral: CTA - Cardiovascular Rhythm: regular Heart Sounds: Present: S1 & S2 - Extremities Extremities: no ischemia, pulses intact, pulses symmetrical, No edema, normal temperature, normal color Peripheral Pulses: within normal limits - Abdominal General gastrointestinal: soft, non-tender, non-distended, normal bowel sounds - Integumentary Integumentary: Present: clear, warm, dry - Psychiatric Psychiatric: appropriate mood/affect, cooperative - Neurologic Neurologic: CNII-XII intact, moves all extremities - Allied Health Allied health notes reviewed: nursing, case management HEART Score - HEART Score Troponin: Troponin T < 0.010 ng/mL (0.00-0.029) 06/18/22 17:20 Results - Labs CBC & Chem 7: 07/01/22 05:39 07/06/22 05:58 Labs: Laboratory Last Values WBC 10.2 K/mm3 (4.5-11.0) 07/01/22 05:39 RBC 4.78 M/mm3 (3.65-5.03) 07/01/22 05:39 Hgb 15.2 gm/dl (11.8-15.2) 07/01/22 05:39 Hct 45.7 % (35.5-45.6) H 07/01/22 05:39 MCV 95 fl (84-94) H 07/01/22 05:39 MCH 32 pg (28-32) 07/01/22 05:39 MCHC 33 % (32-34) 07/01/22 05:39 RDW 12.3 % (13.2-15.2) L 07/01/22 05:39 Plt Count 384 K/mm3 (140-440) 07/01/22 05:39 Lymph % (Auto) 15.1 % (13.4-35.0) 06/28/22 05:05 Rock % (Auto) 9.5 % (0.0-7.3) H 06/28/22 05:05 Eos % (Auto) 2.0 % (0.0-4.3) 06/28/22 05:05 Baso % (Auto) 0.8 % (0.0-1.8) 06/28/22 05:05 Lymph # (Auto) 1.9 K/mm3 (1.2-5.4) 06/28/22 05:05 Rock # (Auto) 1.2 K/mm3 (0.0-0.8) H 06/28/22 05:05 Eos # (Auto) 0.3 K/mm3 (0.0-0.4) 06/28/22 05:05 Baso # (Auto) 0.1 K/mm3 (0.0-0.1) 06/28/22 05:05 Add Manual Diff Complete 06/26/22 09:13 Total Counted 100 06/26/22 09:13 Seg Neutrophils % 72.6 % (40.0-70.0) H 06/28/22 05:05 Seg Neuts % (Manual) 85.0 % (40.0-70.0) H 06/26/22 09:13 Band Neutrophils % 0 % 06/26/22 09:13 Lymphocytes % (Manual) 6.0 % (13.4-35.0) L 06/26/22 09:13 Reactive Lymphs % (Man) 0 % 06/26/22 09:13 Monocytes % (Manual) 8.0 % (0.0-7.3) H 06/26/22 09:13 Eosinophils % (Manual) 0 % (0.0-4.3) 06/26/22 09:13 Basophils % (Manual) 1.0 % (0.0-1.8) 06/26/22 09:13 Metamyelocytes % 0 % 06/26/22 09:13 Myelocytes % 0 % 06/26/22 09:13 Promyelocytes % 0 % 06/26/22 09:13 Blast Cells % 0 % 06/26/22 09:13 Nucleated RBC % Not Reportable 06/26/22 09:13 Seg Neutrophils # 9.1 K/mm3 (1.8-7.7) H 06/28/22 05:05 Seg Neutrophils # Man 14.7 K/mm3 (1.8-7.7) H 06/26/22 09:13 Band Neutrophils # 0.0 K/mm3 06/26/22 09:13 Lymphocytes # (Manual) 1.0 K/mm3 (1.2-5.4) L 06/26/22 09:13 Abs React Lymphs (Man) 0.0 K/mm3 06/26/22 09:13 Monocytes # (Manual) 1.4 K/mm3 (0.0-0.8) H 06/26/22 09:13 Eosinophils # (Manual) 0.0 K/mm3 (0.0-0.4) 06/26/22 09:13 Basophils # (Manual) 0.2 K/mm3 (0.0-0.1) H 06/26/22 09:13 Metamyelocytes # 0.0 K/mm3 06/26/22 09:13 Myelocytes # 0.0 K/mm3 06/26/22 09:13 Promyelocytes # 0.0 K/mm3 06/26/22 09:13 Blast Cells # 0.0 K/mm3 06/26/22 09:13 WBC Morphology Not Reportable 06/26/22 09:13 Hypersegmented Neuts Not Reportable 06/26/22 09:13 Hyposegmented Neuts Not Reportable 06/26/22 09:13 Hypogranular Neuts Not Reportable 06/26/22 09:13 Smudge Cells Not Reportable 06/26/22 09:13 Toxic Granulation Not Reportable 06/26/22 09:13 Toxic Vacuolation Not Reportable 06/26/22 09:13 Dohle Bodies Not Reportable 06/26/22 09:13 Pelger-Huet Anomaly Not Reportable 06/26/22 09:13 Radha Rods Not Reportable 06/26/22 09:13 Platelet Estimate Consistent w auto 06/26/22 09:13 Clumped Platelets Not Reportable 06/26/22 09:13 Plt Clumps, EDTA Not Reportable 06/26/22 09:13 Large Platelets Not Reportable 06/26/22 09:13 Giant Platelets Not Reportable 06/26/22 09:13 Platelet Satelliting Not Reportable 06/26/22 09:13 Plt Morphology Comment Not Reportable 06/26/22 09:13 RBC Morphology Normal 06/26/22 09:13 Dimorphic RBCs Not Reportable 06/26/22 09:13 Polychromasia Not Reportable 06/26/22 09:13 Hypochromasia Not Reportable 06/26/22 09:13 Poikilocytosis Not Reportable 06/26/22 09:13 Anisocytosis Not Reportable 06/26/22 09:13 Microcytosis Not Reportable 06/26/22 09:13 Macrocytosis Not Reportable 06/26/22 09:13 Spherocytes Not Reportable 06/26/22 09:13 Pappenheimer Bodies Not Reportable 06/26/22 09:13 Sickle Cells Not Reportable 06/26/22 09:13 Target Cells Not Reportable 06/26/22 09:13 Tear Drop Cells Not Reportable 06/26/22 09:13 Ovalocytes Not Reportable 06/26/22 09:13 Helmet Cells Not Reportable 06/26/22 09:13 Alfaro-[place] Bodies Not Reportable 06/26/22 09:13 Cyclone Rings Not Reportable 06/26/22 09:13 Aurora Cells Not Reportable 06/26/22 09:13 Bite Cells Not Reportable 06/26/22 09:13 Crenated Cell Not Reportable 06/26/22 09:13 Elliptocytes Not Reportable 06/26/22 09:13 Acanthocytes (Spur) Not Reportable 06/26/22 09:13 Rouleaux Not Reportable 06/26/22 09:13 Hemoglobin C Crystals Not Reportable 06/26/22 09:13 Schistocytes Not Reportable 06/26/22 09:13 Malaria parasites Not Reportable 06/26/22 09:13 Roland Bodies Not Reportable 06/26/22 09:13 Hem Pathologist Commnt No 06/26/22 09:13 Sodium 139 mmol/L (137-145) 07/06/22 05:58 Potassium 4.6 mmol/L (3.6-5.0) 07/06/22 05:58 Chloride 101.9 mmol/L (98-107) 07/06/22 05:58 Carbon Dioxide 23 mmol/L (22-30) 07/06/22 05:58 Anion Gap 19 mmol/L 07/06/22 05:58 BUN 51 mg/dL (9-20) H 07/06/22 05:58 Creatinine 1.0 mg/dL (0.8-1.3) 07/06/22 05:58 Estimated GFR > 60 ml/min 07/06/22 05:58 BUN/Creatinine Ratio 51 % 07/06/22 05:58 Glucose 123 mg/dL (75-100) H 07/06/22 05:58 POC Glucose 81 mg/dL (70-105) 07/04/22 16:16 Lactic Acid 0.80 mmol/L (0.7-2.0) 06/18/22 17:20 Calcium 9.6 mg/dL (8.4-10.2) 07/06/22 05:58 Total Bilirubin 0.80 mg/dL (0.1-1.2) 06/23/22 13:00 AST 19 units/L (5-40) 06/23/22 13:00 ALT 21 units/L (7-56) 06/23/22 13:00 Alkaline Phosphatase 66 units/L (35-129) 06/23/22 13:00 Ammonia 16.0 umol/L (25-60) L 06/23/22 13:00 Total Creatine Kinase 383 units/L (55-170) H 06/18/22 17:20 Troponin T < 0.010 ng/mL (0.00-0.029) 06/18/22 17:20 Total Protein 6.9 g/dL (6.3-8.2) 06/23/22 13:00 Albumin 3.6 g/dL (3.9-5) L 06/23/22 13:00 Albumin/Globulin Ratio 1.1 % 06/23/22 13:00 Vitamin B1 110 nmol/L (8-30) H 06/19/22 20:22 Vitamin B12 2000 pg/mL (211-911) H 06/19/22 20:22 Folate 20.00 ng/mL (7.3-26.0) 06/19/22 20:22 TSH 1.320 mlU/mL (0.270-4.200) 06/19/22 20:22 Urine Color Colorless (Yellow) 06/18/22 Unknown Urine Turbidity Clear (Clear) 06/18/22 Unknown Urine pH 5.0 (5.0-7.0) 06/18/22 Unknown Ur Specific [place] 1.015 (1.003-1.030) 06/18/22 Unknown Urine Protein 30 mg/dl mg/dL (Negative) 06/18/22 Unknown Urine Glucose (UA) Negative mg/dL (Negative) 06/18/22 Unknown Urine Ketones 25 mg/dL (Negative) 06/18/22 Unknown Urine Blood Negative (Negative) 06/18/22 Unknown Urine Nitrite Negative (Negative) 06/18/22 Unknown Urine Bilirubin Negative (Negative) 06/18/22 Unknown Urine Urobilinogen 0.2 mg/dL (<2.0) 06/18/22 Unknown Ur Leukocyte Esterase Negative (Negative) 06/18/22 Unknown Urine WBC (Auto) 1.0 /HPF (0.0-6.0) 06/18/22 Unknown Urine RBC (Auto) < 1.0 /HPF (0.0-6.0) 06/18/22 Unknown Urine Mucus Few /HPF 06/18/22 Unknown Nasal Screen MRSA (PCR) Negative (Negative) 06/21/22 08:50 Urine Opiates Screen Negative 06/19/22 10:49 Urine Methadone Screen Negative 06/19/22 10:49 Ur Barbiturates Screen Negative 06/19/22 10:49 Ur Phencyclidine Scrn Negative 06/19/22 10:49 Ur Amphetamines Screen Negative 06/19/22 10:49 U Benzodiazepines Scrn Negative 06/19/22 10:49 Urine Cocaine Screen Negative 06/19/22 10:49 U Marijuana (THC) Screen Negative 06/19/22 10:49 Drugs of Abuse Note Disclamer 06/19/22 10:49 Plasma/Serum Alcohol < 0.01 % (0-0.07) 06/18/22 17:20 SARS-CoV-2 (PCR) Negative (Negative) 06/27/22 04:00 Quezada/IV: Voiding Method Diaper Active Medications - Current Medications Current Medications: Generic Name Dose Route Start Last Admin Trade Name Freq PRN Reason Stop Dose Admin Acetaminophen 650 mg 06/18/22 23:08 07/02/22 11:16 Acetaminophen 325 Mg Tab PO 650 mg Q4H PRN Administration Pain MILD(1-3)/Fever >100.5/MCGEE Heparin Sodium (Porcine) 5,000 unit 06/19/22 06:00 07/06/22 06:31 Heparin 5,000 Unit/1 Ml Vial SUB-Q 5,000 unit Q8HR DAVID Administration Magnesium Hydroxide 30 ml 06/18/22 23:08 Magnesium Hydroxide (Mom) Oral Liqd Udc PO Q4H PRN Constipation Metoprolol Tartrate 25 mg 06/23/22 13:00 07/06/22 10:09 Metoprolol Tartrate 25 Mg Tab PO 25 mg BID DAVID Administration Morphine Sulfate 2 mg 06/18/22 23:08 07/01/22 21:40 Morphine 2 Mg/1 Ml Inj IV 2 mg Q4H PRN Administration Pain, Moderate (4-6) Morphine Sulfate 4 mg 06/18/22 23:08 07/04/22 20:21 Morphine 4 Mg/1 Ml Inj IV 4 mg Q4H PRN Administration Pain , Severe (7-10) Olanzapine 2.5 mg 06/25/22 22:00 07/05/22 22:19 Olanzapine 2.5 Mg Tab PO 2.5 mg QHS DAVID Administration Ondansetron HCl 4 mg 06/18/22 23:08 Ondansetron 4 Mg/2 Ml Inj IV Q8H PRN Nausea And Vomiting Sodium Chloride 10 ml 06/19/22 10:00 07/06/22 10:09 Sodium Chloride 0.9% 10 Ml Flush Syringe IV Not Given BID DAVID Sodium Chloride 10 ml 06/18/22 23:08 Sodium Chloride 0.9% 10 Ml Flush Syringe IV PRN PRN LINE FLUSH Nutrition/Malnutrition Assess - Dietary Evaluation Nutrition/Malnutrition Findings: Nutrition Notes Start: 06/24/22 14:15 Freq: Status: Active Protocol: Document 07/02/22 13:38 TOMASA (Rec: 07/02/22 13:47 TOMASA [id number]) Nutrition Notes Initial or Follow up Reassessment Other Pertinent Diagnosis Metabolic encephalopathy, EtOH dependence Current Diet Pureed Labs/Tests Reviewed Pertinent Medications Reviewed Height 5 ft 10 in Weight 63.3 kg [place] Body Weight (kg) 75.45 BMI 20.0 Weight Status Underweight Subjective/Other Information Diet advanced yesterday. Pt alert and oriented x 2 and needs to be fed during meal times. Spoke with pt's RN via phone; she reports that pt consumed 50% of dinner meal last pm, 50% of breakfast this am and 75% of lunch today. She requests an ONS for pt as he may not consume enough to meet nutrient needs, Percent of energy/protein needs met: 62% energy 71% pro Burn Absent Trauma Absent Current % PO Fair (50-74%) #1 Nutrition Diagnosis Predicted suboptimal energy intake,Inadequate protein- energy intake Comments: CHANGED Etiology metabolic encephalopathy As Evidenced by Signs and Symptoms po intake meeting <75% energy and pro needs Is patient on ventilator? No Is Patient Ambulatory and/or Out of Bed No REE-([facility] Bal-confined to bed) 1690.968 Kcal/Kg value to use for calculation 30 Approximate Energy Requirements Using 1899 kcal/Kg Calculation Used for Recommendations Kcal/kg Additional Notes Pro needs 1-1.2g/k-76g/ day Fluid needs 1ml/kcal Nutrition Intervention Change Diet Order: Continue current diet order Add Supplement/Snack (indicate name/kcal Ensure High Protein BID /protein ) Provides kCal: 320 Provides Protein (gm) 32 Goal #1 PO intake of meals plus ONS to meet at least 75% energy and pro needs Goal #2 Wt maintenance and/or gain Follow-Up By: 07/07/22 Additional Comments F/U: diet advancement, intakes (meals/ONS), wt
[2022-07-07] MEDS: HEPARIN 5,000 UNIT/1 ML VIAL SUB-Q SCH ×3 (06:57→21:48)
[2022-07-07] MEDS: METOPROLOL TARTRATE 25 MG TAB PO SCH ×2 (10:50→21:48)
--- NOTE | 2022-07-07 17:09 | Progress Note ---
Assessment and Plan Assessment and plan: #Refractory metabolic encephalopathyimproved Refractory despite patient being out of the window for alcohol withdrawal symptoms. Repeating CMP, CBC, and ammonia level. Original CT head noncontrast unremarkable for acute findings. Low clinical suspicion for acute ischemic CVA given patient does not have any focal deficits. Unremarkable urinalysis and UDS. -TSH, B12, folate WNL. -Psych/mental health eval consulted; appreciate recs. Continue Zyprexa 2.5 mg daily. -Neurology consulted; appreciate recs. -will continue to monitor #Acute hypoxic respiratory failureresolved - etiology: possible infection (COVID or HAP), volume overload - baseline oxygen requirements: room air - supplemental oxygen: 3L nasal cannula - Continue protocol: continue pulse oximetry, wean oxygen as tolerated, ordered incentive spirometry and educated patient on how to use it and its importance. Unremarkable coronavirus PCR. Discontinued antibiotics as low suspicion for infection. - continue to monitor #Alcohol withdrawal-resolved #Tachycardiaresolved #Alcohol dependence -Patient presented from alcohol rehabilitation; per chart review last drink 5 days prior to admission -Discontinued CIWA protocol, patient out of window for alcohol withdrawal. -Discontinued librium taper. If sinus tachycardia, beta-blockade can be initiat ed. #Volume depletion-resolved #Advanced care planning -Disease education conducted, care plan discussed, diagnoses discussed, prognosis discussed, and patient acknowledges understanding with care plan -Time: +30 min #Social: Extreme difficulty with finding patient's next of kin or friends. Patient was able to provide names of family members: FatherMichael Yates Sr.; motherElvira Radha Mcfarland; sisterMarhi Radha Mcfarland; sisterNorma Bartolo. Updating new familial information with case management. Continue to search for next of kin. #Discharge planning -[facility] and was initially transferred from a hospital in [facility] [place] -Pending SNF placement given patient's improvement and clinical status. Disposition Plan: Pending placement Total Time Spent with Patient (Minutes): 45 minutes History Interval history: No acute events overnight. Hospitalist Physical - Constitutional Vitals: Temp Pulse Resp BP Pulse Ox 97.6 F 73 18 121/78 82 L 07/07/22 11:21 07/07/22 11:21 07/07/22 11:21 07/07/22 11:21 07/07/22 11:21 General appearance: Present: no acute distress, cachectic, disheveled - EENT Eyes: Present: PERRL, EOM intact ENT: hearing intact, clear oral mucosa, poor dentition, edentulous - Neck Neck: Present: supple, normal ROM - Respiratory Respiratory effort: normal Respiratory: bilateral: CTA - Cardiovascular Rhythm: regular Heart Sounds: Present: S1 & S2 - Extremities Extremities: no ischemia, pulses intact, pulses symmetrical, No edema, normal temperature, normal color Peripheral Pulses: within normal limits - Abdominal General gastrointestinal: soft, non-tender, non-distended, normal bowel sounds - Integumentary Integumentary: Present: clear, warm, dry - Psychiatric Psychiatric: appropriate mood/affect, cooperative - Neurologic Neurologic: CNII-XII intact, moves all extremities - Allied Health Allied health notes reviewed: nursing, case management HEART Score - HEART Score Troponin: Troponin T < 0.010 ng/mL (0.00-0.029) 06/18/22 17:20 Results - Labs CBC & Chem 7: 07/01/22 05:39 07/06/22 05:58 Labs: Laboratory Last Values WBC 10.2 K/mm3 (4.5-11.0) 07/01/22 05:39 RBC 4.78 M/mm3 (3.65-5.03) 07/01/22 05:39 Hgb 15.2 gm/dl (11.8-15.2) 07/01/22 05:39 Hct 45.7 % (35.5-45.6) H 07/01/22 05:39 MCV 95 fl (84-94) H 07/01/22 05:39 MCH 32 pg (28-32) 07/01/22 05:39 MCHC 33 % (32-34) 07/01/22 05:39 RDW 12.3 % (13.2-15.2) L 07/01/22 05:39 Plt Count 384 K/mm3 (140-440) 07/01/22 05:39 Lymph % (Auto) 15.1 % (13.4-35.0) 06/28/22 05:05 [place] % (Auto) 9.5 % (0.0-7.3) H 06/28/22 05:05 Eos % (Auto) 2.0 % (0.0-4.3) 06/28/22 05:05 Baso % (Auto) 0.8 % (0.0-1.8) 06/28/22 05:05 Lymph # (Auto) 1.9 K/mm3 (1.2-5.4) 06/28/22 05:05 [place] # (Auto) 1.2 K/mm3 (0.0-0.8) H 06/28/22 05:05 Eos # (Auto) 0.3 K/mm3 (0.0-0.4) 06/28/22 05:05 Baso # (Auto) 0.1 K/mm3 (0.0-0.1) 06/28/22 05:05 Add Manual Diff Complete 06/26/22 09:13 Total Counted 100 06/26/22 09:13 Seg Neutrophils % 72.6 % (40.0-70.0) H 06/28/22 05:05 Seg Neuts % (Manual) 85.0 % (40.0-70.0) H 06/26/22 09:13 Band Neutrophils % 0 % 06/26/22 09:13 Lymphocytes % (Manual) 6.0 % (13.4-35.0) L 06/26/22 09:13 Reactive Lymphs % (Man) 0 % 06/26/22 09:13 Monocytes % (Manual) 8.0 % (0.0-7.3) H 06/26/22 09:13 Eosinophils % (Manual) 0 % (0.0-4.3) 06/26/22 09:13 Basophils % (Manual) 1.0 % (0.0-1.8) 06/26/22 09:13 Metamyelocytes % 0 % 06/26/22 09:13 Myelocytes % 0 % 06/26/22 09:13 Promyelocytes % 0 % 06/26/22 09:13 Blast Cells % 0 % 06/26/22 09:13 Nucleated RBC % Not Reportable 06/26/22 09:13 Seg Neutrophils # 9.1 K/mm3 (1.8-7.7) H 06/28/22 05:05 Seg Neutrophils # Man 14.7 K/mm3 (1.8-7.7) H 06/26/22 09:13 Band Neutrophils # 0.0 K/mm3 06/26/22 09:13 Lymphocytes # (Manual) 1.0 K/mm3 (1.2-5.4) L 06/26/22 09:13 Abs React Lymphs (Man) 0.0 K/mm3 06/26/22 09:13 Monocytes # (Manual) 1.4 K/mm3 (0.0-0.8) H 06/26/22 09:13 Eosinophils # (Manual) 0.0 K/mm3 (0.0-0.4) 06/26/22 09:13 Basophils # (Manual) 0.2 K/mm3 (0.0-0.1) H 06/26/22 09:13 Metamyelocytes # 0.0 K/mm3 06/26/22 09:13 Myelocytes # 0.0 K/mm3 06/26/22 09:13 Promyelocytes # 0.0 K/mm3 06/26/22 09:13 Blast Cells # 0.0 K/mm3 06/26/22 09:13 WBC Morphology Not Reportable 06/26/22 09:13 Hypersegmented Neuts Not Reportable 06/26/22 09:13 Hyposegmented Neuts Not Reportable 06/26/22 09:13 Hypogranular Neuts Not Reportable 06/26/22 09:13 Smudge Cells Not Reportable 06/26/22 09:13 Toxic Granulation Not Reportable 06/26/22 09:13 Toxic Vacuolation Not Reportable 06/26/22 09:13 Dohle Bodies Not Reportable 06/26/22 09:13 Pelger-Huet Anomaly Not Reportable 06/26/22 09:13 Radha Rods Not Reportable 06/26/22 09:13 Platelet Estimate Consistent w auto 06/26/22 09:13 Clumped Platelets Not Reportable 06/26/22 09:13 Plt Clumps, EDTA Not Reportable 06/26/22 09:13 Large Platelets Not Reportable 06/26/22 09:13 Giant Platelets Not Reportable 06/26/22 09:13 Platelet Satelliting Not Reportable 06/26/22 09:13 Plt Morphology Comment Not Reportable 06/26/22 09:13 RBC Morphology Normal 06/26/22 09:13 Dimorphic RBCs Not Reportable 06/26/22 09:13 Polychromasia Not Reportable 06/26/22 09:13 Hypochromasia Not Reportable 06/26/22 09:13 Poikilocytosis Not Reportable 06/26/22 09:13 Anisocytosis Not Reportable 06/26/22 09:13 Microcytosis Not Reportable 06/26/22 09:13 Macrocytosis Not Reportable 06/26/22 09:13 Spherocytes Not Reportable 06/26/22 09:13 Pappenheimer Bodies Not Reportable 06/26/22 09:13 Sickle Cells Not Reportable 06/26/22 09:13 Target Cells Not Reportable 06/26/22 09:13 Tear Drop Cells Not Reportable 06/26/22 09:13 Ovalocytes Not Reportable 06/26/22 09:13 Helmet Cells Not Reportable 06/26/22 09:13 [place] Bodies Not Reportable 06/26/22 09:13 [place] Rings Not Reportable 06/26/22 09:13 Cher[place] Cells Not Reportable 06/26/22 09:13 Bite Cells Not Reportable 06/26/22 09:13 Crenated Cell Not Reportable 06/26/22 09:13 Elliptocytes Not Reportable 06/26/22 09:13 Acanthocytes (Spur) Not Reportable 06/26/22 09:13 Rouleaux Not Reportable 06/26/22 09:13 Hemoglobin C Crystals Not Reportable 06/26/22 09:13 Schistocytes Not Reportable 06/26/22 09:13 Malaria parasites Not Reportable 06/26/22 09:13 Roland Bodies Not Reportable 06/26/22 09:13 Hem Pathologist Commnt No 06/26/22 09:13 Sodium 139 mmol/L (137-145) 07/06/22 05:58 Potassium 4.6 mmol/L (3.6-5.0) 07/06/22 05:58 Chloride 101.9 mmol/L (98-107) 07/06/22 05:58 Carbon Dioxide 23 mmol/L (22-30) 07/06/22 05:58 Anion Gap 19 mmol/L 07/06/22 05:58 BUN 51 mg/dL (9-20) H 07/06/22 05:58 Creatinine 1.0 mg/dL (0.8-1.3) 07/06/22 05:58 Estimated GFR > 60 ml/min 07/06/22 05:58 BUN/Creatinine Ratio 51 % 07/06/22 05:58 Glucose 123 mg/dL (75-100) H 07/06/22 05:58 POC Glucose 81 mg/dL (70-105) 07/04/22 16:16 Lactic Acid 0.80 mmol/L (0.7-2.0) 06/18/22 17:20 Calcium 9.6 mg/dL (8.4-10.2) 07/06/22 05:58 Total Bilirubin 0.80 mg/dL (0.1-1.2) 06/23/22 13:00 AST 19 units/L (5-40) 06/23/22 13:00 ALT 21 units/L (7-56) 06/23/22 13:00 Alkaline Phosphatase 66 units/L (35-129) 06/23/22 13:00 Ammonia 16.0 umol/L (25-60) L 06/23/22 13:00 Total Creatine Kinase 383 units/L (55-170) H 06/18/22 17:20 Troponin T < 0.010 ng/mL (0.00-0.029) 06/18/22 17:20 Total Protein 6.9 g/dL (6.3-8.2) 06/23/22 13:00 Albumin 3.6 g/dL (3.9-5) L 06/23/22 13:00 Albumin/Globulin Ratio 1.1 % 06/23/22 13:00 Vitamin B1 110 nmol/L (8-30) H 06/19/22 20:22 Vitamin B12 2000 pg/mL (211-911) H 06/19/22 20:22 Folate 20.00 ng/mL (7.3-26.0) 06/19/22 20:22 TSH 1.320 mlU/mL (0.270-4.200) 06/19/22 20:22 Urine Color Colorless (Yellow) 06/18/22 Unknown Urine Turbidity Clear (Clear) 06/18/22 Unknown Urine pH 5.0 (5.0-7.0) 06/18/22 Unknown Ur Specific [place] 1.015 (1.003-1.030) 06/18/22 Unknown Urine Protein 30 mg/dl mg/dL (Negative) 06/18/22 Unknown Urine Glucose (UA) Negative mg/dL (Negative) 06/18/22 Unknown Urine Ketones 25 mg/dL (Negative) 06/18/22 Unknown Urine Blood Negative (Negative) 06/18/22 Unknown Urine Nitrite Negative (Negative) 06/18/22 Unknown Urine Bilirubin Negative (Negative) 06/18/22 Unknown Urine Urobilinogen 0.2 mg/dL (<2.0) 06/18/22 Unknown Ur Leukocyte Esterase Negative (Negative) 06/18/22 Unknown Urine WBC (Auto) 1.0 /HPF (0.0-6.0) 06/18/22 Unknown Urine RBC (Auto) < 1.0 /HPF (0.0-6.0) 06/18/22 Unknown Urine Mucus Few /HPF 06/18/22 Unknown Nasal Screen MRSA (PCR) Negative (Negative) 06/21/22 08:50 Urine Opiates Screen Negative 06/19/22 10:49 Urine Methadone Screen Negative 06/19/22 10:49 Ur Barbiturates Screen Negative 06/19/22 10:49 Ur Phencyclidine Scrn Negative 06/19/22 10:49 Ur Amphetamines Screen Negative 06/19/22 10:49 U Benzodiazepines Scrn Negative 06/19/22 10:49 Urine Cocaine Screen Negative 06/19/22 10:49 U Marijuana (THC) Screen Negative 06/19/22 10:49 Drugs of Abuse Note Disclamer 06/19/22 10:49 Plasma/Serum Alcohol < 0.01 % (0-0.07) 06/18/22 17:20 SARS-CoV-2 (PCR) Negative (Negative) 07/06/22 12:21 [place]/IV: Voiding Method Incontinent Active Medications - Current Medications Current Medications: Generic Name Dose Route Start Last Admin Trade Name Freq PRN Reason Stop Dose Admin Acetaminophen 650 mg 06/18/22 23:08 07/02/22 11:16 Acetaminophen 325 Mg Tab PO 650 mg Q4H PRN Administration Pain MILD(1-3)/Fever >100.5/MCGEE Heparin Sodium (Porcine) 5,000 unit 06/19/22 06:00 07/07/22 06:57 Heparin 5,000 Unit/1 Ml Vial SUB-Q 5,000 unit Q8HR DAVID Administration Magnesium Hydroxide 30 ml 06/18/22 23:08 Magnesium Hydroxide (Mom) Oral Liqd Udc PO Q4H PRN Constipation Metoprolol Tartrate 25 mg 06/23/22 13:00 08/23/22 21:26 Metoprolol Tartrate 25 Mg Tab PO 25 mg BID DAVID Administration Morphine Sulfate 2 mg 06/18/22 23:08 07/01/22 21:40 Morphine 2 Mg/1 Ml Inj IV 2 mg Q4H PRN Administration Pain, Moderate (4-6) Morphine Sulfate 4 mg 06/18/22 23:08 07/04/22 20:21 Morphine 4 Mg/1 Ml Inj IV 4 mg Q4H PRN Administration Pain , Severe (7-10) Olanzapine 2.5 mg 06/25/22 22:00 07/06/22 21:26 Olanzapine 2.5 Mg Tab PO 2.5 mg QHS DAVID Administration Ondansetron HCl 4 mg 06/18/22 23:08 Ondansetron 4 Mg/2 Ml Inj IV Q8H PRN Nausea And Vomiting Sodium Chloride 10 ml 06/19/22 10:00 07/06/22 21:28 Sodium Chloride 0.9% 10 Ml Flush Syringe IV Not Given BID DAVID Sodium Chloride 10 ml 06/18/22 23:08 Sodium Chloride 0.9% 10 Ml Flush Syringe IV PRN PRN LINE FLUSH Nutrition/Malnutrition Assess - Dietary Evaluation Nutrition/Malnutrition Findings: Nutrition Notes Start: 06/24/22 14:15 Freq: Status: Active Protocol: Document 07/07/22 11:17 CUATE (Rec: 07/07/22 11:40 CUATE [id number]) Nutrition Notes Initial or Follow up Brief Note Other Pertinent Diagnosis Metabolic encephalopathy, EtOH dependence Current Diet Pureed -Thin Liquids- Diet + D Suppl (since D 07/02). Height 5 ft 10 in Weight 64.2 kg [place] Body Weight (kg) 75.45 BMI 20.2 Weight change and time frame 0.9 Kg body weight gain reported in 5 days. Weight Status Appropriate Subjective/Other Information RD consult for routine F/U on dietary advancement. Diet+ONS continue as prescribed, Pt's PO intake of meals has been Fair (>50%), and fairly tolerated, according to ADL notes. Pt is on Room Air, O2 saturation @ 99%, according to Physical Assessment History notes. Pt remains incontinent, according to Physical Assessment History notes. Pt will be discharged to a SNF when medically cleared, according to Progress notes. Percent of energy/protein needs met: Prescribed Pureed -Thin Liquids- Diet provides for energy/protein needs (1,804 Kcal/77 g) during LOS; additionally, Dietary Supplements will compensate for possible poor or insufficient PO intake of meals with 320 Kcal and 32 g of protein. Current % PO Fair (50-74%) #1 Nutrition Diagnosis Inadequate protein-energy intake Comments: Diet+ONS continue as prescribed, Pt's PO intake of meals has been Fair (>50%), and fairly tolerated, according to ADL notes. Diagnosis Progress(for reassessment Continues documentation) Is patient on ventilator? No Is Patient Ambulatory and/or Out of Bed No REE-([facility]-confined to bed) 1701.756 Kcal/Kg value to use for calculation 32 Approximate Energy Requirements Using 4 kcal/Kg Calculation Used for Recommendations Kcal/kg Additional Notes Protein: 1-1.2 g/Kg ABW; 64-77 g/day. Fluids: 1 ml/Kcal, or as per MD. Nutrition Intervention Change Diet Order: Continue Pureed -Thin Liquids- Diet as tolerated. Add Supplement/Snack (indicate name/kcal Continue 8 fl oz Ensure High /protein ) Protein; BID. Provides kCal: 320 Provides Protein (gm) 32 Goal #1 Compensate, through dietary supplementation, for possible poor or insufficient PO intake of meals during LOS. Goal #2 Adjust the dietary intervention to better serve Pt's needs and clinical conditions during LOS. Follow-Up By: 07/14/22 Additional Comments Continue monitoring food tolerance, %PO intake of meals , dietary supplements, and BM.
[2022-07-08] MEDS: HEPARIN 5,000 UNIT/1 ML VIAL SUB-Q SCH ×3 (05:24→22:31)
[2022-07-08] MEDS: METOPROLOL TARTRATE 25 MG TAB PO SCH ×2 (09:57→22:30)
--- NOTE | 2022-07-08 10:47 | Progress Note ---
Assessment and Plan Assessment and plan: #Refractory metabolic encephalopathyresolved Refractory despite patient being out of the window for alcohol withdrawal symptoms. Repeating CMP, CBC, and ammonia level. Original CT head noncontrast unremarkable for acute findings. Low clinical suspicion for acute ischemic CVA given patient does not have any focal deficits. Unremarkable urinalysis and UDS. -TSH, B12, folate WNL. -Psych/mental health eval consulted; appreciate recs. Continue Zyprexa 2.5 mg daily. -Neurology consulted; appreciate recs. -Patient is conversant and oriented. Patient does not require restraints. Restraints were discontinued as the patient is redirectable and pleasant. #Acute hypoxic respiratory failureresolved - etiology: possible infection (COVID or HAP), volume overload - baseline oxygen requirements: room air - supplemental oxygen: 3L nasal cannula - Continue protocol: continue pulse oximetry, wean oxygen as tolerated, ordered incentive spirometry and educated patient on how to use it and its importance. Unremarkable coronavirus PCR. Discontinued antibiotics as low suspicion for infection. - continue to monitor #Alcohol withdrawal-resolved #Tachycardiaresolved #Alcohol dependence -Patient presented from alcohol rehabilitation; per chart review last drink 5 days prior to admission -Discontinued CIWA protocol, patient out of window for alcohol withdrawal. -Discontinued librium taper. If sinus tachycardia, beta-blockade can be initiated. #Volume depletion-resolved #Advanced care planning -Disease education conducted, care plan discussed, diagnoses discussed, prognosis discussed, and patient acknowledges understanding with care plan -Time: +30 min #Social: Extreme difficulty with finding patient's next of kin or friends. Patient was able to provide names of family members: FatherMichael Yates Sr.; motherMary Radha Mcfarland; sisterMarhaydena Radha Mcfarland; sisterPadminivera Bartolo. Friends of the patient have been located, and they are excited to be involved with finding the patient placement. They presented to the bedside on 07/07/2022 at the request of case management. #Discharge planning -Patient discharged from [facility] and was initially transferred from a hospital in [facility] -Pending SNF authorization/placement. Disposition Plan: Pending placement Total Time Spent with Patient (Minutes): 30 minutes History Interval history: No acute events overnight. Hospitalist Physical - Constitutional Vitals: Temp Pulse Resp BP Pulse Ox 97.1 F L 71 17 110/71 95 07/08/22 07:44 07/08/22 07:44 07/08/22 07:44 07/08/22 07:44 07/08/22 07:44 General appearance: Present: no acute distress, cachectic, disheveled - EENT Eyes: Present: PERRL, EOM intact ENT: hearing intact, clear oral mucosa, dentition normal - Neck Neck: Present: supple, normal ROM - Respiratory Respiratory effort: normal Respiratory: bilateral: CTA - Cardiovascular Rhythm: regular Heart Sounds: Present: S1 & S2 - Extremities Extremities: no ischemia, pulses intact, pulses symmetrical, No edema, normal temperature, normal color Peripheral Pulses: within normal limits - Abdominal General gastrointestinal: soft, non-tender, non-distended, normal bowel sounds - Integumentary Integumentary: Present: clear, warm, dry - Psychiatric Psychiatric: appropriate mood/affect, memory intact, cooperative - Neurologic Neurologic: CNII-XII intact, moves all extremities - Allied Health Allied health notes reviewed: nursing, case management HEART Score - HEART Score Troponin: Troponin T < 0.010 ng/mL (0.00-0.029) 06/18/22 17:20 Results - Labs CBC & Chem 7: 07/01/22 05:39 07/06/22 05:58 Labs: Laboratory Last Values WBC 10.2 K/mm3 (4.5-11.0) 07/01/22 05:39 RBC 4.78 M/mm3 (3.65-5.03) 07/01/22 05:39 Hgb 15.2 gm/dl (11.8-15.2) 07/01/22 05:39 Hct 45.7 % (35.5-45.6) H 07/01/22 05:39 MCV 95 fl (84-94) H 07/01/22 05:39 MCH 32 pg (28-32) 07/01/22 05:39 MCHC 33 % (32-34) 07/01/22 05:39 RDW 12.3 % (13.2-15.2) L 07/01/22 05:39 Plt Count 384 K/mm3 (140-440) 07/01/22 05:39 Lymph % (Auto) 15.1 % (13.4-35.0) 06/28/22 05:05 [place] % (Auto) 9.5 % (0.0-7.3) H 06/28/22 05:05 Eos % (Auto) 2.0 % (0.0-4.3) 06/28/22 05:05 Baso % (Auto) 0.8 % (0.0-1.8) 06/28/22 05:05 Lymph # (Auto) 1.9 K/mm3 (1.2-5.4) 06/28/22 05:05 [place] # (Auto) 1.2 K/mm3 (0.0-0.8) H 06/28/22 05:05 Eos # (Auto) 0.3 K/mm3 (0.0-0.4) 06/28/22 05:05 Baso # (Auto) 0.1 K/mm3 (0.0-0.1) 06/28/22 05:05 Add Manual Diff Complete 06/26/22 09:13 Total Counted 100 06/26/22 09:13 Seg Neutrophils % 72.6 % (40.0-70.0) H 06/28/22 05:05 Seg Neuts % (Manual) 85.0 % (40.0-70.0) H 06/26/22 09:13 Band Neutrophils % 0 % 06/26/22 09:13 Lymphocytes % (Manual) 6.0 % (13.4-35.0) L 06/26/22 09:13 Reactive Lymphs % (Man) 0 % 06/26/22 09:13 Monocytes % (Manual) 8.0 % (0.0-7.3) H 06/26/22 09:13 Eosinophils % (Manual) 0 % (0.0-4.3) 06/26/22 09:13 Basophils % (Manual) 1.0 % (0.0-1.8) 06/26/22 09:13 Metamyelocytes % 0 % 06/26/22 09:13 Myelocytes % 0 % 06/26/22 09:13 Promyelocytes % 0 % 06/26/22 09:13 Blast Cells % 0 % 06/26/22 09:13 Nucleated RBC % Not Reportable 06/26/22 09:13 Seg Neutrophils # 9.1 K/mm3 (1.8-7.7) H 06/28/22 05:05 Seg Neutrophils # Man 14.7 K/mm3 (1.8-7.7) H 06/26/22 09:13 Band Neutrophils # 0.0 K/mm3 06/26/22 09:13 Lymphocytes # (Manual) 1.0 K/mm3 (1.2-5.4) L 06/26/22 09:13 Abs React Lymphs (Man) 0.0 K/mm3 06/26/22 09:13 Monocytes # (Manual) 1.4 K/mm3 (0.0-0.8) H 06/26/22 09:13 Eosinophils # (Manual) 0.0 K/mm3 (0.0-0.4) 06/26/22 09:13 Basophils # (Manual) 0.2 K/mm3 (0.0-0.1) H 06/26/22 09:13 Metamyelocytes # 0.0 K/mm3 06/26/22 09:13 Myelocytes # 0.0 K/mm3 06/26/22 09:13 Promyelocytes # 0.0 K/mm3 06/26/22 09:13 Blast Cells # 0.0 K/mm3 06/26/22 09:13 WBC Morphology Not Reportable 06/26/22 09:13 Hypersegmented Neuts Not Reportable 06/26/22 09:13 Hyposegmented Neuts Not Reportable 06/26/22 09:13 Hypogranular Neuts Not Reportable 06/26/22 09:13 Smudge Cells Not Reportable 06/26/22 09:13 Toxic Granulation Not Reportable 06/26/22 09:13 Toxic Vacuolation Not Reportable 06/26/22 09:13 Dohle Bodies Not Reportable 06/26/22 09:13 Pelger-Huet Anomaly Not Reportable 06/26/22 09:13 Radha Rods Not Reportable 06/26/22 09:13 Platelet Estimate Consistent w auto 06/26/22 09:13 Clumped Platelets Not Reportable 06/26/22 09:13 Plt Clumps, EDTA Not Reportable 06/26/22 09:13 Large Platelets Not Reportable 06/26/22 09:13 Giant Platelets Not Reportable 06/26/22 09:13 Platelet Satelliting Not Reportable 06/26/22 09:13 Plt Morphology Comment Not Reportable 06/26/22 09:13 RBC Morphology Normal 06/26/22 09:13 Dimorphic RBCs Not Reportable 06/26/22 09:13 Polychromasia Not Reportable 06/26/22 09:13 Hypochromasia Not Reportable 06/26/22 09:13 Poikilocytosis Not Reportable 06/26/22 09:13 Anisocytosis Not Reportable 06/26/22 09:13 Microcytosis Not Reportable 06/26/22 09:13 Macrocytosis Not Reportable 06/26/22 09:13 Spherocytes Not Reportable 06/26/22 09:13 Pappenheimer Bodies Not Reportable 06/26/22 09:13 Sickle Cells Not Reportable 06/26/22 09:13 Target Cells Not Reportable 06/26/22 09:13 Tear Drop Cells Not Reportable 06/26/22 09:13 Ovalocytes Not Reportable 06/26/22 09:13 Helmet Cells Not Reportable 06/26/22 09:13 Alfaro-Farnsworth Bodies Not Reportable 06/26/22 09:13 [place] Rings Not Reportable 06/26/22 09:13 [place] Cells Not Reportable 06/26/22 09:13 Bite Cells Not Reportable 06/26/22 09:13 Crenated Cell Not Reportable 06/26/22 09:13 Elliptocytes Not Reportable 06/26/22 09:13 Acanthocytes (Spur) Not Reportable 06/26/22 09:13 Rouleaux Not Reportable 06/26/22 09:13 Hemoglobin C Crystals Not Reportable 06/26/22 09:13 Schistocytes Not Reportable 06/26/22 09:13 Malaria parasites Not Reportable 06/26/22 09:13 Roland Bodies Not Reportable 06/26/22 09:13 Hem Pathologist Commnt No 06/26/22 09:13 Sodium 139 mmol/L (137-145) 07/06/22 05:58 Potassium 4.6 mmol/L (3.6-5.0) 07/06/22 05:58 Chloride 101.9 mmol/L (98-107) 07/06/22 05:58 Carbon Dioxide 23 mmol/L (22-30) 07/06/22 05:58 Anion Gap 19 mmol/L 07/06/22 05:58 BUN 51 mg/dL (9-20) H 07/06/22 05:58 Creatinine 1.0 mg/dL (0.8-1.3) 07/06/22 05:58 Estimated GFR > 60 ml/min 07/06/22 05:58 BUN/Creatinine Ratio 51 % 07/06/22 05:58 Glucose 123 mg/dL (75-100) H 07/06/22 05:58 POC Glucose 81 mg/dL (70-105) 07/04/22 16:16 Lactic Acid 0.80 mmol/L (0.7-2.0) 06/18/22 17:20 Calcium 9.6 mg/dL (8.4-10.2) 07/06/22 05:58 Total Bilirubin 0.80 mg/dL (0.1-1.2) 06/23/22 13:00 AST 19 units/L (5-40) 06/23/22 13:00 ALT 21 units/L (7-56) 06/23/22 13:00 Alkaline Phosphatase 66 units/L (35-129) 06/23/22 13:00 Ammonia 16.0 umol/L (25-60) L 06/23/22 13:00 Total Creatine Kinase 383 units/L (55-170) H 06/18/22 17:20 Troponin T < 0.010 ng/mL (0.00-0.029) 06/18/22 17:20 Total Protein 6.9 g/dL (6.3-8.2) 06/23/22 13:00 Albumin 3.6 g/dL (3.9-5) L 06/23/22 13:00 Albumin/Globulin Ratio 1.1 % 06/23/22 13:00 Vitamin B1 110 nmol/L (8-30) H 06/19/22 20:22 Vitamin B12 2000 pg/mL (211-911) H 06/19/22 20:22 Folate 20.00 ng/mL (7.3-26.0) 06/19/22 20:22 TSH 1.320 mlU/mL (0.270-4.200) 06/19/22 20:22 Urine Color Colorless (Yellow) 06/18/22 Unknown Urine Turbidity Clear (Clear) 06/18/22 Unknown Urine pH 5.0 (5.0-7.0) 06/18/22 Unknown Ur Specific [place] 1.015 (1.003-1.030) 06/18/22 Unknown Urine Protein 30 mg/dl mg/dL (Negative) 06/18/22 Unknown Urine Glucose (UA) Negative mg/dL (Negative) 06/18/22 Unknown Urine Ketones 25 mg/dL (Negative) 06/18/22 Unknown Urine Blood Negative (Negative) 06/18/22 Unknown Urine Nitrite Negative (Negative) 06/18/22 Unknown Urine Bilirubin Negative (Negative) 06/18/22 Unknown Urine Urobilinogen 0.2 mg/dL (<2.0) 06/18/22 Unknown Ur Leukocyte Esterase Negative (Negative) 06/18/22 Unknown Urine WBC (Auto) 1.0 /HPF (0.0-6.0) 06/18/22 Unknown Urine RBC (Auto) < 1.0 /HPF (0.0-6.0) 06/18/22 Unknown Urine Mucus Few /HPF 06/18/22 Unknown Nasal Screen MRSA (PCR) Negative (Negative) 06/21/22 08:50 Urine Opiates Screen Negative 06/19/22 10:49 Urine Methadone Screen Negative 06/19/22 10:49 Ur Barbiturates Screen Negative 06/19/22 10:49 Ur Phencyclidine Scrn Negative 06/19/22 10:49 Ur Amphetamines Screen Negative 06/19/22 10:49 U Benzodiazepines Scrn Negative 06/19/22 10:49 Urine Cocaine Screen Negative 06/19/22 10:49 U Marijuana (THC) Screen Negative 06/19/22 10:49 Drugs of Abuse Note Disclamer 06/19/22 10:49 Plasma/Serum Alcohol < 0.01 % (0-0.07) 06/18/22 17:20 SARS-CoV-2 (PCR) Negative (Negative) 07/06/22 12:21 [place]/IV: Voiding Method Incontinent Active Medications - Current Medications Current Medications: Generic Name Dose Route Start Last Admin Trade Name Freq PRN Reason Stop Dose Admin Acetaminophen 650 mg 06/18/22 23:08 07/02/22 11:16 Acetaminophen 325 Mg Tab PO 650 mg Q4H PRN Administration Pain MILD(1-3)/Fever >100.5/MCGEE Heparin Sodium (Porcine) 5,000 unit 06/19/22 06:00 07/08/22 05:24 Heparin 5,000 Unit/1 Ml Vial SUB-Q 5,000 unit Q8HR DAVID Administration Magnesium Hydroxide 30 ml 06/18/22 23:08 Magnesium Hydroxide (Mom) Oral Liqd Udc PO Q4H PRN Constipation Metoprolol Tartrate 25 mg 06/23/22 13:00 07/08/22 09:57 Metoprolol Tartrate 25 Mg Tab PO 25 mg BID DAVID Administration Morphine Sulfate 2 mg 06/18/22 23:08 07/01/22 21:40 Morphine 2 Mg/1 Ml Inj IV 2 mg Q4H PRN Administration Pain, Moderate (4-6) Morphine Sulfate 4 mg 06/18/22 23:08 07/04/22 20:21 Morphine 4 Mg/1 Ml Inj IV 4 mg Q4H PRN Administration Pain , Severe (7-10) Olanzapine 2.5 mg 06/25/22 22:00 07/07/22 21:47 Olanzapine 2.5 Mg Tab PO 2.5 mg QHS DAVID Administration Ondansetron HCl 4 mg 06/18/22 23:08 Ondansetron 4 Mg/2 Ml Inj IV Q8H PRN Nausea And Vomiting Sodium Chloride 10 ml 06/19/22 10:00 07/08/22 09:58 Sodium Chloride 0.9% 10 Ml Flush Syringe IV Not Given BID DAVID Sodium Chloride 10 ml 06/18/22 23:08 Sodium Chloride 0.9% 10 Ml Flush Syringe IV PRN PRN LINE FLUSH Nutrition/Malnutrition Assess - Dietary Evaluation Nutrition/Malnutrition Findings: Nutrition Notes Start: 06/24/22 14:15 Freq: Status: Active Protocol: Document 07/07/22 11:17 CUATE (Rec: 07/07/22 11:40 CUATE [id number]) Nutrition Notes Initial or Follow up Brief Note Other Pertinent Diagnosis Metabolic encephalopathy, EtOH dependence Current Diet Pureed -Thin Liquids- Diet + D Suppl (since D 07/02). Height 5 ft 10 in Weight 64.2 kg [place] Body Weight (kg) 75.45 BMI 20.2 Weight change and time frame 0.9 Kg body weight gain reported in 5 days. Weight Status Appropriate Subjective/Other Information RD consult for routine F/U on dietary advancement. Diet+ONS continue as prescribed, Pt's PO intake of meals has been Fair (>50%), and fairly tolerated, according to ADL notes. Pt is on Room Air, O2 saturation @ 99%, according to Physical Assessment History notes. Pt remains incontinent, according to Physical Assessment History notes. Pt will be discharged to a SNF when medically cleared, according to Progress notes. Percent of energy/protein needs met: Prescribed Pureed -Thin Liquids- Diet provides for energy/protein needs (1,804 Kcal/77 g) during LOS; additionally, Dietary Supplements will compensate for possible poor or insufficient PO intake of meals with 320 Kcal and 32 g of protein. Current % PO Fair (50-74%) #1 Nutrition Diagnosis Inadequate protein-energy intake Comments: Diet+ONS continue as prescribed, Pt's PO intake of meals has been Fair (>50%), and fairly tolerated, according to ADL notes. Diagnosis Progress(for reassessment Continues documentation) Is patient on ventilator? No Is Patient Ambulatory and/or Out of Bed No REE-([facility]-confined to bed) 1701.756 Kcal/Kg value to use for calculation 32 Approximate Energy Requirements Using 2054 kcal/Kg Calculation Used for Recommendations Kcal/kg Additional Notes Protein: 1-1.2 g/Kg ABW; 64-77 g/day. Fluids: 1 ml/Kcal, or as per MD. Nutrition Intervention Change Diet Order: Continue Pureed -Thin Liquids- Diet as tolerated. Add Supplement/Snack (indicate name/kcal Continue 8 fl oz Ensure High /protein ) Protein; BID. Provides kCal: 320 Provides Protein (gm) 32 Goal #1 Compensate, through dietary supplementation, for possible poor or insufficient PO intake of meals during LOS. Goal #2 Adjust the dietary intervention to better serve Pt's needs and clinical conditions during LOS. Follow-Up By: 07/14/22 Additional Comments Continue monitoring food tolerance, %PO intake of meals , dietary supplements, and BM.
[2022-07-09] MEDS: HEPARIN 5,000 UNIT/1 ML VIAL SUB-Q SCH ×3 (05:03→21:27)
[2022-07-09] MEDS: METOPROLOL TARTRATE 25 MG TAB PO SCH ×2 (10:30→21:31)
--- NOTE | 2022-07-09 14:29 | Progress Note ---
Assessment and Plan Assessment and plan: #Refractory metabolic encephalopathyresolved Refractory despite patient being out of the window for alcohol withdrawal symptoms. Repeating CMP, CBC, and ammonia level. Original CT head noncontrast unremarkable for acute findings. Low clinical suspicion for acute ischemic CVA given patient does not have any focal deficits. Unremarkable urinalysis and UDS. -TSH, B12, folate WNL. -Psych/mental health eval consulted; appreciate recs. Continue Zyprexa 2.5 mg daily. -Neurology consulted; appreciate recs. -Patient is conversant and oriented. Patient does not require restraints. Restraints were discontinued as the patient is redirectable and pleasant. #Acute hypoxic respiratory failureresolved - etiology: possible infection (COVID or HAP), volume overload - baseline oxygen requirements: room air - supplemental oxygen: 3L nasal cannula - Continue protocol: continue pulse oximetry, wean oxygen as tolerated, ordered incentive spirometry and educated patient on how to use it and its importance. Unremarkable coronavirus PCR. Discontinued antibiotics as low suspicion for infection. - continue to monitor #Alcohol withdrawal-resolved #Tachycardiaresolved #Alcohol dependence -Patient presented from alcohol rehabilitation; per chart review last drink 5 days prior to admission -Discontinued CIWA protocol, patient out of window for alcohol withdrawal. -Discontinued librium taper. If sinus tachycardia, beta-blockade can be initiated. #Volume depletion-resolved #Advanced care planning -Disease education conducted, care plan discussed, diagnoses discussed, prognosis discussed, and patient acknowledges understanding with care plan -Time: +30 min #Social: Extreme difficulty with finding patient's next of kin or friends. Patient was able to provide names of family members: FatherMichael Yates Sr.; motherMary Radha Mcfarland; sisterMarhaydena Radha Mcfarland; sisterNorma Mcfarland. Friends of the patient have been located, and they are excited to be involved with finding the patient placement. They presented to the bedside on 07/07/2022 at the request of case management. #Discharge planning -Patient [facility] and was initially transferred from a hospital in [facility] -Pending SNF authorization/placement. Disposition Plan: Continue medical management Total Time Spent with Patient (Minutes): 45 min History Interval history: No acute events overnight. Hospitalist Physical - Constitutional Vitals: Temp Pulse Resp BP Pulse Ox 97.9 F 68 16 117/74 93 07/09/22 11:18 07/09/22 10:00 07/09/22 11:18 07/09/22 11:18 07/09/22 10:00 General appearance: Present: no acute distress, cachectic, disheveled - EENT Eyes: Present: PERRL, EOM intact ENT: hearing intact, clear oral mucosa, dentition normal - Neck Neck: Present: supple, normal ROM - Respiratory Respiratory effort: normal Respiratory: bilateral: CTA - Cardiovascular Rhythm: regular Heart Sounds: Present: S1 & S2 - Extremities Extremities: no ischemia, pulses intact, pulses symmetrical, No edema, normal temperature, normal color Peripheral Pulses: within normal limits - Abdominal General gastrointestinal: soft, non-tender, non-distended, normal bowel sounds - Integumentary Integumentary: Present: clear, warm, dry - Psychiatric Psychiatric: appropriate mood/affect, memory intact, cooperative - Neurologic Neurologic: CNII-XII intact, moves all extremities - Allied Health Allied health notes reviewed: nursing, case management HEART Score - HEART Score Troponin: Troponin T < 0.010 ng/mL (0.00-0.029) 06/18/22 17:20 Results - Labs CBC & Chem 7: 07/01/22 05:39 07/06/22 05:58 Labs: Laboratory Last Values WBC 10.2 K/mm3 (4.5-11.0) 07/01/22 05:39 RBC 4.78 M/mm3 (3.65-5.03) 07/01/22 05:39 Hgb 15.2 gm/dl (11.8-15.2) 07/01/22 05:39 Hct 45.7 % (35.5-45.6) H 07/01/22 05:39 MCV 95 fl (84-94) H 07/01/22 05:39 MCH 32 pg (28-32) 07/01/22 05:39 MCHC 33 % (32-34) 07/01/22 05:39 RDW 12.3 % (13.2-15.2) L 07/01/22 05:39 Plt Count 384 K/mm3 (140-440) 07/01/22 05:39 Lymph % (Auto) 15.1 % (13.4-35.0) 06/28/22 05:05 [place] % (Auto) 9.5 % (0.0-7.3) H 06/28/22 05:05 Eos % (Auto) 2.0 % (0.0-4.3) 06/28/22 05:05 Baso % (Auto) 0.8 % (0.0-1.8) 06/28/22 05:05 Lymph # (Auto) 1.9 K/mm3 (1.2-5.4) 06/28/22 05:05 [place] # (Auto) 1.2 K/mm3 (0.0-0.8) H 06/28/22 05:05 Eos # (Auto) 0.3 K/mm3 (0.0-0.4) 06/28/22 05:05 Baso # (Auto) 0.1 K/mm3 (0.0-0.1) 06/28/22 05:05 Add Manual Diff Complete 06/26/22 09:13 Total Counted 100 06/26/22 09:13 Seg Neutrophils % 72.6 % (40.0-70.0) H 06/28/22 05:05 Seg Neuts % (Manual) 85.0 % (40.0-70.0) H 06/26/22 09:13 Band Neutrophils % 0 % 06/26/22 09:13 Lymphocytes % (Manual) 6.0 % (13.4-35.0) L 06/26/22 09:13 Reactive Lymphs % (Man) 0 % 06/26/22 09:13 Monocytes % (Manual) 8.0 % (0.0-7.3) H 06/26/22 09:13 Eosinophils % (Manual) 0 % (0.0-4.3) 06/26/22 09:13 Basophils % (Manual) 1.0 % (0.0-1.8) 06/26/22 09:13 Metamyelocytes % 0 % 06/26/22 09:13 Myelocytes % 0 % 06/26/22 09:13 Promyelocytes % 0 % 06/26/22 09:13 Blast Cells % 0 % 06/26/22 09:13 Nucleated RBC % Not Reportable 06/26/22 09:13 Seg Neutrophils # 9.1 K/mm3 (1.8-7.7) H 06/28/22 05:05 Seg Neutrophils # Man 14.7 K/mm3 (1.8-7.7) H 06/26/22 09:13 Band Neutrophils # 0.0 K/mm3 06/26/22 09:13 Lymphocytes # (Manual) 1.0 K/mm3 (1.2-5.4) L 06/26/22 09:13 Abs React Lymphs (Man) 0.0 K/mm3 06/26/22 09:13 Monocytes # (Manual) 1.4 K/mm3 (0.0-0.8) H 06/26/22 09:13 Eosinophils # (Manual) 0.0 K/mm3 (0.0-0.4) 06/26/22 09:13 Basophils # (Manual) 0.2 K/mm3 (0.0-0.1) H 06/26/22 09:13 Metamyelocytes # 0.0 K/mm3 06/26/22 09:13 Myelocytes # 0.0 K/mm3 06/26/22 09:13 Promyelocytes # 0.0 K/mm3 06/26/22 09:13 Blast Cells # 0.0 K/mm3 06/26/22 09:13 WBC Morphology Not Reportable 06/26/22 09:13 Hypersegmented Neuts Not Reportable 06/26/22 09:13 Hyposegmented Neuts Not Reportable 06/26/22 09:13 Hypogranular Neuts Not Reportable 06/26/22 09:13 Smudge Cells Not Reportable 06/26/22 09:13 Toxic Granulation Not Reportable 06/26/22 09:13 Toxic Vacuolation Not Reportable 06/26/22 09:13 Dohle Bodies Not Reportable 06/26/22 09:13 Pelger-Huet Anomaly Not Reportable 06/26/22 09:13 Radha Rods Not Reportable 06/26/22 09:13 Platelet Estimate Consistent w auto 06/26/22 09:13 Clumped Platelets Not Reportable 06/26/22 09:13 Plt Clumps, EDTA Not Reportable 06/26/22 09:13 Large Platelets Not Reportable 06/26/22 09:13 Giant Platelets Not Reportable 06/26/22 09:13 Platelet Satelliting Not Reportable 06/26/22 09:13 Plt Morphology Comment Not Reportable 06/26/22 09:13 RBC Morphology Normal 06/26/22 09:13 Dimorphic RBCs Not Reportable 06/26/22 09:13 Polychromasia Not Reportable 06/26/22 09:13 Hypochromasia Not Reportable 06/26/22 09:13 Poikilocytosis Not Reportable 06/26/22 09:13 Anisocytosis Not Reportable 06/26/22 09:13 Microcytosis Not Reportable 06/26/22 09:13 Macrocytosis Not Reportable 06/26/22 09:13 Spherocytes Not Reportable 06/26/22 09:13 Pappenheimer Bodies Not Reportable 06/26/22 09:13 Sickle Cells Not Reportable 06/26/22 09:13 Target Cells Not Reportable 06/26/22 09:13 Tear Drop Cells Not Reportable 06/26/22 09:13 Ovalocytes Not Reportable 06/26/22 09:13 Helmet Cells Not Reportable 06/26/22 09:13 [place] Bodies Not Reportable 06/26/22 09:13 Christmas Rings Not Reportable 06/26/22 09:13 [place] Cells Not Reportable 06/26/22 09:13 Bite Cells Not Reportable 06/26/22 09:13 Crenated Cell Not Reportable 06/26/22 09:13 Elliptocytes Not Reportable 06/26/22 09:13 Acanthocytes (Spur) Not Reportable 06/26/22 09:13 Rouleaux Not Reportable 06/26/22 09:13 Hemoglobin C Crystals Not Reportable 06/26/22 09:13 Schistocytes Not Reportable 06/26/22 09:13 Malaria parasites Not Reportable 06/26/22 09:13 Roland Bodies Not Reportable 06/26/22 09:13 Hem Pathologist Commnt No 06/26/22 09:13 Sodium 139 mmol/L (137-145) 07/06/22 05:58 Potassium 4.6 mmol/L (3.6-5.0) 07/06/22 05:58 Chloride 101.9 mmol/L (98-107) 07/06/22 05:58 Carbon Dioxide 23 mmol/L (22-30) 07/06/22 05:58 Anion Gap 19 mmol/L 07/06/22 05:58 BUN 51 mg/dL (9-20) H 07/06/22 05:58 Creatinine 1.0 mg/dL (0.8-1.3) 07/06/22 05:58 Estimated GFR > 60 ml/min 07/06/22 05:58 BUN/Creatinine Ratio 51 % 07/06/22 05:58 Glucose 123 mg/dL (75-100) H 07/06/22 05:58 POC Glucose 81 mg/dL (70-105) 07/04/22 16:16 Lactic Acid 0.80 mmol/L (0.7-2.0) 06/18/22 17:20 Calcium 9.6 mg/dL (8.4-10.2) 07/06/22 05:58 Total Bilirubin 0.80 mg/dL (0.1-1.2) 06/23/22 13:00 AST 19 units/L (5-40) 06/23/22 13:00 ALT 21 units/L (7-56) 06/23/22 13:00 Alkaline Phosphatase 66 units/L (35-129) 06/23/22 13:00 Ammonia 16.0 umol/L (25-60) L 06/23/22 13:00 Total Creatine Kinase 383 units/L (55-170) H 06/18/22 17:20 Troponin T < 0.010 ng/mL (0.00-0.029) 06/18/22 17:20 Total Protein 6.9 g/dL (6.3-8.2) 06/23/22 13:00 Albumin 3.6 g/dL (3.9-5) L 06/23/22 13:00 Albumin/Globulin Ratio 1.1 % 06/23/22 13:00 Vitamin B1 110 nmol/L (8-30) H 06/19/22 20:22 Vitamin B12 2000 pg/mL (211-911) H 06/19/22 20:22 Folate 20.00 ng/mL (7.3-26.0) 06/19/22 20:22 TSH 1.320 mlU/mL (0.270-4.200) 06/19/22 20:22 Urine Color Colorless (Yellow) 06/18/22 Unknown Urine Turbidity Clear (Clear) 06/18/22 Unknown Urine pH 5.0 (5.0-7.0) 06/18/22 Unknown Ur Specific Mccoll 1.015 (1.003-1.030) 06/18/22 Unknown Urine Protein 30 mg/dl mg/dL (Negative) 06/18/22 Unknown Urine Glucose (UA) Negative mg/dL (Negative) 06/18/22 Unknown Urine Ketones 25 mg/dL (Negative) 06/18/22 Unknown Urine Blood Negative (Negative) 06/18/22 Unknown Urine Nitrite Negative (Negative) 06/18/22 Unknown Urine Bilirubin Negative (Negative) 06/18/22 Unknown Urine Urobilinogen 0.2 mg/dL (<2.0) 06/18/22 Unknown Ur Leukocyte Esterase Negative (Negative) 06/18/22 Unknown Urine WBC (Auto) 1.0 /HPF (0.0-6.0) 06/18/22 Unknown Urine RBC (Auto) < 1.0 /HPF (0.0-6.0) 06/18/22 Unknown Urine Mucus Few /HPF 06/18/22 Unknown Nasal Screen MRSA (PCR) Negative (Negative) 06/21/22 08:50 Urine Opiates Screen Negative 06/19/22 10:49 Urine Methadone Screen Negative 06/19/22 10:49 Ur Barbiturates Screen Negative 06/19/22 10:49 Ur Phencyclidine Scrn Negative 06/19/22 10:49 Ur Amphetamines Screen Negative 06/19/22 10:49 U Benzodiazepines Scrn Negative 06/19/22 10:49 Urine Cocaine Screen Negative 06/19/22 10:49 U Marijuana (THC) Screen Negative 06/19/22 10:49 Drugs of Abuse Note Disclamer 06/19/22 10:49 Plasma/Serum Alcohol < 0.01 % (0-0.07) 06/18/22 17:20 SARS-CoV-2 (PCR) Negative (Negative) 07/06/22 12:21 [place]/IV: Voiding Method Incontinent Active Medications - Current Medications Current Medications: Generic Name Dose Route Start Last Admin Trade Name Freq PRN Reason Stop Dose Admin Acetaminophen 650 mg 06/18/22 23:08 07/02/22 11:16 Acetaminophen 325 Mg Tab PO 650 mg Q4H PRN Administration Pain MILD(1-3)/Fever >100.5/MCGEE Heparin Sodium (Porcine) 5,000 unit 06/19/22 06:00 07/09/22 05:03 Heparin 5,000 Unit/1 Ml Vial SUB-Q 5,000 unit Q8HR DAVID Administration Magnesium Hydroxide 30 ml 06/18/22 23:08 Magnesium Hydroxide (Mom) Oral Liqd Udc PO Q4H PRN Constipation Metoprolol Tartrate 25 mg 06/23/22 13:00 07/09/22 10:30 Metoprolol Tartrate 25 Mg Tab PO 25 mg BID DAVID Administration Morphine Sulfate 2 mg 06/18/22 23:08 07/01/22 21:40 Morphine 2 Mg/1 Ml Inj IV 2 mg Q4H PRN Administration Pain, Moderate (4-6) Morphine Sulfate 4 mg 06/18/22 23:08 07/04/22 20:21 Morphine 4 Mg/1 Ml Inj IV 4 mg Q4H PRN Administration Pain , Severe (7-10) Olanzapine 2.5 mg 06/25/22 22:00 07/08/22 22:30 Olanzapine 2.5 Mg Tab PO 2.5 mg QHS DAVID Administration Ondansetron HCl 4 mg 06/18/22 23:08 Ondansetron 4 Mg/2 Ml Inj IV Q8H PRN Nausea And Vomiting Quetiapine Fumarate 12.5 mg 07/09/22 22:00 Quetiapine 25 Mg Tab PO QHS DAVID Sodium Chloride 10 ml 06/19/22 10:00 07/08/22 22:31 Sodium Chloride 0.9% 10 Ml Flush Syringe IV Not Given BID DAVID Sodium Chloride 10 ml 06/18/22 23:08 Sodium Chloride 0.9% 10 Ml Flush Syringe IV PRN PRN LINE FLUSH Nutrition/Malnutrition Assess - Dietary Evaluation Nutrition/Malnutrition Findings: Nutrition Notes Start: 06/24/22 14:15 Freq: Status: Active Protocol: Document 07/08/22 16:25 CUATE (Rec: 07/08/22 16:38 CUATE [id number]) Nutrition Notes Initial or Follow up Brief Note Other Pertinent Diagnosis Metabolic encephalopathy, EtOH dependence Current Diet Regular Diet (from D 07/08), D Suppl (since D 07/02). Height 5 ft 10 in Weight 56.9 kg [place] Body Weight (kg) 75.45 BMI 18.0 Weight change and time frame Discrepancy of 7.3 Kg body weight loss in 1 day reported. Unable to contact RN over the phone to verify anthropometrics; likely an error. Weight Status Underweight Subjective/Other Information RD consult for Low BMI assessment. Will verify anthropometrics at F/U. Pt's PO intake of meals has been Fair (>50%), and fairly tolerated, according to ADL notes. Pt is on Room Air, O2 saturation @ 96%, according to Physical Assessment History notes. Percent of energy/protein needs met: Prescribed Regular Diet provides for energy/protein needs (2,289 Kcal/89 g) during LOS; additionally, Dietary Supplements will compensate for possible poor or insufficient PO intake of meals with 320 Kcal and 32 g of protein. Current % PO Fair (50-74%) #1 Nutrition Diagnosis Inadequate protein-energy intake Comments: Pt's PO intake of meals has been Fair (>50%), and fairly tolerated, according to ADL notes. Diagnosis Progress(for reassessment Continues documentation) Is patient on ventilator? No Is Patient Ambulatory and/or Out of Bed No REE-([facility]-confined to bed) 1614.240 Kcal/Kg value to use for calculation 36 Approximate Energy Requirements Using 2048 kcal/Kg Calculation Used for Recommendations Kcal/kg Additional Notes Protein: 1-1.2 g/Kg ABW; 64-77 g/day. Fluids: 1 ml/Kcal, or as per MD. Nutrition Intervention Change Diet Order: Advance to Regular Diet as tolerated. Add Supplement/Snack (indicate name/kcal Continue 8 fl oz Ensure High /protein ) Protein; BID. Provides kCal: 320 Provides Protein (gm) 32 Goal #1 Compensate, through dietary supplementation, for possible poor or insufficient PO intake of meals during LOS. Goal #2 Adjust the dietary intervention to better serve Pt's needs and clinical conditions during LOS. Follow-Up By: 07/14/22 Additional Comments Continue monitoring food tolerance, %PO intake of meals , dietary supplements, and BM.
[2022-07-09] MEDS: QUEtiapine 25 MG TAB PO SCH (21:26)
[2022-07-10] MEDS: HEPARIN 5,000 UNIT/1 ML VIAL SUB-Q SCH ×3 (05:59→21:34)
--- NOTE | 2022-07-10 08:34 | Progress Note ---
Assessment and Plan Assessment and plan: #Refractory metabolic encephalopathyresolved Refractory despite patient being out of the window for alcohol withdrawal symptoms. Repeating CMP, CBC, and ammonia level. Original CT head noncontrast unremarkable for acute findings. Low clinical suspicion for acute ischemic CVA given patient does not have any focal deficits. Unremarkable urinalysis and UDS. -TSH, B12, folate WNL. -Psych/mental health eval consulted; appreciate recs. Continue Zyprexa 2.5 mg daily. -Neurology consulted; appreciate recs. -Patient is conversant and oriented. #Acute hypoxic respiratory failureresolved - etiology: possible infection (COVID or HAP), volume overload - baseline oxygen requirements: room air - supplemental oxygen: 3L nasal cannula - Continue protocol: continue pulse oximetry, wean oxygen as tolerated, ordered incentive spirometry and educated patient on how to use it and its importance. Unremarkable coronavirus PCR. Discontinued antibiotics as low suspicion for infection. - continue to monitor #Alcohol withdrawal-resolved #Tachycardiaresolved #Alcohol dependence -Patient presented from alcohol rehabilitation; per chart review last drink 5 days prior to admission -Discontinued CIWA protocol, patient out of window for alcohol withdrawal. -Discontinued librium taper. If sinus tachycardia, beta-blockade can be initiated. #Volume depletion-resolved #Advanced care planning -Disease education conducted, care plan discussed, diagnoses discussed, prognosis discussed, and patient acknowledges understanding with care plan -Time: +30 min #Social: Extreme difficulty with finding patient's next of kin or friends. Patient was able to provide names of family members: FatherWilfredokishore Sr Milan.; motherElvira Radha Mcfarland; sisterBeth Radha Mcfarland; sisterNorma Bartolo. Friends of the patient have been located, and they are excited to be involved with finding the patient placement. They presented to the bedside on 07/07/2022 at the request of case management. #Discharge planning -Patient discharged from [facility] and was initially transferred from a hospital in [facility] -Pending SNF authorization/placement. Disposition Plan: Pending SNF placement Total Time Spent with Patient (Minutes): 45 minutes History Interval history: No acute events overnight. Hospitalist Physical - Constitutional Vitals: Temp Pulse Resp BP Pulse Ox 97.5 F L 54 L 16 118/67 84 07/10/22 07:29 07/10/22 07:29 07/10/22 07:29 07/10/22 07:29 07/10/22 07:29 General appearance: Present: no acute distress, cachectic, disheveled - EENT Eyes: Present: PERRL, EOM intact ENT: hearing intact, clear oral mucosa, poor dentition, edentulous - Neck Neck: Present: supple, normal ROM - Respiratory Respiratory effort: normal Respiratory: bilateral: CTA - Cardiovascular Rhythm: regular Heart Sounds: Present: S1 & S2 - Extremities Extremities: no ischemia, pulses intact, pulses symmetrical, No edema, normal temperature, normal color Peripheral Pulses: within normal limits - Abdominal General gastrointestinal: soft, non-tender, non-distended, normal bowel sounds - Integumentary Integumentary: Present: clear, warm, dry - Psychiatric Psychiatric: appropriate mood/affect, cooperative - Neurologic Neurologic: CNII-XII intact, moves all extremities - Allied Health Allied health notes reviewed: nursing, case management HEART Score - HEART Score Troponin: Troponin T < 0.010 ng/mL (0.00-0.029) 06/18/22 17:20 Results - Labs CBC & Chem 7: 07/01/22 05:39 07/06/22 05:58 Labs: Laboratory Last Values WBC 10.2 K/mm3 (4.5-11.0) 07/01/22 05:39 RBC 4.78 M/mm3 (3.65-5.03) 07/01/22 05:39 Hgb 15.2 gm/dl (11.8-15.2) 07/01/22 05:39 Hct 45.7 % (35.5-45.6) H 07/01/22 05:39 MCV 95 fl (84-94) H 07/01/22 05:39 MCH 32 pg (28-32) 07/01/22 05:39 MCHC 33 % (32-34) 07/01/22 05:39 RDW 12.3 % (13.2-15.2) L 07/01/22 05:39 Plt Count 384 K/mm3 (140-440) 07/01/22 05:39 Lymph % (Auto) 15.1 % (13.4-35.0) 06/28/22 05:05 [place] % (Auto) 9.5 % (0.0-7.3) H 06/28/22 05:05 Eos % (Auto) 2.0 % (0.0-4.3) 06/28/22 05:05 Baso % (Auto) 0.8 % (0.0-1.8) 06/28/22 05:05 Lymph # (Auto) 1.9 K/mm3 (1.2-5.4) 06/28/22 05:05 [place] # (Auto) 1.2 K/mm3 (0.0-0.8) H 06/28/22 05:05 Eos # (Auto) 0.3 K/mm3 (0.0-0.4) 06/28/22 05:05 Baso # (Auto) 0.1 K/mm3 (0.0-0.1) 06/28/22 05:05 Add Manual Diff Complete 06/26/22 09:13 Total Counted 100 06/26/22 09:13 Seg Neutrophils % 72.6 % (40.0-70.0) H 06/28/22 05:05 Seg Neuts % (Manual) 85.0 % (40.0-70.0) H 06/26/22 09:13 Band Neutrophils % 0 % 06/26/22 09:13 Lymphocytes % (Manual) 6.0 % (13.4-35.0) L 06/26/22 09:13 Reactive Lymphs % (Man) 0 % 06/26/22 09:13 Monocytes % (Manual) 8.0 % (0.0-7.3) H 06/26/22 09:13 Eosinophils % (Manual) 0 % (0.0-4.3) 06/26/22 09:13 Basophils % (Manual) 1.0 % (0.0-1.8) 06/26/22 09:13 Metamyelocytes % 0 % 06/26/22 09:13 Myelocytes % 0 % 06/26/22 09:13 Promyelocytes % 0 % 06/26/22 09:13 Blast Cells % 0 % 06/26/22 09:13 Nucleated RBC % Not Reportable 06/26/22 09:13 Seg Neutrophils # 9.1 K/mm3 (1.8-7.7) H 06/28/22 05:05 Seg Neutrophils # Man 14.7 K/mm3 (1.8-7.7) H 06/26/22 09:13 Band Neutrophils # 0.0 K/mm3 06/26/22 09:13 Lymphocytes # (Manual) 1.0 K/mm3 (1.2-5.4) L 06/26/22 09:13 Abs React Lymphs (Man) 0.0 K/mm3 06/26/22 09:13 Monocytes # (Manual) 1.4 K/mm3 (0.0-0.8) H 06/26/22 09:13 Eosinophils # (Manual) 0.0 K/mm3 (0.0-0.4) 06/26/22 09:13 Basophils # (Manual) 0.2 K/mm3 (0.0-0.1) H 06/26/22 09:13 Metamyelocytes # 0.0 K/mm3 06/26/22 09:13 Myelocytes # 0.0 K/mm3 06/26/22 09:13 Promyelocytes # 0.0 K/mm3 06/26/22 09:13 Blast Cells # 0.0 K/mm3 06/26/22 09:13 WBC Morphology Not Reportable 06/26/22 09:13 Hypersegmented Neuts Not Reportable 06/26/22 09:13 Hyposegmented Neuts Not Reportable 06/26/22 09:13 Hypogranular Neuts Not Reportable 06/26/22 09:13 Smudge Cells Not Reportable 06/26/22 09:13 Toxic Granulation Not Reportable 06/26/22 09:13 Toxic Vacuolation Not Reportable 06/26/22 09:13 Dohle Bodies Not Reportable 06/26/22 09:13 Pelger-Huet Anomaly Not Reportable 06/26/22 09:13 Radha Rods Not Reportable 06/26/22 09:13 Platelet Estimate Consistent w auto 06/26/22 09:13 Clumped Platelets Not Reportable 06/26/22 09:13 Plt Clumps, EDTA Not Reportable 06/26/22 09:13 Large Platelets Not Reportable 06/26/22 09:13 Giant Platelets Not Reportable 06/26/22 09:13 Platelet Satelliting Not Reportable 06/26/22 09:13 Plt Morphology Comment Not Reportable 06/26/22 09:13 RBC Morphology Normal 06/26/22 09:13 Dimorphic RBCs Not Reportable 06/26/22 09:13 Polychromasia Not Reportable 06/26/22 09:13 Hypochromasia Not Reportable 06/26/22 09:13 Poikilocytosis Not Reportable 06/26/22 09:13 Anisocytosis Not Reportable 06/26/22 09:13 Microcytosis Not Reportable 06/26/22 09:13 Macrocytosis Not Reportable 06/26/22 09:13 Spherocytes Not Reportable 06/26/22 09:13 Pappenheimer Bodies Not Reportable 06/26/22 09:13 Sickle Cells Not Reportable 06/26/22 09:13 Target Cells Not Reportable 06/26/22 09:13 Tear Drop Cells Not Reportable 06/26/22 09:13 Ovalocytes Not Reportable 06/26/22 09:13 Helmet Cells Not Reportable 06/26/22 09:13 Alfaro-Wilkinson Bodies Not Reportable 06/26/22 09:13 Alma Rings Not Reportable 06/26/22 09:13 [place] Cells Not Reportable 06/26/22 09:13 Bite Cells Not Reportable 06/26/22 09:13 Crenated Cell Not Reportable 06/26/22 09:13 Elliptocytes Not Reportable 06/26/22 09:13 Acanthocytes (Spur) Not Reportable 06/26/22 09:13 Rouleaux Not Reportable 06/26/22 09:13 Hemoglobin C Crystals Not Reportable 06/26/22 09:13 Schistocytes Not Reportable 06/26/22 09:13 Malaria parasites Not Reportable 06/26/22 09:13 Roland Bodies Not Reportable 06/26/22 09:13 Hem Pathologist Commnt No 06/26/22 09:13 Sodium 139 mmol/L (137-145) 07/06/22 05:58 Potassium 4.6 mmol/L (3.6-5.0) 07/06/22 05:58 Chloride 101.9 mmol/L (98-107) 07/06/22 05:58 Carbon Dioxide 23 mmol/L (22-30) 07/06/22 05:58 Anion Gap 19 mmol/L 07/06/22 05:58 BUN 51 mg/dL (9-20) H 07/06/22 05:58 Creatinine 1.0 mg/dL (0.8-1.3) 07/06/22 05:58 Estimated GFR > 60 ml/min 07/06/22 05:58 BUN/Creatinine Ratio 51 % 07/06/22 05:58 Glucose 123 mg/dL (75-100) H 07/06/22 05:58 POC Glucose 81 mg/dL (70-105) 07/04/22 16:16 Lactic Acid 0.80 mmol/L (0.7-2.0) 06/18/22 17:20 Calcium 9.6 mg/dL (8.4-10.2) 07/06/22 05:58 Total Bilirubin 0.80 mg/dL (0.1-1.2) 06/23/22 13:00 AST 19 units/L (5-40) 06/23/22 13:00 ALT 21 units/L (7-56) 06/23/22 13:00 Alkaline Phosphatase 66 units/L (35-129) 06/23/22 13:00 Ammonia 16.0 umol/L (25-60) L 06/23/22 13:00 Total Creatine Kinase 383 units/L (55-170) H 06/18/22 17:20 Troponin T < 0.010 ng/mL (0.00-0.029) 06/18/22 17:20 Total Protein 6.9 g/dL (6.3-8.2) 06/23/22 13:00 Albumin 3.6 g/dL (3.9-5) L 06/23/22 13:00 Albumin/Globulin Ratio 1.1 % 06/23/22 13:00 Vitamin B1 110 nmol/L (8-30) H 06/19/22 20:22 Vitamin B12 2000 pg/mL (211-911) H 06/19/22 20:22 Folate 20.00 ng/mL (7.3-26.0) 06/19/22 20:22 TSH 1.320 mlU/mL (0.270-4.200) 06/19/22 20:22 Urine Color Colorless (Yellow) 06/18/22 Unknown Urine Turbidity Clear (Clear) 06/18/22 Unknown Urine pH 5.0 (5.0-7.0) 06/18/22 Unknown Ur Specific Penrose 1.015 (1.003-1.030) 06/18/22 Unknown Urine Protein 30 mg/dl mg/dL (Negative) 06/18/22 Unknown Urine Glucose (UA) Negative mg/dL (Negative) 06/18/22 Unknown Urine Ketones 25 mg/dL (Negative) 06/18/22 Unknown Urine Blood Negative (Negative) 06/18/22 Unknown Urine Nitrite Negative (Negative) 06/18/22 Unknown Urine Bilirubin Negative (Negative) 06/18/22 Unknown Urine Urobilinogen 0.2 mg/dL (<2.0) 06/18/22 Unknown Ur Leukocyte Esterase Negative (Negative) 06/18/22 Unknown Urine WBC (Auto) 1.0 /HPF (0.0-6.0) 06/18/22 Unknown Urine RBC (Auto) < 1.0 /HPF (0.0-6.0) 06/18/22 Unknown Urine Mucus Few /HPF 06/18/22 Unknown Nasal Screen MRSA (PCR) Negative (Negative) 06/21/22 08:50 Urine Opiates Screen Negative 06/19/22 10:49 Urine Methadone Screen Negative 06/19/22 10:49 Ur Barbiturates Screen Negative 06/19/22 10:49 Ur Phencyclidine Scrn Negative 06/19/22 10:49 Ur Amphetamines Screen Negative 06/19/22 10:49 U Benzodiazepines Scrn Negative 06/19/22 10:49 Urine Cocaine Screen Negative 06/19/22 10:49 U Marijuana (THC) Screen Negative 06/19/22 10:49 Drugs of Abuse Note Disclamer 06/19/22 10:49 Plasma/Serum Alcohol < 0.01 % (0-0.07) 06/18/22 17:20 SARS-CoV-2 (PCR) Negative (Negative) 07/06/22 12:21 [place]/IV: Voiding Method Incontinent Active Medications - Current Medications Current Medications: Generic Name Dose Route Start Last Admin Trade Name Freq PRN Reason Stop Dose Admin Acetaminophen 650 mg 06/18/22 23:08 07/02/22 11:16 Acetaminophen 325 Mg Tab PO 650 mg Q4H PRN Administration Pain MILD(1-3)/Fever >100.5/MCGEE Heparin Sodium (Porcine) 5,000 unit 06/19/22 06:00 07/10/22 05:59 Heparin 5,000 Unit/1 Ml Vial SUB-Q 5,000 unit Q8HR DAVID Administration Magnesium Hydroxide 30 ml 06/18/22 23:08 Magnesium Hydroxide (Mom) Oral Liqd Udc PO Q4H PRN Constipation Metoprolol Tartrate 25 mg 06/23/22 13:00 07/09/22 21:31 Metoprolol Tartrate 25 Mg Tab PO 25 mg BID DAVID Administration Morphine Sulfate 2 mg 06/18/22 23:08 07/01/22 21:40 Morphine 2 Mg/1 Ml Inj IV 2 mg Q4H PRN Administration Pain, Moderate (4-6) Morphine Sulfate 4 mg 06/18/22 23:08 07/04/22 20:21 Morphine 4 Mg/1 Ml Inj IV 4 mg Q4H PRN Administration Pain , Severe (7-10) Olanzapine 2.5 mg 06/25/22 22:00 07/09/22 21:27 Olanzapine 2.5 Mg Tab PO 2.5 mg QHS DAVID Administration Ondansetron HCl 4 mg 06/18/22 23:08 Ondansetron 4 Mg/2 Ml Inj IV Q8H PRN Nausea And Vomiting Quetiapine Fumarate 12.5 mg 07/09/22 22:00 07/09/22 21:26 Quetiapine 25 Mg Tab PO 12.5 mg QHS DAVID Administration Sodium Chloride 10 ml 06/19/22 10:00 07/09/22 21:28 Sodium Chloride 0.9% 10 Ml Flush Syringe IV Not Given BID DAVID Sodium Chloride 10 ml 06/18/22 23:08 Sodium Chloride 0.9% 10 Ml Flush Syringe IV PRN PRN LINE FLUSH Nutrition/Malnutrition Assess - Dietary Evaluation Nutrition/Malnutrition Findings: Nutrition Notes Start: 06/24/22 14:15 Freq: Status: Active Protocol: Document 07/08/22 16:25 CUATE (Rec: 07/08/22 16:38 CUATE [id number]) Nutrition Notes Initial or Follow up Brief Note Other Pertinent Diagnosis Metabolic encephalopathy, EtOH dependence Current Diet Regular Diet (from D 07/08), D Suppl (since D 07/02). Height 5 ft 10 in Weight 56.9 kg [place] Body Weight (kg) 75.45 BMI 18.0 Weight change and time frame Discrepancy of 7.3 Kg body weight loss in 1 day reported. Unable to contact RN over the phone to verify anthropometrics; likely an error. Weight Status Underweight Subjective/Other Information RD consult for Low BMI assessment. Will verify anthropometrics at F/U. Pt's PO intake of meals has been Fair (>50%), and fairly tolerated, according to ADL notes. Pt is on Room Air, O2 saturation @ 96%, according to Physical Assessment History notes. Percent of energy/protein needs met: Prescribed Regular Diet provides for energy/protein needs (2,289 Kcal/89 g) during LOS; additionally, Dietary Supplements will compensate for possible poor or insufficient PO intake of meals with 320 Kcal and 32 g of protein. Current % PO Fair (50-74%) #1 Nutrition Diagnosis Inadequate protein-energy intake Comments: Pt's PO intake of meals has been Fair (>50%), and fairly tolerated, according to ADL notes. Diagnosis Progress(for reassessment Continues documentation) Is patient on ventilator? No Is Patient Ambulatory and/or Out of Bed No REE-([place] [facility]-confined to bed) 1614.240 Kcal/Kg value to use for calculation 36 Approximate Energy Requirements Using 2048 kcal/Kg Calculation Used for Recommendations Kcal/kg Additional Notes Protein: 1-1.2 g/Kg ABW; 64-77 g/day. Fluids: 1 ml/Kcal, or as per MD. Nutrition Intervention Change Diet Order: Advance to Regular Diet as tolerated. Add Supplement/Snack (indicate name/kcal Continue 8 fl oz Ensure High /protein ) Protein; BID. Provides kCal: 320 Provides Protein (gm) 32 Goal #1 Compensate, through dietary supplementation, for possible poor or insufficient PO intake of meals during LOS. Goal #2 Adjust the dietary intervention to better serve Pt's needs and clinical conditions during LOS. Follow-Up By: 07/14/22 Additional Comments Continue monitoring food tolerance, %PO intake of meals , dietary supplements, and BM.
[2022-07-10] MEDS: METOPROLOL TARTRATE 25 MG TAB PO SCH ×2 (11:00→21:34)
[2022-07-10] MEDS: QUEtiapine 25 MG TAB PO SCH (21:34)
[2022-07-11] MEDS: HEPARIN 5,000 UNIT/1 ML VIAL SUB-Q SCH ×3 (05:35→22:31)
--- NOTE | 2022-07-11 09:06 | Progress Note ---
Assessment and Plan Assessment and plan: #Refractory metabolic encephalopathyresolved Refractory despite patient being out of the window for alcohol withdrawal symptoms. Repeating CMP, CBC, and ammonia level. Original CT head noncontrast unremarkable for acute findings. Low clinical suspicion for acute ischemic CVA given patient does not have any focal deficits. Unremarkable urinalysis and UDS. -TSH, B12, folate WNL. -Psych/mental health eval consulted; appreciate recs. Continue Zyprexa 2.5 mg daily. -Neurology consulted; appreciate recs. -Patient is conversant and oriented. #Acute hypoxic respiratory failureresolved - etiology: possible infection (COVID or HAP), volume overload - baseline oxygen requirements: room air - supplemental oxygen: 3L nasal cannula - Continue protocol: continue pulse oximetry, wean oxygen as tolerated, ordered incentive spirometry and educated patient on how to use it and its importance. Unremarkable coronavirus PCR. Discontinued antibiotics as low suspicion for infection. - continue to monitor #Alcohol withdrawal-resolved #Tachycardiaresolved #Alcohol dependence -Patient presented from alcohol rehabilitation; per chart review last drink 5 days prior to admission -Discontinued CIWA protocol, patient out of window for alcohol withdrawal. -Discontinued librium taper. If sinus tachycardia, beta-blockade can be initiated. #Volume depletion-resolved #Advanced care planning -Disease education conducted, care plan discussed, diagnoses discussed, prognosis discussed, and patient acknowledges understanding with care plan -Time: +30 min #Social: Extreme difficulty with finding patient's next of kin or friends. Patient was able to provide names of family members: FatherWilfredokishore Sr Milan.; motherElvira Radha Mcfarland; sisterBeth Radha Mcfarland; sisterNorma Bartolo. Friends of the patient have been located, and they are excited to be involved with finding the patient placement. They presented to the bedside on 07/07/2022 at the request of case management. #Discharge planning -Patient discharged from [facility] and was initially transferred from a hospital in [facility] -Pending SNF authorization/placement. Disposition Plan: Pending placement Total Time Spent with Patient (Minutes): 30 min History Interval history: No acute events overnight. Hospitalist Physical - Constitutional Vitals: Temp Pulse Resp BP Pulse Ox 97.5 F L 80 20 113/76 97 07/11/22 04:10 07/11/22 04:11 07/11/22 04:10 07/11/22 04:10 07/11/22 04:11 General appearance: Present: no acute distress, cachectic, disheveled - EENT Eyes: Present: PERRL, EOM intact ENT: hearing intact, clear oral mucosa, poor dentition, edentulous - Neck Neck: Present: supple, normal ROM - Respiratory Respiratory effort: normal Respiratory: bilateral: diminished - Cardiovascular Rhythm: regular Heart Sounds: Present: S1 & S2 - Extremities Extremities: no ischemia, pulses intact, pulses symmetrical, No edema, normal temperature, normal color Peripheral Pulses: within normal limits - Abdominal General gastrointestinal: soft, non-tender, non-distended, normal bowel sounds - Integumentary Integumentary: Present: clear, warm, dry - Psychiatric Psychiatric: appropriate mood/affect, cooperative - Neurologic Neurologic: CNII-XII intact, moves all extremities - Allied Health Allied health notes reviewed: nursing, case management HEART Score - HEART Score Troponin: Troponin T < 0.010 ng/mL (0.00-0.029) 06/18/22 17:20 Results - Labs CBC & Chem 7: 07/01/22 05:39 07/06/22 05:58 Labs: Laboratory Last Values WBC 10.2 K/mm3 (4.5-11.0) 07/01/22 05:39 RBC 4.78 M/mm3 (3.65-5.03) 07/01/22 05:39 Hgb 15.2 gm/dl (11.8-15.2) 07/01/22 05:39 Hct 45.7 % (35.5-45.6) H 07/01/22 05:39 MCV 95 fl (84-94) H 07/01/22 05:39 MCH 32 pg (28-32) 07/01/22 05:39 MCHC 33 % (32-34) 07/01/22 05:39 RDW 12.3 % (13.2-15.2) L 07/01/22 05:39 Plt Count 384 K/mm3 (140-440) 07/01/22 05:39 Lymph % (Auto) 15.1 % (13.4-35.0) 06/28/22 05:05 [place] % (Auto) 9.5 % (0.0-7.3) H 06/28/22 05:05 Eos % (Auto) 2.0 % (0.0-4.3) 06/28/22 05:05 Baso % (Auto) 0.8 % (0.0-1.8) 06/28/22 05:05 Lymph # (Auto) 1.9 K/mm3 (1.2-5.4) 06/28/22 05:05 [place] # (Auto) 1.2 K/mm3 (0.0-0.8) H 06/28/22 05:05 Eos # (Auto) 0.3 K/mm3 (0.0-0.4) 06/28/22 05:05 Baso # (Auto) 0.1 K/mm3 (0.0-0.1) 06/28/22 05:05 Add Manual Diff Complete 06/26/22 09:13 Total Counted 100 06/26/22 09:13 Seg Neutrophils % 72.6 % (40.0-70.0) H 06/28/22 05:05 Seg Neuts % (Manual) 85.0 % (40.0-70.0) H 06/26/22 09:13 Band Neutrophils % 0 % 06/26/22 09:13 Lymphocytes % (Manual) 6.0 % (13.4-35.0) L 06/26/22 09:13 Reactive Lymphs % (Man) 0 % 06/26/22 09:13 Monocytes % (Manual) 8.0 % (0.0-7.3) H 06/26/22 09:13 Eosinophils % (Manual) 0 % (0.0-4.3) 06/26/22 09:13 Basophils % (Manual) 1.0 % (0.0-1.8) 06/26/22 09:13 Metamyelocytes % 0 % 06/26/22 09:13 Myelocytes % 0 % 06/26/22 09:13 Promyelocytes % 0 % 06/26/22 09:13 Blast Cells % 0 % 06/26/22 09:13 Nucleated RBC % Not Reportable 06/26/22 09:13 Seg Neutrophils # 9.1 K/mm3 (1.8-7.7) H 06/28/22 05:05 Seg Neutrophils # Man 14.7 K/mm3 (1.8-7.7) H 06/26/22 09:13 Band Neutrophils # 0.0 K/mm3 06/26/22 09:13 Lymphocytes # (Manual) 1.0 K/mm3 (1.2-5.4) L 06/26/22 09:13 Abs React Lymphs (Man) 0.0 K/mm3 06/26/22 09:13 Monocytes # (Manual) 1.4 K/mm3 (0.0-0.8) H 06/26/22 09:13 Eosinophils # (Manual) 0.0 K/mm3 (0.0-0.4) 06/26/22 09:13 Basophils # (Manual) 0.2 K/mm3 (0.0-0.1) H 06/26/22 09:13 Metamyelocytes # 0.0 K/mm3 06/26/22 09:13 Myelocytes # 0.0 K/mm3 06/26/22 09:13 Promyelocytes # 0.0 K/mm3 06/26/22 09:13 Blast Cells # 0.0 K/mm3 06/26/22 09:13 WBC Morphology Not Reportable 06/26/22 09:13 Hypersegmented Neuts Not Reportable 06/26/22 09:13 Hyposegmented Neuts Not Reportable 06/26/22 09:13 Hypogranular Neuts Not Reportable 06/26/22 09:13 Smudge Cells Not Reportable 06/26/22 09:13 Toxic Granulation Not Reportable 06/26/22 09:13 Toxic Vacuolation Not Reportable 06/26/22 09:13 Dohle Bodies Not Reportable 06/26/22 09:13 Pelger-Huet Anomaly Not Reportable 06/26/22 09:13 Radha Rods Not Reportable 06/26/22 09:13 Platelet Estimate Consistent w auto 06/26/22 09:13 Clumped Platelets Not Reportable 06/26/22 09:13 Plt Clumps, EDTA Not Reportable 06/26/22 09:13 Large Platelets Not Reportable 06/26/22 09:13 Giant Platelets Not Reportable 06/26/22 09:13 Platelet Satelliting Not Reportable 06/26/22 09:13 Plt Morphology Comment Not Reportable 06/26/22 09:13 RBC Morphology Normal 06/26/22 09:13 Dimorphic RBCs Not Reportable 06/26/22 09:13 Polychromasia Not Reportable 06/26/22 09:13 Hypochromasia Not Reportable 06/26/22 09:13 Poikilocytosis Not Reportable 06/26/22 09:13 Anisocytosis Not Reportable 06/26/22 09:13 Microcytosis Not Reportable 06/26/22 09:13 Macrocytosis Not Reportable 06/26/22 09:13 Spherocytes Not Reportable 06/26/22 09:13 Pappenheimer Bodies Not Reportable 06/26/22 09:13 Sickle Cells Not Reportable 06/26/22 09:13 Target Cells Not Reportable 06/26/22 09:13 Tear Drop Cells Not Reportable 06/26/22 09:13 Ovalocytes Not Reportable 06/26/22 09:13 Helmet Cells Not Reportable 06/26/22 09:13 [place] Bodies Not Reportable 06/26/22 09:13 Fence Rings Not Reportable 06/26/22 09:13 [place] Cells Not Reportable 06/26/22 09:13 Bite Cells Not Reportable 06/26/22 09:13 Crenated Cell Not Reportable 06/26/22 09:13 Elliptocytes Not Reportable 06/26/22 09:13 Acanthocytes (Spur) Not Reportable 06/26/22 09:13 Rouleaux Not Reportable 06/26/22 09:13 Hemoglobin C Crystals Not Reportable 06/26/22 09:13 Schistocytes Not Reportable 06/26/22 09:13 Malaria parasites Not Reportable 06/26/22 09:13 Roland Bodies Not Reportable 06/26/22 09:13 Hem Pathologist Commnt No 06/26/22 09:13 Sodium 139 mmol/L (137-145) 07/06/22 05:58 Potassium 4.6 mmol/L (3.6-5.0) 07/06/22 05:58 Chloride 101.9 mmol/L (98-107) 07/06/22 05:58 Carbon Dioxide 23 mmol/L (22-30) 07/06/22 05:58 Anion Gap 19 mmol/L 07/06/22 05:58 BUN 51 mg/dL (9-20) H 07/06/22 05:58 Creatinine 1.0 mg/dL (0.8-1.3) 07/06/22 05:58 Estimated GFR > 60 ml/min 07/06/22 05:58 BUN/Creatinine Ratio 51 % 07/06/22 05:58 Glucose 123 mg/dL (75-100) H 07/06/22 05:58 POC Glucose 261 mg/dL (70-105) H 07/10/22 15:43 Hemoglobin A1c 5.7 % (4-6) 07/11/22 07:56 Lactic Acid 0.80 mmol/L (0.7-2.0) 06/18/22 17:20 Calcium 9.6 mg/dL (8.4-10.2) 07/06/22 05:58 Total Bilirubin 0.80 mg/dL (0.1-1.2) 06/23/22 13:00 AST 19 units/L (5-40) 06/23/22 13:00 ALT 21 units/L (7-56) 06/23/22 13:00 Alkaline Phosphatase 66 units/L (35-129) 06/23/22 13:00 Ammonia 16.0 umol/L (25-60) L 06/23/22 13:00 Total Creatine Kinase 383 units/L (55-170) H 06/18/22 17:20 Troponin T < 0.010 ng/mL (0.00-0.029) 06/18/22 17:20 Total Protein 6.9 g/dL (6.3-8.2) 06/23/22 13:00 Albumin 3.6 g/dL (3.9-5) L 06/23/22 13:00 Albumin/Globulin Ratio 1.1 % 06/23/22 13:00 Vitamin B1 110 nmol/L (8-30) H 06/19/22 20:22 Vitamin B12 2000 pg/mL (211-911) H 06/19/22 20:22 Folate 20.00 ng/mL (7.3-26.0) 06/19/22 20:22 TSH 1.320 mlU/mL (0.270-4.200) 06/19/22 20:22 Urine Color Colorless (Yellow) 06/18/22 Unknown Urine Turbidity Clear (Clear) 06/18/22 Unknown Urine pH 5.0 (5.0-7.0) 06/18/22 Unknown Ur Specific [place] 1.015 (1.003-1.030) 06/18/22 Unknown Urine Protein 30 mg/dl mg/dL (Negative) 06/18/22 Unknown Urine Glucose (UA) Negative mg/dL (Negative) 06/18/22 Unknown Urine Ketones 25 mg/dL (Negative) 06/18/22 Unknown Urine Blood Negative (Negative) 06/18/22 Unknown Urine Nitrite Negative (Negative) 06/18/22 Unknown Urine Bilirubin Negative (Negative) 06/18/22 Unknown Urine Urobilinogen 0.2 mg/dL (<2.0) 06/18/22 Unknown Ur Leukocyte Esterase Negative (Negative) 06/18/22 Unknown Urine WBC (Auto) 1.0 /HPF (0.0-6.0) 06/18/22 Unknown Urine RBC (Auto) < 1.0 /HPF (0.0-6.0) 06/18/22 Unknown Urine Mucus Few /HPF 06/18/22 Unknown Nasal Screen MRSA (PCR) Negative (Negative) 06/21/22 08:50 Urine Opiates Screen Negative 06/19/22 10:49 Urine Methadone Screen Negative 06/19/22 10:49 Ur Barbiturates Screen Negative 06/19/22 10:49 Ur Phencyclidine Scrn Negative 06/19/22 10:49 Ur Amphetamines Screen Negative 06/19/22 10:49 U Benzodiazepines Scrn Negative 06/19/22 10:49 Urine Cocaine Screen Negative 06/19/22 10:49 U Marijuana (THC) Screen Negative 06/19/22 10:49 Drugs of Abuse Note Disclamer 06/19/22 10:49 Plasma/Serum Alcohol < 0.01 % (0-0.07) 06/18/22 17:20 SARS-CoV-2 (PCR) Negative (Negative) 07/06/22 12:21 [place]/IV: Voiding Method Incontinent Active Medications - Current Medications Current Medications: Generic Name Dose Route Start Last Admin Trade Name Freq PRN Reason Stop Dose Admin Acetaminophen 650 mg 06/18/22 23:08 07/02/22 11:16 Acetaminophen 325 Mg Tab PO 650 mg Q4H PRN Administration Pain MILD(1-3)/Fever >100.5/MCGEE Heparin Sodium (Porcine) 5,000 unit 06/19/22 06:00 07/11/22 05:35 Heparin 5,000 Unit/1 Ml Vial SUB-Q 5,000 unit Q8HR DAVID Administration Magnesium Hydroxide 30 ml 06/18/22 23:08 Magnesium Hydroxide (Mom) Oral Liqd Udc PO Q4H PRN Constipation Metoprolol Tartrate 25 mg 06/23/22 13:00 07/10/22 21:34 Metoprolol Tartrate 25 Mg Tab PO 25 mg BID DAVID Administration Morphine Sulfate 2 mg 06/18/22 23:08 07/01/22 21:40 Morphine 2 Mg/1 Ml Inj IV 2 mg Q4H PRN Administration Pain, Moderate (4-6) Morphine Sulfate 4 mg 06/18/22 23:08 07/04/22 20:21 Morphine 4 Mg/1 Ml Inj IV 4 mg Q4H PRN Administration Pain , Severe (7-10) Olanzapine 2.5 mg 06/25/22 22:00 07/10/22 21:34 Olanzapine 2.5 Mg Tab PO 2.5 mg QHS DAVID Administration Ondansetron HCl 4 mg 06/18/22 23:08 Ondansetron 4 Mg/2 Ml Inj IV Q8H PRN Nausea And Vomiting Quetiapine Fumarate 12.5 mg 07/09/22 22:00 07/10/22 21:34 Quetiapine 25 Mg Tab PO 12.5 mg QHS DAVID Administration Sodium Chloride 10 ml 06/19/22 10:00 07/10/22 21:35 Sodium Chloride 0.9% 10 Ml Flush Syringe IV Not Given BID DAVID Sodium Chloride 10 ml 06/18/22 23:08 Sodium Chloride 0.9% 10 Ml Flush Syringe IV PRN PRN LINE FLUSH Nutrition/Malnutrition Assess - Dietary Evaluation Nutrition/Malnutrition Findings: Nutrition Notes Start: 06/24/22 14:15 Freq: Status: Active Protocol: Document 07/08/22 16:25 CUATE (Rec: 07/08/22 16:38 CUATE [id number]) Nutrition Notes Initial or Follow up Brief Note Other Pertinent Diagnosis Metabolic encephalopathy, EtOH dependence Current Diet Regular Diet (from D 07/08), D Suppl (since D 07/02). Height 5 ft 10 in Weight 56.9 kg [place] Body Weight (kg) 75.45 BMI 18.0 Weight change and time frame Discrepancy of 7.3 Kg body weight loss in 1 day reported. Unable to contact RN over the phone to verify anthropometrics; likely an error. Weight Status Underweight Subjective/Other Information RD consult for Low BMI assessment. Will verify anthropometrics at F/U. Pt's PO intake of meals has been Fair (>50%), and fairly tolerated, according to ADL notes. Pt is on Room Air, O2 saturation @ 96%, according to Physical Assessment History notes. Percent of energy/protein needs met: Prescribed Regular Diet provides for energy/protein needs (2,289 Kcal/89 g) during LOS; additionally, Dietary Supplements will compensate for possible poor or insufficient PO intake of meals with 320 Kcal and 32 g of protein. Current % PO Fair (50-74%) #1 Nutrition Diagnosis Inadequate protein-energy intake Comments: Pt's PO intake of meals has been Fair (>50%), and fairly tolerated, according to ADL notes. Diagnosis Progress(for reassessment Continues documentation) Is patient on ventilator? No Is Patient Ambulatory and/or Out of Bed No REE-([facility]-confined to bed) 1614.240 Kcal/Kg value to use for calculation 36 Approximate Energy Requirements Using 2048 kcal/Kg Calculation Used for Recommendations Kcal/kg Additional Notes Protein: 1-1.2 g/Kg ABW; 64-77 g/day. Fluids: 1 ml/Kcal, or as per MD. Nutrition Intervention Change Diet Order: Advance to Regular Diet as tolerated. Add Supplement/Snack (indicate name/kcal Continue 8 fl oz Ensure High /protein ) Protein; BID. Provides kCal: 320 Provides Protein (gm) 32 Goal #1 Compensate, through dietary supplementation, for possible poor or insufficient PO intake of meals during LOS. Goal #2 Adjust the dietary intervention to better serve Pt's needs and clinical conditions during LOS. Follow-Up By: 07/14/22 Additional Comments Continue monitoring food tolerance, %PO intake of meals , dietary supplements, and BM.
[2022-07-11] MEDS: METOPROLOL TARTRATE 25 MG TAB PO SCH ×2 (09:42→22:31)
[2022-07-12] MEDS: HEPARIN 5,000 UNIT/1 ML VIAL SUB-Q SCH ×3 (06:31→22:06)
[2022-07-12] MEDS: METOPROLOL TARTRATE 25 MG TAB PO SCH ×2 (10:21→22:05)
--- NOTE | 2022-07-12 10:56 | Progress Note ---
Assessment and Plan Assessment and plan: #Refractory metabolic encephalopathyresolved Refractory despite patient being out of the window for alcohol withdrawal symptoms. Repeating CMP, CBC, and ammonia level. Original CT head noncontrast unremarkable for acute findings. Low clinical suspicion for acute ischemic CVA given patient does not have any focal deficits. Unremarkable urinalysis and UDS. -TSH, B12, folate WNL. -Psych/mental health eval consulted; appreciate recs. Continue Zyprexa 2.5 mg daily. -Neurology consulted; appreciate recs. -Patient is conversant and oriented. #Acute hypoxic respiratory failureresolved - etiology: possible infection (COVID or HAP), volume overload - baseline oxygen requirements: room air - supplemental oxygen: 3L nasal cannula - Continue protocol: continue pulse oximetry, wean oxygen as tolerated, ordered incentive spirometry and educated patient on how to use it and its importance. Unremarkable coronavirus PCR. Discontinued antibiotics as low suspicion for infection. - continue to monitor #Alcohol withdrawal-resolved #Tachycardiaresolved #Alcohol dependence -Patient presented from alcohol rehabilitation; per chart review last drink 5 days prior to admission -Discontinued CIWA protocol, patient out of window for alcohol withdrawal. -Discontinued librium taper. If sinus tachycardia, beta-blockade can be initiated. #Volume depletion-resolved #Advanced care planning -Disease education conducted, care plan discussed, diagnoses discussed, prognosis discussed, and patient acknowledges understanding with care plan -Time: +30 min #Social: Extreme difficulty with finding patient's next of kin or friends. Patient was able to provide names of family members: FatherWilfredokishore Sr Milan.; motherElvira Radha Mcfarland; sisterBeth Radha Mcfarland; sisterNorma Bartolo. Friends of the patient have been located, and they are excited to be involved with finding the patient placement. They presented to the bedside on 07/07/2022 at the request of case management. #Discharge planning -Patient discharged from [facility] and was initially transferred from a hospital in [facility] -Pending SNF authorization/placement. Disposition Plan: Continue medical management Total Time Spent with Patient (Minutes): 45 min History Interval history: No acute events overnight. Hospitalist Physical - Constitutional Vitals: Temp Pulse Resp BP Pulse Ox 97.4 F L 74 17 129/62 99 07/12/22 07:33 07/12/22 07:33 07/12/22 07:33 07/12/22 07:33 07/12/22 07:33 General appearance: Present: no acute distress, cachectic, disheveled - EENT Eyes: Present: PERRL, EOM intact ENT: hearing intact, clear oral mucosa, dentition normal - Neck Neck: Present: supple, normal ROM - Respiratory Respiratory effort: normal Respiratory: bilateral: CTA - Cardiovascular Rhythm: regular Heart Sounds: Present: S1 & S2 - Extremities Extremities: no ischemia, pulses intact, pulses symmetrical, No edema, normal temperature, normal color Peripheral Pulses: within normal limits - Abdominal General gastrointestinal: soft, non-tender, non-distended, normal bowel sounds - Integumentary Integumentary: Present: clear, warm, dry - Psychiatric Psychiatric: appropriate mood/affect - Neurologic Neurologic: CNII-XII intact, moves all extremities - Allied Health Allied health notes reviewed: nursing, case management HEART Score - HEART Score Troponin: Troponin T < 0.010 ng/mL (0.00-0.029) 06/18/22 17:20 Results - Labs CBC & Chem 7: 07/01/22 05:39 07/06/22 05:58 Labs: Laboratory Last Values WBC 10.2 K/mm3 (4.5-11.0) 07/01/22 05:39 RBC 4.78 M/mm3 (3.65-5.03) 07/01/22 05:39 Hgb 15.2 gm/dl (11.8-15.2) 07/01/22 05:39 Hct 45.7 % (35.5-45.6) H 07/01/22 05:39 MCV 95 fl (84-94) H 07/01/22 05:39 MCH 32 pg (28-32) 07/01/22 05:39 MCHC 33 % (32-34) 07/01/22 05:39 RDW 12.3 % (13.2-15.2) L 07/01/22 05:39 Plt Count 384 K/mm3 (140-440) 07/01/22 05:39 Lymph % (Auto) 15.1 % (13.4-35.0) 06/28/22 05:05 [place] % (Auto) 9.5 % (0.0-7.3) H 06/28/22 05:05 Eos % (Auto) 2.0 % (0.0-4.3) 06/28/22 05:05 Baso % (Auto) 0.8 % (0.0-1.8) 06/28/22 05:05 Lymph # (Auto) 1.9 K/mm3 (1.2-5.4) 06/28/22 05:05 [place] # (Auto) 1.2 K/mm3 (0.0-0.8) H 06/28/22 05:05 Eos # (Auto) 0.3 K/mm3 (0.0-0.4) 06/28/22 05:05 Baso # (Auto) 0.1 K/mm3 (0.0-0.1) 06/28/22 05:05 Add Manual Diff Complete 06/26/22 09:13 Total Counted 100 06/26/22 09:13 Seg Neutrophils % 72.6 % (40.0-70.0) H 06/28/22 05:05 Seg Neuts % (Manual) 85.0 % (40.0-70.0) H 06/26/22 09:13 Band Neutrophils % 0 % 06/26/22 09:13 Lymphocytes % (Manual) 6.0 % (13.4-35.0) L 06/26/22 09:13 Reactive Lymphs % (Man) 0 % 06/26/22 09:13 Monocytes % (Manual) 8.0 % (0.0-7.3) H 06/26/22 09:13 Eosinophils % (Manual) 0 % (0.0-4.3) 06/26/22 09:13 Basophils % (Manual) 1.0 % (0.0-1.8) 06/26/22 09:13 Metamyelocytes % 0 % 06/26/22 09:13 Myelocytes % 0 % 06/26/22 09:13 Promyelocytes % 0 % 06/26/22 09:13 Blast Cells % 0 % 06/26/22 09:13 Nucleated RBC % Not Reportable 06/26/22 09:13 Seg Neutrophils # 9.1 K/mm3 (1.8-7.7) H 06/28/22 05:05 Seg Neutrophils # Man 14.7 K/mm3 (1.8-7.7) H 06/26/22 09:13 Band Neutrophils # 0.0 K/mm3 06/26/22 09:13 Lymphocytes # (Manual) 1.0 K/mm3 (1.2-5.4) L 06/26/22 09:13 Abs React Lymphs (Man) 0.0 K/mm3 06/26/22 09:13 Monocytes # (Manual) 1.4 K/mm3 (0.0-0.8) H 06/26/22 09:13 Eosinophils # (Manual) 0.0 K/mm3 (0.0-0.4) 06/26/22 09:13 Basophils # (Manual) 0.2 K/mm3 (0.0-0.1) H 06/26/22 09:13 Metamyelocytes # 0.0 K/mm3 06/26/22 09:13 Myelocytes # 0.0 K/mm3 06/26/22 09:13 Promyelocytes # 0.0 K/mm3 06/26/22 09:13 Blast Cells # 0.0 K/mm3 06/26/22 09:13 WBC Morphology Not Reportable 06/26/22 09:13 Hypersegmented Neuts Not Reportable 06/26/22 09:13 Hyposegmented Neuts Not Reportable 06/26/22 09:13 Hypogranular Neuts Not Reportable 06/26/22 09:13 Smudge Cells Not Reportable 06/26/22 09:13 Toxic Granulation Not Reportable 06/26/22 09:13 Toxic Vacuolation Not Reportable 06/26/22 09:13 Dohle Bodies Not Reportable 06/26/22 09:13 Pelger-Huet Anomaly Not Reportable 06/26/22 09:13 Radha Rods Not Reportable 06/26/22 09:13 Platelet Estimate Consistent w auto 06/26/22 09:13 Clumped Platelets Not Reportable 06/26/22 09:13 Plt Clumps, EDTA Not Reportable 06/26/22 09:13 Large Platelets Not Reportable 06/26/22 09:13 Giant Platelets Not Reportable 06/26/22 09:13 Platelet Satelliting Not Reportable 06/26/22 09:13 Plt Morphology Comment Not Reportable 06/26/22 09:13 RBC Morphology Normal 06/26/22 09:13 Dimorphic RBCs Not Reportable 06/26/22 09:13 Polychromasia Not Reportable 06/26/22 09:13 Hypochromasia Not Reportable 06/26/22 09:13 Poikilocytosis Not Reportable 06/26/22 09:13 Anisocytosis Not Reportable 06/26/22 09:13 Microcytosis Not Reportable 06/26/22 09:13 Macrocytosis Not Reportable 06/26/22 09:13 Spherocytes Not Reportable 06/26/22 09:13 Pappenheimer Bodies Not Reportable 06/26/22 09:13 Sickle Cells Not Reportable 06/26/22 09:13 Target Cells Not Reportable 06/26/22 09:13 Tear Drop Cells Not Reportable 06/26/22 09:13 Ovalocytes Not Reportable 06/26/22 09:13 Helmet Cells Not Reportable 06/26/22 09:13 [place] Bodies Not Reportable 06/26/22 09:13 [place] Rings Not Reportable 06/26/22 09:13 [place] Cells Not Reportable 06/26/22 09:13 Bite Cells Not Reportable 06/26/22 09:13 Crenated Cell Not Reportable 06/26/22 09:13 Elliptocytes Not Reportable 06/26/22 09:13 Acanthocytes (Spur) Not Reportable 06/26/22 09:13 Rouleaux Not Reportable 06/26/22 09:13 Hemoglobin C Crystals Not Reportable 06/26/22 09:13 Schistocytes Not Reportable 06/26/22 09:13 Malaria parasites Not Reportable 06/26/22 09:13 Roland Bodies Not Reportable 06/26/22 09:13 Hem Pathologist Commnt No 06/26/22 09:13 Sodium 139 mmol/L (137-145) 07/06/22 05:58 Potassium 4.6 mmol/L (3.6-5.0) 07/06/22 05:58 Chloride 101.9 mmol/L (98-107) 07/06/22 05:58 Carbon Dioxide 23 mmol/L (22-30) 07/06/22 05:58 Anion Gap 19 mmol/L 07/06/22 05:58 BUN 51 mg/dL (9-20) H 07/06/22 05:58 Creatinine 1.0 mg/dL (0.8-1.3) 07/06/22 05:58 Estimated GFR > 60 ml/min 07/06/22 05:58 BUN/Creatinine Ratio 51 % 07/06/22 05:58 Glucose 123 mg/dL (75-100) H 07/06/22 05:58 POC Glucose 117 mg/dL (70-105) H 07/12/22 05:44 Hemoglobin A1c 5.7 % (4-6) 07/11/22 07:56 Lactic Acid 0.80 mmol/L (0.7-2.0) 06/18/22 17:20 Calcium 9.6 mg/dL (8.4-10.2) 07/06/22 05:58 Total Bilirubin 0.80 mg/dL (0.1-1.2) 06/23/22 13:00 AST 19 units/L (5-40) 06/23/22 13:00 ALT 21 units/L (7-56) 06/23/22 13:00 Alkaline Phosphatase 66 units/L (35-129) 06/23/22 13:00 Ammonia 16.0 umol/L (25-60) L 06/23/22 13:00 Total Creatine Kinase 383 units/L (55-170) H 06/18/22 17:20 Troponin T < 0.010 ng/mL (0.00-0.029) 06/18/22 17:20 Total Protein 6.9 g/dL (6.3-8.2) 06/23/22 13:00 Albumin 3.6 g/dL (3.9-5) L 06/23/22 13:00 Albumin/Globulin Ratio 1.1 % 06/23/22 13:00 Vitamin B1 110 nmol/L (8-30) H 06/19/22 20:22 Vitamin B12 2000 pg/mL (211-911) H 06/19/22 20:22 Folate 20.00 ng/mL (7.3-26.0) 06/19/22 20:22 TSH 1.320 mlU/mL (0.270-4.200) 06/19/22 20:22 Urine Color Colorless (Yellow) 06/18/22 Unknown Urine Turbidity Clear (Clear) 06/18/22 Unknown Urine pH 5.0 (5.0-7.0) 06/18/22 Unknown Ur Specific Home 1.015 (1.003-1.030) 06/18/22 Unknown Urine Protein 30 mg/dl mg/dL (Negative) 06/18/22 Unknown Urine Glucose (UA) Negative mg/dL (Negative) 06/18/22 Unknown Urine Ketones 25 mg/dL (Negative) 06/18/22 Unknown Urine Blood Negative (Negative) 06/18/22 Unknown Urine Nitrite Negative (Negative) 06/18/22 Unknown Urine Bilirubin Negative (Negative) 06/18/22 Unknown Urine Urobilinogen 0.2 mg/dL (<2.0) 06/18/22 Unknown Ur Leukocyte Esterase Negative (Negative) 06/18/22 Unknown Urine WBC (Auto) 1.0 /HPF (0.0-6.0) 06/18/22 Unknown Urine RBC (Auto) < 1.0 /HPF (0.0-6.0) 06/18/22 Unknown Urine Mucus Few /HPF 06/18/22 Unknown Nasal Screen MRSA (PCR) Negative (Negative) 06/21/22 08:50 Urine Opiates Screen Negative 06/19/22 10:49 Urine Methadone Screen Negative 06/19/22 10:49 Ur Barbiturates Screen Negative 06/19/22 10:49 Ur Phencyclidine Scrn Negative 06/19/22 10:49 Ur Amphetamines Screen Negative 06/19/22 10:49 U Benzodiazepines Scrn Negative 06/19/22 10:49 Urine Cocaine Screen Negative 06/19/22 10:49 U Marijuana (THC) Screen Negative 06/19/22 10:49 Drugs of Abuse Note Disclamer 06/19/22 10:49 Plasma/Serum Alcohol < 0.01 % (0-0.07) 06/18/22 17:20 SARS-CoV-2 (PCR) Negative (Negative) 07/06/22 12:21 [place]/IV: Voiding Method Incontinent Active Medications - Current Medications Current Medications: Generic Name Dose Route Start Last Admin Trade Name Freq PRN Reason Stop Dose Admin Acetaminophen 650 mg 06/18/22 23:08 07/02/22 11:16 Acetaminophen 325 Mg Tab PO 650 mg Q4H PRN Administration Pain MILD(1-3)/Fever >100.5/MCGEE Heparin Sodium (Porcine) 5,000 unit 06/19/22 06:00 07/12/22 06:31 Heparin 5,000 Unit/1 Ml Vial SUB-Q 5,000 unit Q8HR DAVID Administration Magnesium Hydroxide 30 ml 06/18/22 23:08 Magnesium Hydroxide (Mom) Oral Liqd Udc PO Q4H PRN Constipation Metoprolol Tartrate 25 mg 06/23/22 13:00 07/12/22 10:21 Metoprolol Tartrate 25 Mg Tab PO 25 mg BID DAVID Administration Morphine Sulfate 2 mg 06/18/22 23:08 07/01/22 21:40 Morphine 2 Mg/1 Ml Inj IV 2 mg Q4H PRN Administration Pain, Moderate (4-6) Morphine Sulfate 4 mg 06/18/22 23:08 07/04/22 20:21 Morphine 4 Mg/1 Ml Inj IV 4 mg Q4H PRN Administration Pain , Severe (7-10) Olanzapine 2.5 mg 06/25/22 22:00 07/11/22 22:32 Olanzapine 2.5 Mg Tab PO 2.5 mg QHS DAVID Administration Ondansetron HCl 4 mg 06/18/22 23:08 Ondansetron 4 Mg/2 Ml Inj IV Q8H PRN Nausea And Vomiting Sodium Chloride 10 ml 06/19/22 10:00 07/12/22 10:21 Sodium Chloride 0.9% 10 Ml Flush Syringe IV Not Given BID DAVID Sodium Chloride 10 ml 06/18/22 23:08 Sodium Chloride 0.9% 10 Ml Flush Syringe IV PRN PRN LINE FLUSH Nutrition/Malnutrition Assess - Dietary Evaluation Nutrition/Malnutrition Findings: Nutrition Notes Start: 06/24/22 14:15 Freq: Status: Active Protocol: Document 07/08/22 16:25 CUATE (Rec: 07/08/22 16:38 CUATE [id number]) Nutrition Notes Initial or Follow up Brief Note Other Pertinent Diagnosis Metabolic encephalopathy, EtOH dependence Current Diet Regular Diet (from D 07/08), D Suppl (since D 07/02). Height 5 ft 10 in Weight 56.9 kg [place] Body Weight (kg) 75.45 BMI 18.0 Weight change and time frame Discrepancy of 7.3 Kg body weight loss in 1 day reported. Unable to contact RN over the phone to verify anthropometrics; likely an error. Weight Status Underweight Subjective/Other Information RD consult for Low BMI assessment. Will verify anthropometrics at F/U. Pt's PO intake of meals has been Fair (>50%), and fairly tolerated, according to ADL notes. Pt is on Room Air, O2 saturation @ 96%, according to Physical Assessment History notes. Percent of energy/protein needs met: Prescribed Regular Diet provides for energy/protein needs (2,289 Kcal/89 g) during LOS; additionally, Dietary Supplements will compensate for possible poor or insufficient PO intake of meals with 320 Kcal and 32 g of protein. Current % PO Fair (50-74%) #1 Nutrition Diagnosis Inadequate protein-energy intake Comments: Pt's PO intake of meals has been Fair (>50%), and fairly tolerated, according to ADL notes. Diagnosis Progress(for reassessment Continues documentation) Is patient on ventilator? No Is Patient Ambulatory and/or Out of Bed No REE-([place]-confined to bed) 1614.240 Kcal/Kg value to use for calculation 36 Approximate Energy Requirements Using 2048 kcal/Kg Calculation Used for Recommendations Kcal/kg Additional Notes Protein: 1-1.2 g/Kg ABW; 64-77 g/day. Fluids: 1 ml/Kcal, or as per MD. Nutrition Intervention Change Diet Order: Advance to Regular Diet as tolerated. Add Supplement/Snack (indicate name/kcal Continue 8 fl oz Ensure High /protein ) Protein; BID. Provides kCal: 320 Provides Protein (gm) 32 Goal #1 Compensate, through dietary supplementation, for possible poor or insufficient PO intake of meals during LOS. Goal #2 Adjust the dietary intervention to better serve Pt's needs and clinical conditions during LOS. Follow-Up By: 07/14/22 Additional Comments Continue monitoring food tolerance, %PO intake of meals , dietary supplements, and BM.
[2022-07-12] MEDS: MORPHINE 4 MG/1 ML INJ IV PRN (20:42)
[2022-07-13] MEDS ORDERED: LORazepam 2 MG/ML VIAL IV ONE
[2022-07-13] MEDS: MORPHINE 2 MG/1 ML INJ IV PRN (00:19)
[2022-07-13] MEDS: HEPARIN 5,000 UNIT/1 ML VIAL SUB-Q SCH ×3 (06:36→21:37)
[2022-07-13] MEDS: METOPROLOL TARTRATE 25 MG TAB PO SCH ×2 (10:43→21:36)
--- NOTE | 2022-07-13 12:48 | Progress Note ---
Assessment and Plan Assessment and plan: #Refractory metabolic encephalopathy-resolved Refractory despite patient being out of the window for alcohol withdrawal symptoms. Repeating CMP, CBC, and ammonia level. Original CT head noncontrast unremarkable for acute findings. Low clinical suspicion for acute ischemic CVA given patient does not have any focal deficits. Unremarkable urinalysis and UDS. -Continue Zyprexa 2.5 mg daily; Psych reconsulted due to patient combativeness with nursing -MRI held due to improvement in mental status -PT evaluation ordered: subacute rehab recommendation; CM aware #Acute hypoxic respiratory failure-resolved - etiology: possible infection (COVID or HAP) vs volume overload; COVID negative - baseline oxygen requirements: room air - supplemental oxygen: patient currently on RA - Continue protocol: continue pulse oximetry, wean oxygen as tolerated, ordered incentive spirometry and educated patient on how to use it and its importance. Unremarkable coronavirus PCR. Discontinued antibiotics as low suspicion for infection. - continue to monitor #Alcohol withdrawal-resolved #Tachycardiaresolved #Alcohol dependence -s/p CIWA protocol and librium taper, patient out of window for alcohol withdrawal. #Volume depletion-resolved #Advanced care planning -Disease education conducted, care plan discussed, diagnoses discussed, prognosis discussed, and patient acknowledges understanding with care plan -Time: +30 min #Social: Extreme difficulty with finding patient's next of kin or friends. Patient was able to provide names of family members: FatherMichael Yates Sr.; motherElvira Radha Mcfarland; sisterMarhi Radha Mcfarland; sisterNorma Bartolo. Friends of the patient have been located, and they are excited to be involved with finding the patient placement. They presented to the bedside on 07/07/2022 at the request of case management. #Discharge planning -Patient discharged from [facility] and was initially transferred from a hospital in [facility] -Pending SNF authorization/placement. History Interval history: No acute events overnight. Per nursing the patient is combative whenever he is removed from restraints. Patient was asleep but easily awoken at the time of in [facility]. He wanted to continue to sleep. He has no acute complaints at this time. Hospitalist Physical - Physical exam Narrative exam: GENERAL: Thin elderly male. In no acute distress. HEENT: NC in place at 3LPM CHEST/LUNGS: Coarse breath sounds bilaterally. HEART/CARDIOVASCULAR: RRR. No murmur, rubs or gallops appreciated. ABDOMEN: +BS. NT/ND. NEURO: No noted focal deficits. MUSCULOSKELETAL: No joint effusion EXTREMITIES: No cyanosis, clubbing or edema. PSYCH: Cooperative. Appropriate. - Constitutional Vitals: Temp Pulse Resp BP Pulse Ox 97.4 F L 64 17 94/62 98 07/13/22 07:56 07/13/22 07:56 07/13/22 07:56 07/13/22 07:56 07/13/22 10:00 General appearance: Present: no acute distress, cachectic, disheveled HEART Score - HEART Score Troponin: Troponin T < 0.010 ng/mL (0.00-0.029) 06/18/22 17:20 Results - Labs CBC & Chem 7: 07/01/22 05:39 07/06/22 05:58 Labs: Laboratory Last Values WBC 10.2 K/mm3 (4.5-11.0) 07/01/22 05:39 RBC 4.78 M/mm3 (3.65-5.03) 07/01/22 05:39 Hgb 15.2 gm/dl (11.8-15.2) 07/01/22 05:39 Hct 45.7 % (35.5-45.6) H 07/01/22 05:39 MCV 95 fl (84-94) H 07/01/22 05:39 MCH 32 pg (28-32) 07/01/22 05:39 MCHC 33 % (32-34) 07/01/22 05:39 RDW 12.3 % (13.2-15.2) L 07/01/22 05:39 Plt Count 384 K/mm3 (140-440) 07/01/22 05:39 Lymph % (Auto) 15.1 % (13.4-35.0) 06/28/22 05:05 [place] % (Auto) 9.5 % (0.0-7.3) H 06/28/22 05:05 Eos % (Auto) 2.0 % (0.0-4.3) 06/28/22 05:05 Baso % (Auto) 0.8 % (0.0-1.8) 06/28/22 05:05 Lymph # (Auto) 1.9 K/mm3 (1.2-5.4) 06/28/22 05:05 [place] # (Auto) 1.2 K/mm3 (0.0-0.8) H 06/28/22 05:05 Eos # (Auto) 0.3 K/mm3 (0.0-0.4) 06/28/22 05:05 Baso # (Auto) 0.1 K/mm3 (0.0-0.1) 06/28/22 05:05 Add Manual Diff Complete 06/26/22 09:13 Total Counted 100 06/26/22 09:13 Seg Neutrophils % 72.6 % (40.0-70.0) H 06/28/22 05:05 Seg Neuts % (Manual) 85.0 % (40.0-70.0) H 06/26/22 09:13 Band Neutrophils % 0 % 06/26/22 09:13 Lymphocytes % (Manual) 6.0 % (13.4-35.0) L 06/26/22 09:13 Reactive Lymphs % (Man) 0 % 06/26/22 09:13 Monocytes % (Manual) 8.0 % (0.0-7.3) H 06/26/22 09:13 Eosinophils % (Manual) 0 % (0.0-4.3) 06/26/22 09:13 Basophils % (Manual) 1.0 % (0.0-1.8) 06/26/22 09:13 Metamyelocytes % 0 % 06/26/22 09:13 Myelocytes % 0 % 06/26/22 09:13 Promyelocytes % 0 % 06/26/22 09:13 Blast Cells % 0 % 06/26/22 09:13 Nucleated RBC % Not Reportable 06/26/22 09:13 Seg Neutrophils # 9.1 K/mm3 (1.8-7.7) H 06/28/22 05:05 Seg Neutrophils # Man 14.7 K/mm3 (1.8-7.7) H 06/26/22 09:13 Band Neutrophils # 0.0 K/mm3 06/26/22 09:13 Lymphocytes # (Manual) 1.0 K/mm3 (1.2-5.4) L 06/26/22 09:13 Abs React Lymphs (Man) 0.0 K/mm3 06/26/22 09:13 Monocytes # (Manual) 1.4 K/mm3 (0.0-0.8) H 06/26/22 09:13 Eosinophils # (Manual) 0.0 K/mm3 (0.0-0.4) 06/26/22 09:13 Basophils # (Manual) 0.2 K/mm3 (0.0-0.1) H 06/26/22 09:13 Metamyelocytes # 0.0 K/mm3 06/26/22 09:13 Myelocytes # 0.0 K/mm3 06/26/22 09:13 Promyelocytes # 0.0 K/mm3 06/26/22 09:13 Blast Cells # 0.0 K/mm3 06/26/22 09:13 WBC Morphology Not Reportable 06/26/22 09:13 Hypersegmented Neuts Not Reportable 06/26/22 09:13 Hyposegmented Neuts Not Reportable 06/26/22 09:13 Hypogranular Neuts Not Reportable 06/26/22 09:13 Smudge Cells Not Reportable 06/26/22 09:13 Toxic Granulation Not Reportable 06/26/22 09:13 Toxic Vacuolation Not Reportable 06/26/22 09:13 Dohle Bodies Not Reportable 06/26/22 09:13 Pelger-Huet Anomaly Not Reportable 06/26/22 09:13 Radha Rods Not Reportable 06/26/22 09:13 Platelet Estimate Consistent w auto 06/26/22 09:13 Clumped Platelets Not Reportable 06/26/22 09:13 Plt Clumps, EDTA Not Reportable 06/26/22 09:13 Large Platelets Not Reportable 06/26/22 09:13 Giant Platelets Not Reportable 06/26/22 09:13 Platelet Satelliting Not Reportable 06/26/22 09:13 Plt Morphology Comment Not Reportable 06/26/22 09:13 RBC Morphology Normal 06/26/22 09:13 Dimorphic RBCs Not Reportable 06/26/22 09:13 Polychromasia Not Reportable 06/26/22 09:13 Hypochromasia Not Reportable 06/26/22 09:13 Poikilocytosis Not Reportable 06/26/22 09:13 Anisocytosis Not Reportable 06/26/22 09:13 Microcytosis Not Reportable 06/26/22 09:13 Macrocytosis Not Reportable 06/26/22 09:13 Spherocytes Not Reportable 06/26/22 09:13 Pappenheimer Bodies Not Reportable 06/26/22 09:13 Sickle Cells Not Reportable 06/26/22 09:13 Target Cells Not Reportable 06/26/22 09:13 Tear Drop Cells Not Reportable 06/26/22 09:13 Ovalocytes Not Reportable 06/26/22 09:13 Helmet Cells Not Reportable 06/26/22 09:13 Alfaro-Samson Bodies Not Reportable 06/26/22 09:13 [place] Rings Not Reportable 06/26/22 09:13 Cheryle Cells Not Reportable 06/26/22 09:13 Bite Cells Not Reportable 06/26/22 09:13 Crenated Cell Not Reportable 06/26/22 09:13 Elliptocytes Not Reportable 06/26/22 09:13 Acanthocytes (Spur) Not Reportable 06/26/22 09:13 Rouleaux Not Reportable 06/26/22 09:13 Hemoglobin C Crystals Not Reportable 06/26/22 09:13 Schistocytes Not Reportable 06/26/22 09:13 Malaria parasites Not Reportable 06/26/22 09:13 Roland Bodies Not Reportable 06/26/22 09:13 Hem Pathologist Commnt No 06/26/22 09:13 Sodium 139 mmol/L (137-145) 07/06/22 05:58 Potassium 4.6 mmol/L (3.6-5.0) 07/06/22 05:58 Chloride 101.9 mmol/L (98-107) 07/06/22 05:58 Carbon Dioxide 23 mmol/L (22-30) 07/06/22 05:58 Anion Gap 19 mmol/L 07/06/22 05:58 BUN 51 mg/dL (9-20) H 07/06/22 05:58 Creatinine 1.0 mg/dL (0.8-1.3) 07/06/22 05:58 Estimated GFR > 60 ml/min 07/06/22 05:58 BUN/Creatinine Ratio 51 % 07/06/22 05:58 Glucose 123 mg/dL (75-100) H 07/06/22 05:58 POC Glucose 85 mg/dL (70-105) 07/13/22 05:23 Hemoglobin A1c 5.7 % (4-6) 07/11/22 07:56 Lactic Acid 0.80 mmol/L (0.7-2.0) 06/18/22 17:20 Calcium 9.6 mg/dL (8.4-10.2) 07/06/22 05:58 Total Bilirubin 0.80 mg/dL (0.1-1.2) 06/23/22 13:00 AST 19 units/L (5-40) 06/23/22 13:00 ALT 21 units/L (7-56) 06/23/22 13:00 Alkaline Phosphatase 66 units/L (35-129) 06/23/22 13:00 Ammonia 16.0 umol/L (25-60) L 06/23/22 13:00 Total Creatine Kinase 383 units/L (55-170) H 06/18/22 17:20 Troponin T < 0.010 ng/mL (0.00-0.029) 06/18/22 17:20 Total Protein 6.9 g/dL (6.3-8.2) 06/23/22 13:00 Albumin 3.6 g/dL (3.9-5) L 06/23/22 13:00 Albumin/Globulin Ratio 1.1 % 06/23/22 13:00 Vitamin B1 110 nmol/L (8-30) H 06/19/22 20:22 Vitamin B12 2000 pg/mL (211-911) H 06/19/22 20:22 Folate 20.00 ng/mL (7.3-26.0) 06/19/22 20:22 TSH 1.320 mlU/mL (0.270-4.200) 06/19/22 20:22 Urine Color Colorless (Yellow) 06/18/22 Unknown Urine Turbidity Clear (Clear) 06/18/22 Unknown Urine pH 5.0 (5.0-7.0) 06/18/22 Unknown Ur Specific [place] 1.015 (1.003-1.030) 06/18/22 Unknown Urine Protein 30 mg/dl mg/dL (Negative) 06/18/22 Unknown Urine Glucose (UA) Negative mg/dL (Negative) 06/18/22 Unknown Urine Ketones 25 mg/dL (Negative) 06/18/22 Unknown Urine Blood Negative (Negative) 06/18/22 Unknown Urine Nitrite Negative (Negative) 06/18/22 Unknown Urine Bilirubin Negative (Negative) 06/18/22 Unknown Urine Urobilinogen 0.2 mg/dL (<2.0) 06/18/22 Unknown Ur Leukocyte Esterase Negative (Negative) 06/18/22 Unknown Urine WBC (Auto) 1.0 /HPF (0.0-6.0) 06/18/22 Unknown Urine RBC (Auto) < 1.0 /HPF (0.0-6.0) 06/18/22 Unknown Urine Mucus Few /HPF 06/18/22 Unknown Nasal Screen MRSA (PCR) Negative (Negative) 06/21/22 08:50 Urine Opiates Screen Negative 06/19/22 10:49 Urine Methadone Screen Negative 06/19/22 10:49 Ur Barbiturates Screen Negative 06/19/22 10:49 Ur Phencyclidine Scrn Negative 06/19/22 10:49 Ur Amphetamines Screen Negative 06/19/22 10:49 U Benzodiazepines Scrn Negative 06/19/22 10:49 Urine Cocaine Screen Negative 06/19/22 10:49 U Marijuana (THC) Screen Negative 06/19/22 10:49 Drugs of Abuse Note Disclamer 06/19/22 10:49 Plasma/Serum Alcohol < 0.01 % (0-0.07) 06/18/22 17:20 SARS-CoV-2 (PCR) Negative (Negative) 07/06/22 12:21 [place]/IV: Voiding Method Incontinent Active Medications - Current Medications Current Medications: Generic Name Dose Route Start Last Admin Trade Name Freq PRN Reason Stop Dose Admin Acetaminophen 650 mg 06/18/22 23:08 07/02/22 11:16 Acetaminophen 325 Mg Tab PO 650 mg Q4H PRN Administration Pain MILD(1-3)/Fever >100.5/MCGEE Heparin Sodium (Porcine) 5,000 unit 06/19/22 06:00 07/13/22 06:36 Heparin 5,000 Unit/1 Ml Vial SUB-Q 5,000 unit Q8HR DAVID Administration Magnesium Hydroxide 30 ml 06/18/22 23:08 Magnesium Hydroxide (Mom) Oral Liqd Udc PO Q4H PRN Constipation Metoprolol Tartrate 25 mg 06/23/22 13:00 07/12/22 22:05 Metoprolol Tartrate 25 Mg Tab PO 25 mg BID DAVID Administration Morphine Sulfate 2 mg 06/18/22 23:08 07/13/22 00:19 Morphine 2 Mg/1 Ml Inj IV 2 mg Q4H PRN Administration Pain, Moderate (4-6) Morphine Sulfate 4 mg 06/18/22 23:08 07/12/22 20:42 Morphine 4 Mg/1 Ml Inj IV 4 mg Q4H PRN Administration Pain , Severe (7-10) Olanzapine 2.5 mg 06/25/22 22:00 07/12/22 22:07 Olanzapine 2.5 Mg Tab PO 2.5 mg QHS DAVID Administration Ondansetron HCl 4 mg 06/18/22 23:08 Ondansetron 4 Mg/2 Ml Inj IV Q8H PRN Nausea And Vomiting Quetiapine Fumarate 12.5 mg 07/13/22 14:00 Quetiapine 25 Mg Tab PO DAILY DAVID Sodium Chloride 10 ml 06/19/22 10:00 07/12/22 22:06 Sodium Chloride 0.9% 10 Ml Flush Syringe IV 10 ml BID DAVID Administration Sodium Chloride 10 ml 06/18/22 23:08 Sodium Chloride 0.9% 10 Ml Flush Syringe IV PRN PRN LINE FLUSH Nutrition/Malnutrition Assess - Dietary Evaluation Nutrition/Malnutrition Findings: Nutrition Notes Start: 06/24/22 14:15 Freq: Status: Active Protocol: Document 07/08/22 16:25 CUATE (Rec: 07/08/22 16:38 CUATE [id number]) Nutrition Notes Initial or Follow up Brief Note Other Pertinent Diagnosis Metabolic encephalopathy, EtOH dependence Current Diet Regular Diet (from D 07/08), D Suppl (since D 07/02). Height 5 ft 10 in Weight 56.9 kg [place] Body Weight (kg) 75.45 BMI 18.0 Weight change and time frame Discrepancy of 7.3 Kg body weight loss in 1 day reported. Unable to contact RN over the phone to verify anthropometrics; likely an error. Weight Status Underweight Subjective/Other Information RD consult for Low BMI assessment. Will verify anthropometrics at F/U. Pt's PO intake of meals has been Fair (>50%), and fairly tolerated, according to ADL notes. Pt is on Room Air, O2 saturation @ 96%, according to Physical Assessment History notes. Percent of energy/protein needs met: Prescribed Regular Diet provides for energy/protein needs (2,289 Kcal/89 g) during LOS; additionally, Dietary Supplements will compensate for possible poor or insufficient PO intake of meals with 320 Kcal and 32 g of protein. Current % PO Fair (50-74%) #1 Nutrition Diagnosis Inadequate protein-energy intake Comments: Pt's PO intake of meals has been Fair (>50%), and fairly tolerated, according to ADL notes. Diagnosis Progress(for reassessment Continues documentation) Is patient on ventilator? No Is Patient Ambulatory and/or Out of Bed No REE-([facility] Jeor-confined to bed) 1614.240 Kcal/Kg value to use for calculation 36 Approximate Energy Requirements Using 2048 kcal/Kg Calculation Used for Recommendations Kcal/kg Additional Notes Protein: 1-1.2 g/Kg ABW; 64-77 g/day. Fluids: 1 ml/Kcal, or as per MD. Nutrition Intervention Change Diet Order: Advance to Regular Diet as tolerated. Add Supplement/Snack (indicate name/kcal Continue 8 fl oz Ensure High /protein ) Protein; BID. Provides kCal: 320 Provides Protein (gm) 32 Goal #1 Compensate, through dietary supplementation, for possible poor or insufficient PO intake of meals during LOS. Goal #2 Adjust the dietary intervention to better serve Pt's needs and clinical conditions during LOS. Follow-Up By: 07/14/22 Additional Comments Continue monitoring food tolerance, %PO intake of meals , dietary supplements, and BM.
[2022-07-13] MEDS: QUEtiapine 25 MG TAB PO SCH (14:42)
[2022-07-14] MEDS: HEPARIN 5,000 UNIT/1 ML VIAL SUB-Q SCH ×3 (05:43→21:53)
[2022-07-14] MEDS: METOPROLOL TARTRATE 25 MG TAB PO SCH ×2 (10:23→21:52)
[2022-07-14] MEDS: QUEtiapine 25 MG TAB PO SCH (10:23)
--- NOTE | 2022-07-14 13:02 | Progress Note ---
Assessment and Plan Assessment and plan: #Refractory metabolic encephalopathy-resolved Refractory despite patient being out of the window for alcohol withdrawal symptoms. Repeating CMP, CBC, and ammonia level. Original CT head noncontrast unremarkable for acute findings. Low clinical suspicion for acute ischemic CVA given patient does not have any focal deficits. Unremarkable urinalysis and UDS. -Continue Zyprexa 2.5 mg daily; Psych reconsulted due to patient combativeness with nursing -seroquel 12.5mg qhs was started today -MRI held due to improvement in mental status -PT evaluation ordered: subacute rehab recommendation; CM aware #Acute hypoxic respiratory failure-resolved - etiology: possible infection (COVID or HAP) vs volume overload; COVID negative - baseline oxygen requirements: room air - supplemental oxygen: patient currently on RA - Continue protocol: continue pulse oximetry, wean oxygen as tolerated, ordered incentive spirometry and educated patient on how to use it and its importance. Unremarkable coronavirus PCR. Discontinued antibiotics as low suspicion for infection. - continue to monitor #Alcohol withdrawal-resolved #Tachycardiaresolved #Alcohol dependence -s/p CIWA protocol and librium taper, patient out of window for alcohol withdrawal. #Volume depletion-resolved #Advanced care planning -Disease education conducted, care plan discussed, diagnoses discussed, progn osis discussed, and patient acknowledges understanding with care plan -Time: +30 min #Social: Extreme difficulty with finding patient's next of kin or friends. Patient was able to provide names of family members: FatherMichael Sr Milan.; motherElvira Radha Mcfarland; sisterBeth Radha Mcfarland; sisterNorma Bartolo. Friends of the patient have been located, and they are excited to be involved with finding the patient placement. They presented to the bedside on 07/07/2022 at the request of case management. #Discharge planning -Patient discharged from [facility] and was initially transferred from a hospital in [facility] -Pending SNF authorization/placement. History Interval history: Patient combative and awake through the night. Patient sleeping at time of examination. He did rouse and went back to sleep. Hospitalist Physical - Physical exam Narrative exam: GENERAL: Thin elderly male. In no acute distress. HEENT: NC in place at 3LPM CHEST/LUNGS: Coarse breath sounds bilaterally. HEART/CARDIOVASCULAR: RRR. No murmur, rubs or gallops appreciated. ABDOMEN: +BS. NT/ND. NEURO: No noted focal deficits. MUSCULOSKELETAL: No joint effusion EXTREMITIES: No cyanosis, clubbing or edema. PSYCH: Cooperative. Combative when awaken. - Constitutional Vitals: Temp Pulse Resp BP Pulse Ox 97.5 F L 70 16 100/72 81 L 07/14/22 12:09 07/14/22 10:23 07/14/22 12:09 07/14/22 12:09 07/14/22 08:18 General appearance: Present: no acute distress, cachectic, disheveled HEART Score - HEART Score Troponin: Troponin T < 0.010 ng/mL (0.00-0.029) 06/18/22 17:20 Results - Labs CBC & Chem 7: 07/01/22 05:39 07/06/22 05:58 Labs: Laboratory Last Values WBC 10.2 K/mm3 (4.5-11.0) 07/01/22 05:39 RBC 4.78 M/mm3 (3.65-5.03) 07/01/22 05:39 Hgb 15.2 gm/dl (11.8-15.2) 07/01/22 05:39 Hct 45.7 % (35.5-45.6) H 07/01/22 05:39 MCV 95 fl (84-94) H 07/01/22 05:39 MCH 32 pg (28-32) 07/01/22 05:39 MCHC 33 % (32-34) 07/01/22 05:39 RDW 12.3 % (13.2-15.2) L 07/01/22 05:39 Plt Count 384 K/mm3 (140-440) 07/01/22 05:39 Lymph % (Auto) 15.1 % (13.4-35.0) 06/28/22 05:05 Wallace % (Auto) 9.5 % (0.0-7.3) H 06/28/22 05:05 Eos % (Auto) 2.0 % (0.0-4.3) 06/28/22 05:05 Baso % (Auto) 0.8 % (0.0-1.8) 06/28/22 05:05 Lymph # (Auto) 1.9 K/mm3 (1.2-5.4) 06/28/22 05:05 Wallace # (Auto) 1.2 K/mm3 (0.0-0.8) H 06/28/22 05:05 Eos # (Auto) 0.3 K/mm3 (0.0-0.4) 06/28/22 05:05 Baso # (Auto) 0.1 K/mm3 (0.0-0.1) 06/28/22 05:05 Add Manual Diff Complete 06/26/22 09:13 Total Counted 100 06/26/22 09:13 Seg Neutrophils % 72.6 % (40.0-70.0) H 06/28/22 05:05 Seg Neuts % (Manual) 85.0 % (40.0-70.0) H 06/26/22 09:13 Band Neutrophils % 0 % 06/26/22 09:13 Lymphocytes % (Manual) 6.0 % (13.4-35.0) L 06/26/22 09:13 Reactive Lymphs % (Man) 0 % 06/26/22 09:13 Monocytes % (Manual) 8.0 % (0.0-7.3) H 06/26/22 09:13 Eosinophils % (Manual) 0 % (0.0-4.3) 06/26/22 09:13 Basophils % (Manual) 1.0 % (0.0-1.8) 06/26/22 09:13 Metamyelocytes % 0 % 06/26/22 09:13 Myelocytes % 0 % 06/26/22 09:13 Promyelocytes % 0 % 06/26/22 09:13 Blast Cells % 0 % 06/26/22 09:13 Nucleated RBC % Not Reportable 06/26/22 09:13 Seg Neutrophils # 9.1 K/mm3 (1.8-7.7) H 06/28/22 05:05 Seg Neutrophils # Man 14.7 K/mm3 (1.8-7.7) H 06/26/22 09:13 Band Neutrophils # 0.0 K/mm3 06/26/22 09:13 Lymphocytes # (Manual) 1.0 K/mm3 (1.2-5.4) L 06/26/22 09:13 Abs React Lymphs (Man) 0.0 K/mm3 06/26/22 09:13 Monocytes # (Manual) 1.4 K/mm3 (0.0-0.8) H 06/26/22 09:13 Eosinophils # (Manual) 0.0 K/mm3 (0.0-0.4) 06/26/22 09:13 Basophils # (Manual) 0.2 K/mm3 (0.0-0.1) H 06/26/22 09:13 Metamyelocytes # 0.0 K/mm3 06/26/22 09:13 Myelocytes # 0.0 K/mm3 06/26/22 09:13 Promyelocytes # 0.0 K/mm3 06/26/22 09:13 Blast Cells # 0.0 K/mm3 06/26/22 09:13 WBC Morphology Not Reportable 06/26/22 09:13 Hypersegmented Neuts Not Reportable 06/26/22 09:13 Hyposegmented Neuts Not Reportable 06/26/22 09:13 Hypogranular Neuts Not Reportable 06/26/22 09:13 Smudge Cells Not Reportable 06/26/22 09:13 Toxic Granulation Not Reportable 06/26/22 09:13 Toxic Vacuolation Not Reportable 06/26/22 09:13 Dohle Bodies Not Reportable 06/26/22 09:13 Pelger-Huet Anomaly Not Reportable 06/26/22 09:13 Radha Rods Not Reportable 06/26/22 09:13 Platelet Estimate Consistent w auto 06/26/22 09:13 Clumped Platelets Not Reportable 06/26/22 09:13 Plt Clumps, EDTA Not Reportable 06/26/22 09:13 Large Platelets Not Reportable 06/26/22 09:13 Giant Platelets Not Reportable 06/26/22 09:13 Platelet Satelliting Not Reportable 06/26/22 09:13 Plt Morphology Comment Not Reportable 06/26/22 09:13 RBC Morphology Normal 06/26/22 09:13 Dimorphic RBCs Not Reportable 06/26/22 09:13 Polychromasia Not Reportable 06/26/22 09:13 Hypochromasia Not Reportable 06/26/22 09:13 Poikilocytosis Not Reportable 06/26/22 09:13 Anisocytosis Not Reportable 06/26/22 09:13 Microcytosis Not Reportable 06/26/22 09:13 Macrocytosis Not Reportable 06/26/22 09:13 Spherocytes Not Reportable 06/26/22 09:13 Pappenheimer Bodies Not Reportable 06/26/22 09:13 Sickle Cells Not Reportable 06/26/22 09:13 Target Cells Not Reportable 06/26/22 09:13 Tear Drop Cells Not Reportable 06/26/22 09:13 Ovalocytes Not Reportable 06/26/22 09:13 Helmet Cells Not Reportable 06/26/22 09:13 [place] Bodies Not Reportable 06/26/22 09:13 [place] Rings Not Reportable 06/26/22 09:13 Cher[place] Cells Not Reportable 06/26/22 09:13 Bite Cells Not Reportable 06/26/22 09:13 Crenated Cell Not Reportable 06/26/22 09:13 Elliptocytes Not Reportable 06/26/22 09:13 Acanthocytes (Spur) Not Reportable 06/26/22 09:13 Rouleaux Not Reportable 06/26/22 09:13 Hemoglobin C Crystals Not Reportable 06/26/22 09:13 Schistocytes Not Reportable 06/26/22 09:13 Malaria parasites Not Reportable 06/26/22 09:13 Roland Bodies Not Reportable 06/26/22 09:13 Hem Pathologist Commnt No 06/26/22 09:13 Sodium 139 mmol/L (137-145) 07/06/22 05:58 Potassium 4.6 mmol/L (3.6-5.0) 07/06/22 05:58 Chloride 101.9 mmol/L (98-107) 07/06/22 05:58 Carbon Dioxide 23 mmol/L (22-30) 07/06/22 05:58 Anion Gap 19 mmol/L 07/06/22 05:58 BUN 51 mg/dL (9-20) H 07/06/22 05:58 Creatinine 1.0 mg/dL (0.8-1.3) 07/06/22 05:58 Estimated GFR > 60 ml/min 07/06/22 05:58 BUN/Creatinine Ratio 51 % 07/06/22 05:58 Glucose 123 mg/dL (75-100) H 07/06/22 05:58 POC Glucose 75 mg/dL (70-105) 07/14/22 05:25 Hemoglobin A1c 5.7 % (4-6) 07/11/22 07:56 Lactic Acid 0.80 mmol/L (0.7-2.0) 06/18/22 17:20 Calcium 9.6 mg/dL (8.4-10.2) 07/06/22 05:58 Total Bilirubin 0.80 mg/dL (0.1-1.2) 06/23/22 13:00 AST 19 units/L (5-40) 06/23/22 13:00 ALT 21 units/L (7-56) 06/23/22 13:00 Alkaline Phosphatase 66 units/L (35-129) 06/23/22 13:00 Ammonia 16.0 umol/L (25-60) L 06/23/22 13:00 Total Creatine Kinase 383 units/L (55-170) H 06/18/22 17:20 Troponin T < 0.010 ng/mL (0.00-0.029) 06/18/22 17:20 Total Protein 6.9 g/dL (6.3-8.2) 06/23/22 13:00 Albumin 3.6 g/dL (3.9-5) L 06/23/22 13:00 Albumin/Globulin Ratio 1.1 % 06/23/22 13:00 Vitamin B1 110 nmol/L (8-30) H 06/19/22 20:22 Vitamin B12 2000 pg/mL (211-911) H 06/19/22 20:22 Folate 20.00 ng/mL (7.3-26.0) 06/19/22 20:22 TSH 1.320 mlU/mL (0.270-4.200) 06/19/22 20:22 Urine Color Colorless (Yellow) 06/18/22 Unknown Urine Turbidity Clear (Clear) 06/18/22 Unknown Urine pH 5.0 (5.0-7.0) 06/18/22 Unknown Ur Specific [place] 1.015 (1.003-1.030) 06/18/22 Unknown Urine Protein 30 mg/dl mg/dL (Negative) 06/18/22 Unknown Urine Glucose (UA) Negative mg/dL (Negative) 06/18/22 Unknown Urine Ketones 25 mg/dL (Negative) 06/18/22 Unknown Urine Blood Negative (Negative) 06/18/22 Unknown Urine Nitrite Negative (Negative) 06/18/22 Unknown Urine Bilirubin Negative (Negative) 06/18/22 Unknown Urine Urobilinogen 0.2 mg/dL (<2.0) 06/18/22 Unknown Ur Leukocyte Esterase Negative (Negative) 06/18/22 Unknown Urine WBC (Auto) 1.0 /HPF (0.0-6.0) 06/18/22 Unknown Urine RBC (Auto) < 1.0 /HPF (0.0-6.0) 06/18/22 Unknown Urine Mucus Few /HPF 06/18/22 Unknown Nasal Screen MRSA (PCR) Negative (Negative) 06/21/22 08:50 Urine Opiates Screen Negative 06/19/22 10:49 Urine Methadone Screen Negative 06/19/22 10:49 Ur Barbiturates Screen Negative 06/19/22 10:49 Ur Phencyclidine Scrn Negative 06/19/22 10:49 Ur Amphetamines Screen Negative 06/19/22 10:49 U Benzodiazepines Scrn Negative 06/19/22 10:49 Urine Cocaine Screen Negative 06/19/22 10:49 U Marijuana (THC) Screen Negative 06/19/22 10:49 Drugs of Abuse Note Disclamer 06/19/22 10:49 Plasma/Serum Alcohol < 0.01 % (0-0.07) 06/18/22 17:20 SARS-CoV-2 (PCR) Negative (Negative) 07/06/22 12:21 [place]/IV: Voiding Method Incontinent Active Medications - Current Medications Current Medications: Generic Name Dose Route Start Last Admin Trade Name Freq PRN Reason Stop Dose Admin Acetaminophen 650 mg 06/18/22 23:08 07/02/22 11:16 Acetaminophen 325 Mg Tab PO 650 mg Q4H PRN Administration Pain MILD(1-3)/Fever >100.5/MCGEE Heparin Sodium (Porcine) 5,000 unit 06/19/22 06:00 07/14/22 05:43 Heparin 5,000 Unit/1 Ml Vial SUB-Q 5,000 unit Q8HR DAVID Administration Magnesium Hydroxide 30 ml 06/18/22 23:08 Magnesium Hydroxide (Mom) Oral Liqd Udc PO Q4H PRN Constipation Metoprolol Tartrate 25 mg 06/23/22 13:00 07/14/22 10:23 Metoprolol Tartrate 25 Mg Tab PO 25 mg BID DAVID Administration Morphine Sulfate 2 mg 06/18/22 23:08 07/13/22 00:19 Morphine 2 Mg/1 Ml Inj IV 2 mg Q4H PRN Administration Pain, Moderate (4-6) Morphine Sulfate 4 mg 06/18/22 23:08 07/12/22 20:42 Morphine 4 Mg/1 Ml Inj IV 4 mg Q4H PRN Administration Pain , Severe (7-10) Olanzapine 2.5 mg 06/25/22 22:00 07/13/22 21:36 Olanzapine 2.5 Mg Tab PO 2.5 mg QHS DAVID Administration Ondansetron HCl 4 mg 06/18/22 23:08 Ondansetron 4 Mg/2 Ml Inj IV Q8H PRN Nausea And Vomiting Quetiapine Fumarate 12.5 mg 07/14/22 22:00 Quetiapine 25 Mg Tab PO QHS DAVID Sodium Chloride 10 ml 06/19/22 10:00 07/14/22 10:25 Sodium Chloride 0.9% 10 Ml Flush Syringe IV 10 ml BID DAVID Administration Sodium Chloride 10 ml 06/18/22 23:08 Sodium Chloride 0.9% 10 Ml Flush Syringe IV PRN PRN LINE FLUSH Nutrition/Malnutrition Assess - Dietary Evaluation Nutrition/Malnutrition Findings: Nutrition Notes Start: 06/24/22 14:15 Freq: Status: Active Protocol: Document 07/08/22 16:25 CUATE (Rec: 07/08/22 16:38 CUATE [id number]) Nutrition Notes Initial or Follow up Brief Note Other Pertinent Diagnosis Metabolic encephalopathy, EtOH dependence Current Diet Regular Diet (from D 07/08), D Suppl (since D 07/02). Height 5 ft 10 in Weight 56.9 kg [place] Body Weight (kg) 75.45 BMI 18.0 Weight change and time frame Discrepancy of 7.3 Kg body weight loss in 1 day reported. Unable to contact RN over the phone to verify anthropometrics; likely an error. Weight Status Underweight Subjective/Other Information RD consult for Low BMI assessment. Will verify anthropometrics at F/U. Pt's PO intake of meals has been Fair (>50%), and fairly tolerated, according to ADL notes. Pt is on Room Air, O2 saturation @ 96%, according to Physical Assessment History notes. Percent of energy/protein needs met: Prescribed Regular Diet provides for energy/protein needs (2,289 Kcal/89 g) during LOS; additionally, Dietary Supplements will compensate for possible poor or insufficient PO intake of meals with 320 Kcal and 32 g of protein. Current % PO Fair (50-74%) #1 Nutrition Diagnosis Inadequate protein-energy intake Comments: Pt's PO intake of meals has been Fair (>50%), and fairly tolerated, according to ADL notes. Diagnosis Progress(for reassessment Continues documentation) Is patient on ventilator? No Is Patient Ambulatory and/or Out of Bed No REE-([facility]-confined to bed) 1614.240 Kcal/Kg value to use for calculation 36 Approximate Energy Requirements Using 2048 kcal/Kg Calculation Used for Recommendations Kcal/kg Additional Notes Protein: 1-1.2 g/Kg ABW; 64-77 g/day. Fluids: 1 ml/Kcal, or as per MD. Nutrition Intervention Change Diet Order: Advance to Regular Diet as tolerated. Add Supplement/Snack (indicate name/kcal Continue 8 fl oz Ensure High /protein ) Protein; BID. Provides kCal: 320 Provides Protein (gm) 32 Goal #1 Compensate, through dietary supplementation, for possible poor or insufficient PO intake of meals during LOS. Goal #2 Adjust the dietary intervention to better serve Pt's needs and clinical conditions during LOS. Follow-Up By: 07/14/22 Additional Comments Continue monitoring food tolerance, %PO intake of meals , dietary supplements, and BM.
--- NOTE | 2022-07-14 15:02 | Progress Note ---
Subjective - Reason for Consult Consult date: 07/14/22 Reason for consult: AMS - Chief Complaint Chief complaint: The patient was seen today. He is in bed awake. He has on two point restraints. He is confused and talking nonsensically. He says "my chicken is okay." Staff documents the patient yelling, trying to get out of bed, hitting and shaking side rails. REVIEW OF SYSTEMS: Unable to assess MENTAL STATUS: Unable to assess Assessment Delirium Treatment Plan Increase Olanzapine 5mg to qhs D/c Seroquel to prevent polypharmacy Start Mirtazepin 7.5mg po qhs Start Haldol 5mg IM q6h prn agitation Medical: Per primary SItter: Defer to primary Deposition: Do not recommend acute psychiatric inpatient. Will follow for med management. Thanks Case staffed with Dr. Alvarado Mental Status Exam - Vital signs Last Vital Signs Temp 97.5 F L 07/14/22 12:09 Pulse 70 07/14/22 10:23 Resp 16 07/14/22 12:09 BP 100/72 07/14/22 12:09 Pulse Ox 81 L 07/14/22 08:18
[2022-07-14] MEDS: MIRTAZAPINE 15 MG TAB PO SCH (21:52)
[2022-07-14] MEDS ORDERED: QUEtiapine 25 MG TAB PO SCH (22:00)
[2022-07-15] MEDS: HEPARIN 5,000 UNIT/1 ML VIAL SUB-Q SCH ×3 (05:24→21:34)
[2022-07-15] MEDS: METOPROLOL TARTRATE 25 MG TAB PO SCH ×2 (10:45→21:29)
[2022-07-15] MEDS: HALOPERIDOL LACTATE 5 MG/1 ML INJ IM PRN (10:45)
--- NOTE | 2022-07-15 12:33 | Progress Note ---
Subjective - Reason for Consult Consult date: 07/15/22 Reason for consult: agitation - Chief Complaint Chief complaint: The patient was seen today. He is asleep and unable to be aroused. He in restraints. The patient is disheveled. Staff documents the patient yelling, trying to get out of bed, hitting and shaking side rails. REVIEW OF SYSTEMS: Unable to assess MENTAL STATUS: Unable to assess Assessment Delirium Treatment Plan Olanzapine 5mg to qhs Mirtazepin 7.5mg po qhs Haldol 5mg IM q6h prn agitation Medical: Per primary SItter: Defer to primary Deposition: Do not recommend acute psychiatric inpatient. Will follow for med management. Thanks Case staffed with Dr. Alvarado Mental Status Exam - Vital signs Last Vital Signs Temp 97.6 F 07/15/22 03:35 Pulse 73 07/15/22 11:04 Resp 18 07/15/22 03:35 BP 99/64 07/15/22 11:04 Pulse Ox 100 07/15/22 11:04
--- NOTE | 2022-07-15 13:03 | Progress Note ---
Assessment and Plan Assessment and plan: #Refractory metabolic encephalopathy-resolved Refractory despite patient being out of the window for alcohol withdrawal symptoms. Repeating CMP, CBC, and ammonia level. Original CT head noncontrast unremarkable for acute findings. Low clinical suspicion for acute ischemic CVA given patient does not have any focal deficits. Unremarkable urinalysis and UDS. -Continue Zyprexa 5 mg daily; Psych reconsulted due to patient combativeness with nursing -continue mirtazapine -MRI held due to improvement in mental status -PT evaluation ordered: subacute rehab recommendation; CM aware #Acute hypoxic respiratory failure-resolved - etiology: possible infection (COVID or HAP) vs volume overload; COVID negative - baseline oxygen requirements: room air - supplemental oxygen: patient currently on RA - Continue protocol: continue pulse oximetry, wean oxygen as tolerated, ordered incentive spirometry and educated patient on how to use it and its importance. Unremarkable coronavirus PCR. Discontinued antibiotics as low suspicion for infection. - continue to monitor #Alcohol withdrawal-resolved #Tachycardiaresolved #Alcohol dependence -s/p CIWA protocol and librium taper, patient out of window for alcohol withdrawal. #Volume depletion-resolved #Advanced care planning -Disease education conducted, care plan discussed, diagnoses discussed, prognosis discussed, and patient acknowledges understanding with care plan -Time: +30 min #Social: Extreme difficulty with finding patient's next of kin or friends. Patient was able to provide names of family members: FatherMichael Yates Sr.; motherElvira Radha Mcfarland; sisterBeth Radha Mcfarland; sisterNorma Bartolo. Friends of the patient have been located, and they are excited to be involved with finding the patient placement. They presented to the bedside on 07/07/2022 at the request of case management. #Discharge planning -Patient discharged from [facility] and was initially transferred from a hospital in [facility] -According to nursing, over the weekend a call was received from [facility]'s office where they were informed that the patient has active warrants out for his arrest. Patient will likely be discharged to the [facility]. Patient is currently alert and aware enough for a safe discharge History Interval history: Patient was awake and alert during examination. He became angry at questioning. He has no acute complaints at this time. Hospitalist Physical - Physical exam Narrative exam: GENERAL: Thin elderly male. In no acute distress. HEENT: Atraumatic, Normocephalic. CHEST/LUNGS: Coarse breath sounds bilaterally. HEART/CARDIOVASCULAR: RRR. No murmur, rubs or gallops appreciated. ABDOMEN: +BS. NT/ND. NEURO: No noted focal deficits. MUSCULOSKELETAL: No joint effusion EXTREMITIES: No cyanosis, clubbing or edema. PSYCH: Cooperative. - Constitutional Vitals: Temp Pulse Resp BP Pulse Ox 97.6 F 73 18 99/64 100 07/15/22 03:35 07/15/22 11:04 07/15/22 03:35 07/15/22 11:04 07/15/22 11:04 General appearance: Present: no acute distress, cachectic, disheveled HEART Score - HEART Score Troponin: Troponin T < 0.010 ng/mL (0.00-0.029) 06/18/22 17:20 Results - Labs CBC & Chem 7: 07/01/22 05:39 07/06/22 05:58 Labs: Laboratory Last Values WBC 10.2 K/mm3 (4.5-11.0) 07/01/22 05:39 RBC 4.78 M/mm3 (3.65-5.03) 07/01/22 05:39 Hgb 15.2 gm/dl (11.8-15.2) 07/01/22 05:39 Hct 45.7 % (35.5-45.6) H 07/01/22 05:39 MCV 95 fl (84-94) H 07/01/22 05:39 MCH 32 pg (28-32) 07/01/22 05:39 MCHC 33 % (32-34) 07/01/22 05:39 RDW 12.3 % (13.2-15.2) L 07/01/22 05:39 Plt Count 384 K/mm3 (140-440) 07/01/22 05:39 Lymph % (Auto) 15.1 % (13.4-35.0) 06/28/22 05:05 Cannon % (Auto) 9.5 % (0.0-7.3) H 06/28/22 05:05 Eos % (Auto) 2.0 % (0.0-4.3) 06/28/22 05:05 Baso % (Auto) 0.8 % (0.0-1.8) 06/28/22 05:05 Lymph # (Auto) 1.9 K/mm3 (1.2-5.4) 06/28/22 05:05 Cannon # (Auto) 1.2 K/mm3 (0.0-0.8) H 06/28/22 05:05 Eos # (Auto) 0.3 K/mm3 (0.0-0.4) 06/28/22 05:05 Baso # (Auto) 0.1 K/mm3 (0.0-0.1) 06/28/22 05:05 Add Manual Diff Complete 06/26/22 09:13 Total Counted 100 06/26/22 09:13 Seg Neutrophils % 72.6 % (40.0-70.0) H 06/28/22 05:05 Seg Neuts % (Manual) 85.0 % (40.0-70.0) H 06/26/22 09:13 Band Neutrophils % 0 % 06/26/22 09:13 Lymphocytes % (Manual) 6.0 % (13.4-35.0) L 06/26/22 09:13 Reactive Lymphs % (Man) 0 % 06/26/22 09:13 Monocytes % (Manual) 8.0 % (0.0-7.3) H 06/26/22 09:13 Eosinophils % (Manual) 0 % (0.0-4.3) 06/26/22 09:13 Basophils % (Manual) 1.0 % (0.0-1.8) 06/26/22 09:13 Metamyelocytes % 0 % 06/26/22 09:13 Myelocytes % 0 % 06/26/22 09:13 Promyelocytes % 0 % 06/26/22 09:13 Blast Cells % 0 % 06/26/22 09:13 Nucleated RBC % Not Reportable 06/26/22 09:13 Seg Neutrophils # 9.1 K/mm3 (1.8-7.7) H 06/28/22 05:05 Seg Neutrophils # Man 14.7 K/mm3 (1.8-7.7) H 06/26/22 09:13 Band Neutrophils # 0.0 K/mm3 06/26/22 09:13 Lymphocytes # (Manual) 1.0 K/mm3 (1.2-5.4) L 06/26/22 09:13 Abs React Lymphs (Man) 0.0 K/mm3 06/26/22 09:13 Monocytes # (Manual) 1.4 K/mm3 (0.0-0.8) H 06/26/22 09:13 Eosinophils # (Manual) 0.0 K/mm3 (0.0-0.4) 06/26/22 09:13 Basophils # (Manual) 0.2 K/mm3 (0.0-0.1) H 06/26/22 09:13 Metamyelocytes # 0.0 K/mm3 06/26/22 09:13 Myelocytes # 0.0 K/mm3 06/26/22 09:13 Promyelocytes # 0.0 K/mm3 06/26/22 09:13 Blast Cells # 0.0 K/mm3 06/26/22 09:13 WBC Morphology Not Reportable 06/26/22 09:13 Hypersegmented Neuts Not Reportable 06/26/22 09:13 Hyposegmented Neuts Not Reportable 06/26/22 09:13 Hypogranular Neuts Not Reportable 06/26/22 09:13 Smudge Cells Not Reportable 06/26/22 09:13 Toxic Granulation Not Reportable 06/26/22 09:13 Toxic Vacuolation Not Reportable 06/26/22 09:13 Dohle Bodies Not Reportable 06/26/22 09:13 Pelger-Huet Anomaly Not Reportable 06/26/22 09:13 Radha Rods Not Reportable 06/26/22 09:13 Platelet Estimate Consistent w auto 06/26/22 09:13 Clumped Platelets Not Reportable 06/26/22 09:13 Plt Clumps, EDTA Not Reportable 06/26/22 09:13 Large Platelets Not Reportable 06/26/22 09:13 Giant Platelets Not Reportable 06/26/22 09:13 Platelet Satelliting Not Reportable 06/26/22 09:13 Plt Morphology Comment Not Reportable 06/26/22 09:13 RBC Morphology Normal 06/26/22 09:13 Dimorphic RBCs Not Reportable 06/26/22 09:13 Polychromasia Not Reportable 06/26/22 09:13 Hypochromasia Not Reportable 06/26/22 09:13 Poikilocytosis Not Reportable 06/26/22 09:13 Anisocytosis Not Reportable 06/26/22 09:13 Microcytosis Not Reportable 06/26/22 09:13 Macrocytosis Not Reportable 06/26/22 09:13 Spherocytes Not Reportable 06/26/22 09:13 Pappenheimer Bodies Not Reportable 06/26/22 09:13 Sickle Cells Not Reportable 06/26/22 09:13 Target Cells Not Reportable 06/26/22 09:13 Tear Drop Cells Not Reportable 06/26/22 09:13 Ovalocytes Not Reportable 06/26/22 09:13 Helmet Cells Not Reportable 06/26/22 09:13 Alfaro-Escalante Bodies Not Reportable 06/26/22 09:13 [place] Rings Not Reportable 06/26/22 09:13 Cheryle Cells Not Reportable 06/26/22 09:13 Bite Cells Not Reportable 06/26/22 09:13 Crenated Cell Not Reportable 06/26/22 09:13 Elliptocytes Not Reportable 06/26/22 09:13 Acanthocytes (Spur) Not Reportable 06/26/22 09:13 Rouleaux Not Reportable 06/26/22 09:13 Hemoglobin C Crystals Not Reportable 06/26/22 09:13 Schistocytes Not Reportable 06/26/22 09:13 Malaria parasites Not Reportable 06/26/22 09:13 Roland Bodies Not Reportable 06/26/22 09:13 Hem Pathologist Commnt No 06/26/22 09:13 Sodium 139 mmol/L (137-145) 07/06/22 05:58 Potassium 4.6 mmol/L (3.6-5.0) 07/06/22 05:58 Chloride 101.9 mmol/L (98-107) 07/06/22 05:58 Carbon Dioxide 23 mmol/L (22-30) 07/06/22 05:58 Anion Gap 19 mmol/L 07/06/22 05:58 BUN 51 mg/dL (9-20) H 07/06/22 05:58 Creatinine 1.0 mg/dL (0.8-1.3) 07/06/22 05:58 Estimated GFR > 60 ml/min 07/06/22 05:58 BUN/Creatinine Ratio 51 % 07/06/22 05:58 Glucose 123 mg/dL (75-100) H 07/06/22 05:58 POC Glucose 105 mg/dL (70-105) 07/15/22 12:08 Hemoglobin A1c 5.7 % (4-6) 07/11/22 07:56 Lactic Acid 0.80 mmol/L (0.7-2.0) 06/18/22 17:20 Calcium 9.6 mg/dL (8.4-10.2) 07/06/22 05:58 Total Bilirubin 0.80 mg/dL (0.1-1.2) 06/23/22 13:00 AST 19 units/L (5-40) 06/23/22 13:00 ALT 21 units/L (7-56) 06/23/22 13:00 Alkaline Phosphatase 66 units/L (35-129) 06/23/22 13:00 Ammonia 16.0 umol/L (25-60) L 06/23/22 13:00 Total Creatine Kinase 383 units/L (55-170) H 06/18/22 17:20 Troponin T < 0.010 ng/mL (0.00-0.029) 06/18/22 17:20 Total Protein 6.9 g/dL (6.3-8.2) 06/23/22 13:00 Albumin 3.6 g/dL (3.9-5) L 06/23/22 13:00 Albumin/Globulin Ratio 1.1 % 06/23/22 13:00 Vitamin B1 110 nmol/L (8-30) H 06/19/22 20:22 Vitamin B12 2000 pg/mL (211-911) H 06/19/22 20:22 Folate 20.00 ng/mL (7.3-26.0) 06/19/22 20:22 TSH 1.320 mlU/mL (0.270-4.200) 06/19/22 20:22 Urine Color Colorless (Yellow) 06/18/22 Unknown Urine Turbidity Clear (Clear) 06/18/22 Unknown Urine pH 5.0 (5.0-7.0) 06/18/22 Unknown Ur Specific [place] 1.015 (1.003-1.030) 06/18/22 Unknown Urine Protein 30 mg/dl mg/dL (Negative) 06/18/22 Unknown Urine Glucose (UA) Negative mg/dL (Negative) 06/18/22 Unknown Urine Ketones 25 mg/dL (Negative) 06/18/22 Unknown Urine Blood Negative (Negative) 06/18/22 Unknown Urine Nitrite Negative (Negative) 06/18/22 Unknown Urine Bilirubin Negative (Negative) 06/18/22 Unknown Urine Urobilinogen 0.2 mg/dL (<2.0) 06/18/22 Unknown Ur Leukocyte Esterase Negative (Negative) 06/18/22 Unknown Urine WBC (Auto) 1.0 /HPF (0.0-6.0) 06/18/22 Unknown Urine RBC (Auto) < 1.0 /HPF (0.0-6.0) 06/18/22 Unknown Urine Mucus Few /HPF 06/18/22 Unknown Nasal Screen MRSA (PCR) Negative (Negative) 06/21/22 08:50 Urine Opiates Screen Negative 06/19/22 10:49 Urine Methadone Screen Negative 06/19/22 10:49 Ur Barbiturates Screen Negative 06/19/22 10:49 Ur Phencyclidine Scrn Negative 06/19/22 10:49 Ur Amphetamines Screen Negative 06/19/22 10:49 U Benzodiazepines Scrn Negative 06/19/22 10:49 Urine Cocaine Screen Negative 06/19/22 10:49 U Marijuana (THC) Screen Negative 06/19/22 10:49 Drugs of Abuse Note Disclamer 06/19/22 10:49 Plasma/Serum Alcohol < 0.01 % (0-0.07) 06/18/22 17:20 SARS-CoV-2 (PCR) Negative (Negative) 07/06/22 12:21 Quezada/IV: Voiding Method Incontinent Active Medications - Current Medications Current Medications: Generic Name Dose Route Start Last Admin Trade Name Freq PRN Reason Stop Dose Admin Acetaminophen 650 mg 06/18/22 23:08 07/02/22 11:16 Acetaminophen 325 Mg Tab PO 650 mg Q4H PRN Administration Pain MILD(1-3)/Fever >100.5/MCGEE Haloperidol Lactate 5 mg 07/14/22 15:04 07/15/22 10:45 Haloperidol Lactate 5 Mg/1 Ml Inj IM 5 mg Q6H PRN Administration Agitation Heparin Sodium (Porcine) 5,000 unit 06/19/22 06:00 07/15/22 05:24 Heparin 5,000 Unit/1 Ml Vial SUB-Q 5,000 unit Q8HR DAVID Administration Magnesium Hydroxide 30 ml 06/18/22 23:08 Magnesium Hydroxide (Mom) Oral Liqd Udc PO Q4H PRN Constipation Metoprolol Tartrate 25 mg 06/23/22 13:00 07/15/22 10:45 Metoprolol Tartrate 25 Mg Tab PO 25 mg BID DAVID Administration Mirtazapine 7.5 mg 07/14/22 22:00 07/14/22 21:52 Mirtazapine 15 Mg Tab PO 7.5 mg QHS DAVID Administration Morphine Sulfate 2 mg 06/18/22 23:08 07/13/22 00:19 Morphine 2 Mg/1 Ml Inj IV 2 mg Q4H PRN Administration Pain, Moderate (4-6) Morphine Sulfate 4 mg 06/18/22 23:08 07/12/22 20:42 Morphine 4 Mg/1 Ml Inj IV 4 mg Q4H PRN Administration Pain , Severe (7-10) Olanzapine 5 mg 07/14/22 22:00 07/14/22 21:52 Olanzapine 5 Mg Tab PO 5 mg QHS DAVID Administration Ondansetron HCl 4 mg 06/18/22 23:08 Ondansetron 4 Mg/2 Ml Inj IV Q8H PRN Nausea And Vomiting Sodium Chloride 10 ml 06/19/22 10:00 07/15/22 10:46 Sodium Chloride 0.9% 10 Ml Flush Syringe IV 10 ml BID DAVID Administration Sodium Chloride 10 ml 06/18/22 23:08 Sodium Chloride 0.9% 10 Ml Flush Syringe IV PRN PRN LINE FLUSH Nutrition/Malnutrition Assess - Dietary Evaluation Nutrition/Malnutrition Findings: Nutrition Notes Start: 06/24/22 14:15 Freq: Status: Active Protocol: Document 07/14/22 14:20 CUATE (Rec: 07/14/22 14:34 CUATE [id number]) Nutrition Notes Initial or Follow up Reassessment Other Pertinent Diagnosis EtOH dependence Current Diet Regular Diet (from D 07/08), D Suppl (since D 07/02). Labs/Tests 07/14: N/A. Pertinent Medications 07/14: Nutritionally unremarkable. Height 5 ft 10 in Weight 56.5 kg [place] Body Weight (kg) 75.45 BMI 17.9 Weight change and time frame 0.4 Kg body weight loss in 5 days reported. Weight Status Underweight Subjective/Other Information RD consult for routine F/U on dietary advancement. Diet+ONS continue as prescribed, Pt's PO intake of meals has been Fair (50- 75%) and well tolerated, according to ADL notes. Pt is on Room Air, O2 saturation @ 97%, according to Physical Assessment History notes. Pt remains incontinent, according to Physical Assessment History notes. Pt will be discharged to a SNF when medically cleared, according to Progress notes. Percent of energy/protein needs met: Prescribed Regular Diet provides for energy/protein needs (2,289 Kcal/89 g) during LOS; additionally, Dietary Supplements will compensate for possible poor or insufficient PO intake of meals with 320 Kcal and 32 g of protein. Burn Absent Trauma Absent GI Symptoms Other Food Allergy No Skin Integrity/Comment Assessment WNL. Current % PO Fair (50-74%) Minimum of two criteria No Fluid Accumulation N/A Reduced Dozer Operator Strength N/A (non-severe) Protein-Calorie Malnutrition N\A #1 Nutrition Diagnosis Inadequate protein-energy intake Comments: Pt's PO intake of meals has been Fair (50- 75%) and well tolerated, according to ADL notes. Diagnosis Progress(for reassessment Improved documentation) Is patient on ventilator? No Is Patient Ambulatory and/or Out of Bed No REE-([facility]-confined to bed) 1609.452 Kcal/Kg value to use for calculation 36 Approximate Energy Requirements Using 2034 kcal/Kg Calculation Used for Recommendations Kcal/kg Additional Notes Protein: 1-1.2 g/Kg ABW; 64-77 g/day. Fluids: 1 ml/Kcal, or as per MD. Nutrition Intervention Change Diet Order: Conmtinue Regular Diet as tolerated. Add Supplement/Snack (indicate name/kcal Continue 8 fl oz Ensure High /protein ) Protein; BID. Provides kCal: 320 Provides Protein (gm) 32 Goal #1 Compensate, through dietary supplementation, for possible poor or insufficient PO intake of meals during LOS. Goal #2 Adjust the dietary intervention to better serve Pt's needs and clinical conditions during LOS. Revisit per MD consult or patient Sign Off request: Additional Comments Continue monitoring food tolerance, %PO intake of meals , dietary supplements, and BM.
[2022-07-15] MEDS: MIRTAZAPINE 15 MG TAB PO SCH (21:28)
[2022-07-16] MEDS: HEPARIN 5,000 UNIT/1 ML VIAL SUB-Q SCH ×3 (05:25→22:32)
[2022-07-16 05:53] LABS: BUN/Creatinine Ratio 31; Blood Urea Nitrogen 43 mg/dL (9-20); Calcium 9.9 mg/dL (8.4-10.2); Hemolysis Index 9
[2022-07-16] MEDS: HALOPERIDOL LACTATE 5 MG/1 ML INJ IM PRN (06:26)
[2022-07-16] MEDS ORDERED: DEXTROSE 5% IN WATER 1,000 ML IV SCH (09:00)
[2022-07-16] MEDS: MORPHINE 2 MG/1 ML INJ IV PRN (09:01)
[2022-07-16] MEDS: METOPROLOL TARTRATE 25 MG TAB PO SCH ×2 (09:01→22:31)
--- NOTE | 2022-07-16 10:04 | Discharge Summary ---
Providers - Providers Date of Admission: 06/18/22 23:09 Attending physician: RAFA LOPEZ MD 06/19/22 10:49 Consult to Mental Health [CONS] Routine Reason For Exam: altered mental status, alcohol abuse 06/22/22 11:01 Speech Therapy Evaluation and Treat [CONS] Routine Reason For Exam: speech eval 06/23/22 18:46 Consult to Physician [CONS] Routine Comment: Consulting Provider: VILMA SIMONS Physician Instructions: Reason For Exam: Refractory acute encephalopathy 06/24/22 07:11 Consult to Dietitian/Nutrition [CONS] Routine Physician Instructions: Reason For Exam: Reason for Consult: Write/Manage Tube Feeding 06/25/22 07:39 Consult to Physician [CONS] Routine Comment: Consulting Provider: CEE GIORDANO Physician Instructions: Reason For Exam: Refractory encephalopathy 07/01/22 13:17 Speech Therapy Evaluation and Treat [CONS] Routine Reason For Exam: Swallow evaluation patient now alert 07/02/22 10:55 Physical Therapy Evaluation and Treat [CONS] Routine Comment: Reason For Exam: evaluate gait 07/13/22 12:48 Consult to Mental Health [CONS] Routine Reason For Exam: delirium, combativeness Primary care physician: DUY SAUNDERS Hospitalization Condition: Critical Disposition: 30 STILL A PATIENT Exam - Constitutional Vitals: Temp Pulse Resp BP Pulse Ox 97.5 F L 74 20 94/69 93 07/16/22 08:33 07/16/22 08:33 07/16/22 08:33 07/16/22 08:33 07/16/22 08:33 Plan Follow up with: DUY SAUNDERS MD [Primary Care Provider] - 3-5 Days Prescriptions: Mirtazapine [Remeron 15mg TAB] 7.5 mg PO QHS 30 Days #15 tablet OLANzapine [ZyPREXA] 5 mg PO QHS 90 Days #90 tablet Metoprolol [Lopressor TAB] 25 mg PO BID 90 Days #180 tablet
--- NOTE | 2022-07-16 14:03 | Progress Note ---
Assessment and Plan Assessment and plan: #Refractory metabolic encephalopathy-resolved Refractory despite patient being out of the window for alcohol withdrawal symptoms. Repeating CMP, CBC, and ammonia level. Original CT head noncontrast unremarkable for acute findings. Low clinical suspicion for acute ischemic CVA given patient does not have any focal deficits. Unremarkable urinalysis and UDS. -Continue Zyprexa 5 mg daily; Psych reconsulted due to patient combativeness with nursing -continue mirtazapine -MRI held due to improvement in mental status -PT evaluation ordered: subacute rehab recommendation; CM aware #Acute hypoxic respiratory failure-resolved - etiology: possible infection (COVID or HAP) vs volume overload; COVID negative - baseline oxygen requirements: room air - supplemental oxygen: patient currently on RA - Continue protocol: continue pulse oximetry, wean oxygen as tolerated, ordered incentive spirometry and educated patient on how to use it and its importance. Unremarkable coronavirus PCR. Discontinued antibiotics as low suspicion for infection. - continue to monitor #Alcohol withdrawal-resolved #Tachycardiaresolved #Alcohol dependence -s/p CIWA protocol and librium taper, patient out of window for alcohol withdrawal. #Volume depletion-resolved #Advanced care planning -Disease education conducted, care plan discussed, diagnoses discussed, prognosis discussed, and patient acknowledges understanding with care plan -Time: +30 min #Social: Extreme difficulty with finding patient's next of kin or friends. Patient was able to provide names of family members: FatherWilfredokishore Sr. [place]; motherElvira Radha Mcfarland; sisterBeth Radha Mcfarland; sisterNorma Bartolo. Friends of the patient have been located, and they are excited to be involved with finding the patient placement. They presented to the bedside on 07/07/2022 at the request of case management. #Discharge planning -Patient discharged [facility] and was initially transferred from a hospital in [facility] -According to nursing, over the weekend a call was received from [facility]'s office where they were informed that the patient has active warrants out for his arrest. Currently no police department is aware of warrants for the patient -we will continue search for facility for safe discharge History Interval history: Patient was awake and alert during examination. He reports pain in his L ring finger that is chronic. He was updated about his care plan. He has no other complaints at this time. Hospitalist Physical - Physical exam Narrative exam: GENERAL: Thin elderly male. In no acute distress. HEENT: Atraumatic, Normocephalic. CHEST/LUNGS: Coarse breath sounds bilaterally. HEART/CARDIOVASCULAR: RRR. No murmur, rubs or gallops appreciated. ABDOMEN: +BS. NT/ND. NEURO: No noted focal deficits. MUSCULOSKELETAL: No joint effusion EXTREMITIES: No cyanosis, clubbing or edema. PSYCH: Cooperative. - Constitutional Vitals: Temp Pulse Resp BP Pulse Ox 97.0 F L 62 18 134/78 90 07/16/22 12:14 07/16/22 12:14 07/16/22 12:14 07/16/22 12:14 07/16/22 12:19 General appearance: Present: no acute distress, cachectic, disheveled HEART Score - HEART Score Troponin: Troponin T < 0.010 ng/mL (0.00-0.029) 06/18/22 17:20 Results - Labs CBC & Chem 7: 07/01/22 05:39 07/16/22 04:56 Labs: Laboratory Last Values WBC 10.2 K/mm3 (4.5-11.0) 07/01/22 05:39 RBC 4.78 M/mm3 (3.65-5.03) 07/01/22 05:39 Hgb 15.2 gm/dl (11.8-15.2) 07/01/22 05:39 Hct 45.7 % (35.5-45.6) H 07/01/22 05:39 MCV 95 fl (84-94) H 07/01/22 05:39 MCH 32 pg (28-32) 07/01/22 05:39 MCHC 33 % (32-34) 07/01/22 05:39 RDW 12.3 % (13.2-15.2) L 07/01/22 05:39 Plt Count 384 K/mm3 (140-440) 07/01/22 05:39 Lymph % (Auto) 15.1 % (13.4-35.0) 06/28/22 05:05 [place] % (Auto) 9.5 % (0.0-7.3) H 06/28/22 05:05 Eos % (Auto) 2.0 % (0.0-4.3) 06/28/22 05:05 Baso % (Auto) 0.8 % (0.0-1.8) 06/28/22 05:05 Lymph # (Auto) 1.9 K/mm3 (1.2-5.4) 06/28/22 05:05 [place] # (Auto) 1.2 K/mm3 (0.0-0.8) H 06/28/22 05:05 Eos # (Auto) 0.3 K/mm3 (0.0-0.4) 06/28/22 05:05 Baso # (Auto) 0.1 K/mm3 (0.0-0.1) 06/28/22 05:05 Add Manual Diff Complete 06/26/22 09:13 Total Counted 100 06/26/22 09:13 Seg Neutrophils % 72.6 % (40.0-70.0) H 06/28/22 05:05 Seg Neuts % (Manual) 85.0 % (40.0-70.0) H 06/26/22 09:13 Band Neutrophils % 0 % 06/26/22 09:13 Lymphocytes % (Manual) 6.0 % (13.4-35.0) L 06/26/22 09:13 Reactive Lymphs % (Man) 0 % 06/26/22 09:13 Monocytes % (Manual) 8.0 % (0.0-7.3) H 06/26/22 09:13 Eosinophils % (Manual) 0 % (0.0-4.3) 06/26/22 09:13 Basophils % (Manual) 1.0 % (0.0-1.8) 06/26/22 09:13 Metamyelocytes % 0 % 06/26/22 09:13 Myelocytes % 0 % 06/26/22 09:13 Promyelocytes % 0 % 06/26/22 09:13 Blast Cells % 0 % 06/26/22 09:13 Nucleated RBC % Not Reportable 06/26/22 09:13 Seg Neutrophils # 9.1 K/mm3 (1.8-7.7) H 06/28/22 05:05 Seg Neutrophils # Man 14.7 K/mm3 (1.8-7.7) H 06/26/22 09:13 Band Neutrophils # 0.0 K/mm3 06/26/22 09:13 Lymphocytes # (Manual) 1.0 K/mm3 (1.2-5.4) L 06/26/22 09:13 Abs React Lymphs (Man) 0.0 K/mm3 06/26/22 09:13 Monocytes # (Manual) 1.4 K/mm3 (0.0-0.8) H 06/26/22 09:13 Eosinophils # (Manual) 0.0 K/mm3 (0.0-0.4) 06/26/22 09:13 Basophils # (Manual) 0.2 K/mm3 (0.0-0.1) H 06/26/22 09:13 Metamyelocytes # 0.0 K/mm3 06/26/22 09:13 Myelocytes # 0.0 K/mm3 06/26/22 09:13 Promyelocytes # 0.0 K/mm3 06/26/22 09:13 Blast Cells # 0.0 K/mm3 06/26/22 09:13 WBC Morphology Not Reportable 06/26/22 09:13 Hypersegmented Neuts Not Reportable 06/26/22 09:13 Hyposegmented Neuts Not Reportable 06/26/22 09:13 Hypogranular Neuts Not Reportable 06/26/22 09:13 Smudge Cells Not Reportable 06/26/22 09:13 Toxic Granulation Not Reportable 06/26/22 09:13 Toxic Vacuolation Not Reportable 06/26/22 09:13 Dohle Bodies Not Reportable 06/26/22 09:13 Pelger-Huet Anomaly Not Reportable 06/26/22 09:13 Radha Rods Not Reportable 06/26/22 09:13 Platelet Estimate Consistent w auto 06/26/22 09:13 Clumped Platelets Not Reportable 06/26/22 09:13 Plt Clumps, EDTA Not Reportable 06/26/22 09:13 Large Platelets Not Reportable 06/26/22 09:13 Giant Platelets Not Reportable 06/26/22 09:13 Platelet Satelliting Not Reportable 06/26/22 09:13 Plt Morphology Comment Not Reportable 06/26/22 09:13 RBC Morphology Normal 06/26/22 09:13 Dimorphic RBCs Not Reportable 06/26/22 09:13 Polychromasia Not Reportable 06/26/22 09:13 Hypochromasia Not Reportable 06/26/22 09:13 Poikilocytosis Not Reportable 06/26/22 09:13 Anisocytosis Not Reportable 06/26/22 09:13 Microcytosis Not Reportable 06/26/22 09:13 Macrocytosis Not Reportable 06/26/22 09:13 Spherocytes Not Reportable 06/26/22 09:13 Pappenheimer Bodies Not Reportable 06/26/22 09:13 Sickle Cells Not Reportable 06/26/22 09:13 Target Cells Not Reportable 06/26/22 09:13 Tear Drop Cells Not Reportable 06/26/22 09:13 Ovalocytes Not Reportable 06/26/22 09:13 Helmet Cells Not Reportable 06/26/22 09:13 [place] Bodies Not Reportable 06/26/22 09:13 [place] Rings Not Reportable 06/26/22 09:13 [place] Cells Not Reportable 06/26/22 09:13 Bite Cells Not Reportable 06/26/22 09:13 Crenated Cell Not Reportable 06/26/22 09:13 Elliptocytes Not Reportable 06/26/22 09:13 Acanthocytes (Spur) Not Reportable 06/26/22 09:13 Rouleaux Not Reportable 06/26/22 09:13 Hemoglobin C Crystals Not Reportable 06/26/22 09:13 Schistocytes Not Reportable 06/26/22 09:13 Malaria parasites Not Reportable 06/26/22 09:13 Roland Bodies Not Reportable 06/26/22 09:13 Hem Pathologist Commnt No 06/26/22 09:13 Sodium 154 mmol/L (137-145) H 07/16/22 04:56 Potassium 4.1 mmol/L (3.6-5.0) 07/16/22 04:56 Chloride 111.2 mmol/L (98-107) H 07/16/22 04:56 Carbon Dioxide 26 mmol/L (22-30) 07/16/22 04:56 Anion Gap 21 mmol/L 07/16/22 04:56 BUN 43 mg/dL (9-20) H 07/16/22 04:56 Creatinine 1.4 mg/dL (0.8-1.3) H 07/16/22 04:56 Estimated GFR > 60 ml/min 07/16/22 04:56 BUN/Creatinine Ratio 31 % 07/16/22 04:56 Glucose 100 mg/dL (75-100) 07/16/22 04:56 POC Glucose 106 mg/dL (70-105) H 07/16/22 05:36 Hemoglobin A1c 5.7 % (4-6) 07/11/22 07:56 Lactic Acid 0.80 mmol/L (0.7-2.0) 06/18/22 17:20 Calcium 9.9 mg/dL (8.4-10.2) 07/16/22 04:56 Total Bilirubin 0.80 mg/dL (0.1-1.2) 06/23/22 13:00 AST 19 units/L (5-40) 06/23/22 13:00 ALT 21 units/L (7-56) 06/23/22 13:00 Alkaline Phosphatase 66 units/L (35-129) 06/23/22 13:00 Ammonia 16.0 umol/L (25-60) L 06/23/22 13:00 Total Creatine Kinase 383 units/L (55-170) H 06/18/22 17:20 Troponin T < 0.010 ng/mL (0.00-0.029) 06/18/22 17:20 Total Protein 6.9 g/dL (6.3-8.2) 06/23/22 13:00 Albumin 3.6 g/dL (3.9-5) L 06/23/22 13:00 Albumin/Globulin Ratio 1.1 % 06/23/22 13:00 Vitamin B1 110 nmol/L (8-30) H 06/19/22 20:22 Vitamin B12 2000 pg/mL (211-911) H 06/19/22 20:22 Folate 20.00 ng/mL (7.3-26.0) 06/19/22 20:22 TSH 1.320 mlU/mL (0.270-4.200) 06/19/22 20:22 Urine Color Colorless (Yellow) 06/18/22 Unknown Urine Turbidity Clear (Clear) 06/18/22 Unknown Urine pH 5.0 (5.0-7.0) 06/18/22 Unknown Ur Specific [place] 1.015 (1.003-1.030) 06/18/22 Unknown Urine Protein 30 mg/dl mg/dL (Negative) 06/18/22 Unknown Urine Glucose (UA) Negative mg/dL (Negative) 06/18/22 Unknown Urine Ketones 25 mg/dL (Negative) 06/18/22 Unknown Urine Blood Negative (Negative) 06/18/22 Unknown Urine Nitrite Negative (Negative) 06/18/22 Unknown Urine Bilirubin Negative (Negative) 06/18/22 Unknown Urine Urobilinogen 0.2 mg/dL (<2.0) 06/18/22 Unknown Ur Leukocyte Esterase Negative (Negative) 06/18/22 Unknown Urine WBC (Auto) 1.0 /HPF (0.0-6.0) 06/18/22 Unknown Urine RBC (Auto) < 1.0 /HPF (0.0-6.0) 06/18/22 Unknown Urine Mucus Few /HPF 06/18/22 Unknown Nasal Screen MRSA (PCR) Negative (Negative) 06/21/22 08:50 Urine Opiates Screen Negative 06/19/22 10:49 Urine Methadone Screen Negative 06/19/22 10:49 Ur Barbiturates Screen Negative 06/19/22 10:49 Ur Phencyclidine Scrn Negative 06/19/22 10:49 Ur Amphetamines Screen Negative 06/19/22 10:49 U Benzodiazepines Scrn Negative 06/19/22 10:49 Urine Cocaine Screen Negative 06/19/22 10:49 U Marijuana (THC) Screen Negative 06/19/22 10:49 Drugs of Abuse Note Disclamer 06/19/22 10:49 Plasma/Serum Alcohol < 0.01 % (0-0.07) 06/18/22 17:20 SARS-CoV-2 (PCR) Negative (Negative) 07/06/22 12:21 [place]/IV: Voiding Method Incontinent Active Medications - Current Medications Current Medications: Generic Name Dose Route Start Last Admin Trade Name Freq PRN Reason Stop Dose Admin Acetaminophen 650 mg 06/18/22 23:08 07/02/22 11:16 Acetaminophen 325 Mg Tab PO 650 mg Q4H PRN Administration Pain MILD(1-3)/Fever >100.5/MCGEE Haloperidol Lactate 5 mg 07/14/22 15:04 07/16/22 06:26 Haloperidol Lactate 5 Mg/1 Ml Inj IM 5 mg Q6H PRN Administration Agitation Heparin Sodium (Porcine) 5,000 unit 06/19/22 06:00 07/16/22 05:25 Heparin 5,000 Unit/1 Ml Vial SUB-Q 5,000 unit Q8HR DAVID Administration Dextrose 1,000 mls @ 100 mls/hr 07/16/22 09:00 07/16/22 11:34 D5w IV 07/16/22 18:59 100 mls/hr DIRECT DAVID Administration Magnesium Hydroxide 30 ml 06/18/22 23:08 Magnesium Hydroxide (Mom) Oral Liqd Udc PO Q4H PRN Constipation Metoprolol Tartrate 25 mg 06/23/22 13:00 07/16/22 09:01 Metoprolol Tartrate 25 Mg Tab PO Not Given BID DAVID Mirtazapine 7.5 mg 07/14/22 22:00 07/15/22 21:28 Mirtazapine 15 Mg Tab PO 7.5 mg QHS DAVID Administration Morphine Sulfate 2 mg 06/18/22 23:08 07/16/22 09:01 Morphine 2 Mg/1 Ml Inj IV 2 mg Q4H PRN Administration Pain, Moderate (4-6) Morphine Sulfate 4 mg 06/18/22 23:08 07/12/22 20:42 Morphine 4 Mg/1 Ml Inj IV 4 mg Q4H PRN Administration Pain , Severe (7-10) Olanzapine 5 mg 07/14/22 22:00 07/15/22 21:35 Olanzapine 5 Mg Tab PO 5 mg QHS DAVID Administration Ondansetron HCl 4 mg 06/18/22 23:08 Ondansetron 4 Mg/2 Ml Inj IV Q8H PRN Nausea And Vomiting Sodium Chloride 10 ml 06/19/22 10:00 07/16/22 09:02 Sodium Chloride 0.9% 10 Ml Flush Syringe IV 10 ml BID DAVID Administration Sodium Chloride 10 ml 06/18/22 23:08 Sodium Chloride 0.9% 10 Ml Flush Syringe IV PRN PRN LINE FLUSH Nutrition/Malnutrition Assess - Dietary Evaluation Nutrition/Malnutrition Findings: Nutrition Notes Start: 06/24/22 14:15 Freq: Status: Active Protocol: Document 07/14/22 14:20 CUATE (Rec: 07/14/22 14:34 CUATE [email or web address]) Nutrition Notes Initial or Follow up Reassessment Other Pertinent Diagnosis EtOH dependence Current Diet Regular Diet (from D 07/08), D Suppl (since D 07/02). Labs/Tests 07/14: N/A. Pertinent Medications 08/31: Nutritionally unremarkable. Height 5 ft 10 in Weight 56.5 kg [place] Body Weight (kg) 75.45 BMI 17.9 Weight change and time frame 0.4 Kg body weight loss in 5 days reported. Weight Status Underweight Subjective/Other Information RD consult for routine F/U on dietary advancement. Diet+ONS continue as prescribed, Pt's PO intake of meals has been Fair (50- 75%) and well tolerated, according to ADL notes. Pt is on Room Air, O2 saturation @ 97%, according to Physical Assessment History notes. Pt remains incontinent, according to Physical Assessment History notes. Pt will be discharged to a SNF when medically cleared, according to Progress notes. Percent of energy/protein needs met: Prescribed Regular Diet provides for energy/protein needs (2,289 Kcal/89 g) during LOS; additionally, Dietary Supplements will compensate for possible poor or insufficient PO intake of meals with 320 Kcal and 32 g of protein. Burn Absent Trauma Absent GI Symptoms Other Food Allergy No Skin Integrity/Comment Assessment WNL. Current % PO Fair (50-74%) Minimum of two criteria No Fluid Accumulation N/A Reduced Rough Rice Grader Strength N/A (non-severe) Protein-Calorie Malnutrition N\A #1 Nutrition Diagnosis Inadequate protein-energy intake Comments: Pt's PO intake of meals has been Fair (50- 75%) and well tolerated, according to ADL notes. Diagnosis Progress(for reassessment Improved documentation) Is patient on ventilator? No Is Patient Ambulatory and/or Out of Bed No REE-([facility]-confined to bed) 1609.452 Kcal/Kg value to use for calculation 36 Approximate Energy Requirements Using 2034 kcal/Kg Calculation Used for Recommendations Kcal/kg Additional Notes Protein: 1-1.2 g/Kg ABW; 64-77 g/day. Fluids: 1 ml/Kcal, or as per MD. Nutrition Intervention Change Diet Order: Conmtinue Regular Diet as tolerated. Add Supplement/Snack (indicate name/kcal Continue 8 fl oz Ensure High /protein ) Protein; BID. Provides kCal: 320 Provides Protein (gm) 32 Goal #1 Compensate, through dietary supplementation, for possible poor or insufficient PO intake of meals during LOS. Goal #2 Adjust the dietary intervention to better serve Pt's needs and clinical conditions during LOS. Revisit per MD consult or patient Sign Off request: Additional Comments Continue monitoring food tolerance, %PO intake of meals , dietary supplements, and BM.
[2022-07-16] MEDS: MIRTAZAPINE 15 MG TAB PO SCH (22:31)
[2022-07-17] MEDS: HEPARIN 5,000 UNIT/1 ML VIAL SUB-Q SCH ×3 (05:20→22:18)
[2022-07-17] MEDS: HALOPERIDOL LACTATE 5 MG/1 ML INJ IM PRN (05:20)
--- NOTE | 2022-07-17 07:11 | Progress Note ---
Assessment and Plan Assessment and plan: #Refractory metabolic encephalopathy-resolved Refractory despite patient being out of the window for alcohol withdrawal symptoms. Repeating CMP, CBC, and ammonia level. Original CT head noncontrast unremarkable for acute findings. Low clinical suspicion for acute ischemic CVA given patient does not have any focal deficits. Unremarkable urinalysis and UDS. -Continue Zyprexa 5 mg daily; Psych reconsulted due to patient combativeness with nursing -continue mirtazapine -PT evaluation ordered: subacute rehab recommendation; CM aware #Acute hypoxic respiratory failure-resolved - etiology: possible infection (COVID or HAP) vs volume overload; COVID negative - baseline oxygen requirements: room air - supplemental oxygen: patient currently on RA - Continue protocol: continue pulse oximetry, wean oxygen as tolerated, ordered incentive spirometry and educated patient on how to use it and its importance. Unremarkable coronavirus PCR. Discontinued antibiotics as low suspicion for infection. - continue to monitor #Alcohol withdrawal-resolved #Tachycardiaresolved #Alcohol dependence -s/p CIWA protocol and librium taper, patient out of window for alcohol withdrawal. #Volume depletion-resolved #Advanced care planning -Disease education conducted, care plan discussed, diagnoses discussed, prognosis discussed, and patient acknowledges understanding with care plan -Time: +30 min #Social: Extreme difficulty with finding patient's next of kin or friends. Patient was able to provide names of family members: FatherMichael Yates Sr.; motherCucaadarsh Mcfarland; sisterMarhi Radha Mcfarland; sisterNorma Bartolo. Friends of the patient have been located, and they are excited to be involved with finding the patient placement. They presented to the bedside on 07/07/2022 at the request of case management. #Discharge planning -[facility] and was initially transferred from a hospital in [facility] -According to nursing, over the weekend a call was received from [facility]'s office where they were informed that the patient has active warrants out for his arrest. Currently no police department is aware of warrants for the patient -we will continue search for facility for safe discharge History Interval history: Patient resting this morning. No acute events per nursing. Hospitalist Physical - Physical exam Narrative exam: GENERAL: Thin elderly male. In no acute distress. HEENT: Atraumatic, Normocephalic. CHEST/LUNGS: Coarse breath sounds bilaterally. HEART/CARDIOVASCULAR: RRR. No murmur, rubs or gallops appreciated. ABDOMEN: +BS. NT/ND. NEURO: No noted focal deficits. MUSCULOSKELETAL: No joint effusion EXTREMITIES: No cyanosis, clubbing or edema. PSYCH: Cooperative. - Constitutional Vitals: Temp Pulse Resp BP Pulse Ox 97.6 F 79 18 119/72 100 07/17/22 03:30 07/17/22 03:30 07/17/22 03:30 07/17/22 03:30 07/17/22 03:30 General appearance: Present: no acute distress, cachectic, disheveled HEART Score - HEART Score Troponin: Troponin T < 0.010 ng/mL (0.00-0.029) 06/18/22 17:20 Results - Labs CBC & Chem 7: 07/01/22 05:39 07/16/22 04:56 Labs: Laboratory Last Values WBC 10.2 K/mm3 (4.5-11.0) 07/01/22 05:39 RBC 4.78 M/mm3 (3.65-5.03) 07/01/22 05:39 Hgb 15.2 gm/dl (11.8-15.2) 07/01/22 05:39 Hct 45.7 % (35.5-45.6) H 07/01/22 05:39 MCV 95 fl (84-94) H 07/01/22 05:39 MCH 32 pg (28-32) 07/01/22 05:39 MCHC 33 % (32-34) 07/01/22 05:39 RDW 12.3 % (13.2-15.2) L 07/01/22 05:39 Plt Count 384 K/mm3 (140-440) 07/01/22 05:39 Lymph % (Auto) 15.1 % (13.4-35.0) 06/28/22 05:05 [place]ickman % (Auto) 9.5 % (0.0-7.3) H 06/28/22 05:05 Eos % (Auto) 2.0 % (0.0-4.3) 06/28/22 05:05 Baso % (Auto) 0.8 % (0.0-1.8) 06/28/22 05:05 Lymph # (Auto) 1.9 K/mm3 (1.2-5.4) 06/28/22 05:05 [place]ickman # (Auto) 1.2 K/mm3 (0.0-0.8) H 06/28/22 05:05 Eos # (Auto) 0.3 K/mm3 (0.0-0.4) 06/28/22 05:05 Baso # (Auto) 0.1 K/mm3 (0.0-0.1) 06/28/22 05:05 Add Manual Diff Complete 06/26/22 09:13 Total Counted 100 06/26/22 09:13 Seg Neutrophils % 72.6 % (40.0-70.0) H 06/28/22 05:05 Seg Neuts % (Manual) 85.0 % (40.0-70.0) H 06/26/22 09:13 Band Neutrophils % 0 % 06/26/22 09:13 Lymphocytes % (Manual) 6.0 % (13.4-35.0) L 06/26/22 09:13 Reactive Lymphs % (Man) 0 % 06/26/22 09:13 Monocytes % (Manual) 8.0 % (0.0-7.3) H 06/26/22 09:13 Eosinophils % (Manual) 0 % (0.0-4.3) 06/26/22 09:13 Basophils % (Manual) 1.0 % (0.0-1.8) 06/26/22 09:13 Metamyelocytes % 0 % 06/26/22 09:13 Myelocytes % 0 % 06/26/22 09:13 Promyelocytes % 0 % 06/26/22 09:13 Blast Cells % 0 % 06/26/22 09:13 Nucleated RBC % Not Reportable 06/26/22 09:13 Seg Neutrophils # 9.1 K/mm3 (1.8-7.7) H 06/28/22 05:05 Seg Neutrophils # Man 14.7 K/mm3 (1.8-7.7) H 06/26/22 09:13 Band Neutrophils # 0.0 K/mm3 06/26/22 09:13 Lymphocytes # (Manual) 1.0 K/mm3 (1.2-5.4) L 06/26/22 09:13 Abs React Lymphs (Man) 0.0 K/mm3 06/26/22 09:13 Monocytes # (Manual) 1.4 K/mm3 (0.0-0.8) H 06/26/22 09:13 Eosinophils # (Manual) 0.0 K/mm3 (0.0-0.4) 06/26/22 09:13 Basophils # (Manual) 0.2 K/mm3 (0.0-0.1) H 06/26/22 09:13 Metamyelocytes # 0.0 K/mm3 06/26/22 09:13 Myelocytes # 0.0 K/mm3 06/26/22 09:13 Promyelocytes # 0.0 K/mm3 06/26/22 09:13 Blast Cells # 0.0 K/mm3 06/26/22 09:13 WBC Morphology Not Reportable 06/26/22 09:13 Hypersegmented Neuts Not Reportable 06/26/22 09:13 Hyposegmented Neuts Not Reportable 06/26/22 09:13 Hypogranular Neuts Not Reportable 06/26/22 09:13 Smudge Cells Not Reportable 06/26/22 09:13 Toxic Granulation Not Reportable 06/26/22 09:13 Toxic Vacuolation Not Reportable 06/26/22 09:13 Dohle Bodies Not Reportable 06/26/22 09:13 Pelger-Huet Anomaly Not Reportable 06/26/22 09:13 Radha Rods Not Reportable 06/26/22 09:13 Platelet Estimate Consistent w auto 06/26/22 09:13 Clumped Platelets Not Reportable 06/26/22 09:13 Plt Clumps, EDTA Not Reportable 06/26/22 09:13 Large Platelets Not Reportable 06/26/22 09:13 Giant Platelets Not Reportable 06/26/22 09:13 Platelet Satelliting Not Reportable 06/26/22 09:13 Plt Morphology Comment Not Reportable 06/26/22 09:13 RBC Morphology Normal 06/26/22 09:13 Dimorphic RBCs Not Reportable 06/26/22 09:13 Polychromasia Not Reportable 06/26/22 09:13 Hypochromasia Not Reportable 06/26/22 09:13 Poikilocytosis Not Reportable 06/26/22 09:13 Anisocytosis Not Reportable 06/26/22 09:13 Microcytosis Not Reportable 06/26/22 09:13 Macrocytosis Not Reportable 06/26/22 09:13 Spherocytes Not Reportable 06/26/22 09:13 Pappenheimer Bodies Not Reportable 06/26/22 09:13 Sickle Cells Not Reportable 06/26/22 09:13 Target Cells Not Reportable 06/26/22 09:13 Tear Drop Cells Not Reportable 06/26/22 09:13 Ovalocytes Not Reportable 06/26/22 09:13 Helmet Cells Not Reportable 06/26/22 09:13 [place] Bodies Not Reportable 06/26/22 09:13 [place] Rings Not Reportable 06/26/22 09:13 [place] Cells Not Reportable 06/26/22 09:13 Bite Cells Not Reportable 06/26/22 09:13 Crenated Cell Not Reportable 06/26/22 09:13 Elliptocytes Not Reportable 06/26/22 09:13 Acanthocytes (Spur) Not Reportable 06/26/22 09:13 Rouleaux Not Reportable 06/26/22 09:13 Hemoglobin C Crystals Not Reportable 06/26/22 09:13 Schistocytes Not Reportable 06/26/22 09:13 Malaria parasites Not Reportable 06/26/22 09:13 Roland Bodies Not Reportable 06/26/22 09:13 Hem Pathologist Commnt No 06/26/22 09:13 Sodium 154 mmol/L (137-145) H 07/16/22 04:56 Potassium 4.1 mmol/L (3.6-5.0) 07/16/22 04:56 Chloride 111.2 mmol/L (98-107) H 07/16/22 04:56 Carbon Dioxide 26 mmol/L (22-30) 07/16/22 04:56 Anion Gap 21 mmol/L 07/16/22 04:56 BUN 43 mg/dL (9-20) H 07/16/22 04:56 Creatinine 1.4 mg/dL (0.8-1.3) H 07/16/22 04:56 Estimated GFR > 60 ml/min 07/16/22 04:56 BUN/Creatinine Ratio 31 % 07/16/22 04:56 Glucose 100 mg/dL (75-100) 07/16/22 04:56 POC Glucose 97 mg/dL (70-105) 07/16/22 17:01 Hemoglobin A1c 5.7 % (4-6) 07/11/22 07:56 Lactic Acid 0.80 mmol/L (0.7-2.0) 06/18/22 17:20 Calcium 9.9 mg/dL (8.4-10.2) 07/16/22 04:56 Total Bilirubin 0.80 mg/dL (0.1-1.2) 06/23/22 13:00 AST 19 units/L (5-40) 06/23/22 13:00 ALT 21 units/L (7-56) 06/23/22 13:00 Alkaline Phosphatase 66 units/L (35-129) 06/23/22 13:00 Ammonia 16.0 umol/L (25-60) L 06/23/22 13:00 Total Creatine Kinase 383 units/L (55-170) H 06/18/22 17:20 Troponin T < 0.010 ng/mL (0.00-0.029) 06/18/22 17:20 Total Protein 6.9 g/dL (6.3-8.2) 06/23/22 13:00 Albumin 3.6 g/dL (3.9-5) L 06/23/22 13:00 Albumin/Globulin Ratio 1.1 % 06/23/22 13:00 Vitamin B1 110 nmol/L (8-30) H 06/19/22 20:22 Vitamin B12 2000 pg/mL (211-911) H 06/19/22 20:22 Folate 20.00 ng/mL (7.3-26.0) 06/19/22 20:22 TSH 1.320 mlU/mL (0.270-4.200) 06/19/22 20:22 Urine Color Colorless (Yellow) 06/18/22 Unknown Urine Turbidity Clear (Clear) 06/18/22 Unknown Urine pH 5.0 (5.0-7.0) 06/18/22 Unknown Ur Specific [place] 1.015 (1.003-1.030) 06/18/22 Unknown Urine Protein 30 mg/dl mg/dL (Negative) 06/18/22 Unknown Urine Glucose (UA) Negative mg/dL (Negative) 06/18/22 Unknown Urine Ketones 25 mg/dL (Negative) 06/18/22 Unknown Urine Blood Negative (Negative) 06/18/22 Unknown Urine Nitrite Negative (Negative) 06/18/22 Unknown Urine Bilirubin Negative (Negative) 06/18/22 Unknown Urine Urobilinogen 0.2 mg/dL (<2.0) 06/18/22 Unknown Ur Leukocyte Esterase Negative (Negative) 06/18/22 Unknown Urine WBC (Auto) 1.0 /HPF (0.0-6.0) 06/18/22 Unknown Urine RBC (Auto) < 1.0 /HPF (0.0-6.0) 06/18/22 Unknown Urine Mucus Few /HPF 06/18/22 Unknown Nasal Screen MRSA (PCR) Negative (Negative) 06/21/22 08:50 Urine Opiates Screen Negative 06/19/22 10:49 Urine Methadone Screen Negative 06/19/22 10:49 Ur Barbiturates Screen Negative 06/19/22 10:49 Ur Phencyclidine Scrn Negative 06/19/22 10:49 Ur Amphetamines Screen Negative 06/19/22 10:49 U Benzodiazepines Scrn Negative 06/19/22 10:49 Urine Cocaine Screen Negative 06/19/22 10:49 U Marijuana (THC) Screen Negative 06/19/22 10:49 Drugs of Abuse Note Disclamer 06/19/22 10:49 Plasma/Serum Alcohol < 0.01 % (0-0.07) 06/18/22 17:20 SARS-CoV-2 (PCR) Negative (Negative) 07/06/22 12:21 Quezada/IV: Voiding Method Incontinent Active Medications - Current Medications Current Medications: Generic Name Dose Route Start Last Admin Trade Name Freq PRN Reason Stop Dose Admin Acetaminophen 650 mg 06/18/22 23:08 07/02/22 11:16 Acetaminophen 325 Mg Tab PO 650 mg Q4H PRN Administration Pain MILD(1-3)/Fever >100.5/MCGEE Haloperidol Lactate 5 mg 07/14/22 15:04 07/17/22 05:20 Haloperidol Lactate 5 Mg/1 Ml Inj IM 5 mg Q6H PRN Administration Agitation Heparin Sodium (Porcine) 5,000 unit 06/19/22 06:00 07/17/22 05:20 Heparin 5,000 Unit/1 Ml Vial SUB-Q 5,000 unit Q8HR DAVID Administration Magnesium Hydroxide 30 ml 06/18/22 23:08 Magnesium Hydroxide (Mom) Oral Liqd Udc PO Q4H PRN Constipation Metoprolol Tartrate 25 mg 06/23/22 13:00 07/16/22 22:31 Metoprolol Tartrate 25 Mg Tab PO 25 mg BID DAVID Administration Mirtazapine 7.5 mg 07/14/22 22:00 07/16/22 22:31 Mirtazapine 15 Mg Tab PO 7.5 mg QHS DAVID Administration Morphine Sulfate 2 mg 06/18/22 23:08 07/16/22 09:01 Morphine 2 Mg/1 Ml Inj IV 2 mg Q4H PRN Administration Pain, Moderate (4-6) Morphine Sulfate 4 mg 06/18/22 23:08 07/12/22 20:42 Morphine 4 Mg/1 Ml Inj IV 4 mg Q4H PRN Administration Pain , Severe (7-10) Olanzapine 5 mg 07/14/22 22:00 07/16/22 22:32 Olanzapine 5 Mg Tab PO 5 mg QHS DAVID Administration Ondansetron HCl 4 mg 06/18/22 23:08 Ondansetron 4 Mg/2 Ml Inj IV Q8H PRN Nausea And Vomiting Sodium Chloride 10 ml 06/19/22 10:00 07/16/22 22:32 Sodium Chloride 0.9% 10 Ml Flush Syringe IV 10 ml BID DAVID Administration Sodium Chloride 10 ml 06/18/22 23:08 Sodium Chloride 0.9% 10 Ml Flush Syringe IV PRN PRN LINE FLUSH Nutrition/Malnutrition Assess - Dietary Evaluation Nutrition/Malnutrition Findings: Nutrition Notes Start: 06/24/22 14:15 Freq: Status: Active Protocol: Document 07/14/22 14:20 CUATE (Rec: 07/14/22 14:34 CUATE [id number]) Nutrition Notes Initial or Follow up Reassessment Other Pertinent Diagnosis EtOH dependence Current Diet Regular Diet (from D 07/08), D Suppl (since D 07/02). Labs/Tests 07/14: N/A. Pertinent Medications 07/14: Nutritionally unremarkable. Height 5 ft 10 in Weight 56.5 kg [place] Body Weight (kg) 75.45 BMI 17.9 Weight change and time frame 0.4 Kg body weight loss in 5 days reported. Weight Status Underweight Subjective/Other Information RD consult for routine F/U on dietary advancement. Diet+ONS continue as prescribed, Pt's PO intake of meals has been Fair (50- 75%) and well tolerated, according to ADL notes. Pt is on Room Air, O2 saturation @ 97%, according to Physical Assessment History notes. Pt remains incontinent, according to Physical Assessment History notes. Pt will be discharged to a SNF when medically cleared, according to Progress notes. Percent of energy/protein needs met: Prescribed Regular Diet provides for energy/protein needs (2,289 Kcal/89 g) during LOS; additionally, Dietary Supplements will compensate for possible poor or insufficient PO intake of meals with 320 Kcal and 32 g of protein. Burn Absent Trauma Absent GI Symptoms Other Food Allergy No Skin Integrity/Comment Assessment WNL. Current % PO Fair (50-74%) Minimum of two criteria No Fluid Accumulation N/A Reduced Assisted Living Associate Strength N/A (non-severe) Protein-Calorie Malnutrition N\A #1 Nutrition Diagnosis Inadequate protein-energy intake Comments: Pt's PO intake of meals has been Fair (50- 75%) and well tolerated, according to ADL notes. Diagnosis Progress(for reassessment Improved documentation) Is patient on ventilator? No Is Patient Ambulatory and/or Out of Bed No REE-([place]-confined to bed) 1609.452 Kcal/Kg value to use for calculation 36 Approximate Energy Requirements Using 2034 kcal/Kg Calculation Used for Recommendations Kcal/kg Additional Notes Protein: 1-1.2 g/Kg ABW; 64-77 g/day. Fluids: 1 ml/Kcal, or as per MD. Nutrition Intervention Change Diet Order: Conmtinue Regular Diet as tolerated. Add Supplement/Snack (indicate name/kcal Continue 8 fl oz Ensure High /protein ) Protein; BID. Provides kCal: 320 Provides Protein (gm) 32 Goal #1 Compensate, through dietary supplementation, for possible poor or insufficient PO intake of meals during LOS. Goal #2 Adjust the dietary intervention to better serve Pt's needs and clinical conditions during LOS. Revisit per MD consult or patient Sign Off request: Additional Comments Continue monitoring food tolerance, %PO intake of meals , dietary supplements, and BM.
[2022-07-17] MEDS: METOPROLOL TARTRATE 25 MG TAB PO SCH ×2 (09:11→22:18)
--- NOTE | 2022-07-17 11:32 | Progress Note ---
Subjective - Reason for Consult Consult date: 07/17/22 Reason for consult: mental health evaluation - Chief Complaint Chief complaint: The patient was seen today. Patient asleep. REVIEW OF SYSTEMS: Unable to assess MENTAL STATUS: Unable to assess Assessment Delirium Treatment Plan Olanzapine 5mg to qhs Mirtazepin 7.5mg po qhs Haldol 5mg IM q6h prn agitation Medical: Per primary SItter: Defer to primary Deposition: Do not recommend acute psychiatric inpatient. Will follow for med management. Thanks Case staffed with Dr. Alvarado Mental Status Exam - Vital signs Last Vital Signs Temp 98.6 F 07/17/22 07:57 Pulse 64 07/17/22 09:11 Resp 16 07/17/22 07:57 BP 122/80 07/17/22 09:11 Pulse Ox 75 L 07/17/22 07:57
[2022-07-17] MEDS: MIRTAZAPINE 15 MG TAB PO SCH (22:18)
[2022-07-18] MEDS: HEPARIN 5,000 UNIT/1 ML VIAL SUB-Q SCH ×3 (06:02→21:14)
--- NOTE | 2022-07-18 09:57 | Progress Note ---
Assessment and Plan Assessment and plan: #Refractory metabolic encephalopathy-resolved Refractory despite patient being out of the window for alcohol withdrawal symptoms. Repeating CMP, CBC, and ammonia level. Original CT head noncontrast unremarkable for acute findings. Low clinical suspicion for acute ischemic CVA given patient does not have any focal deficits. Unremarkable urinalysis and UDS. -Continue Zyprexa 5 mg daily; Psych reconsulted due to patient combativeness with nursing -continue mirtazapine -PT evaluation ordered: subacute rehab recommendation; CM aware #Acute hypoxic respiratory failure-resolved - etiology: possible infection (COVID or HAP) vs volume overload; COVID negative - baseline oxygen requirements: room air - supplemental oxygen: patient currently on RA - Continue protocol: continue pulse oximetry, wean oxygen as tolerated, ordered incentive spirometry and educated patient on how to use it and its importance. Unremarkable coronavirus PCR. Discontinued antibiotics as low suspicion for infection. - continue to monitor #Alcohol withdrawal-resolved #Tachycardiaresolved #Alcohol dependence -s/p CIWA protocol and librium taper, patient out of window for alcohol withdrawal. #Volume depletion-resolved #Advanced care planning -Disease education conducted, care plan discussed, diagnoses discussed, prognosis discussed, and patient acknowledges understanding with care plan -Time: +30 min #Social: Extreme difficulty with finding patient's next of kin or friends. Patient was able to provide names of family members: FatherMichael Yates Sr.; motherElvira Radha Mcfarland; sisterMarhi Radha Mcfarland; sisterNorma Bartolo. Friends of the patient have been located, and they are excited to be involved with finding the patient placement. They presented to the bedside on 07/07/2022 at the request of case management. #Discharge planning -Patient discharged from [facility] and was initially transferred from a hospital in [facility] -According to nursing, over the weekend a call was received from [facility]'s office where they were informed that the patient has active warrants out for his arrest. Currently no police department is aware of warrants for the patient -we will continue search for facility for safe discharge History Interval history: Patient alert and attempting to get out of the bed. He is easily redirectable. He has no complaints at this time. Hospitalist Physical - Physical exam Narrative exam: GENERAL: Thin elderly male. In no acute distress. HEENT: Atraumatic, Normocephalic. CHEST/LUNGS: Coarse breath sounds bilaterally. HEART/CARDIOVASCULAR: RRR. No murmur, rubs or gallops appreciated. ABDOMEN: +BS. NT/ND. NEURO: No noted focal deficits. MUSCULOSKELETAL: No joint effusion EXTREMITIES: No cyanosis, clubbing or edema. PSYCH: Cooperative. - Constitutional Vitals: Temp Pulse Resp BP Pulse Ox 98.0 F 39 L 16 129/85 100 07/18/22 07:38 07/18/22 07:38 07/18/22 07:38 07/18/22 07:38 07/18/22 07:38 General appearance: Present: no acute distress, cachectic, disheveled HEART Score - HEART Score Troponin: Troponin T < 0.010 ng/mL (0.00-0.029) 06/18/22 17:20 Results - Labs CBC & Chem 7: 07/01/22 05:39 07/16/22 04:56 Labs: Laboratory Last Values WBC 10.2 K/mm3 (4.5-11.0) 07/01/22 05:39 RBC 4.78 M/mm3 (3.65-5.03) 07/01/22 05:39 Hgb 15.2 gm/dl (11.8-15.2) 07/01/22 05:39 Hct 45.7 % (35.5-45.6) H 07/01/22 05:39 MCV 95 fl (84-94) H 07/01/22 05:39 MCH 32 pg (28-32) 07/01/22 05:39 MCHC 33 % (32-34) 07/01/22 05:39 RDW 12.3 % (13.2-15.2) L 07/01/22 05:39 Plt Count 384 K/mm3 (140-440) 07/01/22 05:39 Lymph % (Auto) 15.1 % (13.4-35.0) 06/28/22 05:05 Sunflower % (Auto) 9.5 % (0.0-7.3) H 06/28/22 05:05 Eos % (Auto) 2.0 % (0.0-4.3) 06/28/22 05:05 Baso % (Auto) 0.8 % (0.0-1.8) 06/28/22 05:05 Lymph # (Auto) 1.9 K/mm3 (1.2-5.4) 06/28/22 05:05 Sunflower # (Auto) 1.2 K/mm3 (0.0-0.8) H 06/28/22 05:05 Eos # (Auto) 0.3 K/mm3 (0.0-0.4) 06/28/22 05:05 Baso # (Auto) 0.1 K/mm3 (0.0-0.1) 06/28/22 05:05 Add Manual Diff Complete 06/26/22 09:13 Total Counted 100 06/26/22 09:13 Seg Neutrophils % 72.6 % (40.0-70.0) H 06/28/22 05:05 Seg Neuts % (Manual) 85.0 % (40.0-70.0) H 06/26/22 09:13 Band Neutrophils % 0 % 06/26/22 09:13 Lymphocytes % (Manual) 6.0 % (13.4-35.0) L 06/26/22 09:13 Reactive Lymphs % (Man) 0 % 06/26/22 09:13 Monocytes % (Manual) 8.0 % (0.0-7.3) H 06/26/22 09:13 Eosinophils % (Manual) 0 % (0.0-4.3) 06/26/22 09:13 Basophils % (Manual) 1.0 % (0.0-1.8) 06/26/22 09:13 Metamyelocytes % 0 % 06/26/22 09:13 Myelocytes % 0 % 06/26/22 09:13 Promyelocytes % 0 % 06/26/22 09:13 Blast Cells % 0 % 06/26/22 09:13 Nucleated RBC % Not Reportable 06/26/22 09:13 Seg Neutrophils # 9.1 K/mm3 (1.8-7.7) H 06/28/22 05:05 Seg Neutrophils # Man 14.7 K/mm3 (1.8-7.7) H 06/26/22 09:13 Band Neutrophils # 0.0 K/mm3 06/26/22 09:13 Lymphocytes # (Manual) 1.0 K/mm3 (1.2-5.4) L 06/26/22 09:13 Abs React Lymphs (Man) 0.0 K/mm3 06/26/22 09:13 Monocytes # (Manual) 1.4 K/mm3 (0.0-0.8) H 06/26/22 09:13 Eosinophils # (Manual) 0.0 K/mm3 (0.0-0.4) 06/26/22 09:13 Basophils # (Manual) 0.2 K/mm3 (0.0-0.1) H 06/26/22 09:13 Metamyelocytes # 0.0 K/mm3 06/26/22 09:13 Myelocytes # 0.0 K/mm3 06/26/22 09:13 Promyelocytes # 0.0 K/mm3 06/26/22 09:13 Blast Cells # 0.0 K/mm3 06/26/22 09:13 WBC Morphology Not Reportable 06/26/22 09:13 Hypersegmented Neuts Not Reportable 06/26/22 09:13 Hyposegmented Neuts Not Reportable 06/26/22 09:13 Hypogranular Neuts Not Reportable 06/26/22 09:13 Smudge Cells Not Reportable 06/26/22 09:13 Toxic Granulation Not Reportable 06/26/22 09:13 Toxic Vacuolation Not Reportable 06/26/22 09:13 Dohle Bodies Not Reportable 06/26/22 09:13 Pelger-Huet Anomaly Not Reportable 06/26/22 09:13 Radha Rods Not Reportable 06/26/22 09:13 Platelet Estimate Consistent w auto 06/26/22 09:13 Clumped Platelets Not Reportable 06/26/22 09:13 Plt Clumps, EDTA Not Reportable 06/26/22 09:13 Large Platelets Not Reportable 06/26/22 09:13 Giant Platelets Not Reportable 06/26/22 09:13 Platelet Satelliting Not Reportable 06/26/22 09:13 Plt Morphology Comment Not Reportable 06/26/22 09:13 RBC Morphology Normal 06/26/22 09:13 Dimorphic RBCs Not Reportable 06/26/22 09:13 Polychromasia Not Reportable 06/26/22 09:13 Hypochromasia Not Reportable 06/26/22 09:13 Poikilocytosis Not Reportable 06/26/22 09:13 Anisocytosis Not Reportable 06/26/22 09:13 Microcytosis Not Reportable 06/26/22 09:13 Macrocytosis Not Reportable 06/26/22 09:13 Spherocytes Not Reportable 06/26/22 09:13 Pappenheimer Bodies Not Reportable 06/26/22 09:13 Sickle Cells Not Reportable 06/26/22 09:13 Target Cells Not Reportable 06/26/22 09:13 Tear Drop Cells Not Reportable 06/26/22 09:13 Ovalocytes Not Reportable 06/26/22 09:13 Helmet Cells Not Reportable 06/26/22 09:13 [place] Bodies Not Reportable 06/26/22 09:13 [place]coe Rings Not Reportable 06/26/22 09:13 Cheryle Cells Not Reportable 06/26/22 09:13 Bite Cells Not Reportable 06/26/22 09:13 Crenated Cell Not Reportable 06/26/22 09:13 Elliptocytes Not Reportable 06/26/22 09:13 Acanthocytes (Spur) Not Reportable 06/26/22 09:13 Rouleaux Not Reportable 06/26/22 09:13 Hemoglobin C Crystals Not Reportable 06/26/22 09:13 Schistocytes Not Reportable 06/26/22 09:13 Malaria parasites Not Reportable 06/26/22 09:13 Roland Bodies Not Reportable 06/26/22 09:13 Hem Pathologist Commnt No 06/26/22 09:13 Sodium 154 mmol/L (137-145) H 07/16/22 04:56 Potassium 4.1 mmol/L (3.6-5.0) 07/16/22 04:56 Chloride 111.2 mmol/L (98-107) H 07/16/22 04:56 Carbon Dioxide 26 mmol/L (22-30) 07/16/22 04:56 Anion Gap 21 mmol/L 07/16/22 04:56 BUN 43 mg/dL (9-20) H 07/16/22 04:56 Creatinine 1.4 mg/dL (0.8-1.3) H 07/16/22 04:56 Estimated GFR > 60 ml/min 07/16/22 04:56 BUN/Creatinine Ratio 31 % 07/16/22 04:56 Glucose 100 mg/dL (75-100) 07/16/22 04:56 POC Glucose 111 mg/dL (70-105) H 07/18/22 05:57 Hemoglobin A1c 5.7 % (4-6) 07/11/22 07:56 Lactic Acid 0.80 mmol/L (0.7-2.0) 06/18/22 17:20 Calcium 9.9 mg/dL (8.4-10.2) 07/16/22 04:56 Total Bilirubin 0.80 mg/dL (0.1-1.2) 06/23/22 13:00 AST 19 units/L (5-40) 06/23/22 13:00 ALT 21 units/L (7-56) 06/23/22 13:00 Alkaline Phosphatase 66 units/L (35-129) 06/23/22 13:00 Ammonia 16.0 umol/L (25-60) L 06/23/22 13:00 Total Creatine Kinase 383 units/L (55-170) H 06/18/22 17:20 Troponin T < 0.010 ng/mL (0.00-0.029) 06/18/22 17:20 Total Protein 6.9 g/dL (6.3-8.2) 06/23/22 13:00 Albumin 3.6 g/dL (3.9-5) L 06/23/22 13:00 Albumin/Globulin Ratio 1.1 % 06/23/22 13:00 Vitamin B1 110 nmol/L (8-30) H 06/19/22 20:22 Vitamin B12 2000 pg/mL (211-911) H 06/19/22 20:22 Folate 20.00 ng/mL (7.3-26.0) 06/19/22 20:22 TSH 1.320 mlU/mL (0.270-4.200) 06/19/22 20:22 Urine Color Colorless (Yellow) 06/18/22 Unknown Urine Turbidity Clear (Clear) 06/18/22 Unknown Urine pH 5.0 (5.0-7.0) 06/18/22 Unknown Ur Specific [place] 1.015 (1.003-1.030) 06/18/22 Unknown Urine Protein 30 mg/dl mg/dL (Negative) 06/18/22 Unknown Urine Glucose (UA) Negative mg/dL (Negative) 06/18/22 Unknown Urine Ketones 25 mg/dL (Negative) 06/18/22 Unknown Urine Blood Negative (Negative) 06/18/22 Unknown Urine Nitrite Negative (Negative) 06/18/22 Unknown Urine Bilirubin Negative (Negative) 06/18/22 Unknown Urine Urobilinogen 0.2 mg/dL (<2.0) 06/18/22 Unknown Ur Leukocyte Esterase Negative (Negative) 06/18/22 Unknown Urine WBC (Auto) 1.0 /HPF (0.0-6.0) 06/18/22 Unknown Urine RBC (Auto) < 1.0 /HPF (0.0-6.0) 06/18/22 Unknown Urine Mucus Few /HPF 06/18/22 Unknown Nasal Screen MRSA (PCR) Negative (Negative) 06/21/22 08:50 Urine Opiates Screen Negative 06/19/22 10:49 Urine Methadone Screen Negative 06/19/22 10:49 Ur Barbiturates Screen Negative 06/19/22 10:49 Ur Phencyclidine Scrn Negative 06/19/22 10:49 Ur Amphetamines Screen Negative 06/19/22 10:49 U Benzodiazepines Scrn Negative 06/19/22 10:49 Urine Cocaine Screen Negative 06/19/22 10:49 U Marijuana (THC) Screen Negative 06/19/22 10:49 Drugs of Abuse Note Disclamer 06/19/22 10:49 Plasma/Serum Alcohol < 0.01 % (0-0.07) 06/18/22 17:20 SARS-CoV-2 (PCR) Negative (Negative) 07/06/22 12:21 [place]/IV: Voiding Method Incontinent Active Medications - Current Medications Current Medications: Generic Name Dose Route Start Last Admin Trade Name Freq PRN Reason Stop Dose Admin Acetaminophen 650 mg 06/18/22 23:08 07/02/22 11:16 Acetaminophen 325 Mg Tab PO 650 mg Q4H PRN Administration Pain MILD(1-3)/Fever >100.5/MCGEE Haloperidol Lactate 5 mg 07/14/22 15:04 07/17/22 05:20 Haloperidol Lactate 5 Mg/1 Ml Inj IM 5 mg Q6H PRN Administration Agitation Heparin Sodium (Porcine) 5,000 unit 06/19/22 06:00 07/18/22 06:02 Heparin 5,000 Unit/1 Ml Vial SUB-Q 5,000 unit Q8HR DAVID Administration Magnesium Hydroxide 30 ml 08/05/22 23:08 Magnesium Hydroxide (Mom) Oral Liqd Udc PO Q4H PRN Constipation Metoprolol Tartrate 12.5 mg 07/18/22 10:00 Metoprolol Tartrate 25 Mg Tab PO BID DAVID Mirtazapine 7.5 mg 07/14/22 22:00 07/17/22 22:18 Mirtazapine 15 Mg Tab PO 7.5 mg QHS DAVID Administration Morphine Sulfate 2 mg 06/18/22 23:08 07/16/22 09:01 Morphine 2 Mg/1 Ml Inj IV 2 mg Q4H PRN Administration Pain, Moderate (4-6) Morphine Sulfate 4 mg 06/18/22 23:08 07/12/22 20:42 Morphine 4 Mg/1 Ml Inj IV 4 mg Q4H PRN Administration Pain , Severe (7-10) Olanzapine 5 mg 07/14/22 22:00 07/17/22 22:17 Olanzapine 5 Mg Tab PO 5 mg QHS DAVID Administration Ondansetron HCl 4 mg 06/18/22 23:08 Ondansetron 4 Mg/2 Ml Inj IV Q8H PRN Nausea And Vomiting Sodium Chloride 10 ml 06/19/22 10:00 07/17/22 22:18 Sodium Chloride 0.9% 10 Ml Flush Syringe IV 10 ml BID DAVID Administration Sodium Chloride 10 ml 06/18/22 23:08 Sodium Chloride 0.9% 10 Ml Flush Syringe IV PRN PRN LINE FLUSH Nutrition/Malnutrition Assess - Dietary Evaluation Nutrition/Malnutrition Findings: Nutrition Notes Start: 06/24/22 14:15 Freq: Status: Active Protocol: Document 07/14/22 14:20 CUATE (Rec: 07/14/22 14:34 CUATE [id number]) Nutrition Notes Initial or Follow up Reassessment Other Pertinent Diagnosis EtOH dependence Current Diet Regular Diet (from D 07/08), D Suppl (since D 07/02). Labs/Tests 07/14: N/A. Pertinent Medications 07/14: Nutritionally unremarkable. Height 5 ft 10 in Weight 56.5 kg [place] Body Weight (kg) 75.45 BMI 17.9 Weight change and time frame 0.4 Kg body weight loss in 5 days reported. Weight Status Underweight Subjective/Other Information RD consult for routine F/U on dietary advancement. Diet+ONS continue as prescribed, Pt's PO intake of meals has been Fair (50- 75%) and well tolerated, according to ADL notes. Pt is on Room Air, O2 saturation @ 97%, according to Physical Assessment History notes. Pt remains incontinent, according to Physical Assessment History notes. Pt will be discharged to a SNF when medically cleared, according to Progress notes. Percent of energy/protein needs met: Prescribed Regular Diet provides for energy/protein needs (2,289 Kcal/89 g) during LOS; additionally, Dietary Supplements will compensate for possible poor or insufficient PO intake of meals with 320 Kcal and 32 g of protein. Burn Absent Trauma Absent GI Symptoms Other Food Allergy No Skin Integrity/Comment Assessment WNL. Current % PO Fair (50-74%) Minimum of two criteria No Fluid Accumulation N/A Reduced Sales Management Trainee Strength N/A (non-severe) Protein-Calorie Malnutrition N\A #1 Nutrition Diagnosis Inadequate protein-energy intake Comments: Pt's PO intake of meals has been Fair (50- 75%) and well tolerated, according to ADL notes. Diagnosis Progress(for reassessment Improved documentation) Is patient on ventilator? No Is Patient Ambulatory and/or Out of Bed No REE-([facility]-confined to bed) 1609.452 Kcal/Kg value to use for calculation 36 Approximate Energy Requirements Using 2034 kcal/Kg Calculation Used for Recommendations Kcal/kg Additional Notes Protein: 1-1.2 g/Kg ABW; 64-77 g/day. Fluids: 1 ml/Kcal, or as per MD. Nutrition Intervention Change Diet Order: Conmtinue Regular Diet as tolerated. Add Supplement/Snack (indicate name/kcal Continue 8 fl oz Ensure High /protein ) Protein; BID. Provides kCal: 320 Provides Protein (gm) 32 Goal #1 Compensate, through dietary supplementation, for possible poor or insufficient PO intake of meals during LOS. Goal #2 Adjust the dietary intervention to better serve Pt's needs and clinical conditions during LOS. Revisit per MD consult or patient Sign Off request: Additional Comments Continue monitoring food tolerance, %PO intake of meals , dietary supplements, and BM.
[2022-07-18] MEDS: METOPROLOL TARTRATE 25 MG TAB PO SCH ×2 (10:09→21:14)
[2022-07-18] MEDS: MIRTAZAPINE 15 MG TAB PO SCH (21:15)
[2022-07-19] MEDS: METOPROLOL TARTRATE 25 MG TAB PO SCH ×3 (00:46→22:30)
[2022-07-19] MEDS: HALOPERIDOL LACTATE 5 MG/1 ML INJ IM PRN (00:53)
[2022-07-19] MEDS: HEPARIN 5,000 UNIT/1 ML VIAL SUB-Q SCH ×3 (05:03→22:28)
--- NOTE | 2022-07-19 07:59 | Progress Note ---
Assessment and Plan Assessment and plan: #Refractory metabolic encephalopathy-resolved Refractory despite patient being out of the window for alcohol withdrawal symptoms. Repeating CMP, CBC, and ammonia level. Original CT head noncontrast unremarkable for acute findings. Low clinical suspicion for acute ischemic CVA given patient does not have any focal deficits. Unremarkable urinalysis and UDS. -Continue Zyprexa 5 mg daily; Psych reconsulted due to patient combativeness with nursing -continue mirtazapine -PT evaluation ordered: subacute rehab recommendation; CM aware #Acute hypoxic respiratory failure-resolved - etiology: possible infection (COVID or HAP) vs volume overload; COVID negative - baseline oxygen requirements: room air - supplemental oxygen: patient currently on RA - Continue protocol: continue pulse oximetry, wean oxygen as tolerated, ordered incentive spirometry and educated patient on how to use it and its importance. Unremarkable coronavirus PCR. Discontinued antibiotics as low suspicion for infection. - continue to monitor #Alcohol withdrawal-resolved #Tachycardiaresolved #Alcohol dependence -s/p CIWA protocol and librium taper, patient out of window for alcohol withdrawal. #Volume depletion-resolved #Advanced care planning -Disease education conducted, care plan discussed, diagnoses discussed, prognosis discussed, and patient acknowledges understanding with care plan -Time: +30 min #Social: Extreme difficulty with finding patient's next of kin or friends. Patient was able to provide names of family members: FatherMichael Yates Sr.; motherElvira Radha Mcfarland; sisterMarhi Radha Mcfarland; sisterNorma Bartolo. Friends of the patient have been located, and they are excited to be involved with finding the patient placement. They presented to the bedside on 07/07/2022 at the request of case management. #Discharge planning -Patient discharged [facility] and was initially transferred from a hospital in [facility] -According to nursing, over the weekend a call was received from [facility]'s office where they were informed that the patient has active warrants out for his arrest. Currently no police department is aware of warrants for the patient -we will continue search for facility for safe discharge History Interval history: Patient sleeping. Easy to rouse but falls back asleep. He appears to be in no distress at this time. Hospitalist Physical - Physical exam Narrative exam: GENERAL: Thin elderly male. In no acute distress. HEENT: NC in place at 2LPM CHEST/LUNGS: Coarse breath sounds bilaterally. HEART/CARDIOVASCULAR: RRR. No murmur, rubs or gallops appreciated. ABDOMEN: +BS. NT/ND. NEURO: No noted focal deficits. MUSCULOSKELETAL: No joint effusion EXTREMITIES: No cyanosis, clubbing or edema. PSYCH: Cooperative. - Constitutional Vitals: Temp Pulse Resp BP Pulse Ox 97.4 F L 82 18 118/67 95 07/19/22 03:25 07/19/22 03:26 07/19/22 03:25 07/19/22 03:25 07/19/22 03:26 General appearance: Present: no acute distress, cachectic, disheveled HEART Score - HEART Score Troponin: Troponin T < 0.010 ng/mL (0.00-0.029) 06/18/22 17:20 Results - Labs CBC & Chem 7: 07/01/22 05:39 07/16/22 04:56 Labs: Laboratory Last Values WBC 10.2 K/mm3 (4.5-11.0) 07/01/22 05:39 RBC 4.78 M/mm3 (3.65-5.03) 07/01/22 05:39 Hgb 15.2 gm/dl (11.8-15.2) 07/01/22 05:39 Hct 45.7 % (35.5-45.6) H 07/01/22 05:39 MCV 95 fl (84-94) H 07/01/22 05:39 MCH 32 pg (28-32) 07/01/22 05:39 MCHC 33 % (32-34) 07/01/22 05:39 RDW 12.3 % (13.2-15.2) L 07/01/22 05:39 Plt Count 384 K/mm3 (140-440) 07/01/22 05:39 Lymph % (Auto) 15.1 % (13.4-35.0) 06/28/22 05:05 [place] % (Auto) 9.5 % (0.0-7.3) H 06/28/22 05:05 Eos % (Auto) 2.0 % (0.0-4.3) 06/28/22 05:05 Baso % (Auto) 0.8 % (0.0-1.8) 06/28/22 05:05 Lymph # (Auto) 1.9 K/mm3 (1.2-5.4) 06/28/22 05:05 [place] # (Auto) 1.2 K/mm3 (0.0-0.8) H 06/28/22 05:05 Eos # (Auto) 0.3 K/mm3 (0.0-0.4) 06/28/22 05:05 Baso # (Auto) 0.1 K/mm3 (0.0-0.1) 06/28/22 05:05 Add Manual Diff Complete 06/26/22 09:13 Total Counted 100 06/26/22 09:13 Seg Neutrophils % 72.6 % (40.0-70.0) H 06/28/22 05:05 Seg Neuts % (Manual) 85.0 % (40.0-70.0) H 06/26/22 09:13 Band Neutrophils % 0 % 06/26/22 09:13 Lymphocytes % (Manual) 6.0 % (13.4-35.0) L 06/26/22 09:13 Reactive Lymphs % (Man) 0 % 06/26/22 09:13 Monocytes % (Manual) 8.0 % (0.0-7.3) H 06/26/22 09:13 Eosinophils % (Manual) 0 % (0.0-4.3) 06/26/22 09:13 Basophils % (Manual) 1.0 % (0.0-1.8) 06/26/22 09:13 Metamyelocytes % 0 % 06/26/22 09:13 Myelocytes % 0 % 06/26/22 09:13 Promyelocytes % 0 % 06/26/22 09:13 Blast Cells % 0 % 06/26/22 09:13 Nucleated RBC % Not Reportable 06/26/22 09:13 Seg Neutrophils # 9.1 K/mm3 (1.8-7.7) H 06/28/22 05:05 Seg Neutrophils # Man 14.7 K/mm3 (1.8-7.7) H 06/26/22 09:13 Band Neutrophils # 0.0 K/mm3 06/26/22 09:13 Lymphocytes # (Manual) 1.0 K/mm3 (1.2-5.4) L 06/26/22 09:13 Abs React Lymphs (Man) 0.0 K/mm3 06/26/22 09:13 Monocytes # (Manual) 1.4 K/mm3 (0.0-0.8) H 06/26/22 09:13 Eosinophils # (Manual) 0.0 K/mm3 (0.0-0.4) 06/26/22 09:13 Basophils # (Manual) 0.2 K/mm3 (0.0-0.1) H 06/26/22 09:13 Metamyelocytes # 0.0 K/mm3 06/26/22 09:13 Myelocytes # 0.0 K/mm3 06/26/22 09:13 Promyelocytes # 0.0 K/mm3 06/26/22 09:13 Blast Cells # 0.0 K/mm3 06/26/22 09:13 WBC Morphology Not Reportable 06/26/22 09:13 Hypersegmented Neuts Not Reportable 06/26/22 09:13 Hyposegmented Neuts Not Reportable 06/26/22 09:13 Hypogranular Neuts Not Reportable 06/26/22 09:13 Smudge Cells Not Reportable 06/26/22 09:13 Toxic Granulation Not Reportable 06/26/22 09:13 Toxic Vacuolation Not Reportable 06/26/22 09:13 Dohle Bodies Not Reportable 06/26/22 09:13 Pelger-Huet Anomaly Not Reportable 06/26/22 09:13 Radha Rods Not Reportable 06/26/22 09:13 Platelet Estimate Consistent w auto 06/26/22 09:13 Clumped Platelets Not Reportable 06/26/22 09:13 Plt Clumps, EDTA Not Reportable 06/26/22 09:13 Large Platelets Not Reportable 06/26/22 09:13 Giant Platelets Not Reportable 06/26/22 09:13 Platelet Satelliting Not Reportable 06/26/22 09:13 Plt Morphology Comment Not Reportable 06/26/22 09:13 RBC Morphology Normal 06/26/22 09:13 Dimorphic RBCs Not Reportable 06/26/22 09:13 Polychromasia Not Reportable 06/26/22 09:13 Hypochromasia Not Reportable 06/26/22 09:13 Poikilocytosis Not Reportable 06/26/22 09:13 Anisocytosis Not Reportable 06/26/22 09:13 Microcytosis Not Reportable 06/26/22 09:13 Macrocytosis Not Reportable 06/26/22 09:13 Spherocytes Not Reportable 06/26/22 09:13 Pappenheimer Bodies Not Reportable 06/26/22 09:13 Sickle Cells Not Reportable 06/26/22 09:13 Target Cells Not Reportable 06/26/22 09:13 Tear Drop Cells Not Reportable 06/26/22 09:13 Ovalocytes Not Reportable 06/26/22 09:13 Helmet Cells Not Reportable 06/26/22 09:13 Alfaro-Haskins Bodies Not Reportable 06/26/22 09:13 [place] Rings Not Reportable 06/26/22 09:13 [place] Cells Not Reportable 06/26/22 09:13 Bite Cells Not Reportable 06/26/22 09:13 Crenated Cell Not Reportable 06/26/22 09:13 Elliptocytes Not Reportable 06/26/22 09:13 Acanthocytes (Spur) Not Reportable 06/26/22 09:13 Rouleaux Not Reportable 06/26/22 09:13 Hemoglobin C Crystals Not Reportable 06/26/22 09:13 Schistocytes Not Reportable 06/26/22 09:13 Malaria parasites Not Reportable 06/26/22 09:13 Roland Bodies Not Reportable 06/26/22 09:13 Hem Pathologist Commnt No 06/26/22 09:13 Sodium 154 mmol/L (137-145) H 07/16/22 04:56 Potassium 4.1 mmol/L (3.6-5.0) 07/16/22 04:56 Chloride 111.2 mmol/L (98-107) H 07/16/22 04:56 Carbon Dioxide 26 mmol/L (22-30) 07/16/22 04:56 Anion Gap 21 mmol/L 07/16/22 04:56 BUN 43 mg/dL (9-20) H 07/16/22 04:56 Creatinine 1.4 mg/dL (0.8-1.3) H 07/16/22 04:56 Estimated GFR > 60 ml/min 07/16/22 04:56 BUN/Creatinine Ratio 31 % 07/16/22 04:56 Glucose 100 mg/dL (75-100) 07/16/22 04:56 POC Glucose 89 mg/dL (70-105) 07/18/22 23:25 Hemoglobin A1c 5.7 % (4-6) 07/11/22 07:56 Lactic Acid 0.80 mmol/L (0.7-2.0) 06/18/22 17:20 Calcium 9.9 mg/dL (8.4-10.2) 07/16/22 04:56 Total Bilirubin 0.80 mg/dL (0.1-1.2) 06/23/22 13:00 AST 19 units/L (5-40) 06/23/22 13:00 ALT 21 units/L (7-56) 06/23/22 13:00 Alkaline Phosphatase 66 units/L (35-129) 06/23/22 13:00 Ammonia 16.0 umol/L (25-60) L 06/23/22 13:00 Total Creatine Kinase 383 units/L (55-170) H 06/18/22 17:20 Troponin T < 0.010 ng/mL (0.00-0.029) 06/18/22 17:20 Total Protein 6.9 g/dL (6.3-8.2) 06/23/22 13:00 Albumin 3.6 g/dL (3.9-5) L 06/23/22 13:00 Albumin/Globulin Ratio 1.1 % 06/23/22 13:00 Vitamin B1 110 nmol/L (8-30) H 06/19/22 20:22 Vitamin B12 2000 pg/mL (211-911) H 06/19/22 20:22 Folate 20.00 ng/mL (7.3-26.0) 06/19/22 20:22 TSH 1.320 mlU/mL (0.270-4.200) 06/19/22 20:22 Urine Color Colorless (Yellow) 06/18/22 Unknown Urine Turbidity Clear (Clear) 06/18/22 Unknown Urine pH 5.0 (5.0-7.0) 06/18/22 Unknown Ur Specific [place] 1.015 (1.003-1.030) 06/18/22 Unknown Urine Protein 30 mg/dl mg/dL (Negative) 06/18/22 Unknown Urine Glucose (UA) Negative mg/dL (Negative) 06/18/22 Unknown Urine Ketones 25 mg/dL (Negative) 06/18/22 Unknown Urine Blood Negative (Negative) 06/18/22 Unknown Urine Nitrite Negative (Negative) 06/18/22 Unknown Urine Bilirubin Negative (Negative) 06/18/22 Unknown Urine Urobilinogen 0.2 mg/dL (<2.0) 06/18/22 Unknown Ur Leukocyte Esterase Negative (Negative) 06/18/22 Unknown Urine WBC (Auto) 1.0 /HPF (0.0-6.0) 06/18/22 Unknown Urine RBC (Auto) < 1.0 /HPF (0.0-6.0) 06/18/22 Unknown Urine Mucus Few /HPF 06/18/22 Unknown Nasal Screen MRSA (PCR) Negative (Negative) 06/21/22 08:50 Urine Opiates Screen Negative 06/19/22 10:49 Urine Methadone Screen Negative 06/19/22 10:49 Ur Barbiturates Screen Negative 06/19/22 10:49 Ur Phencyclidine Scrn Negative 06/19/22 10:49 Ur Amphetamines Screen Negative 06/19/22 10:49 U Benzodiazepines Scrn Negative 06/19/22 10:49 Urine Cocaine Screen Negative 06/19/22 10:49 U Marijuana (THC) Screen Negative 06/19/22 10:49 Drugs of Abuse Note Disclamer 06/19/22 10:49 Plasma/Serum Alcohol < 0.01 % (0-0.07) 06/18/22 17:20 SARS-CoV-2 (PCR) Negative (Negative) 07/06/22 12:21 [place]/IV: Voiding Method Incontinent Active Medications - Current Medications Current Medications: Generic Name Dose Route Start Last Admin Trade Name Freq PRN Reason Stop Dose Admin Acetaminophen 650 mg 06/18/22 23:08 07/02/22 11:16 Acetaminophen 325 Mg Tab PO 650 mg Q4H PRN Administration Pain MILD(1-3)/Fever >100.5/MCGEE Haloperidol Lactate 5 mg 07/14/22 15:04 07/19/22 00:53 Haloperidol Lactate 5 Mg/1 Ml Inj IM 5 mg Q6H PRN Administration Agitation Heparin Sodium (Porcine) 5,000 unit 06/19/22 06:00 07/19/22 05:03 Heparin 5,000 Unit/1 Ml Vial SUB-Q 5,000 unit Q8HR DAVID Administration Magnesium Hydroxide 30 ml 06/18/22 23:08 Magnesium Hydroxide (Mom) Oral Liqd Udc PO Q4H PRN Constipation Metoprolol Tartrate 12.5 mg 07/18/22 10:00 07/19/22 00:46 Metoprolol Tartrate 25 Mg Tab PO 12.5 mg BID DAVID Administration Mirtazapine 7.5 mg 07/14/22 22:00 07/18/22 21:15 Mirtazapine 15 Mg Tab PO 7.5 mg QHS DAVID Administration Morphine Sulfate 2 mg 06/18/22 23:08 07/16/22 09:01 Morphine 2 Mg/1 Ml Inj IV 2 mg Q4H PRN Administration Pain, Moderate (4-6) Morphine Sulfate 4 mg 06/18/22 23:08 07/12/22 20:42 Morphine 4 Mg/1 Ml Inj IV 4 mg Q4H PRN Administration Pain , Severe (7-10) Olanzapine 5 mg 07/14/22 22:00 07/18/22 21:15 Olanzapine 5 Mg Tab PO 5 mg QHS DAVID Administration Ondansetron HCl 4 mg 06/18/22 23:08 Ondansetron 4 Mg/2 Ml Inj IV Q8H PRN Nausea And Vomiting Sodium Chloride 10 ml 06/19/22 10:00 07/18/22 21:14 Sodium Chloride 0.9% 10 Ml Flush Syringe IV 10 ml BID DAVID Administration Sodium Chloride 10 ml 06/18/22 23:08 Sodium Chloride 0.9% 10 Ml Flush Syringe IV PRN PRN LINE FLUSH Nutrition/Malnutrition Assess - Dietary Evaluation Nutrition/Malnutrition Findings: Nutrition Notes Start: 06/24/22 14:15 Freq: Status: Active Protocol: Document 07/14/22 14:20 CUATE (Rec: 07/14/22 14:34 CUATE [email or web address]) Nutrition Notes Initial or Follow up Reassessment Other Pertinent Diagnosis EtOH dependence Current Diet Regular Diet (from D 07/08), D Suppl (since D 07/02). Labs/Tests 07/14: N/A. Pertinent Medications 07/14: Nutritionally unremarkable. Height 5 ft 10 in Weight 56.5 kg [place] Body Weight (kg) 75.45 BMI 17.9 Weight change and time frame 0.4 Kg body weight loss in 5 days reported. Weight Status Underweight Subjective/Other Information RD consult for routine F/U on dietary advancement. Diet+ONS continue as prescribed, Pt's PO intake of meals has been Fair (50- 75%) and well tolerated, according to ADL notes. Pt is on Room Air, O2 saturation @ 97%, according to Physical Assessment History notes. Pt remains incontinent, according to Physical Assessment History notes. Pt will be discharged to a SNF when medically cleared, according to Progress notes. Percent of energy/protein needs met: Prescribed Regular Diet provides for energy/protein needs (2,289 Kcal/89 g) during LOS; additionally, Dietary Supplements will compensate for possible poor or insufficient PO intake of meals with 320 Kcal and 32 g of protein. Burn Absent Trauma Absent GI Symptoms Other Food Allergy No Skin Integrity/Comment Assessment WNL. Current % PO Fair (50-74%) Minimum of two criteria No Fluid Accumulation N/A Reduced Cover Cre[place] Strength N/A (non-severe) Protein-Calorie Malnutrition N\A #1 Nutrition Diagnosis Inadequate protein-energy intake Comments: Pt's PO intake of meals has been Fair (50- 75%) and well tolerated, according to ADL notes. Diagnosis Progress(for reassessment Improved documentation) Is patient on ventilator? No Is Patient Ambulatory and/or Out of Bed No REE-([facility]-confined to bed) 1609.452 Kcal/Kg value to use for calculation 36 Approximate Energy Requirements Using 2034 kcal/Kg Calculation Used for Recommendations Kcal/kg Additional Notes Protein: 1-1.2 g/Kg ABW; 64-77 g/day. Fluids: 1 ml/Kcal, or as per MD. Nutrition Intervention Change Diet Order: Conmtinue Regular Diet as tolerated. Add Supplement/Snack (indicate name/kcal Continue 8 fl oz Ensure High /protein ) Protein; BID. Provides kCal: 320 Provides Protein (gm) 32 Goal #1 Compensate, through dietary supplementation, for possible poor or insufficient PO intake of meals during LOS. Goal #2 Adjust the dietary intervention to better serve Pt's needs and clinical conditions during LOS. Revisit per MD consult or patient Sign Off request: Additional Comments Continue monitoring food tolerance, %PO intake of meals , dietary supplements, and BM.
[2022-07-19] MEDS: MIRTAZAPINE 15 MG TAB PO SCH (22:28)
[2022-07-20] MEDS: HEPARIN 5,000 UNIT/1 ML VIAL SUB-Q SCH ×3 (05:45→22:13)
[2022-07-20] MEDS: METOPROLOL TARTRATE 25 MG TAB PO SCH ×2 (09:36→21:47)
--- NOTE | 2022-07-20 09:47 | Progress Note ---
Assessment and Plan Assessment and plan: #Refractory metabolic encephalopathy-resolved Refractory despite patient being out of the window for alcohol withdrawal symptoms. Repeating CMP, CBC, and ammonia level. Original CT head noncontrast unremarkable for acute findings. Low clinical suspicion for acute ischemic CVA given patient does not have any focal deficits. Unremarkable urinalysis and UDS. -Continue Zyprexa 5 mg daily; Psych reconsulted due to patient combativeness with nursing -continue mirtazapine -PT evaluation ordered: subacute rehab recommendation; CM aware #Acute hypoxic respiratory failure-resolved - etiology: possible infection (COVID or HAP) vs volume overload; COVID negative - baseline oxygen requirements: room air - supplemental oxygen: patient currently on RA - Continue protocol: continue pulse oximetry, wean oxygen as tolerated, ordered incentive spirometry and educated patient on how to use it and its importance. Unremarkable coronavirus PCR. Discontinued antibiotics as low suspicion for infection. - continue to monitor #Alcohol withdrawal-resolved #Tachycardiaresolved #Alcohol dependence -s/p CIWA protocol and librium taper, patient out of window for alcohol withdrawal. #Volume depletion-resolved #Advanced care planning -Disease education conducted, care plan discussed, diagnoses discussed, prognosis discussed, and patient acknowledges understanding with care plan -Time: +30 min #Social: Extreme difficulty with finding patient's next of kin or friends. Patient was able to provide names of family members: FatherMichael Yates Sr.; motherMaradarsh Radha Mcfarland; sisterMarhi Radha Mcfarland; sisterNorma Bartolo. Friends of the patient have been located, and they are excited to be involved with finding the patient placement. They presented to the bedside on 07/07/2022 at the request of case management. #Discharge planning -Patient discharged from [facility] and was initially transferred from a hospital in [facility] -According to nursing, over the weekend a call was received from [facility]'s office where they were informed that the patient has active warrants out for his arrest. Currently no police department is aware of warrants for the patient -we will continue search for facility for safe discharge History Interval history: I have seen and examined the patient at the bedside Patient's chart and medications reviewed Patient is confused and in restraints No new overnight events reported by the nursing staff Hospitalist Physical - Constitutional Vitals: Temp Pulse Resp BP Pulse Ox 97.6 F 104 H 18 104/42 96 07/20/22 03:32 09/06/22 09:36 07/20/22 08:15 07/20/22 03:32 07/20/22 08:15 General appearance: Present: no acute distress, cachectic, disheveled - EENT Eyes: Present: PERRL, EOM intact - Neck Neck: Present: supple, normal ROM - Respiratory Respiratory effort: normal Respiratory: bilateral: diminished, negative: rales, rhonchi, wheezing - Cardiovascular Rhythm: regular Heart Sounds: Present: S1 & S2 - Extremities Extremities: no ischemia, No edema - Abdominal General gastrointestinal: soft, non-tender, non-distended, normal bowel sounds - Integumentary Integumentary: Present: clear, warm - Psychiatric Psychiatric: other (Confused) - Neurologic Neurologic: other (Noncommunicative confused) HEART Score - HEART Score Troponin: Troponin T < 0.010 ng/mL (0.00-0.029) 06/18/22 17:20 Results - Labs CBC & Chem 7: 07/01/22 05:39 07/16/22 04:56 Labs: Laboratory Last Values WBC 10.2 K/mm3 (4.5-11.0) 07/01/22 05:39 RBC 4.78 M/mm3 (3.65-5.03) 07/01/22 05:39 Hgb 15.2 gm/dl (11.8-15.2) 07/01/22 05:39 Hct 45.7 % (35.5-45.6) H 07/01/22 05:39 MCV 95 fl (84-94) H 07/01/22 05:39 MCH 32 pg (28-32) 07/01/22 05:39 MCHC 33 % (32-34) 07/01/22 05:39 RDW 12.3 % (13.2-15.2) L 07/01/22 05:39 Plt Count 384 K/mm3 (140-440) 07/01/22 05:39 Lymph % (Auto) 15.1 % (13.4-35.0) 06/28/22 05:05 [place] % (Auto) 9.5 % (0.0-7.3) H 06/28/22 05:05 Eos % (Auto) 2.0 % (0.0-4.3) 06/28/22 05:05 Baso % (Auto) 0.8 % (0.0-1.8) 06/28/22 05:05 Lymph # (Auto) 1.9 K/mm3 (1.2-5.4) 06/28/22 05:05 [place] # (Auto) 1.2 K/mm3 (0.0-0.8) H 06/28/22 05:05 Eos # (Auto) 0.3 K/mm3 (0.0-0.4) 06/28/22 05:05 Baso # (Auto) 0.1 K/mm3 (0.0-0.1) 06/28/22 05:05 Add Manual Diff Complete 06/26/22 09:13 Total Counted 100 06/26/22 09:13 Seg Neutrophils % 72.6 % (40.0-70.0) H 06/28/22 05:05 Seg Neuts % (Manual) 85.0 % (40.0-70.0) H 06/26/22 09:13 Band Neutrophils % 0 % 06/26/22 09:13 Lymphocytes % (Manual) 6.0 % (13.4-35.0) L 06/26/22 09:13 Reactive Lymphs % (Man) 0 % 06/26/22 09:13 Monocytes % (Manual) 8.0 % (0.0-7.3) H 06/26/22 09:13 Eosinophils % (Manual) 0 % (0.0-4.3) 06/26/22 09:13 Basophils % (Manual) 1.0 % (0.0-1.8) 06/26/22 09:13 Metamyelocytes % 0 % 06/26/22 09:13 Myelocytes % 0 % 06/26/22 09:13 Promyelocytes % 0 % 06/26/22 09:13 Blast Cells % 0 % 06/26/22 09:13 Nucleated RBC % Not Reportable 06/26/22 09:13 Seg Neutrophils # 9.1 K/mm3 (1.8-7.7) H 06/28/22 05:05 Seg Neutrophils # Man 14.7 K/mm3 (1.8-7.7) H 06/26/22 09:13 Band Neutrophils # 0.0 K/mm3 06/26/22 09:13 Lymphocytes # (Manual) 1.0 K/mm3 (1.2-5.4) L 06/26/22 09:13 Abs React Lymphs (Man) 0.0 K/mm3 06/26/22 09:13 Monocytes # (Manual) 1.4 K/mm3 (0.0-0.8) H 06/26/22 09:13 Eosinophils # (Manual) 0.0 K/mm3 (0.0-0.4) 06/26/22 09:13 Basophils # (Manual) 0.2 K/mm3 (0.0-0.1) H 06/26/22 09:13 Metamyelocytes # 0.0 K/mm3 06/26/22 09:13 Myelocytes # 0.0 K/mm3 06/26/22 09:13 Promyelocytes # 0.0 K/mm3 06/26/22 09:13 Blast Cells # 0.0 K/mm3 06/26/22 09:13 WBC Morphology Not Reportable 06/26/22 09:13 Hypersegmented Neuts Not Reportable 06/26/22 09:13 Hyposegmented Neuts Not Reportable 06/26/22 09:13 Hypogranular Neuts Not Reportable 06/26/22 09:13 Smudge Cells Not Reportable 06/26/22 09:13 Toxic Granulation Not Reportable 06/26/22 09:13 Toxic Vacuolation Not Reportable 06/26/22 09:13 Dohle Bodies Not Reportable 06/26/22 09:13 Pelger-Huet Anomaly Not Reportable 06/26/22 09:13 Radha Rods Not Reportable 06/26/22 09:13 Platelet Estimate Consistent w auto 06/26/22 09:13 Clumped Platelets Not Reportable 06/26/22 09:13 Plt Clumps, EDTA Not Reportable 06/26/22 09:13 Large Platelets Not Reportable 06/26/22 09:13 Giant Platelets Not Reportable 06/26/22 09:13 Platelet Satelliting Not Reportable 06/26/22 09:13 Plt Morphology Comment Not Reportable 06/26/22 09:13 RBC Morphology Normal 06/26/22 09:13 Dimorphic RBCs Not Reportable 06/26/22 09:13 Polychromasia Not Reportable 06/26/22 09:13 Hypochromasia Not Reportable 06/26/22 09:13 Poikilocytosis Not Reportable 06/26/22 09:13 Anisocytosis Not Reportable 06/26/22 09:13 Microcytosis Not Reportable 06/26/22 09:13 Macrocytosis Not Reportable 06/26/22 09:13 Spherocytes Not Reportable 06/26/22 09:13 Pappenheimer Bodies Not Reportable 06/26/22 09:13 Sickle Cells Not Reportable 06/26/22 09:13 Target Cells Not Reportable 06/26/22 09:13 Tear Drop Cells Not Reportable 06/26/22 09:13 Ovalocytes Not Reportable 06/26/22 09:13 Helmet Cells Not Reportable 06/26/22 09:13 [place] Bodies Not Reportable 06/26/22 09:13 Bypro Rings Not Reportable 06/26/22 09:13 [place] Cells Not Reportable 06/26/22 09:13 Bite Cells Not Reportable 06/26/22 09:13 Crenated Cell Not Reportable 06/26/22 09:13 Elliptocytes Not Reportable 06/26/22 09:13 Acanthocytes (Spur) Not Reportable 06/26/22 09:13 Rouleaux Not Reportable 06/26/22 09:13 Hemoglobin C Crystals Not Reportable 06/26/22 09:13 Schistocytes Not Reportable 06/26/22 09:13 Malaria parasites Not Reportable 06/26/22 09:13 Roland Bodies Not Reportable 06/26/22 09:13 Hem Pathologist Commnt No 06/26/22 09:13 Sodium 154 mmol/L (137-145) H 07/16/22 04:56 Potassium 4.1 mmol/L (3.6-5.0) 07/16/22 04:56 Chloride 111.2 mmol/L (98-107) H 07/16/22 04:56 Carbon Dioxide 26 mmol/L (22-30) 07/16/22 04:56 Anion Gap 21 mmol/L 07/16/22 04:56 BUN 43 mg/dL (9-20) H 07/16/22 04:56 Creatinine 1.4 mg/dL (0.8-1.3) H 07/16/22 04:56 Estimated GFR > 60 ml/min 07/16/22 04:56 BUN/Creatinine Ratio 31 % 07/16/22 04:56 Glucose 100 mg/dL (75-100) 07/16/22 04:56 POC Glucose 130 mg/dL (70-105) H 07/20/22 05:07 Hemoglobin A1c 5.7 % (4-6) 07/11/22 07:56 Lactic Acid 0.80 mmol/L (0.7-2.0) 06/18/22 17:20 Calcium 9.9 mg/dL (8.4-10.2) 07/16/22 04:56 Total Bilirubin 0.80 mg/dL (0.1-1.2) 06/23/22 13:00 AST 19 units/L (5-40) 06/23/22 13:00 ALT 21 units/L (7-56) 06/23/22 13:00 Alkaline Phosphatase 66 units/L (35-129) 06/23/22 13:00 Ammonia 16.0 umol/L (25-60) L 06/23/22 13:00 Total Creatine Kinase 383 units/L (55-170) H 06/18/22 17:20 Troponin T < 0.010 ng/mL (0.00-0.029) 06/18/22 17:20 Total Protein 6.9 g/dL (6.3-8.2) 06/23/22 13:00 Albumin 3.6 g/dL (3.9-5) L 06/23/22 13:00 Albumin/Globulin Ratio 1.1 % 06/23/22 13:00 Vitamin B1 110 nmol/L (8-30) H 06/19/22 20:22 Vitamin B12 2000 pg/mL (211-911) H 06/19/22 20:22 Folate 20.00 ng/mL (7.3-26.0) 06/19/22 20:22 TSH 1.320 mlU/mL (0.270-4.200) 06/19/22 20:22 Urine Color Colorless (Yellow) 06/18/22 Unknown Urine Turbidity Clear (Clear) 06/18/22 Unknown Urine pH 5.0 (5.0-7.0) 06/18/22 Unknown Ur Specific [place] 1.015 (1.003-1.030) 06/18/22 Unknown Urine Protein 30 mg/dl mg/dL (Negative) 06/18/22 Unknown Urine Glucose (UA) Negative mg/dL (Negative) 06/18/22 Unknown Urine Ketones 25 mg/dL (Negative) 06/18/22 Unknown Urine Blood Negative (Negative) 06/18/22 Unknown Urine Nitrite Negative (Negative) 06/18/22 Unknown Urine Bilirubin Negative (Negative) 06/18/22 Unknown Urine Urobilinogen 0.2 mg/dL (<2.0) 06/18/22 Unknown Ur Leukocyte Esterase Negative (Negative) 06/18/22 Unknown Urine WBC (Auto) 1.0 /HPF (0.0-6.0) 06/18/22 Unknown Urine RBC (Auto) < 1.0 /HPF (0.0-6.0) 06/18/22 Unknown Urine Mucus Few /HPF 06/18/22 Unknown Nasal Screen MRSA (PCR) Negative (Negative) 06/21/22 08:50 Urine Opiates Screen Negative 06/19/22 10:49 Urine Methadone Screen Negative 06/19/22 10:49 Ur Barbiturates Screen Negative 06/19/22 10:49 Ur Phencyclidine Scrn Negative 06/19/22 10:49 Ur Amphetamines Screen Negative 06/19/22 10:49 U Benzodiazepines Scrn Negative 06/19/22 10:49 Urine Cocaine Screen Negative 06/19/22 10:49 U Marijuana (THC) Screen Negative 06/19/22 10:49 Drugs of Abuse Note Disclamer 06/19/22 10:49 Plasma/Serum Alcohol < 0.01 % (0-0.07) 06/18/22 17:20 SARS-CoV-2 (PCR) Negative (Negative) 07/06/22 12:21 [place]/IV: Voiding Method Incontinent Active Medications - Current Medications Current Medications: Generic Name Dose Route Start Last Admin Trade Name Freq PRN Reason Stop Dose Admin Acetaminophen 650 mg 06/18/22 23:08 07/02/22 11:16 Acetaminophen 325 Mg Tab PO 650 mg Q4H PRN Administration Pain MILD(1-3)/Fever >100.5/MCGEE Haloperidol Lactate 5 mg 07/14/22 15:04 07/19/22 00:53 Haloperidol Lactate 5 Mg/1 Ml Inj IM 5 mg Q6H PRN Administration Agitation Heparin Sodium (Porcine) 5,000 unit 06/19/22 06:00 07/20/22 05:45 Heparin 5,000 Unit/1 Ml Vial SUB-Q 5,000 unit Q8HR DAVID Administration Magnesium Hydroxide 30 ml 06/18/22 23:08 Magnesium Hydroxide (Mom) Oral Liqd Udc PO Q4H PRN Constipation Metoprolol Tartrate 12.5 mg 07/18/22 10:00 07/20/22 09:36 Metoprolol Tartrate 25 Mg Tab PO 12.5 mg BID DAVID Administration Mirtazapine 7.5 mg 07/14/22 22:00 07/19/22 22:28 Mirtazapine 15 Mg Tab PO 7.5 mg QHS DAVID Administration Olanzapine 5 mg 07/14/22 22:00 07/19/22 22:28 Olanzapine 5 Mg Tab PO 5 mg QHS DAVID Administration Ondansetron HCl 4 mg 06/18/22 23:08 Ondansetron 4 Mg/2 Ml Inj IV Q8H PRN Nausea And Vomiting Sodium Chloride 10 ml 06/19/22 10:00 07/20/22 09:44 Sodium Chloride 0.9% 10 Ml Flush Syringe IV 10 ml BID DAVID Administration Sodium Chloride 10 ml 06/18/22 23:08 Sodium Chloride 0.9% 10 Ml Flush Syringe IV PRN PRN LINE FLUSH Nutrition/Malnutrition Assess - Dietary Evaluation Nutrition/Malnutrition Findings: Nutrition Notes Start: 06/24/22 14:15 Freq: Status: Active Protocol: Document 07/14/22 14:20 CUATE (Rec: 07/14/22 14:34 CUATE [email or web address]) Nutrition Notes Initial or Follow up Reassessment Other Pertinent Diagnosis EtOH dependence Current Diet Regular Diet (from D 07/08), D Suppl (since D 07/02). Labs/Tests 07/14: N/A. Pertinent Medications 07/14: Nutritionally unremarkable. Height 5 ft 10 in Weight 56.5 kg Sebastian Body Weight (kg) 75.45 BMI 17.9 Weight change and time frame 0.4 Kg body weight loss in 5 days reported. Weight Status Underweight Subjective/Other Information RD consult for routine F/U on dietary advancement. Diet+ONS continue as prescribed, Pt's PO intake of meals has been Fair (50- 75%) and well tolerated, according to ADL notes. Pt is on Room Air, O2 saturation @ 97%, according to Physical Assessment History notes. Pt remains incontinent, according to Physical Assessment History notes. Pt will be discharged to a SNF when medically cleared, according to Progress notes. Percent of energy/protein needs met: Prescribed Regular Diet provides for energy/protein needs (2,289 Kcal/89 g) during LOS; additionally, Dietary Supplements will compensate for possible poor or insufficient PO intake of meals with 320 Kcal and 32 g of protein. Burn Absent Trauma Absent GI Symptoms Other Food Allergy No Skin Integrity/Comment Assessment WNL. Current % PO Fair (50-74%) Minimum of two criteria No Fluid Accumulation N/A Reduced It Applications Manager Strength N/A (non-severe) Protein-Calorie Malnutrition N\A #1 Nutrition Diagnosis Inadequate protein-energy intake Comments: Pt's PO intake of meals has been Fair (50- 75%) and well tolerated, according to ADL notes. Diagnosis Progress(for reassessment Improved documentation) Is patient on ventilator? No Is Patient Ambulatory and/or Out of Bed No REE-([place] Jeor-confined to bed) 1609.452 Kcal/Kg value to use for calculation 36 Approximate Energy Requirements Using 2034 kcal/Kg Calculation Used for Recommendations Kcal/kg Additional Notes Protein: 1-1.2 g/Kg ABW; 64-77 g/day. Fluids: 1 ml/Kcal, or as per MD. Nutrition Intervention Change Diet Order: Conmtinue Regular Diet as tolerated. Add Supplement/Snack (indicate name/kcal Continue 8 fl oz Ensure High /protein ) Protein; BID. Provides kCal: 320 Provides Protein (gm) 32 Goal #1 Compensate, through dietary supplementation, for possible poor or insufficient PO intake of meals during LOS. Goal #2 Adjust the dietary intervention to better serve Pt's needs and clinical conditions during LOS. Revisit per MD consult or patient Sign Off request: Additional Comments Continue monitoring food tolerance, %PO intake of meals , dietary supplements, and BM.
[2022-07-20] MEDS: MIRTAZAPINE 15 MG TAB PO SCH (23:42)
[2022-07-21] MEDS: HEPARIN 5,000 UNIT/1 ML VIAL SUB-Q SCH ×3 (05:04→21:31)
[2022-07-21 05:10] LABS: Albumin 4.7 g/dL (3.9-5); Calcium 10.5 mg/dL (8.4-10.2)
--- NOTE | 2022-07-21 09:02 | Progress Note ---
Assessment and Plan Assessment and plan: #Refractory metabolic encephalopathy-resolved Refractory despite patient being out of the window for alcohol withdrawal symptoms. Repeating CMP, CBC, and ammonia level. Original CT head noncontrast unremarkable for acute findings. Low clinical suspicion for acute ischemic CVA given patient does not have any focal deficits. Unremarkable urinalysis and UDS. -Continue Zyprexa 5 mg daily; Psych reconsulted due to patient combativeness with nursing -continue mirtazapine -PT evaluation ordered: subacute rehab recommendation; CM aware #Acute hypoxic respiratory failure-resolved - etiology: possible infection (COVID or HAP) vs volume overload; COVID negative - baseline oxygen requirements: room air - supplemental oxygen: patient currently on RA - Continue protocol: continue pulse oximetry, wean oxygen as tolerated, ordered incentive spirometry and educated patient on how to use it and its importance. Unremarkable coronavirus PCR. Discontinued antibiotics as low suspicion for infection. - continue to monitor #Alcohol withdrawal-resolved #Tachycardiaresolved #Alcohol dependence -s/p CIWA protocol and librium taper, patient out of window for alcohol withdrawal. #Volume depletion-resolved #Advanced care planning -Disease education conducted, care plan discussed, diagnoses discussed, prognosis discussed, and patient acknowledges understanding with care plan -Time: +30 min #Social: Extreme difficulty with finding patient's next of kin or friends. Patient was able to provide names of family members: FatherMichael Yates Sr.; motherElvira Radha Mcfarland; sisterMarhi Radha Mcfarland; sisterNorma Bartolo. Friends of the patient have been located, and they are excited to be involved with finding the patient placement. They presented to the bedside on 07/07/2022 at the request of case management. #Discharge planning -Patient discharged from [facility] and was initially transferred from a hospital in [place] -According to nursing, over the weekend a call was received from [facility]'s office where they were informed that the patient has active warrants out for his arrest. Currently no police department is aware of warrants for the patient -we will continue search for facility for safe discharge 07/21/22; patient is still lethargic noncommunicative. Monitor off restraints Continue current management DC planning per case management possible indigent [facility] placement History Interval history: I have seen and examined the patient at the bedside Patient's chart and medications reviewed No new events reported by the nursing Vital signs noted Hospitalist Physical - Constitutional Vitals: Temp Pulse Resp BP Pulse Ox 97.8 F 72 18 108/67 76 L 07/21/22 08:03 07/21/22 08:03 07/21/22 08:03 07/21/22 08:03 07/21/22 08:03 General appearance: Present: no acute distress, cachectic, disheveled, other (Patient is lethargic, noncommunicative) - EENT Eyes: Present: PERRL, EOM intact - Neck Neck: Present: supple, normal ROM - Respiratory Respiratory effort: normal Respiratory: bilateral: diminished, rhonchi, negative: rales, wheezing - Cardiovascular Rhythm: regular - Extremities Extremities: no ischemia, pulses intact - Abdominal General gastrointestinal: soft, non-tender, non-distended, normal bowel sounds - Integumentary Integumentary: Present: clear, warm - Psychiatric Psychiatric: appropriate mood/affect, cooperative - Neurologic Neurologic: CNII-XII intact, moves all extremities HEART Score - HEART Score Troponin: Troponin T < 0.010 ng/mL (0.00-0.029) 06/18/22 17:20 Results - Labs CBC & Chem 7: 07/01/22 05:39 07/21/22 04:09 Labs: Laboratory Last Values WBC 10.2 K/mm3 (4.5-11.0) 07/01/22 05:39 RBC 4.78 M/mm3 (3.65-5.03) 07/01/22 05:39 Hgb 15.2 gm/dl (11.8-15.2) 07/01/22 05:39 Hct 45.7 % (35.5-45.6) H 07/01/22 05:39 MCV 95 fl (84-94) H 07/01/22 05:39 MCH 32 pg (28-32) 07/01/22 05:39 MCHC 33 % (32-34) 07/01/22 05:39 RDW 12.3 % (13.2-15.2) L 07/01/22 05:39 Plt Count 384 K/mm3 (140-440) 07/01/22 05:39 Lymph % (Auto) 15.1 % (13.4-35.0) 06/28/22 05:05 [place] % (Auto) 9.5 % (0.0-7.3) H 06/28/22 05:05 Eos % (Auto) 2.0 % (0.0-4.3) 06/28/22 05:05 Baso % (Auto) 0.8 % (0.0-1.8) 06/28/22 05:05 Lymph # (Auto) 1.9 K/mm3 (1.2-5.4) 06/28/22 05:05 [place] # (Auto) 1.2 K/mm3 (0.0-0.8) H 06/28/22 05:05 Eos # (Auto) 0.3 K/mm3 (0.0-0.4) 06/28/22 05:05 Baso # (Auto) 0.1 K/mm3 (0.0-0.1) 06/28/22 05:05 Add Manual Diff Complete 06/26/22 09:13 Total Counted 100 06/26/22 09:13 Seg Neutrophils % 72.6 % (40.0-70.0) H 06/28/22 05:05 Seg Neuts % (Manual) 85.0 % (40.0-70.0) H 06/26/22 09:13 Band Neutrophils % 0 % 06/26/22 09:13 Lymphocytes % (Manual) 6.0 % (13.4-35.0) L 06/26/22 09:13 Reactive Lymphs % (Man) 0 % 06/26/22 09:13 Monocytes % (Manual) 8.0 % (0.0-7.3) H 06/26/22 09:13 Eosinophils % (Manual) 0 % (0.0-4.3) 06/26/22 09:13 Basophils % (Manual) 1.0 % (0.0-1.8) 06/26/22 09:13 Metamyelocytes % 0 % 06/26/22 09:13 Myelocytes % 0 % 06/26/22 09:13 Promyelocytes % 0 % 06/26/22 09:13 Blast Cells % 0 % 06/26/22 09:13 Nucleated RBC % Not Reportable 06/26/22 09:13 Seg Neutrophils # 9.1 K/mm3 (1.8-7.7) H 06/28/22 05:05 Seg Neutrophils # Man 14.7 K/mm3 (1.8-7.7) H 06/26/22 09:13 Band Neutrophils # 0.0 K/mm3 06/26/22 09:13 Lymphocytes # (Manual) 1.0 K/mm3 (1.2-5.4) L 06/26/22 09:13 Abs React Lymphs (Man) 0.0 K/mm3 06/26/22 09:13 Monocytes # (Manual) 1.4 K/mm3 (0.0-0.8) H 06/26/22 09:13 Eosinophils # (Manual) 0.0 K/mm3 (0.0-0.4) 06/26/22 09:13 Basophils # (Manual) 0.2 K/mm3 (0.0-0.1) H 06/26/22 09:13 Metamyelocytes # 0.0 K/mm3 06/26/22 09:13 Myelocytes # 0.0 K/mm3 06/26/22 09:13 Promyelocytes # 0.0 K/mm3 06/26/22 09:13 Blast Cells # 0.0 K/mm3 06/26/22 09:13 WBC Morphology Not Reportable 06/26/22 09:13 Hypersegmented Neuts Not Reportable 06/26/22 09:13 Hyposegmented Neuts Not Reportable 06/26/22 09:13 Hypogranular Neuts Not Reportable 06/26/22 09:13 Smudge Cells Not Reportable 06/26/22 09:13 Toxic Granulation Not Reportable 06/26/22 09:13 Toxic Vacuolation Not Reportable 06/26/22 09:13 Dohle Bodies Not Reportable 06/26/22 09:13 Pelger-Huet Anomaly Not Reportable 06/26/22 09:13 Radha Rods Not Reportable 06/26/22 09:13 Platelet Estimate Consistent w auto 06/26/22 09:13 Clumped Platelets Not Reportable 06/26/22 09:13 Plt Clumps, EDTA Not Reportable 06/26/22 09:13 Large Platelets Not Reportable 06/26/22 09:13 Giant Platelets Not Reportable 06/26/22 09:13 Platelet Satelliting Not Reportable 06/26/22 09:13 Plt Morphology Comment Not Reportable 06/26/22 09:13 RBC Morphology Normal 06/26/22 09:13 Dimorphic RBCs Not Reportable 06/26/22 09:13 Polychromasia Not Reportable 06/26/22 09:13 Hypochromasia Not Reportable 06/26/22 09:13 Poikilocytosis Not Reportable 06/26/22 09:13 Anisocytosis Not Reportable 06/26/22 09:13 Microcytosis Not Reportable 06/26/22 09:13 Macrocytosis Not Reportable 06/26/22 09:13 Spherocytes Not Reportable 06/26/22 09:13 Pappenheimer Bodies Not Reportable 06/26/22 09:13 Sickle Cells Not Reportable 06/26/22 09:13 Target Cells Not Reportable 06/26/22 09:13 Tear Drop Cells Not Reportable 06/26/22 09:13 Ovalocytes Not Reportable 06/26/22 09:13 Helmet Cells Not Reportable 06/26/22 09:13 [place] Bodies Not Reportable 06/26/22 09:13 [place] Rings Not Reportable 06/26/22 09:13 [place] Cells Not Reportable 06/26/22 09:13 Bite Cells Not Reportable 06/26/22 09:13 Crenated Cell Not Reportable 06/26/22 09:13 Elliptocytes Not Reportable 06/26/22 09:13 Acanthocytes (Spur) Not Reportable 06/26/22 09:13 Rouleaux Not Reportable 06/26/22 09:13 Hemoglobin C Crystals Not Reportable 06/26/22 09:13 Schistocytes Not Reportable 06/26/22 09:13 Malaria parasites Not Reportable 06/26/22 09:13 Roland Bodies Not Reportable 06/26/22 09:13 Hem Pathologist Commnt No 06/26/22 09:13 Sodium 156 mmol/L (137-145) H 07/21/22 04:09 Potassium 4.5 mmol/L (3.6-5.0) 07/21/22 04:09 Chloride 111.9 mmol/L (98-107) H 07/21/22 04:09 Carbon Dioxide 29 mmol/L (22-30) 07/21/22 04:09 Anion Gap 20 mmol/L 07/21/22 04:09 BUN 57 mg/dL (9-20) H 07/21/22 04:09 Creatinine 2.0 mg/dL (0.8-1.3) H 07/21/22 04:09 Estimated GFR 40 ml/min 07/21/22 04:09 BUN/Creatinine Ratio 29 % 07/21/22 04:09 Glucose 122 mg/dL (75-100) H 07/21/22 04:09 POC Glucose 115 mg/dL (70-105) H 07/21/22 06:13 Hemoglobin A1c 5.7 % (4-6) 07/11/22 07:56 Lactic Acid 0.80 mmol/L (0.7-2.0) 06/18/22 17:20 Calcium 10.5 mg/dL (8.4-10.2) H 07/21/22 04:09 Total Bilirubin 0.60 mg/dL (0.1-1.2) 07/21/22 04:09 AST 23 units/L (5-40) 07/21/22 04:09 ALT 47 units/L (7-56) 07/21/22 04:09 Alkaline Phosphatase 115 units/L (35-129) 07/21/22 04:09 Ammonia 16.0 umol/L (25-60) L 06/23/22 13:00 Total Creatine Kinase 383 units/L (55-170) H 06/18/22 17:20 Troponin T < 0.010 ng/mL (0.00-0.029) 06/18/22 17:20 Total Protein 8.0 g/dL (6.3-8.2) 07/21/22 04:09 Albumin 4.7 g/dL (3.9-5) 07/21/22 04:09 Albumin/Globulin Ratio 1.4 % 07/21/22 04:09 Vitamin B1 110 nmol/L (8-30) H 06/19/22 20:22 Vitamin B12 2000 pg/mL (211-911) H 06/19/22 20:22 Folate 20.00 ng/mL (7.3-26.0) 06/19/22 20:22 TSH 1.320 mlU/mL (0.270-4.200) 06/19/22 20:22 Urine Color Colorless (Yellow) 06/18/22 Unknown Urine Turbidity Clear (Clear) 06/18/22 Unknown Urine pH 5.0 (5.0-7.0) 06/18/22 Unknown Ur Specific [place] 1.015 (1.003-1.030) 06/18/22 Unknown Urine Protein 30 mg/dl mg/dL (Negative) 06/18/22 Unknown Urine Glucose (UA) Negative mg/dL (Negative) 06/18/22 Unknown Urine Ketones 25 mg/dL (Negative) 06/18/22 Unknown Urine Blood Negative (Negative) 06/18/22 Unknown Urine Nitrite Negative (Negative) 06/18/22 Unknown Urine Bilirubin Negative (Negative) 06/18/22 Unknown Urine Urobilinogen 0.2 mg/dL (<2.0) 06/18/22 Unknown Ur Leukocyte Esterase Negative (Negative) 06/18/22 Unknown Urine WBC (Auto) 1.0 /HPF (0.0-6.0) 06/18/22 Unknown Urine RBC (Auto) < 1.0 /HPF (0.0-6.0) 06/18/22 Unknown Urine Mucus Few /HPF 06/18/22 Unknown Nasal Screen MRSA (PCR) Negative (Negative) 06/21/22 08:50 Urine Opiates Screen Negative 06/19/22 10:49 Urine Methadone Screen Negative 06/19/22 10:49 Ur Barbiturates Screen Negative 06/19/22 10:49 Ur Phencyclidine Scrn Negative 06/19/22 10:49 Ur Amphetamines Screen Negative 06/19/22 10:49 U Benzodiazepines Scrn Negative 06/19/22 10:49 Urine Cocaine Screen Negative 06/19/22 10:49 U Marijuana (THC) Screen Negative 06/19/22 10:49 Drugs of Abuse Note Disclamer 06/19/22 10:49 Plasma/Serum Alcohol < 0.01 % (0-0.07) 06/18/22 17:20 SARS-CoV-2 (PCR) Negative (Negative) 07/06/22 12:21 [place]/IV: Voiding Method Condom Catheter Active Medications - Current Medications Current Medications: Generic Name Dose Route Start Last Admin Trade Name Freq PRN Reason Stop Dose Admin Acetaminophen 650 mg 06/18/22 23:08 07/02/22 11:16 Acetaminophen 325 Mg Tab PO 650 mg Q4H PRN Administration Pain MILD(1-3)/Fever >100.5/MCGEE Haloperidol Lactate 5 mg 07/14/22 15:04 07/19/22 00:53 Haloperidol Lactate 5 Mg/1 Ml Inj IM 5 mg Q6H PRN Administration Agitation Heparin Sodium (Porcine) 5,000 unit 06/19/22 06:00 07/21/22 05:04 Heparin 5,000 Unit/1 Ml Vial SUB-Q 5,000 unit Q8HR DAVID Administration Magnesium Hydroxide 30 ml 06/18/22 23:08 Magnesium Hydroxide (Mom) Oral Liqd Udc PO Q4H PRN Constipation Metoprolol Tartrate 12.5 mg 07/18/22 10:00 07/20/22 21:47 Metoprolol Tartrate 25 Mg Tab PO Not Given BID DAVID Mirtazapine 7.5 mg 07/14/22 22:00 07/20/22 23:42 Mirtazapine 15 Mg Tab PO 7.5 mg QHS DAVID Administration Olanzapine 5 mg 07/14/22 22:00 07/20/22 23:42 Olanzapine 5 Mg Tab PO 5 mg QHS DAVID Administration Ondansetron HCl 4 mg 06/18/22 23:08 Ondansetron 4 Mg/2 Ml Inj IV Q8H PRN Nausea And Vomiting Sodium Chloride 10 ml 06/19/22 10:00 07/20/22 22:15 Sodium Chloride 0.9% 10 Ml Flush Syringe IV 10 ml BID DAVID Administration Sodium Chloride 10 ml 06/18/22 23:08 Sodium Chloride 0.9% 10 Ml Flush Syringe IV PRN PRN LINE FLUSH Nutrition/Malnutrition Assess - Dietary Evaluation Nutrition/Malnutrition Findings: Nutrition Notes Start: 06/24/22 14:15 Freq: Status: Active Protocol: Document 07/14/22 14:20 CUATE (Rec: 07/14/22 14:34 CUATE [email or web address]) Nutrition Notes Initial or Follow up Reassessment Other Pertinent Diagnosis EtOH dependence Current Diet Regular Diet (from D 07/08), D Suppl (since D 07/02). Labs/Tests 07/14: N/A. Pertinent Medications 07/14: Nutritionally unremarkable. Height 5 ft 10 in Weight 56.5 kg [place] Body Weight (kg) 75.45 BMI 17.9 Weight change and time frame 0.4 Kg body weight loss in 5 days reported. Weight Status Underweight Subjective/Other Information RD consult for routine F/U on dietary advancement. Diet+ONS continue as prescribed, Pt's PO intake of meals has been Fair (50- 75%) and well tolerated, according to ADL notes. Pt is on Room Air, O2 saturation @ 97%, according to Physical Assessment History notes. Pt remains incontinent, according to Physical Assessment History notes. Pt will be discharged to a SNF when medically cleared, according to Progress notes. Percent of energy/protein needs met: Prescribed Regular Diet provides for energy/protein needs (2,289 Kcal/89 g) during LOS; additionally, Dietary Supplements will compensate for possible poor or insufficient PO intake of meals with 320 Kcal and 32 g of protein. Burn Absent Trauma Absent GI Symptoms Other Food Allergy No Skin Integrity/Comment Assessment WNL. Current % PO Fair (50-74%) Minimum of two criteria No Fluid Accumulation N/A Reduced Vascular Radiologist Strength N/A (non-severe) Protein-Calorie Malnutrition N\A #1 Nutrition Diagnosis Inadequate protein-energy intake Comments: Pt's PO intake of meals has been Fair (50- 75%) and well tolerated, according to ADL notes. Diagnosis Progress(for reassessment Improved documentation) Is patient on ventilator? No Is Patient Ambulatory and/or Out of Bed No REE-([place]-confined to bed) 1609.452 Kcal/Kg value to use for calculation 36 Approximate Energy Requirements Using 2034 kcal/Kg Calculation Used for Recommendations Kcal/kg Additional Notes Protein: 1-1.2 g/Kg ABW; 64-77 g/day. Fluids: 1 ml/Kcal, or as per MD. Nutrition Intervention Change Diet Order: Conmtinue Regular Diet as tolerated. Add Supplement/Snack (indicate name/kcal Continue 8 fl oz Ensure High /protein ) Protein; BID. Provides kCal: 320 Provides Protein (gm) 32 Goal #1 Compensate, through dietary supplementation, for possible poor or insufficient PO intake of meals during LOS. Goal #2 Adjust the dietary intervention to better serve Pt's needs and clinical conditions during LOS. Revisit per MD consult or patient Sign Off request: Additional Comments Continue monitoring food tolerance, %PO intake of meals , dietary supplements, and BM.
[2022-07-21] MEDS: METOPROLOL TARTRATE 25 MG TAB PO SCH ×2 (09:51→21:20)
--- NOTE | 2022-07-21 12:17 | Progress Note ---
Subjective - Reason for Consult Consult date: 07/21/22 Reason for consult: agitation - Chief Complaint Chief complaint: The patient was seen today. Patient seen sleeping but easily aroused. REVIEW OF SYSTEMS: Unable to assess MENTAL STATUS: Unable to assess Assessment Delirium Treatment Plan Olanzapine 5mg to qhs Mirtazepin 7.5mg po qhs Haldol 5mg IM q6h prn agitation Medical: Per primary SItter: Defer to primary Deposition: Do not recommend acute psychiatric inpatient. Will follow. Thanks Case staffed with Dr. Alvarado Mental Status Exam - Vital signs Last Vital Signs Temp 97.0 F L 07/21/22 11:10 Pulse 50 L 07/21/22 11:10 Resp 18 07/21/22 11:10 BP 98/71 07/21/22 11:10 Pulse Ox 84 07/21/22 11:10
[2022-07-21] MEDS: MIRTAZAPINE 15 MG TAB PO SCH (21:19)
[2022-07-21] MEDS: ACETAMINOPHEN 325 MG TAB PO PRN (23:18)
[2022-07-21] MEDS ORDERED: SODIUM CHLORIDE 0.9% 1000 ML 1,000 ML IV ONE (23:54)
[2022-07-22] MEDS: HEPARIN 5,000 UNIT/1 ML VIAL SUB-Q SCH ×3 (05:00→21:09)
--- NOTE | 2022-07-22 09:47 | Progress Note ---
Assessment and Plan Assessment and plan: #Refractory metabolic encephalopathy-resolved Refractory despite patient being out of the window for alcohol withdrawal symptoms. Repeating CMP, CBC, and ammonia level. Original CT head noncontrast unremarkable for acute findings. Low clinical suspicion for acute ischemic CVA given patient does not have any focal deficits. Unremarkable urinalysis and UDS. -Continue Zyprexa 5 mg daily; Psych reconsulted due to patient combativeness with nursing -continue mirtazapine -PT evaluation ordered: subacute rehab recommendation; CM aware #Acute hypoxic respiratory failure-resolved - etiology: possible infection (COVID or HAP) vs volume overload; COVID negative - baseline oxygen requirements: room air - supplemental oxygen: patient currently on RA - Continue protocol: continue pulse oximetry, wean oxygen as tolerated, ordered incentive spirometry and educated patient on how to use it and its importance. Unremarkable coronavirus PCR. Discontinued antibiotics as low suspicion for infection. - continue to monitor #Alcohol withdrawal-resolved #Tachycardiaresolved #Alcohol dependence -s/p CIWA protocol and librium taper, patient out of window for alcohol withdrawal. #Volume depletion-resolved #Advanced care planning -Disease education conducted, care plan discussed, diagnoses discussed, prognosis discussed, and patient acknowledges understanding with care plan -Time: +30 min #Social: Extreme difficulty with finding patient's next of kin or friends. Patient was able to provide names of family members: FatherMichael Yates Sr.; motherElvira Mcfarland; sisterMarhi Radha Mcfarland; sisterNorma Bartolo. Friends of the patient have been located, and they are excited to be involved with finding the patient placement. They presented to the bedside on 07/07/2022 at the request of case management. #Discharge planning -Patient discharged from [facility] and was initially transferred from a hospital in [facility] -According to nursing, over the weekend a call was received from [facility]'s office where they were informed that the patient has active warrants out for his arrest. Currently no police department is aware of warrants for the patient -we will continue search for facility for safe discharge 07/21/22; patient is still lethargic noncommunicative. Monitor off restraints Continue current management DC planning per case management possible indigent long-term placement 07/22; patient remains lethargic opening eyes upon calling his name Awaiting placement, poor oral intake per nurse, consider [facility] placement Discussed with case management pending placement History Interval history: I have seen and examined the patient this morning during morning rounds Patient's chart and medications reviewed Patient is very lethargic confused, noncommunicative Vital signs reviewed stable No new overnight events reported by nursing Hospitalist Physical - Constitutional Vitals: Temp Pulse Resp BP Pulse Ox 98.4 F 35 L 17 150/134 74 L 07/22/22 07:20 07/22/22 07:20 07/22/22 07:20 07/22/22 07:20 07/22/22 07:20 General appearance: Present: no acute distress, cachectic, disheveled, other (Patient is lethargic, noncommunicative) - EENT Eyes: Present: PERRL, EOM intact - Neck Neck: Present: supple, normal ROM - Respiratory Respiratory effort: normal Respiratory: bilateral: diminished, negative: rales, rhonchi, wheezing - Cardiovascular Rhythm: regular Heart Sounds: Present: S1 & S2 - Extremities Extremities: 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, abnormal (Bilateral BKA) - Abdominal General gastrointestinal: soft, non-tender, non-distended, normal bowel sounds - Integumentary Integumentary: Present: clear, warm - Psychiatric Psychiatric: appropriate mood/affect, cooperative - Neurologic Neurologic: moves all extremities HEART Score - HEART Score Troponin: Troponin T < 0.010 ng/mL (0.00-0.029) 06/18/22 17:20 Results - Labs CBC & Chem 7: 07/01/22 05:39 07/21/22 04:09 Labs: Laboratory Last Values WBC 10.2 K/mm3 (4.5-11.0) 07/01/22 05:39 RBC 4.78 M/mm3 (3.65-5.03) 07/01/22 05:39 Hgb 15.2 gm/dl (11.8-15.2) 07/01/22 05:39 Hct 45.7 % (35.5-45.6) H 07/01/22 05:39 MCV 95 fl (84-94) H 07/01/22 05:39 MCH 32 pg (28-32) 07/01/22 05:39 MCHC 33 % (32-34) 07/01/22 05:39 RDW 12.3 % (13.2-15.2) L 07/01/22 05:39 Plt Count 384 K/mm3 (140-440) 07/01/22 05:39 Lymph % (Auto) 15.1 % (13.4-35.0) 06/28/22 05:05 [place] % (Auto) 9.5 % (0.0-7.3) H 06/28/22 05:05 Eos % (Auto) 2.0 % (0.0-4.3) 06/28/22 05:05 Baso % (Auto) 0.8 % (0.0-1.8) 06/28/22 05:05 Lymph # (Auto) 1.9 K/mm3 (1.2-5.4) 06/28/22 05:05 [place] # (Auto) 1.2 K/mm3 (0.0-0.8) H 06/28/22 05:05 Eos # (Auto) 0.3 K/mm3 (0.0-0.4) 06/28/22 05:05 Baso # (Auto) 0.1 K/mm3 (0.0-0.1) 06/28/22 05:05 Add Manual Diff Complete 06/26/22 09:13 Total Counted 100 06/26/22 09:13 Seg Neutrophils % 72.6 % (40.0-70.0) H 06/28/22 05:05 Seg Neuts % (Manual) 85.0 % (40.0-70.0) H 06/26/22 09:13 Band Neutrophils % 0 % 06/26/22 09:13 Lymphocytes % (Manual) 6.0 % (13.4-35.0) L 06/26/22 09:13 Reactive Lymphs % (Man) 0 % 06/26/22 09:13 Monocytes % (Manual) 8.0 % (0.0-7.3) H 06/26/22 09:13 Eosinophils % (Manual) 0 % (0.0-4.3) 06/26/22 09:13 Basophils % (Manual) 1.0 % (0.0-1.8) 06/26/22 09:13 Metamyelocytes % 0 % 06/26/22 09:13 Myelocytes % 0 % 06/26/22 09:13 Promyelocytes % 0 % 06/26/22 09:13 Blast Cells % 0 % 06/26/22 09:13 Nucleated RBC % Not Reportable 06/26/22 09:13 Seg Neutrophils # 9.1 K/mm3 (1.8-7.7) H 06/28/22 05:05 Seg Neutrophils # Man 14.7 K/mm3 (1.8-7.7) H 06/26/22 09:13 Band Neutrophils # 0.0 K/mm3 06/26/22 09:13 Lymphocytes # (Manual) 1.0 K/mm3 (1.2-5.4) L 06/26/22 09:13 Abs React Lymphs (Man) 0.0 K/mm3 06/26/22 09:13 Monocytes # (Manual) 1.4 K/mm3 (0.0-0.8) H 06/26/22 09:13 Eosinophils # (Manual) 0.0 K/mm3 (0.0-0.4) 06/26/22 09:13 Basophils # (Manual) 0.2 K/mm3 (0.0-0.1) H 06/26/22 09:13 Metamyelocytes # 0.0 K/mm3 06/26/22 09:13 Myelocytes # 0.0 K/mm3 06/26/22 09:13 Promyelocytes # 0.0 K/mm3 06/26/22 09:13 Blast Cells # 0.0 K/mm3 06/26/22 09:13 WBC Morphology Not Reportable 06/26/22 09:13 Hypersegmented Neuts Not Reportable 06/26/22 09:13 Hyposegmented Neuts Not Reportable 06/26/22 09:13 Hypogranular Neuts Not Reportable 06/26/22 09:13 Smudge Cells Not Reportable 06/26/22 09:13 Toxic Granulation Not Reportable 06/26/22 09:13 Toxic Vacuolation Not Reportable 06/26/22 09:13 Dohle Bodies Not Reportable 06/26/22 09:13 Pelger-Huet Anomaly Not Reportable 06/26/22 09:13 Radha Rods Not Reportable 06/26/22 09:13 Platelet Estimate Consistent w auto 06/26/22 09:13 Clumped Platelets Not Reportable 06/26/22 09:13 Plt Clumps, EDTA Not Reportable 06/26/22 09:13 Large Platelets Not Reportable 06/26/22 09:13 Giant Platelets Not Reportable 06/26/22 09:13 Platelet Satelliting Not Reportable 06/26/22 09:13 Plt Morphology Comment Not Reportable 06/26/22 09:13 RBC Morphology Normal 06/26/22 09:13 Dimorphic RBCs Not Reportable 06/26/22 09:13 Polychromasia Not Reportable 06/26/22 09:13 Hypochromasia Not Reportable 06/26/22 09:13 Poikilocytosis Not Reportable 06/26/22 09:13 Anisocytosis Not Reportable 06/26/22 09:13 Microcytosis Not Reportable 06/26/22 09:13 Macrocytosis Not Reportable 06/26/22 09:13 Spherocytes Not Reportable 06/26/22 09:13 Pappenheimer Bodies Not Reportable 06/26/22 09:13 Sickle Cells Not Reportable 06/26/22 09:13 Target Cells Not Reportable 06/26/22 09:13 Tear Drop Cells Not Reportable 06/26/22 09:13 Ovalocytes Not Reportable 06/26/22 09:13 Helmet Cells Not Reportable 06/26/22 09:13 [place] Bodies Not Reportable 06/26/22 09:13 [place] Rings Not Reportable 06/26/22 09:13 Cher[place] Cells Not Reportable 06/26/22 09:13 Bite Cells Not Reportable 06/26/22 09:13 Crenated Cell Not Reportable 06/26/22 09:13 Elliptocytes Not Reportable 06/26/22 09:13 Acanthocytes (Spur) Not Reportable 06/26/22 09:13 Rouleaux Not Reportable 06/26/22 09:13 Hemoglobin C Crystals Not Reportable 06/26/22 09:13 Schistocytes Not Reportable 06/26/22 09:13 Malaria parasites Not Reportable 06/26/22 09:13 Roland Bodies Not Reportable 06/26/22 09:13 Hem Pathologist Commnt No 06/26/22 09:13 Sodium 156 mmol/L (137-145) H 07/21/22 04:09 Potassium 4.5 mmol/L (3.6-5.0) 07/21/22 04:09 Chloride 111.9 mmol/L (98-107) H 07/21/22 04:09 Carbon Dioxide 29 mmol/L (22-30) 07/21/22 04:09 Anion Gap 20 mmol/L 07/21/22 04:09 BUN 57 mg/dL (9-20) H 07/21/22 04:09 Creatinine 2.0 mg/dL (0.8-1.3) H 07/21/22 04:09 Estimated GFR 40 ml/min 07/21/22 04:09 BUN/Creatinine Ratio 29 % 07/21/22 04:09 Glucose 122 mg/dL (75-100) H 07/21/22 04:09 POC Glucose 123 mg/dL (70-105) H 07/22/22 05:44 Hemoglobin A1c 5.7 % (4-6) 07/11/22 07:56 Lactic Acid 0.80 mmol/L (0.7-2.0) 06/18/22 17:20 Calcium 10.5 mg/dL (8.4-10.2) H 07/21/22 04:09 Total Bilirubin 0.60 mg/dL (0.1-1.2) 07/21/22 04:09 AST 23 units/L (5-40) 07/21/22 04:09 ALT 47 units/L (7-56) 07/21/22 04:09 Alkaline Phosphatase 115 units/L (35-129) 07/21/22 04:09 Ammonia 16.0 umol/L (25-60) L 06/23/22 13:00 Total Creatine Kinase 383 units/L (55-170) H 06/18/22 17:20 Troponin T < 0.010 ng/mL (0.00-0.029) 06/18/22 17:20 Total Protein 8.0 g/dL (6.3-8.2) 07/21/22 04:09 Albumin 4.7 g/dL (3.9-5) 07/21/22 04:09 Albumin/Globulin Ratio 1.4 % 07/21/22 04:09 Vitamin B1 110 nmol/L (8-30) H 06/19/22 20:22 Vitamin B12 2000 pg/mL (211-911) H 06/19/22 20:22 Folate 20.00 ng/mL (7.3-26.0) 06/19/22 20:22 TSH 1.320 mlU/mL (0.270-4.200) 06/19/22 20:22 Urine Color Colorless (Yellow) 06/18/22 Unknown Urine Turbidity Clear (Clear) 06/18/22 Unknown Urine pH 5.0 (5.0-7.0) 06/18/22 Unknown Ur Specific [place] 1.015 (1.003-1.030) 06/18/22 Unknown Urine Protein 30 mg/dl mg/dL (Negative) 06/18/22 Unknown Urine Glucose (UA) Negative mg/dL (Negative) 06/18/22 Unknown Urine Ketones 25 mg/dL (Negative) 06/18/22 Unknown Urine Blood Negative (Negative) 06/18/22 Unknown Urine Nitrite Negative (Negative) 06/18/22 Unknown Urine Bilirubin Negative (Negative) 06/18/22 Unknown Urine Urobilinogen 0.2 mg/dL (<2.0) 06/18/22 Unknown Ur Leukocyte Esterase Negative (Negative) 06/18/22 Unknown Urine WBC (Auto) 1.0 /HPF (0.0-6.0) 06/18/22 Unknown Urine RBC (Auto) < 1.0 /HPF (0.0-6.0) 06/18/22 Unknown Urine Mucus Few /HPF 06/18/22 Unknown Nasal Screen MRSA (PCR) Negative (Negative) 06/21/22 08:50 Urine Opiates Screen Negative 06/19/22 10:49 Urine Methadone Screen Negative 06/19/22 10:49 Ur Barbiturates Screen Negative 06/19/22 10:49 Ur Phencyclidine Scrn Negative 06/19/22 10:49 Ur Amphetamines Screen Negative 06/19/22 10:49 U Benzodiazepines Scrn Negative 06/19/22 10:49 Urine Cocaine Screen Negative 06/19/22 10:49 U Marijuana (THC) Screen Negative 06/19/22 10:49 Drugs of Abuse Note Disclamer 06/19/22 10:49 Plasma/Serum Alcohol < 0.01 % (0-0.07) 06/18/22 17:20 SARS-CoV-2 (PCR) Negative (Negative) 07/06/22 12:21 [place]/IV: Voiding Method Incontinent Active Medications - Current Medications Current Medications: Generic Name Dose Route Start Last Admin Trade Name Freq PRN Reason Stop Dose Admin Acetaminophen 650 mg 06/18/22 23:08 07/21/22 23:18 Acetaminophen 325 Mg Tab PO 650 mg Q4H PRN Administration Pain MILD(1-3)/Fever >100.5/MCGEE Haloperidol Lactate 5 mg 07/14/22 15:04 07/19/22 00:53 Haloperidol Lactate 5 Mg/1 Ml Inj IM 5 mg Q6H PRN Administration Agitation Heparin Sodium (Porcine) 5,000 unit 06/19/22 06:00 07/22/22 05:00 Heparin 5,000 Unit/1 Ml Vial SUB-Q 5,000 unit Q8HR DAVID Administration Magnesium Hydroxide 30 ml 06/18/22 23:08 Magnesium Hydroxide (Mom) Oral Liqd Udc PO Q4H PRN Constipation Metoprolol Tartrate 12.5 mg 07/18/22 10:00 07/21/22 21:20 Metoprolol Tartrate 25 Mg Tab PO Not Given BID DAVID Mirtazapine 7.5 mg 07/14/22 22:00 07/21/22 21:19 Mirtazapine 15 Mg Tab PO Not Given QHS DAVID Olanzapine 5 mg 07/14/22 22:00 07/21/22 21:19 Olanzapine 5 Mg Tab PO Not Given QHS DAVID Ondansetron HCl 4 mg 06/18/22 23:08 Ondansetron 4 Mg/2 Ml Inj IV Q8H PRN Nausea And Vomiting Sodium Chloride 10 ml 06/19/22 10:00 07/21/22 21:32 Sodium Chloride 0.9% 10 Ml Flush Syringe IV 10 ml BID DAVID Administration Sodium Chloride 10 ml 06/18/22 23:08 Sodium Chloride 0.9% 10 Ml Flush Syringe IV PRN PRN LINE FLUSH Nutrition/Malnutrition Assess - Dietary Evaluation Nutrition/Malnutrition Findings: Nutrition Notes Start: 06/24/22 14:15 Freq: Status: Active Protocol: Document 07/14/22 14:20 CUATE (Rec: 07/14/22 14:34 CUATE [id number]) Nutrition Notes Initial or Follow up Reassessment Other Pertinent Diagnosis EtOH dependence Current Diet Regular Diet (from D 07/08), D Suppl (since D 07/02). Labs/Tests 07/14: N/A. Pertinent Medications 07/14: Nutritionally unremarkable. Height 5 ft 10 in Weight 56.5 kg [place] Body Weight (kg) 75.45 BMI 17.9 Weight change and time frame 0.4 Kg body weight loss in 5 days reported. Weight Status Underweight Subjective/Other Information RD consult for routine F/U on dietary advancement. Diet+ONS continue as prescribed, Pt's PO intake of meals has been Fair (50- 75%) and well tolerated, according to ADL notes. Pt is on Room Air, O2 saturation @ 97%, according to Physical Assessment History notes. Pt remains incontinent, according to Physical Assessment History notes. Pt will be discharged to a SNF when medically cleared, according to Progress notes. Percent of energy/protein needs met: Prescribed Regular Diet provides for energy/protein needs (2,289 Kcal/89 g) during LOS; additionally, Dietary Supplements will compensate for possible poor or insufficient PO intake of meals with 320 Kcal and 32 g of protein. Burn Absent Trauma Absent GI Symptoms Other Food Allergy No Skin Integrity/Comment Assessment WNL. Current % PO Fair (50-74%) Minimum of two criteria No Fluid Accumulation N/A Reduced Glass Blowing Instructor Strength N/A (non-severe) Protein-Calorie Malnutrition N\A #1 Nutrition Diagnosis Inadequate protein-energy intake Comments: Pt's PO intake of meals has been Fair (50- 75%) and well tolerated, according to ADL notes. Diagnosis Progress(for reassessment Improved documentation) Is patient on ventilator? No Is Patient Ambulatory and/or Out of Bed No REE-([facility]-confined to bed) 1609.452 Kcal/Kg value to use for calculation 36 Approximate Energy Requirements Using 2034 kcal/Kg Calculation Used for Recommendations Kcal/kg Additional Notes Protein: 1-1.2 g/Kg ABW; 64-77 g/day. Fluids: 1 ml/Kcal, or as per MD. Nutrition Intervention Change Diet Order: Conmtinue Regular Diet as tolerated. Add Supplement/Snack (indicate name/kcal Continue 8 fl oz Ensure High /protein ) Protein; BID. Provides kCal: 320 Provides Protein (gm) 32 Goal #1 Compensate, through dietary supplementation, for possible poor or insufficient PO intake of meals during LOS. Goal #2 Adjust the dietary intervention to better serve Pt's needs and clinical conditions during LOS. Revisit per MD consult or patient Sign Off request: Additional Comments Continue monitoring food tolerance, %PO intake of meals , dietary supplements, and BM.
[2022-07-22] MEDS ORDERED: SODIUM CHLORIDE 0.9% 1000 ML 1,000 ML ONE ×2 (12:10→17:41)
--- NOTE | 2022-07-22 12:36 | Event Note ---
Date: 07/22/22 Patient suddenly became unresponsive to verbal commands Patient baseline is noncommunication Response to deep stimuli by moving Hypotensive, started on fluid bolus normal saline 1000 mL Gradually improved Patient was hypoxemic with O2 sats in 80s Started on oxygen nonrebreather with significant improvement Patient's vital signs blood pressure, pulsem and O2 sats improved. Patient does not have any family Patient is homeless awaiting placement accountant manager has a personal banking advisor patient's friend on file Unable to reach his number as the friend is out of town on work Informed his girlfriend and requested her to ask him to call immediately. Discussed with case management, will place hospice consult Disposition discharge and transfer to [facility] with hospice when stable. Patient is critically ill with very poor prognosis Hospice evaluation requested. After 15 minutes patient's friend Douglas Padron called back. I discussed in detail patient's deterioration of condition Poor prognosis, treatment plan as well as goals of treatment and CODE STATUS. He said he has been taking care of him and his financial details very closely for many years And he was concerned about his illness, and he requested to continue the current management however keep him comfortable in case of cardiac arrest DO NOT RESUSCITATE, nurse has witnessed this conversation and took verbal consent to start DNR/AND status. Patient is DNR status at this point. Case management is processing [facility] placement along with hospice. Will place [facility], for medications and diet and free water Continue oxygen titrate O2 sats more than 90% Continue IV fluids and restraints for safety. We will closely monitor the patient and adjust management as needed Total critical care time 65 minutes;
[2022-07-22 13:04] LABS: ABG Base Excess -2.1 mmol/L (-2.0-3.0); ABG HCO3 21.4 mmol/L (20.0-26.0); ABG Methemoglobin 0.6 % (0.0-1.5); ABG Oxygen Saturation 99.6 % (95.0-99.0); ABG PCO2 33.7 mm Hg; ABG PH 7.421 pH Units (7.350-7.450)
[2022-07-22 13:09] LABS: ABG PO2 431.8 mm Hg (80.0-90.0)
[2022-07-22] MEDS: METOPROLOL TARTRATE 25 MG TAB PO SCH ×2 (13:10→22:32)
--- NOTE | 2022-07-22 15:28 | XRay Report ---
CHEST 1 VIEW 07/22/2022 12:34 PM INDICATION / CLINICAL INFORMATION: Desat. COMPARISON: June 26, 2022 FINDINGS: SUPPORT DEVICES: None. HEART / MEDIASTINUM: No significant abnormality. LUNGS / PLEURA: No significant pulmonary or pleural abnormality. The left costophrenic angle is not w ell seen and a deep sulcus sign is not excluded. ADDITIONAL FINDINGS: Postsurgical change to the lower cervical spine. Severe right shoulder DJD. IMPRESSION: 1. Left costophrenic angles not well seen and a deep sulcus sign is not excluded. Recommend repeat ra diographs to exclude pneumothorax. Signer Name: Kapil Aviles DO Signed: 07/22/2022 3:24 PM Workstation Name: [email or web address]
[2022-07-22] MEDS ORDERED: LIPASE 10,500/PROTEASE 25,000/AMYLASE 43,750 (UNITS) DR CAP FEEDTUBE PRN (18:14)
[2022-07-22] MEDS ORDERED: SODIUM BICARBONATE 325 MG TAB FEEDTUBE PRN (18:14)
[2022-07-22] MEDS ORDERED: SIMPLE SYRUP 15 ML FEEDTUBE PRN ×2 (18:14)
[2022-07-22] MEDS: MIRTAZAPINE 15 MG TAB PO SCH (21:13)
[2022-07-23] MEDS ORDERED: SODIUM CHLORIDE 0.9% 1000 ML 1,000 ML IV ONE (04:39)
[2022-07-23] MEDS: HEPARIN 5,000 UNIT/1 ML VIAL SUB-Q SCH ×3 (05:08→22:01)
--- NOTE | 2022-07-23 08:44 | Progress Note ---
Assessment and Plan Assessment and plan: DNR status Acute event; 07/22/2022 Hypotension/shock Acute hypoxic respiratory failure; patient suddenly became unresponsive to verbal commands Patient baseline is noncommunication Response to deep stimuli by moving Hypotensive, started on fluid bolus normal saline 1000 mL Gradually improved Patient was hypoxemic with O2 sats in 80s Started on oxygen nonrebreather with significant improvement Discussed with NOK/family friends, patient has no other family They requested DNR status. Pending SNF with hospice #Refractory metabolic encephalopathy-resolved Refractory despite patient being out of the window for alcohol withdrawal symptoms. Repeating CMP, CBC, and ammonia level. Original CT head noncontrast unremarkable for acute findings. Low clinical suspicion for acute ischemic CVA given patient does not have any focal deficits. Unremarkable urinalysis and UDS. -Continue Zyprexa 5 mg daily; Psych reconsulted due to patient combativeness with nursing -continue mirtazapine -PT evaluation ordered: subacute rehab recommendation; CM aware #Acute hypoxic respiratory failure-resolved - etiology: possible infection (COVID or HAP) vs volume overload; COVID negative - baseline oxygen requirements: room air - supplemental oxygen: patient currently on RA - Continue protocol: continue pulse oximetry, wean oxygen as tolerated, ordered incentive spirometry and educated patient on how to use it and its importance. Unremarkable coronavirus PCR. Discontinued antibiotics as low suspicion for infection. - continue to monitor #Alcohol withdrawal-resolved #Tachycardiaresolved #Alcohol dependence -s/p CIWA protocol and librium taper, patient out of window for alcohol withdrawal. #Volume depletion-resolved #Advanced care planning -Disease education conducted, care plan discussed, diagnoses discussed, prognosis discussed, and patient acknowledges understanding with care plan -Time: +30 min #Social: Extreme difficulty with finding patient's next of kin or friends. Patient was able to provide names of family members: FatherMichael Yates Sr.; motherElvira Mcfarland; sisterMarhi Mcfarland; sisterNorma Mcfarland. Friends of the patient have been located, and they are excited to be involved with finding the patient placement. They presented to the bedside on 07/07/2022 at the request of case management. #Discharge planning -Patient discharged from [facility] and was initially transferred from a hospital in [facility] -According to nursing, over the weekend a call was received from [facility]'s office where they were informed that the patient has active warrants out for his arrest. Currently no police department is aware of warrants for the patient -we will continue search for facility for safe discharge 07/21/22; patient is still lethargic noncommunicative. Monitor off restraints Continue current management DC planning per case management possible indigent [facility] placement 07/22; patient remains lethargic opening eyes upon calling his name Awaiting placement, poor oral intake per nurse, consider [facility] placement Discussed with case management pending placement 07/23; patient is lethargic noncommunicative, patient had an acute event of hypotension hypoxia unresponsiveness Managed appropriately, patient slightly improved, only NOK family friends, requested DNR [facility] placement and tube feeding History Interval history: Patient had an episode of unresponsiveness, hypoxia, hypotension Code met was called, patient was placed on oxygen, IV boluses and supportive care Patient's blood pressures oxygen saturations improved with supplemental oxygen Discussed with close friend/family the goals of treatment, advanced directives The requested DNR status and hospice Vital signs reviewed Patient is noncommunicative Hospitalist Physical - Constitutional Vitals: Temp Pulse Resp BP Pulse Ox 97.8 F 72 20 114/74 80 L 07/23/22 07:50 07/23/22 07:50 07/23/22 07:50 07/23/22 07:50 07/23/22 07:50 General appearance: Present: mild distress, cachectic, disheveled, other (Patient is lethargic, noncommunicative) - EENT Eyes: Present: PERRL, EOM intact - Neck Neck: Present: supple, normal ROM - Respiratory Respiratory effort: normal Respiratory: bilateral: diminished, rhonchi, negative: rales, wheezing - Cardiovascular Rhythm: regular Heart Sounds: Present: S1 & S2 - Extremities Extremities: no ischemia, abnormal (Contracted ) Extremity abnormal: other (Malnourished) - Abdominal General gastrointestinal: soft, non-tender, non-distended, normal bowel sounds - Integumentary Integumentary: Present: clear, warm - Psychiatric Psychiatric: other (Noncommunicative unresponsive) - Neurologic Neurologic: other (Noncommunicative unresponsive) HEART Score - HEART Score Troponin: Troponin T < 0.010 ng/mL (0.00-0.029) 06/18/22 17:20 Results - Labs CBC & Chem 7: 07/01/22 05:39 07/21/22 04:09 Labs: Laboratory Last Values WBC 10.2 K/mm3 (4.5-11.0) 07/01/22 05:39 RBC 4.78 M/mm3 (3.65-5.03) 07/01/22 05:39 Hgb 15.2 gm/dl (11.8-15.2) 07/01/22 05:39 Hct 45.7 % (35.5-45.6) H 07/01/22 05:39 MCV 95 fl (84-94) H 07/01/22 05:39 MCH 32 pg (28-32) 07/01/22 05:39 MCHC 33 % (32-34) 07/01/22 05:39 RDW 12.3 % (13.2-15.2) L 07/01/22 05:39 Plt Count 384 K/mm3 (140-440) 07/01/22 05:39 Lymph % (Auto) 15.1 % (13.4-35.0) 06/28/22 05:05 [place] % (Auto) 9.5 % (0.0-7.3) H 06/28/22 05:05 Eos % (Auto) 2.0 % (0.0-4.3) 06/28/22 05:05 Baso % (Auto) 0.8 % (0.0-1.8) 06/28/22 05:05 Lymph # (Auto) 1.9 K/mm3 (1.2-5.4) 06/28/22 05:05 [place] # (Auto) 1.2 K/mm3 (0.0-0.8) H 06/28/22 05:05 Eos # (Auto) 0.3 K/mm3 (0.0-0.4) 06/28/22 05:05 Baso # (Auto) 0.1 K/mm3 (0.0-0.1) 06/28/22 05:05 Add Manual Diff Complete 06/26/22 09:13 Total Counted 100 06/26/22 09:13 Seg Neutrophils % 72.6 % (40.0-70.0) H 06/28/22 05:05 Seg Neuts % (Manual) 85.0 % (40.0-70.0) H 06/26/22 09:13 Band Neutrophils % 0 % 06/26/22 09:13 Lymphocytes % (Manual) 6.0 % (13.4-35.0) L 06/26/22 09:13 Reactive Lymphs % (Man) 0 % 06/26/22 09:13 Monocytes % (Manual) 8.0 % (0.0-7.3) H 06/26/22 09:13 Eosinophils % (Manual) 0 % (0.0-4.3) 06/26/22 09:13 Basophils % (Manual) 1.0 % (0.0-1.8) 06/26/22 09:13 Metamyelocytes % 0 % 06/26/22 09:13 Myelocytes % 0 % 06/26/22 09:13 Promyelocytes % 0 % 06/26/22 09:13 Blast Cells % 0 % 06/26/22 09:13 Nucleated RBC % Not Reportable 06/26/22 09:13 Seg Neutrophils # 9.1 K/mm3 (1.8-7.7) H 06/28/22 05:05 Seg Neutrophils # Man 14.7 K/mm3 (1.8-7.7) H 06/26/22 09:13 Band Neutrophils # 0.0 K/mm3 06/26/22 09:13 Lymphocytes # (Manual) 1.0 K/mm3 (1.2-5.4) L 06/26/22 09:13 Abs React Lymphs (Man) 0.0 K/mm3 06/26/22 09:13 Monocytes # (Manual) 1.4 K/mm3 (0.0-0.8) H 06/26/22 09:13 Eosinophils # (Manual) 0.0 K/mm3 (0.0-0.4) 06/26/22 09:13 Basophils # (Manual) 0.2 K/mm3 (0.0-0.1) H 06/26/22 09:13 Metamyelocytes # 0.0 K/mm3 06/26/22 09:13 Myelocytes # 0.0 K/mm3 06/26/22 09:13 Promyelocytes # 0.0 K/mm3 06/26/22 09:13 Blast Cells # 0.0 K/mm3 06/26/22 09:13 WBC Morphology Not Reportable 06/26/22 09:13 Hypersegmented Neuts Not Reportable 06/26/22 09:13 Hyposegmented Neuts Not Reportable 06/26/22 09:13 Hypogranular Neuts Not Reportable 06/26/22 09:13 Smudge Cells Not Reportable 06/26/22 09:13 Toxic Granulation Not Reportable 06/26/22 09:13 Toxic Vacuolation Not Reportable 06/26/22 09:13 Dohle Bodies Not Reportable 06/26/22 09:13 Pelger-Huet Anomaly Not Reportable 06/26/22 09:13 Radha Rods Not Reportable 06/26/22 09:13 Platelet Estimate Consistent w auto 06/26/22 09:13 Clumped Platelets Not Reportable 06/26/22 09:13 Plt Clumps, EDTA Not Reportable 06/26/22 09:13 Large Platelets Not Reportable 06/26/22 09:13 Giant Platelets Not Reportable 06/26/22 09:13 Platelet Satelliting Not Reportable 06/26/22 09:13 Plt Morphology Comment Not Reportable 06/26/22 09:13 RBC Morphology Normal 06/26/22 09:13 Dimorphic RBCs Not Reportable 06/26/22 09:13 Polychromasia Not Reportable 06/26/22 09:13 Hypochromasia Not Reportable 06/26/22 09:13 Poikilocytosis Not Reportable 06/26/22 09:13 Anisocytosis Not Reportable 06/26/22 09:13 Microcytosis Not Reportable 06/26/22 09:13 Macrocytosis Not Reportable 06/26/22 09:13 Spherocytes Not Reportable 06/26/22 09:13 Pappenheimer Bodies Not Reportable 06/26/22 09:13 Sickle Cells Not Reportable 06/26/22 09:13 Target Cells Not Reportable 06/26/22 09:13 Tear Drop Cells Not Reportable 06/26/22 09:13 Ovalocytes Not Reportable 06/26/22 09:13 Helmet Cells Not Reportable 06/26/22 09:13 Alfaro-Steen Bodies Not Reportable 06/26/22 09:13 [place] Rings Not Reportable 06/26/22 09:13 Cheryle Cells Not Reportable 06/26/22 09:13 Bite Cells Not Reportable 06/26/22 09:13 Crenated Cell Not Reportable 06/26/22 09:13 Elliptocytes Not Reportable 06/26/22 09:13 Acanthocytes (Spur) Not Reportable 06/26/22 09:13 Rouleaux Not Reportable 06/26/22 09:13 Hemoglobin C Crystals Not Reportable 06/26/22 09:13 Schistocytes Not Reportable 06/26/22 09:13 Malaria parasites Not Reportable 06/26/22 09:13 Roland Bodies Not Reportable 06/26/22 09:13 Hem Pathologist Commnt No 06/26/22 09:13 ABG pH 7.421 pH Units (7.350-7.450) 07/22/22 12:27 ABG pCO2 33.7 mm Hg 07/22/22 12:27 ABG pO2 431.8 mm Hg (80.0-90.0) H 07/22/22 12:27 ABG HCO3 21.4 mmol/L (20.0-26.0) 07/22/22 12:27 ABG O2 Saturation 99.6 % (95.0-99.0) H 07/22/22 12:27 ABG O2 Content 24.8 (0.0-44) 07/22/22 12:27 ABG Base Excess -2.1 mmol/L (-2.0-3.0) L 07/22/22 12:27 ABG Hemoglobin 17.2 gm/dl (14.0-18.0) 07/22/22 12:27 ABG Carboxyhemoglobin 1.0 % (0.0-5.0) 07/22/22 12:27 ABG Methemoglobin 0.6 % (0.0-1.5) 07/22/22 12:27 Oxyhemoglobin 98.0 % (95.0-99.0) 07/22/22 12:27 FiO2 100 % 07/22/22 12:27 Sodium 156 mmol/L (137-145) H 07/21/22 04:09 Potassium 4.5 mmol/L (3.6-5.0) 07/21/22 04:09 Chloride 111.9 mmol/L (98-107) H 07/21/22 04:09 Carbon Dioxide 29 mmol/L (22-30) 07/21/22 04:09 Anion Gap 20 mmol/L 07/21/22 04:09 BUN 57 mg/dL (9-20) H 07/21/22 04:09 Creatinine 2.0 mg/dL (0.8-1.3) H 07/21/22 04:09 Estimated GFR 40 ml/min 07/21/22 04:09 BUN/Creatinine Ratio 29 % 07/21/22 04:09 Glucose 122 mg/dL (75-100) H 07/21/22 04:09 POC Glucose 138 mg/dL (70-105) H 07/22/22 23:48 Hemoglobin A1c 5.7 % (4-6) 07/11/22 07:56 Lactic Acid 0.80 mmol/L (0.7-2.0) 06/18/22 17:20 Calcium 10.5 mg/dL (8.4-10.2) H 07/21/22 04:09 Total Bilirubin 0.60 mg/dL (0.1-1.2) 07/21/22 04:09 AST 23 units/L (5-40) 07/21/22 04:09 ALT 47 units/L (7-56) 07/21/22 04:09 Alkaline Phosphatase 115 units/L (35-129) 07/21/22 04:09 Ammonia 16.0 umol/L (25-60) L 06/23/22 13:00 Total Creatine Kinase 383 units/L (55-170) H 06/18/22 17:20 Troponin T < 0.010 ng/mL (0.00-0.029) 06/18/22 17:20 Total Protein 8.0 g/dL (6.3-8.2) 07/21/22 04:09 Albumin 4.7 g/dL (3.9-5) 07/21/22 04:09 Albumin/Globulin Ratio 1.4 % 07/21/22 04:09 Vitamin B1 110 nmol/L (8-30) H 06/19/22 20:22 Vitamin B12 2000 pg/mL (211-911) H 06/19/22 20:22 Folate 20.00 ng/mL (7.3-26.0) 06/19/22 20:22 TSH 1.320 mlU/mL (0.270-4.200) 06/19/22 20:22 Urine Color Colorless (Yellow) 06/18/22 Unknown Urine Turbidity Clear (Clear) 06/18/22 Unknown Urine pH 5.0 (5.0-7.0) 06/18/22 Unknown Ur Specific [place] 1.015 (1.003-1.030) 06/18/22 Unknown Urine Protein 30 mg/dl mg/dL (Negative) 06/18/22 Unknown Urine Glucose (UA) Negative mg/dL (Negative) 06/18/22 Unknown Urine Ketones 25 mg/dL (Negative) 06/18/22 Unknown Urine Blood Negative (Negative) 06/18/22 Unknown Urine Nitrite Negative (Negative) 06/18/22 Unknown Urine Bilirubin Negative (Negative) 06/18/22 Unknown Urine Urobilinogen 0.2 mg/dL (<2.0) 06/18/22 Unknown Ur Leukocyte Esterase Negative (Negative) 06/18/22 Unknown Urine WBC (Auto) 1.0 /HPF (0.0-6.0) 06/18/22 Unknown Urine RBC (Auto) < 1.0 /HPF (0.0-6.0) 06/18/22 Unknown Urine Mucus Few /HPF 06/18/22 Unknown Nasal Screen MRSA (PCR) Negative (Negative) 06/21/22 08:50 Urine Opiates Screen Negative 06/19/22 10:49 Urine Methadone Screen Negative 06/19/22 10:49 Ur Barbiturates Screen Negative 06/19/22 10:49 Ur Phencyclidine Scrn Negative 06/19/22 10:49 Ur Amphetamines Screen Negative 06/19/22 10:49 U Benzodiazepines Scrn Negative 06/19/22 10:49 Urine Cocaine Screen Negative 06/19/22 10:49 U Marijuana (THC) Screen Negative 06/19/22 10:49 Drugs of Abuse Note Disclamer 06/19/22 10:49 Plasma/Serum Alcohol < 0.01 % (0-0.07) 06/18/22 17:20 SARS-CoV-2 (PCR) Negative (Negative) 07/06/22 12:21 [place]/IV: Voiding Method Incontinent Active Medications - Current Medications Current Medications: Generic Name Dose Route Start Last Admin Trade Name Freq PRN Reason Stop Dose Admin Acetaminophen 650 mg 06/18/22 23:08 07/21/22 23:18 Acetaminophen 325 Mg Tab PO 650 mg Q4H PRN Administration Pain MILD(1-3)/Fever >100.5/MCGEE Lipase/Protease/Amylase 1 each 07/22/22 18:14 Lipase 10,500/Protease 25,000/Amylase 43,750 (Units) Dr Talley FEEDTUBE PRN PRN For Clogged Feeding Tube Haloperidol Lactate 5 mg 07/14/22 15:04 07/19/22 00:53 Haloperidol Lactate 5 Mg/1 Ml Inj IM 5 mg Q6H PRN Administration Agitation Heparin Sodium (Porcine) 5,000 unit 06/19/22 06:00 07/23/22 05:08 Heparin 5,000 Unit/1 Ml Vial SUB-Q 5,000 unit Q8HR DAVID Administration Magnesium Hydroxide 30 ml 06/18/22 23:08 Magnesium Hydroxide (Mom) Oral Liqd Udc PO Q4H PRN Constipation Metoprolol Tartrate 12.5 mg 07/18/22 10:00 07/22/22 22:32 Metoprolol Tartrate 25 Mg Tab PO Not Given BID DAVID Mirtazapine 7.5 mg 07/14/22 22:00 07/22/22 21:13 Mirtazapine 15 Mg Tab PO Not Given QHS DAVID Olanzapine 5 mg 07/14/22 22:00 07/22/22 21:13 Olanzapine 5 Mg Tab PO Not Given QHS DAVID Ondansetron HCl 4 mg 06/18/22 23:08 Ondansetron 4 Mg/2 Ml Inj IV Q8H PRN Nausea And Vomiting Simple Syrup 15 ml 07/22/22 18:14 Simple Syrup 15 Ml FEEDTUBE PRN PRN Hypoglycemia Simple Syrup 30 ml 07/22/22 18:14 Simple Syrup 15 Ml FEEDTUBE PRN PRN Hypoglycemia Sodium Bicarbonate 325 mg 07/22/22 18:14 Sodium Bicarbonate 325 Mg Tab FEEDTUBE PRN PRN For Clogged Feeding Tube Sodium Chloride 10 ml 06/19/22 10:00 07/22/22 21:11 Sodium Chloride 0.9% 10 Ml Flush Syringe IV 10 ml BID DAVID Administration Sodium Chloride 10 ml 06/18/22 23:08 Sodium Chloride 0.9% 10 Ml Flush Syringe IV PRN PRN LINE FLUSH Nutrition/Malnutrition Assess - Dietary Evaluation Nutrition/Malnutrition Findings: Nutrition Notes Start: 06/24/22 14:15 Freq: Status: Active Protocol: Document 07/14/22 14:20 CUATE (Rec: 07/14/22 14:34 CUATE [id number]) Nutrition Notes Initial or Follow up Reassessment Other Pertinent Diagnosis EtOH dependence Current Diet Regular Diet (from D 07/08), D Suppl (since 07/02). Labs/Tests 07/14: N/A. Pertinent Medications 07/14: Nutritionally unremarkable. Height 5 ft 10 in Weight 56.5 kg [place] Body Weight (kg) 75.45 BMI 17.9 Weight change and time frame 0.4 Kg body weight loss in 5 days reported. Weight Status Underweight Subjective/Other Information RD consult for routine F/U on dietary advancement. Diet+ONS continue as prescribed, Pt's PO intake of meals has been Fair (50- 75%) and well tolerated, according to ADL notes. Pt is on Room Air, O2 saturation @ 97%, according to Physical Assessment History notes. Pt remains incontinent, according to Physical Assessment History notes. Pt will be discharged to a SNF when medically cleared, according to Progress notes. Percent of energy/protein needs met: Prescribed Regular Diet provides for energy/protein needs (2,289 Kcal/89 g) during LOS; additionally, Dietary Supplements will compensate for possible poor or insufficient PO intake of meals with 320 Kcal and 32 g of protein. Burn Absent Trauma Absent GI Symptoms Other Food Allergy No Skin Integrity/Comment Assessment WNL. Current % PO Fair (50-74%) Minimum of two criteria No Fluid Accumulation N/A Reduced [place] Man Strength N/A (non-severe) Protein-Calorie Malnutrition N\A #1 Nutrition Diagnosis Inadequate protein-energy intake Comments: Pt's PO intake of meals has been Fair (50- 75%) and well tolerated, according to ADL notes. Diagnosis Progress(for reassessment Improved documentation) Is patient on ventilator? No Is Patient Ambulatory and/or Out of Bed No REE-([facility]-confined to bed) 1609.452 Kcal/Kg value to use for calculation 36 Approximate Energy Requirements Using 2034 kcal/Kg Calculation Used for Recommendations Kcal/kg Additional Notes Protein: 1-1.2 g/Kg ABW; 64-77 g/day. Fluids: 1 ml/Kcal, or as per MD. Nutrition Intervention Change Diet Order: Conmtinue Regular Diet as tolerated. Add Supplement/Snack (indicate name/kcal Continue 8 fl oz Ensure High /protein ) Protein; BID. Provides kCal: 320 Provides Protein (gm) 32 Goal #1 Compensate, through dietary supplementation, for possible poor or insufficient PO intake of meals during LOS. Goal #2 Adjust the dietary intervention to better serve Pt's needs and clinical conditions during LOS. Revisit per MD consult or patient Sign Off request: Additional Comments Continue monitoring food tolerance, %PO intake of meals , dietary supplements, and BM.
[2022-07-23] MEDS: METOPROLOL TARTRATE 25 MG TAB PO SCH ×2 (11:26→22:00)
--- NOTE | 2022-07-23 11:32 | XRay Report ---
CHEST 1 VIEW 07/23/2022 9:20 AM INDICATION / CLINICAL INFORMATION: Follow-up, abnormal x-ray. COMPARISON: 07/22/2022. FINDINGS: SUPPORT DEVICES: None. HEART / MEDIASTINUM: No significant abnormality. LUNGS / PLEURA: No significant pulmonary or pleural abnormality. No pneumothorax. ADDITIONAL FINDINGS: No significant additional findings. IMPRESSION: No acute abnormality. Signer Name: Richard Chang MD Signed: 07/23/2022 11:28 AM Workstation Name: [email or web address]
--- NOTE | 2022-07-23 12:38 | Progress Note ---
Subjective - Reason for Consult Consult date: 07/23/22 Reason for consult: delirium - Chief Complaint Chief complaint: The patient was seen today. He is lying in bed asleep. He arouses minimally when his name is called. Nurse notes state the patient has been lethargic and condition deteriorating. The patient's meds have been held due to low BP and lethargy. States the patient periodically pulls at lines but other than that is mostly lethargic. The patient has not been given any prn haldol. Will d/c psych meds. This patient no longer benefits from psychiatric service. Will sign off. REVIEW OF SYSTEMS: Unable to assess MENTAL STATUS: Unable to assess Assessment Delirium Treatment Plan D/c Olanzapine 5mg to qhs D/c Mirtazepin 7.5mg po qhs Haldol 5mg IM q6h prn agitation Medical: Per primary SItter: Defer to primary Deposition: Do not recommend acute psychiatric inpatient. Will sign off. Thanks Case staffed with Dr. Alvarado Mental Status Exam - Vital signs Last Vital Signs Temp 98.0 F 07/23/22 11:09 Pulse 52 L 07/23/22 11:09 Resp 18 07/23/22 11:09 BP 108/76 07/23/22 11:09 Pulse Ox 70 L 07/23/22 11:09
[2022-07-23] MEDS ORDERED: METOPROLOL TARTRATE 5 MG/5 ML INJ IV SCH (19:00)
[2022-07-24] MEDS ORDERED: SODIUM CHLORIDE 0.9% 500 ML 500 ML IV ONE (08:02)
[2022-07-24] MEDS: HEPARIN 5,000 UNIT/1 ML VIAL SUB-Q SCH ×2 (08:05→13:22)
[2022-07-24] MEDS ORDERED: D5W/0.9% NACL 1,000 ML IV SCH (09:00)
--- NOTE | 2022-07-24 09:27 | Progress Note ---
Assessment and Plan Assessment and plan: DNR status Acute event; 07/22/2022 patient suddenly became unresponsive to verbal commands Patient baseline is noncommunication Response to deep stimuli by moving Hypotensive, started on fluid bolus normal saline 1000 mL Gradually improved Patient was hypoxemic with O2 sats in 80s Started on oxygen nonrebreather with significant improvement Discussed with NOK/family friends, patient has no other family They requested DNR status. Pending SNF with hospice #Refractory metabolic encephalopathy-resolved Refractory despite patient being out of the window for alcohol withdrawal symptoms. Repeating CMP, CBC, and ammonia level. Original CT head noncontrast unremarkable for acute findings. Low clinical suspicion for acute ischemic CVA given patient does not have any focal deficits. Unremarkable urinalysis and UDS. -Continue Zyprexa 5 mg daily; Psych reconsulted due to patient combativeness with nursing -continue mirtazapine -PT evaluation ordered: subacute rehab recommendation; CM aware #Acute hypoxic respiratory failure. - etiology: possible infection (COVID or HAP) vs volume overload; COVID negative - baseline oxygen requirements: room air - supplemental oxygen: patient currently on RA - Continue protocol: continue pulse oximetry, wean oxygen as tolerated, ordered incentive spirometry and educated patient on how to use it and its importance. Unremarkable coronavirus PCR. Discontinued antibiotics as low suspicion for infection. - continue to monitor #Alcohol withdrawal-resolved #Tachy/bradycardia #Alcohol dependence -s/p CIWA protocol and librium taper, patient out of window for alcohol withdrawal. #Volume depletion-resolved #Severe malnutrition #Advanced care planning -Disease education conducted, care plan discussed, diagnoses discussed, prognosis discussed, and patient acknowledges understanding with care plan -Time: +30 min #Social: Extreme difficulty with finding patient's next of kin or friends. Patient was able to provide names of family members: FatherMichael Yates Sr.; motherElvira Mcfarland; sisterMarhi Mcfarland; sisterNorma Mcfarland. Friends of the patient have been located, and they are excited to be involved with finding the patient placement. They presented to the bedside on 07/07/2022 at the request of case management. #Discharge planning -Patient discharged from [facility] and was initially transferred from a hospital in [facility] -According to nursing, over the weekend a call was received from [facility]'s office where they were informed that the patient has active warrants out for his arrest. Currently no police department is aware of warrants for the patient -we will continue search for facility for safe discharge 07/21/22; patient is still lethargic noncommunicative. Monitor off restraints Continue current management DC planning per case management possible indigent nursing home placement 07/22; patient remains lethargic opening eyes upon calling his name Awaiting placement, poor oral intake per nurse, consider [facility] placement Discussed with case management pending placement 07/23; patient is lethargic noncommunicative, patient had an acute event of hypotension hypoxia unresponsiveness Managed appropriately, patient slightly improved, only NOK family friends, requested DNR [facility] placement and tube feeding 07/24; patient is critically ill with grave prognosis, may not survive I called next of kin/close friends who manage the patient's affairs and finances Discussed in detail the poor prognosis of the patient with multiple serious medical problems He verbalized understanding and advised to keep him comfortable DNR and hospice History Interval history: I have seen and examined the patient at the bedside Patient is critically ill severely hypoxemic, unresponsive Hypotensive, in spite of multiple fluid boluses Hypoxic even on nonrebreather Critically ill with very poor prognosis Patient is DNR status Hospitalist Physical - Constitutional Vitals: Temp Pulse Resp BP Pulse Ox 98.1 F 54 L 16 41/15 76 L 07/24/22 07:45 07/23/22 23:45 07/24/22 07:45 07/24/22 07:45 07/24/22 03:26 General appearance: Present: mild distress, severe distress, cachectic, disheveled, other (Unresponsive, on nonrebreather) - EENT Eyes: Present: PERRL, EOM intact - Neck Neck: Present: supple - Respiratory Respiratory effort: labored (Tachy/bradycardia) Respiratory: bilateral: diminished, rhonchi, negative: rales, wheezing - Cardiovascular Rhythm: regular Heart Sounds: Present: S1 & S2 (Episodes of bradycardia) - Extremities Extremities: no ischemia, abnormal ( emaciated) Extremity abnormal: other (Very thin and contracted) - Abdominal General gastrointestinal: soft, non-tender, non-distended, normal bowel sounds - Integumentary Integumentary: Present: clear, warm (Chronic changes) - Psychiatric Psychiatric: other (Unresponsive) - Neurologic Neurologic: other (Unresponsive) HEART Score - HEART Score Troponin: Troponin T < 0.010 ng/mL (0.00-0.029) 06/18/22 17:20 Results - Labs CBC & Chem 7: 07/01/22 05:39 07/21/22 04:09 Labs: Laboratory Last Values WBC 10.2 K/mm3 (4.5-11.0) 07/01/22 05:39 RBC 4.78 M/mm3 (3.65-5.03) 07/01/22 05:39 Hgb 15.2 gm/dl (11.8-15.2) 07/01/22 05:39 Hct 45.7 % (35.5-45.6) H 07/01/22 05:39 MCV 95 fl (84-94) H 07/01/22 05:39 MCH 32 pg (28-32) 07/01/22 05:39 MCHC 33 % (32-34) 07/01/22 05:39 RDW 12.3 % (13.2-15.2) L 07/01/22 05:39 Plt Count 384 K/mm3 (140-440) 07/01/22 05:39 Lymph % (Auto) 15.1 % (13.4-35.0) 06/28/22 05:05 [place] % (Auto) 9.5 % (0.0-7.3) H 06/28/22 05:05 Eos % (Auto) 2.0 % (0.0-4.3) 06/28/22 05:05 Baso % (Auto) 0.8 % (0.0-1.8) 06/28/22 05:05 Lymph # (Auto) 1.9 K/mm3 (1.2-5.4) 06/28/22 05:05 [place] # (Auto) 1.2 K/mm3 (0.0-0.8) H 06/28/22 05:05 Eos # (Auto) 0.3 K/mm3 (0.0-0.4) 06/28/22 05:05 Baso # (Auto) 0.1 K/mm3 (0.0-0.1) 06/28/22 05:05 Add Manual Diff Complete 06/26/22 09:13 Total Counted 100 06/26/22 09:13 Seg Neutrophils % 72.6 % (40.0-70.0) H 06/28/22 05:05 Seg Neuts % (Manual) 85.0 % (40.0-70.0) H 06/26/22 09:13 Band Neutrophils % 0 % 06/26/22 09:13 Lymphocytes % (Manual) 6.0 % (13.4-35.0) L 06/26/22 09:13 Reactive Lymphs % (Man) 0 % 06/26/22 09:13 Monocytes % (Manual) 8.0 % (0.0-7.3) H 06/26/22 09:13 Eosinophils % (Manual) 0 % (0.0-4.3) 06/26/22 09:13 Basophils % (Manual) 1.0 % (0.0-1.8) 06/26/22 09:13 Metamyelocytes % 0 % 06/26/22 09:13 Myelocytes % 0 % 06/26/22 09:13 Promyelocytes % 0 % 06/26/22 09:13 Blast Cells % 0 % 06/26/22 09:13 Nucleated RBC % Not Reportable 06/26/22 09:13 Seg Neutrophils # 9.1 K/mm3 (1.8-7.7) H 06/28/22 05:05 Seg Neutrophils # Man 14.7 K/mm3 (1.8-7.7) H 06/26/22 09:13 Band Neutrophils # 0.0 K/mm3 06/26/22 09:13 Lymphocytes # (Manual) 1.0 K/mm3 (1.2-5.4) L 06/26/22 09:13 Abs React Lymphs (Man) 0.0 K/mm3 06/26/22 09:13 Monocytes # (Manual) 1.4 K/mm3 (0.0-0.8) H 06/26/22 09:13 Eosinophils # (Manual) 0.0 K/mm3 (0.0-0.4) 06/26/22 09:13 Basophils # (Manual) 0.2 K/mm3 (0.0-0.1) H 06/26/22 09:13 Metamyelocytes # 0.0 K/mm3 06/26/22 09:13 Myelocytes # 0.0 K/mm3 06/26/22 09:13 Promyelocytes # 0.0 K/mm3 06/26/22 09:13 Blast Cells # 0.0 K/mm3 06/26/22 09:13 WBC Morphology Not Reportable 06/26/22 09:13 Hypersegmented Neuts Not Reportable 06/26/22 09:13 Hyposegmented Neuts Not Reportable 06/26/22 09:13 Hypogranular Neuts Not Reportable 06/26/22 09:13 Smudge Cells Not Reportable 06/26/22 09:13 Toxic Granulation Not Reportable 06/26/22 09:13 Toxic Vacuolation Not Reportable 06/26/22 09:13 Dohle Bodies Not Reportable 06/26/22 09:13 Pelger-Huet Anomaly Not Reportable 06/26/22 09:13 Radha Rods Not Reportable 06/26/22 09:13 Platelet Estimate Consistent w auto 06/26/22 09:13 Clumped Platelets Not Reportable 06/26/22 09:13 Plt Clumps, EDTA Not Reportable 06/26/22 09:13 Large Platelets Not Reportable 06/26/22 09:13 Giant Platelets Not Reportable 06/26/22 09:13 Platelet Satelliting Not Reportable 06/26/22 09:13 Plt Morphology Comment Not Reportable 06/26/22 09:13 RBC Morphology Normal 06/26/22 09:13 Dimorphic RBCs Not Reportable 06/26/22 09:13 Polychromasia Not Reportable 06/26/22 09:13 Hypochromasia Not Reportable 06/26/22 09:13 Poikilocytosis Not Reportable 06/26/22 09:13 Anisocytosis Not Reportable 06/26/22 09:13 Microcytosis Not Reportable 06/26/22 09:13 Macrocytosis Not Reportable 06/26/22 09:13 Spherocytes Not Reportable 06/26/22 09:13 Pappenheimer Bodies Not Reportable 06/26/22 09:13 Sickle Cells Not Reportable 06/26/22 09:13 Target Cells Not Reportable 06/26/22 09:13 Tear Drop Cells Not Reportable 06/26/22 09:13 Ovalocytes Not Reportable 06/26/22 09:13 Helmet Cells Not Reportable 06/26/22 09:13 Alfaro-Doon Bodies Not Reportable 06/26/22 09:13 Quincy Rings Not Reportable 06/26/22 09:13 Cheryle Cells Not Reportable 06/26/22 09:13 Bite Cells Not Reportable 06/26/22 09:13 Crenated Cell Not Reportable 06/26/22 09:13 Elliptocytes Not Reportable 06/26/22 09:13 Acanthocytes (Spur) Not Reportable 06/26/22 09:13 Rouleaux Not Reportable 06/26/22 09:13 Hemoglobin C Crystals Not Reportable 06/26/22 09:13 Schistocytes Not Reportable 06/26/22 09:13 Malaria parasites Not Reportable 06/26/22 09:13 Roland Bodies Not Reportable 06/26/22 09:13 Hem Pathologist Commnt No 06/26/22 09:13 ABG pH 7.421 pH Units (7.350-7.450) 07/22/22 12:27 ABG pCO2 33.7 mm Hg 07/22/22 12:27 ABG pO2 431.8 mm Hg (80.0-90.0) H 07/22/22 12:27 ABG HCO3 21.4 mmol/L (20.0-26.0) 07/22/22 12:27 ABG O2 Saturation 99.6 % (95.0-99.0) H 07/22/22 12:27 ABG O2 Content 24.8 (0.0-44) 07/22/22 12:27 ABG Base Excess -2.1 mmol/L (-2.0-3.0) L 07/22/22 12:27 ABG Hemoglobin 17.2 gm/dl (14.0-18.0) 07/22/22 12:27 ABG Carboxyhemoglobin 1.0 % (0.0-5.0) 07/22/22 12:27 ABG Methemoglobin 0.6 % (0.0-1.5) 07/22/22 12:27 Oxyhemoglobin 98.0 % (95.0-99.0) 07/22/22 12:27 FiO2 100 % 07/22/22 12:27 Sodium 156 mmol/L (137-145) H 07/21/22 04:09 Potassium 4.5 mmol/L (3.6-5.0) 07/21/22 04:09 Chloride 111.9 mmol/L (98-107) H 07/21/22 04:09 Carbon Dioxide 29 mmol/L (22-30) 07/21/22 04:09 Anion Gap 20 mmol/L 07/21/22 04:09 BUN 57 mg/dL (9-20) H 07/21/22 04:09 Creatinine 2.0 mg/dL (0.8-1.3) H 07/21/22 04:09 Estimated GFR 40 ml/min 07/21/22 04:09 BUN/Creatinine Ratio 29 % 07/21/22 04:09 Glucose 122 mg/dL (75-100) H 07/21/22 04:09 POC Glucose 138 mg/dL (70-105) H 07/22/22 23:48 Hemoglobin A1c 5.7 % (4-6) 07/11/22 07:56 Lactic Acid 0.80 mmol/L (0.7-2.0) 06/18/22 17:20 Calcium 10.5 mg/dL (8.4-10.2) H 07/21/22 04:09 Total Bilirubin 0.60 mg/dL (0.1-1.2) 07/21/22 04:09 AST 23 units/L (5-40) 07/21/22 04:09 ALT 47 units/L (7-56) 07/21/22 04:09 Alkaline Phosphatase 115 units/L (35-129) 07/21/22 04:09 Ammonia 16.0 umol/L (25-60) L 06/23/22 13:00 Total Creatine Kinase 383 units/L (55-170) H 06/18/22 17:20 Troponin T < 0.010 ng/mL (0.00-0.029) 06/18/22 17:20 Total Protein 8.0 g/dL (6.3-8.2) 07/21/22 04:09 Albumin 4.7 g/dL (3.9-5) 07/21/22 04:09 Albumin/Globulin Ratio 1.4 % 07/21/22 04:09 Vitamin B1 110 nmol/L (8-30) H 06/19/22 20:22 Vitamin B12 2000 pg/mL (211-911) H 06/19/22 20:22 Folate 20.00 ng/mL (7.3-26.0) 06/19/22 20:22 TSH 1.320 mlU/mL (0.270-4.200) 06/19/22 20:22 Urine Color Colorless (Yellow) 06/18/22 Unknown Urine Turbidity Clear (Clear) 06/18/22 Unknown Urine pH 5.0 (5.0-7.0) 06/18/22 Unknown Ur Specific [place] 1.015 (1.003-1.030) 06/18/22 Unknown Urine Protein 30 mg/dl mg/dL (Negative) 06/18/22 Unknown Urine Glucose (UA) Negative mg/dL (Negative) 06/18/22 Unknown Urine Ketones 25 mg/dL (Negative) 06/18/22 Unknown Urine Blood Negative (Negative) 06/18/22 Unknown Urine Nitrite Negative (Negative) 06/18/22 Unknown Urine Bilirubin Negative (Negative) 06/18/22 Unknown Urine Urobilinogen 0.2 mg/dL (<2.0) 06/18/22 Unknown Ur Leukocyte Esterase Negative (Negative) 06/18/22 Unknown Urine WBC (Auto) 1.0 /HPF (0.0-6.0) 06/18/22 Unknown Urine RBC (Auto) < 1.0 /HPF (0.0-6.0) 06/18/22 Unknown Urine Mucus Few /HPF 06/18/22 Unknown Nasal Screen MRSA (PCR) Negative (Negative) 06/21/22 08:50 Urine Opiates Screen Negative 06/19/22 10:49 Urine Methadone Screen Negative 06/19/22 10:49 Ur Barbiturates Screen Negative 06/19/22 10:49 Ur Phencyclidine Scrn Negative 06/19/22 10:49 Ur Amphetamines Screen Negative 06/19/22 10:49 U Benzodiazepines Scrn Negative 06/19/22 10:49 Urine Cocaine Screen Negative 06/19/22 10:49 U Marijuana (THC) Screen Negative 06/19/22 10:49 Drugs of Abuse Note Disclamer 06/19/22 10:49 Plasma/Serum Alcohol < 0.01 % (0-0.07) 06/18/22 17:20 SARS-CoV-2 (PCR) Negative (Negative) 07/06/22 12:21 Quezada/IV: Voiding Method Incontinent Active Medications - Current Medications Current Medications: Generic Name Dose Route Start Last Admin Trade Name Freq PRN Reason Stop Dose Admin Acetaminophen 650 mg 06/18/22 23:08 07/21/22 23:18 Acetaminophen 325 Mg Tab PO 650 mg Q4H PRN Administration Pain MILD(1-3)/Fever >100.5/MCGEE Lipase/Protease/Amylase 1 each 07/22/22 18:14 Lipase 10,500/Protease 25,000/Amylase 43,750 (Units) Dr Talley FEEDTUBE PRN PRN For Clogged Feeding Tube Haloperidol Lactate 5 mg 07/14/22 15:04 07/19/22 00:53 Haloperidol Lactate 5 Mg/1 Ml Inj IM 5 mg Q6H PRN Administration Agitation Heparin Sodium (Porcine) 5,000 unit 06/19/22 06:00 07/24/22 08:05 Heparin 5,000 Unit/1 Ml Vial SUB-Q Not Given Q8HR DAVID Dextrose/Sodium Chloride 1,000 mls @ 100 mls/hr 07/24/22 09:00 07/24/22 08:14 D5ns IV 100 mls/hr DIRECT DAVID Administration Magnesium Hydroxide 30 ml 06/18/22 23:08 Magnesium Hydroxide (Mom) Oral Liqd Udc PO Q4H PRN Constipation Metoprolol Tartrate 12.5 mg 07/18/22 10:00 07/23/22 22:00 Metoprolol Tartrate 25 Mg Tab PO Not Given BID DAVID Ondansetron HCl 4 mg 06/18/22 23:08 Ondansetron 4 Mg/2 Ml Inj IV Q8H PRN Nausea And Vomiting Simple Syrup 15 ml 07/22/22 18:14 Simple Syrup 15 Ml FEEDTUBE PRN PRN Hypoglycemia Simple Syrup 30 ml 07/22/22 18:14 Simple Syrup 15 Ml FEEDTUBE PRN PRN Hypoglycemia Sodium Bicarbonate 325 mg 07/22/22 18:14 Sodium Bicarbonate 325 Mg Tab FEEDTUBE PRN PRN For Clogged Feeding Tube Sodium Chloride 10 ml 06/19/22 10:00 07/23/22 22:00 Sodium Chloride 0.9% 10 Ml Flush Syringe IV 10 ml BID DAVID Administration Sodium Chloride 10 ml 06/18/22 23:08 Sodium Chloride 0.9% 10 Ml Flush Syringe IV PRN PRN LINE FLUSH Nutrition/Malnutrition Assess - Dietary Evaluation Nutrition/Malnutrition Findings: Nutrition Notes Start: 06/24/22 14:15 Freq: Status: Active Protocol: Document 07/23/22 10:28 TOMASA (Rec: 07/23/22 10:42 [facility] [id number]) Nutrition Notes Need for Assessment generated from: MD Order Initial or Follow up Reassessment Other Pertinent Diagnosis s/p EtOH withdrawal, dehydration Current Diet NPO Labs/Tests Labs from 07/21/22: Na 156 BUN 57 Cr 2 Ca 10.5 Pertinent Medications Reviewed Height 5 ft 10 in Weight 56.6 kg [place] Body Weight (kg) 75.45 BMI 17.9 Weight Status Underweight Subjective/Other Information RD consulted for TF. Per MD note yesterday, pt suddenly became unresponsive to verbal commands. Pt is homeless and awaiting placement. Per RN note yesterday, unsuccessful attempt to place DHT x 2 as pt is lethargic and unable to follow directions to swallow. Pt hjad consumed 15% of meals since last assessment. Burn Absent Trauma Absent Current % PO Negligible Minimum of two criteria No Energy Intake (severe) < or equal to 50% Estimated Energy Requirement > or equal to 5 days #1 Nutrition Diagnosis Inadequate protein-energy intake As Evidenced by Signs and Symptoms pt consuming <25% of meals Diagnosis Progress(for reassessment Worsened documentation) Is patient on ventilator? No Is Patient Ambulatory and/or Out of Bed No REE-([facility]-confined to bed) 1610.640 Kcal/Kg value to use for calculation 35 Approximate Energy Requirements Using 1981 kcal/Kg Calculation Used for Recommendations Kcal/kg Additional Notes Pro needs 1.2-1.5g/k-85g/ day Fluid needs 1ml/kcal Nutrition Intervention Nutrition Support: When DHT placed and placement verified, Jevity 1.2 at 65ml/ hr with 100ml water flush q4h. Kcal 1,872 Protein (gm) 87 Carbohydrates (gm) 264 Fat (gm) 61 Fluid (mL) 1,259 Fiber (gm) 28 Goal #1 Start EN support to meet nutrient needs Goal #2 Wt maintenance and/or gain Follow-Up By: 07/24/22 Additional Comments F/U: TF start
[2022-07-24] MEDS: METOPROLOL TARTRATE 25 MG TAB PO SCH (09:34)
[2022-07-24 12:14] VITALS: BP 60/33
--- NOTE | 2022-07-24 14:36 | Death Summary ---
Summary - Providers Date of service: 07/24/22 Consults: 06/19/22 10:49 Consult to Mental Health [CONS] Routine Reason For Exam: altered mental status, alcohol abuse 06/22/22 11:01 Speech Therapy Evaluation and Treat [CONS] Routine Reason For Exam: speech eval 06/23/22 18:46 Consult to Physician [CONS] Routine Comment: Consulting Provider: VILMA SIMONS Physician Instructions: Reason For Exam: Refractory acute encephalopathy 06/24/22 07:11 Consult to Dietitian/Nutrition [CONS] Routine Physician Instructions: Reason For Exam: Reason for Consult: Write/Manage Tube Feeding 06/25/22 07:39 Consult to Physician [CONS] Routine Comment: Consulting Provider: CEE GIORDANO Physician Instructions: Reason For Exam: Refractory encephalopathy 07/01/22 13:17 Speech Therapy Evaluation and Treat [CONS] Routine Reason For Exam: Swallow evaluation patient now alert 07/02/22 10:55 Physical Therapy Evaluation and Treat [CONS] Routine Comment: Reason For Exam: evaluate gait 07/13/22 12:48 Consult to Mental Health [CONS] Routine Reason For Exam: delirium, combativeness 07/21/22 12:24 Consult to Case Management [CONS] Routine Services Needed at Discharge: Other Home Health Services Notified:: PHYSIATRIST Additional Physician Instructions: 07/22/22 18:04 Consult to Dietitian/Nutrition [CONS] Routine Physician Instructions: Reason For Exam: Reason for Consult: Write/Manage Tube Feeding 07/22/22 18:14 Consult to Dietitian/Nutrition [CONS] Routine Physician Instructions: Assess nutrtn needs, initiate, modify, manage TF Reason For Exam: Reason for Consult: Write/Manage Tube Feeding Reason for Consult: Write/Manage Tube Feeding Attending: WILLIE PARISH - summary Date of admission: 06/18/22 23:09 Date of : 07/24/22 (At 14:01) Significant findings: cause of : DNR status Acute hypoxic respiratory failure; #Toxic metabolic encephalopathy #severe malnutrition #Hypotension/shock #Alcohol withdrawal Assessment and plan: Acute hypoxic respiratory failure; patient suddenly became unresponsive to verbal commands Patient baseline is noncommunication Response to deep stimuli by moving Hypotensive, started on fluid bolus normal saline 1000 mL Gradually improved Patient was hypoxemic with O2 sats in 80s Started on oxygen nonrebreather with significant improvement Discussed with NOK/family friends, patient has no other family They requested DNR status. Pending SNF with hospice #Refractory/toxic metabolic encephalopathy Partly due to alcohol withdrawal symptoms #severe malnutrition #Hypotension/shock #Alcohol withdrawal #Tachycardiaresolved #Alcohol dependence -s/p CIWA protocol and librium taper, patient out of window for alcohol withdrawal. Pertinent studies: CT head without contrast Chest x-ray Abdominal x-ray - Final diagnosis (1) Acute respiratory failure with hypoxia Note: Final diagnosis: (2) Shock Note: Final diagnosis: (3) Hypotension Note: Final diagnosis: (4) Toxic metabolic encephalopathy Note: Final diagnosis: (5) Alcohol withdrawal Qualifiers: Complication of substance-induced condition: with delirium Qualified Code(s): F10.931 - Alcohol use, unspecified with withdrawal delirium Note: Final diagnosis: (6) Severe malnutrition Note: Final diagnosis:
--- NOTE | 2022-07-24 14:38 | Event Note ---
Date: 07/24/22 Nurse called and reported that patient , as asystole on the monitor When I went and evaluated the patient, no cardiopulmonary activity noted, patient is unresponsive Pupils dilated and fixed. Patient pronounced . Time of ; 07/24/2022 at 14:01. Cause of acute hypoxic respiratory failure. DNR status I called NOK/close family friend; Mr. Douglas Heard at [phone] and informed him and offered my condolences. Charge nurse Mr. Kim discussed the details with Douglas Sparkss
== END 2022-07-24 17:00 | DRG 91 ==
LOC: ED 15:52 → 4A 23:09
PROVIDERS: ADMIT Internal Medicine Geriatric Medicine; ATTEND Internal Medicine
PROC: 4A033R1 Measurement of Arterial Saturation, Peripheral, Percutaneous Approach (ICD-10-PCS; principal; 2022-07-22)
DX: G92.8 Other toxic encephalopathy (principal); E43 Unspecified severe protein-calorie malnutrition; J96.01 Acute respiratory failure with hypoxia; F10.239 Alcohol dependence with withdrawal, unspecified; R57.9 Shock, unspecified; Z68.1 Body mass index [BMI] 19.9 or less, adult; Z20.822 Contact with and (suspected) exposure to COVID-19; F03.90 Unspecified dementia, unspecified severity, without behavioral disturbance, psychotic disturbance, mood disturbance, and anxiety; E86.0 Dehydration; B35.6 Tinea cruris; R41.0 Disorientation, unspecified; Y90.9 Presence of alcohol in blood, level not specified; E86.9 Volume depletion, unspecified; R00.0 Tachycardia, unspecified; Z66 Do not resuscitate
CPT/HCPCS: 36415; 36600; 70450; 71045; 74018; 80048; 80053; 80307; 80320; 81001; 82140; 82550; 82607; 82747; 82803; 82962; 83036; 84425; 84443; 84484; 85007; 85025; 85027; 87040; 87641; 93005; 94760; G0378; J3490; G0480; J0692; J1630; J1644; J2060; J2270; J3370; J3411; J3480; J3486; J7030; J7040; J7042; J7050; J7070; J7120; U0003